=== PATIENT | female | born 1960 | race Caucasian/White ===

== ENCOUNTER 2021-09-26 10:59 | Inpatient (IN) | payer OTHER ==
[~2021-09-26] VITALS: Ht 157.5 cm; Wt 110.0 kg
[~2021-09-26 10:59] MED LIST: ACET500T68 PO; AMLO-187 PO; ASPI325T8 PO; CITA20TA6 PO; CLOP75TA PO; CRESTOR40 MG PO; GABA600T7 PO; GLIM4TAB8 PO; INSU100V6 SQ; INSU100V8 SQ; OMEG1CAP6 PO; PRED20TA PO
[2021-09-26] MEDS ORDERED: cefTRIAXone IV Push 1 GM VIAL. IVP ONE (11:30)
--- NOTE | 2021-09-26 11:33 | ED.ADGEN ---
Past Medical History Past Surgical History: Other Additional Past Surgical Histo: UNKNOWN Smoking Status: Former Smoker Alcohol Use: None General Adult EDM: Chief Complaint: SHORTNESS OF BREATH HPI: HPI: Patient is a 61-year-old female who arrives via EMS after being found at home short of breath. Patient is cared for by her daughter after having had a stroke 2 weeks previously. Patient does wear supplemental oxygen however she was found on the floor without her oxygen and did appear to be cyanotic. Patient states she does not feel well and remains short of breath. Patient also has evidence that she may have vomited during this time. Upon finding the patient blue, the daughter contacted EMS. The patient provides very little in the way of history otherwise. Review of Systems: Review of Systems: Constitutional: Denies fever or chills. [] Eyes: Denies change in visual acuity. [] HENT: Denies nasal congestion or sore throat. [] Respiratory: Reports shortness of air. Cardiovascular: Denies chest pain or edema. [] GI: Denies abdominal pain, nausea, vomiting, bloody stools or diarrhea. [] : Denies dysuria. [] Musculoskeletal: Denies back pain or joint pain. [] Integument: Denies rash. [] Neurologic: Denies headache, focal weakness or sensory changes. [] Endocrine: Denies polyuria or polydipsia. [] Lymphatic: Denies swollen glands. [] Psychiatric: Denies depression or anxiety. [] Current Medications: Current Medications Medications (Trade) Dose Ordered Sig/Jennifer Start Time Stop Time Status Last Admin Dose Admin Ceftriaxone Sodium (Rocephin) 1 gm 1X ONCE 09/26/21 11:30 09/26/21 11:31 DC Allergies: Allergies: Allergies Coded Allergies Type Severity Reaction Last Updated Verified No Known Drug Allergies 09/16/21 No Physical Exam: PE: Constitutional: Ill-appearing and debilitated. Well developed, well nourished, non-toxic appearance. [] HENT: Normocephalic, atraumatic, bilateral external ears normal, oropharynx moist, no oral exudates, nose normal. [] Eyes: PERRLA, EOMI, conjunctiva normal, no discharge. [] Neck: Normal range of motion, no tenderness, supple, no stridor. [] Cardiovascular: Tachycardia. no murmur [] Lungs & Thorax: Diminished breath sounds bilaterally. Bilateral breath sounds clear to auscultation [] Abdomen: Obese bowel sounds normal, soft, no tenderness, no masses, no pulsatile masses. [] Skin: Warm, dry, no erythema, no rash. [] Back: No tenderness, no CVA tenderness. [] Extremities: No tenderness, no cyanosis, no clubbing, ROM intact, no edema. [] Neurologic: Alert and oriented X 3, normal motor function, normal sensory function, no focal deficits noted. [] Psychologic: Affect normal, judgement normal, mood normal. [] EKG: EKG: [] EKG was obtained at 1110 reveals sinus tachycardia with a ventricular to 112 bpm. There are no acute ST/T wave changes to denote ischemia otherwise. Heart Score: C/O Chest Pain: N/A Risk Factors: Risk Factors: DM, Current or recent (<one month) smoker, HTN, HLP, family history of CAD, obesity. Risk Scores: Score 0 - 3: 2.5% MACE over next 6 weeks - Discharge Home Score 4 - 6: 20.3% MACE over next 6 weeks - Admit for Clinical Observation Score 7 - 10: 72.7% MACE over next 6 weeks - Early Invasive Strategies Radiology/Procedures: Radiology/Procedures: [] Course & Med Decision Making: Course & Med Decision Making Pertinent Labs and Imaging studies reviewed. (See chart for details) [] Dragon Disclaimer: Dragon Disclaimer: This electronic medical record was generated, in whole or in part, using a voice recognition dictation system. Departure Departure Referrals: LUZ KEN APRN (PCP) EVIE SIMEON DO Sep 26, 2021 11:33
--- NOTE | 2021-09-26 12:05 | RAD ---
XR CHEST 1V History: Reason: SOA / Spl. Instructions: / History: Comparison: September 15, 2021 Findings: Increased multifocal right lung consolidations. Patchy left lung opacities increased. Small right ple ural effusion. Unchanged heart size. No pneumothorax. Postop changes right proximal humerus. Impression: 1. Increased multifocal bone opacities with consolidations and/or atelectasis in the right mid and l ower lung. 2. Small right pleural effusion. Electronically signed by: Matthew Reynolds DO (09/26/2021 12:03 PM) [id number]
--- NOTE | 2021-09-26 12:17 | RAD ---
CT HEAD INDICATION: Altered mental status COMPARISON: 09/15/2021 Exposure: One or more of the following individualized dose reduction techniques were utilized for thi s examination: 1. Automated exposure control 2. Adjustment of the mA and/or kV according to patient size 3. Use of iterative reconstruction technique TECHNIQUE: 5 mm contiguous axial images were obtained from the skull base to the vertex in both bone and soft tissue algorithm. FINDINGS: Mild bilateral periventricular white matter hypodensities likely chronic small vessel ischemic diseas e. Small focus of hypodensity identified in the right occipital lobe in the parafalcine region simila r to prior exam likely old infarct. No evidence of acute intracranial hemorrhage. No extra-axial fluid collections. No mass effect or midline shift. Ventricular size is appropriate. Basal cisterns are patent. No fractures identified.Eden-white differentiation is preserved.Globes and orbits are within normal l imits. Mild mucosal thickening bilateral ethmoidal sinuses and right maxillary sinus.. IMPRESSION: 1. No acute intracranial findings. 2. Small focus of hypodensity identified in the right occipital lobe in the right parafalcine region similar to prior exam likely old infarct. Electronically signed by: Fernando Garcia MD (09/26/2021 12:14 PM) [id number]
[2021-09-26 12:28] LABS: INFLUENZA A PATIENT NEGATIVE (NEGATIVE); INFLUENZA B PATIENT NEGATIVE (NEGATIVE)
--- NOTE | 2021-09-26 12:47 | EKG ---
[facility] [address] [place] [address] Test Date: 2021-09-26 Test Time: 11:12:31 Pat Name: MARIA FERNANDA KEENAN Department: Room: Gender: F Endoscopy Tech: : 1960 Requested By: EVIE SIMEON Order Number: [id number] Reading MD: Kirt Knight MD Measurements Intervals [place] Rate: 112 P: 31 MA: 154 QRS: 17 QRSD: 82 T: 45 QT: 344 QTc: 471 Interpretive Statements SINUS TACHYCARDIA Electronically Signed On 10-03-2021 15:45:06 EXTERIOR WORK HELPER by Kirt Knight MD
[2021-09-26 13:06] LABS: CALCIUM 8.4 mg/dL (8.5-10.1); CREATININE 0.9 mg/dL (0.6-1.0); GFR 63.2; POTASSIUM 3.6 mmol/L (3.5-5.1)
[2021-09-26 13:10] LABS: ALBUMIN 2.6 g/dL (3.4-5.0); ALBUMIN/GLOBULIN RATIO 0.6 (1.0-1.7); TOTAL BILIRUBIN 0.3 mg/dL (0.2-1.0); TOTAL PROTEIN 6.7 g/dL (6.4-8.2)
[2021-09-26 13:11] LABS: BASO # 0.1 x10^3/uL (0.0-0.2); BASO % 1 % (0-3); EOS % 0 % (0-3); HEMATOCRIT 40.9 % (36.0-47.0); LYMPH # 0.5 x10^3/uL (1.0-4.8); LYMPH % 6 % (24-48); MEAN CORPUSCULAR HEMOGLOBIN 29 pg (25-35); MEAN CORPUSCULAR HGB CONC 32 g/dL (31-37); MEAN CORPUSCULAR VOLUME 91 fL (79-100); MONO # 1.2 x10^3/uL (0.0-1.1); MONO % 12 % (0-9); NEUT # 8.2 x10^3/uL (1.8-7.7); NEUT % 82 % (31-73); PLATELET COUNT 270 x10^3/uL (140-400); RED BLOOD COUNT 4.47 x10^6/uL (3.50-5.40); RED CELL DISTRIBUTION WIDTH 13.9 % (11.5-14.5)
[2021-09-26 13:21] LABS: BILIRUBIN,URINE NEGATIVE (NEG); CLARITY,URINE CLOUDY; COLOR,URINE YELLOW; NITRITE,URINE POSITIVE (NEG); PH,URINE 5.5 (<5.0-8.0); PROTEIN,URINE >=300 mg/dL (NEG-TRACE); UROBILINOGEN,URINE 0.2 mg/dL (0.2 mg/dL)
[2021-09-26] MEDS ORDERED: ELECTROLYTE (NON-ICU) PROTOCOL. MC PRN (13:30)
[2021-09-26] MEDS ORDERED: ZOLPIDEM 5 MG TABLET. PO PRN (13:30)
[2021-09-26] MEDS ORDERED: ACETAMINOPHEN 325 MG TABLET. PO PRN (13:30)
[2021-09-26] MEDS ORDERED: CALCIUM CARBONATE 500 MG TAB.CHEW PO PRN (13:30)
[2021-09-26] MEDS ORDERED: ONDANSETRON PF 4 MG/2 ML VIAL. IVP PRN ×2 (13:30)
[2021-09-26 13:31] LABS: BACTERIA,URINE MANY /HPF (0-FEW)
[2021-09-26] MEDS ORDERED: AMPICILLIN/SULBACTAM 3 GM in IV NORMAL SALINE 100ML 100 ML IV ONE (14:00)
[2021-09-26] MEDS: ASPIRIN 325 MG TABLET PO SCH (15:20)
[2021-09-26] MEDS: GABAPENTIN 300 MG CAPSULE. PO SCH ×2 (15:21→22:31)
[2021-09-26] MEDS: CLOPIDOGREL BISULFATE 75 MG TABLET PO SCH (15:22)
[2021-09-26] MEDS: HEPARIN for SUB-Q USE 5,000 UNIT/ML VIAL. SQ SCH ×2 (15:23→22:33)
[2021-09-26] MEDS: INSULIN LISPRO 300 UNITS/3 ML VIAL. SQ SCH ×2 (16:30→21:00)
[2021-09-26 19:50] VITALS: BP 140/67
[2021-09-26] MEDS ORDERED: INSULIN GLARGINE SYRINGE. SQ SCH (21:00)
[2021-09-26] MEDS: ATORVASTATIN CALCIUM 40 MG TABLET. PO SCH (21:00)
[2021-09-26 22:10] VITALS: BP 147/82
[2021-09-26] MEDS ORDERED: DEXTROSE 50% 25 GM / 50ML DISP.SYRIN. IV PRN (22:15)
[2021-09-26] MEDS: SENNOSIDES/DOCUSATE 8.6/50MG TABLET. PO SCH (22:31)
[2021-09-26] MEDS: CITALOPRAM 20 MG TABLET. PO SCH (22:32)
[2021-09-26] MEDS: DOXYCYCLINE HYCLATE 100 MG TABLET PO SCH (22:32)
[2021-09-27] MEDS ORDERED: INFLUENZA VAX SCREEN BY RX. MC PRN
--- NOTE | 2021-09-27 01:06 | PDOC1 ---
History and Physical Date of Service: DOS: DATE: 09/27/21 TIME: 00:58 Chief Complaint: Chief Complain: SOB History of Present Illness: HPI: Patient really provided no history, hpi from ED Patient is a 61-year-old female who arrives via EMS after being found at home short of breath. Patient is cared for by her daughter after having had a stroke 2 weeks previously. Patient does wear supplemental oxygen however she was found on the floor without her oxygen and did appear to be cyanotic. Patient states she does not feel well and remains short of breath. Patient also has evidence that she may have vomited during this time. Upon finding the patient blue, the daughter contacted EMS. The patient provides very little in the way of history otherwise. Know patient well with recent admission Past Medical/Surgical History: PMH/PSH: HTN, Diabetes Allergies: Allergies: Coded Allergies: No Known Drug Allergies (Unverified , 09/16/21) Family History: Family History: could not obtain from patient Social History: Social History: could not obtain Current Medications: Current Medications Current Medications Ceftriaxone Sodium (Rocephin) 1 gm 1X ONCE IVP Last administered on 09/26/21at 12:53; Start 09/26/21 at 11:30; Stop 09/26/21 at 11:31; Status DC Amlodipine Besylate (Norvasc) 10 mg DAILY PO Last administered on 09/26/21at 15:22; Start 09/26/21 at 14:00 Aspirin (Fabrice Aspirin) 325 mg DAILY PO Last administered on 09/26/21at 15:20; Start 09/26/21 at 14:00 Citalopram Hydrobromide (CeleXA) 20 mg HS PO Last administered on 09/26/21at 22:32; Start 09/26/21 at 21:00 Clopidogrel Bisulfate (Plavix) 75 mg DAILY PO Last administered on 09/26/21at 15:22; Start 09/26/21 at 14:00 Insulin Glargine (Lantus Syringe) 20 unit HS SQ ; Start 09/26/21 at 21:00 Insulin Human Lispro (HumaLOG) 8 units QIDACHS SQ ; Start 09/26/21 at 16:30 Gabapentin (Neurontin) 600 mg TID PO Last administered on 09/26/21at 22:31; Start 09/26/21 at 14:00 Atorvastatin Calcium (Lipitor) 80 mg QHS PO Last administered on 09/26/21at 21:00; Start 09/26/21 at 21:00 Ampicillin Sodium/ Sulbactam Sodium 3 gm/Sodium Chloride 100 ml @ 200 mls/hr 1X ONCE IV Last administered on 09/26/21at 15:22; Start 09/26/21 at 14:00; Stop 09/26/21 at 14:56; Status DC Doxycycline Hyclate (Vibra-Tab) 100 mg BID PO Last administered on 09/26/21at 22:32; Start 09/26/21 at 21:00 Ondansetron HCl (Zofran) 4 mg PRN Q8HRS PRN IVP NAUSEA/VOMITING; Start 09/26/21 at 13:30; Stop 09/27/21 at 13:29 Acetaminophen (Tylenol) 650 mg PRN Q4HRS PRN PO FEVER > 100.3'F; Start 09/26/21 at 13:30; Stop 09/27/21 at 13:29 Ondansetron HCl (Zofran) 4 mg PRN Q6HRS PRN IVP NAUSEA/VOMITING; Start 09/26/21 at 13:30 Calcium Carbonate/ Glycine (Tums) 500 mg PRN Q3HRS PRN PO UPSET STOMACH; Start 09/26/21 at 13:30 Zolpidem Tartrate (Ambien) 5 mg PRN QHS PRN PO INSOMNIA, MAY REPEAT IN 1HR; Start 09/26/21 at 13:30 Info (Non-Icu Electrolyte Protocol) 1 ea PRN DAILY PRN MC SEE COMMENTS; Start 09/26/21 at 13:30 Acetaminophen (Tylenol) 650 mg PRN Q6HRS PRN PO Headaches, Temp > 101.5F; Start 09/26/21 at 13:30 Senna/Docusate Sodium (Senna Plus) 1 tab BID PO Last administered on 09/26/21at 22:31; Start 09/26/21 at 21:00 Heparin Sodium (Porcine) (Heparin Sodium) 5,000 unit Q8HRS SQ Last administered on 09/26/21at 22:33; Start 09/26/21 at 14:00 Dextrose (Dextrose 50%-Water Syringe) 12.5 gm PRN Q15MIN PRN IV SEE COMMENTS; Start 09/26/21 at 22:15 Info (FLU VACCINE SCREEN per RX) 1 each PRN DAILY PRN MC SEE COMMENTS; Start 09/27/21 at 00:00 Active Scripts Active Prednisone 20 Mg Tablet 2 Tab PO DAILY 5 Days Amlodipine Besylate 10 Mg Tablet 10 Mg PO DAILY 30 Days Reported Acetaminophen 500 Mg Tablet 1 Tab PO PRN Q6HRS PRN 15 Days Aspirin 325 Mg Tablet 1 Tab PO DAILY Humalog (Insulin Lispro) 100 Unit/1 Ml Vial 8 Unit SQ QIDACHS Lantus (Insulin Glargine,Hum.rec.anlog) 100 Unit/1 Ml Vial 20 Unit SQ HS Citalopram Hbr (Citalopram Hydrobromide) 20 Mg Tablet 1 Tab PO HS Fish Oil 1,000 Mg Capsule ([place]-3 Fatty Acids/Fish Oil) 1 Each Capsule 1 Each PO BID Gabapentin 600 Mg Tablet 600 Mg PO TID Glimepiride 4 Mg Tablet 1 Tab PO BID Crestor (Rosuvastatin Calcium) 40 Mg Tablet 40 Mg PO HS Clopidogrel (Clopidogrel Bisulfate) 75 Mg Tablet 1 Tab PO DAILY ROS: Review of Systems Review of System difficult to obtain Physical Exam: Vital Signs: Vital Signs Date Time Temp Pulse Resp B/P (MAP) Pulse Ox O2 Delivery O2 Flow Rate FiO2 09/26/21 22:10 97.0 88 24 147/82 (103) 93 NonRebreather Mask 15.0 97.0 Physcial Exam: GEN: No apparent distress HEENT: Normal cephalic, atraumatic, external auditory canals are patent EYES: Extraocular muscles are intact, pupil are equally round and reactive to light and accommodation MUSCULOSKELETAL: Well developed , well nourished, good range of motion ENDOCRINE: No thyromegaly was palpated LYMPHATICS: No cervical chain or axillary nodes were noted HEMATOPOIETIC: No bruising NECK: Supple, no JVD, no thyromegaly was noted LUNGS: Clear to auscultation in all lung alvarez without rhonchi or wheezing HEART: RRR, S!, S2 present. Peripheral pulses intact, no obvious murmurs noted ABDOMEN: Soft, nontender. Positive bowel sounds, no organomegaly, normal antonino l sounds EXTREMITIES: Without clubbing, cyanosis, or edema. Pedal pulses intact. Negative Homans sign NEUROLOGIC: Normal speech and tone. A&O x 3, moves all extremities, no obvious focal deficits PSYCHIATRIC: Normal affect, normal mood. Stable SKIN: No ulcerations or rashes, good skin turgor, no jaundice VASCULAR: Good capillary refill, neurovascular bundle appears to be intact Labs: Labs: Laboratory Tests Test 09/26/21 11:35 09/26/21 12:30 09/26/21 13:04 09/26/21 16:50 Influenza Type A Antigen Negative (NEGATIVE) Influenza Type B Antigen Negative (NEGATIVE) White Blood Count 10.0 x10^3/uL (4.0-11.0) Red Blood Count 4.47 x10^6/uL (3.50-5.40) Hemoglobin 13.0 g/dL (12.0-15.5) Hematocrit 40.9 % (36.0-47.0) Mean Corpuscular Volume 91 fL (79-100) Mean Corpuscular Hemoglobin 29 pg (25-35) Mean Corpuscular Hemoglobin Concent 32 g/dL (31-37) Red Cell Distribution Width 13.9 % (11.5-14.5) Platelet Count 270 x10^3/uL (140-400) Neutrophils (%) (Auto) 82 % (31-73) Lymphocytes (%) (Auto) 6 % (24-48) Monocytes (%) (Auto) 12 % (0-9) Eosinophils (%) (Auto) 0 % (0-3) Basophils (%) (Auto) 1 % (0-3) Neutrophils # (Auto) 8.2 x10^3/uL (1.8-7.7) Lymphocytes # (Auto) 0.5 x10^3/uL (1.0-4.8) Monocytes # (Auto) 1.2 x10^3/uL (0.0-1.1) Eosinophils # (Auto) 0.0 x10^3/uL (0.0-0.7) Basophils # (Auto) 0.1 x10^3/uL (0.0-0.2) Sodium Level 142 mmol/L (136-145) Potassium Level 3.6 mmol/L (3.5-5.1) Chloride Level 102 mmol/L (98-107) Carbon Dioxide Level 32 mmol/L (21-32) Anion Gap 8 (6-14) Blood Urea Nitrogen 22 mg/dL (7-20) Creatinine 0.9 mg/dL (0.6-1.0) Estimated GFR (Cockcroft-Gault) 63.2 BUN/Creatinine Ratio 24 (6-20) Glucose Level 150 mg/dL (70-99) Lactic Acid Level 1.3 mmol/L (0.4-2.0) Calcium Level 8.4 mg/dL (8.5-10.1) Total Bilirubin 0.3 mg/dL (0.2-1.0) Aspartate Amino Transf (AST/SGOT) 14 U/L (15-37) Alanine Aminotransferase (ALT/SGPT) 33 U/L (14-59) Alkaline Phosphatase 98 U/L (46-116) Creatine Kinase 25 U/L (26-192) Troponin I High Sensitivity 26 ng/L (4-50) 76 ng/L (4-50) Total Protein 6.7 g/dL (6.4-8.2) Albumin 2.6 g/dL (3.4-5.0) Albumin/Globulin Ratio 0.6 (1.0-1.7) Lipase 112 U/L (73-393) Urine Collection Type Unknown Urine Color Yellow Urine Clarity Cloudy Urine pH 5.5 (<5.0-8.0) Urine Specific [place] 1.020 (1.000-1.030) Urine Protein >=300 mg/dL (NEG-TRACE) Urine Glucose (UA) Negative mg/dL (NEG) Urine Ketones (Stick) Negative mg/dL (NEG) Urine Blood Large (NEG) Urine Nitrite Positive (NEG) Urine Bilirubin Negative (NEG) Urine Urobilinogen Dipstick 0.2 mg/dL (0.2 mg/dL) Urine Leukocyte Esterase Moderate (NEG) Urine RBC 11-20 /HPF (0-2) Urine WBC 1-4 /HPF (0-4) Urine Squamous Epithelial Cells Mod /LPF Urine Bacteria Many /HPF (0-FEW) Urine Mucus Mod /LPF Test 09/26/21 17:50 09/26/21 22:11 Glucose (Fingerstick) 140 mg/dL (70-99) 87 mg/dL (70-99) Laboratory Tests Test 09/26/21 11:35 09/26/21 12:30 09/26/21 13:04 09/26/21 16:50 Influenza Type A Antigen Negative (NEGATIVE) Influenza Type B Antigen Negative (NEGATIVE) White Blood Count 10.0 x10^3/uL (4.0-11.0) Red Blood Count 4.47 x10^6/uL (3.50-5.40) Hemoglobin 13.0 g/dL (12.0-15.5) Hematocrit 40.9 % (36.0-47.0) Mean Corpuscular Volume 91 fL (79-100) Mean Corpuscular Hemoglobin 29 pg (25-35) Mean Corpuscular Hemoglobin Concent 32 g/dL (31-37) Red Cell Distribution Width 13.9 % (11.5-14.5) Platelet Count 270 x10^3/uL (140-400) Neutrophils (%) (Auto) 82 % (31-73) Lymphocytes (%) (Auto) 6 % (24-48) Monocytes (%) (Auto) 12 % (0-9) Eosinophils (%) (Auto) 0 % (0-3) Basophils (%) (Auto) 1 % (0-3) Neutrophils # (Auto) 8.2 x10^3/uL (1.8-7.7) Lymphocytes # (Auto) 0.5 x10^3/uL (1.0-4.8) Monocytes # (Auto) 1.2 x10^3/uL (0.0-1.1) Eosinophils # (Auto) 0.0 x10^3/uL (0.0-0.7) Basophils # (Auto) 0.1 x10^3/uL (0.0-0.2) Sodium Level 142 mmol/L (136-145) Potassium Level 3.6 mmol/L (3.5-5.1) Chloride Level 102 mmol/L (98-107) Carbon Dioxide Level 32 mmol/L (21-32) Anion Gap 8 (6-14) Blood Urea Nitrogen 22 mg/dL (7-20) Creatinine 0.9 mg/dL (0.6-1.0) Estimated GFR (Cockcroft-Gault) 63.2 BUN/Creatinine Ratio 24 (6-20) Glucose Level 150 mg/dL (70-99) Lactic Acid Level 1.3 mmol/L (0.4-2.0) Calcium Level 8.4 mg/dL (8.5-10.1) Total Bilirubin 0.3 mg/dL (0.2-1.0) Aspartate Amino Transf (AST/SGOT) 14 U/L (15-37) Alanine Aminotransferase (ALT/SGPT) 33 U/L (14-59) Alkaline Phosphatase 98 U/L (46-116) Creatine Kinase 25 U/L (26-192) Troponin I High Sensitivity 26 ng/L (4-50) 76 ng/L (4-50) Total Protein 6.7 g/dL (6.4-8.2) Albumin 2.6 g/dL (3.4-5.0) Albumin/Globulin Ratio 0.6 (1.0-1.7) Lipase 112 U/L (73-393) Urine Collection Type Unknown Urine Color Yellow Urine Clarity Cloudy Urine pH 5.5 (<5.0-8.0) Urine Specific [place] 1.020 (1.000-1.030) Urine Protein >=300 mg/dL (NEG-TRACE) Urine Glucose (UA) Negative mg/dL (NEG) Urine Ketones (Stick) Negative mg/dL (NEG) Urine Blood Large (NEG) Urine Nitrite Positive (NEG) Urine Bilirubin Negative (NEG) Urine Urobilinogen Dipstick 0.2 mg/dL (0.2 mg/dL) Urine Leukocyte Esterase Moderate (NEG) Urine RBC 11-20 /HPF (0-2) Urine WBC 1-4 /HPF (0-4) Urine Squamous Epithelial Cells Mod /LPF Urine Bacteria Many /HPF (0-FEW) Urine Mucus Mod /LPF Test 09/26/21 17:50 09/26/21 22:11 Glucose (Fingerstick) 140 mg/dL (70-99) 87 mg/dL (70-99) Assessment/Plan Assessment/Plan Acute hypoxic respiratory failure 2/2 pneumonia, covid vs bacterial (CAP vs HCAP?), HTN, Diabetes -recent admission for respiratory symptoms, completed covid treatment at that time -start broad abx for pneumonia, uansyn doxy -covid may still be contributing to presentation? -consult to pulmonary 0resume home neds as indicated -dvt prophylaxis -diabetic diet Justifications for Admission Other Justification SHABANA GARNETT MD Sep 27, 2021 01:05
--- NOTE | 2021-09-27 01:19 | NUR ---
PT'S O2 SATS ARE AROUND 82% ON NRM WHICH IS 15 LITERS. RT TORRES PLACED PT ON NC AT 10 LITERS PT O2 SATS NOW ARE 91-92%
[2021-09-27 03:25] VITALS: BP 155/87
[2021-09-27] MEDS: AMPICILLIN/SULBACTAM 3 GM in IV NORMAL SALINE 100ML 100 ML IV SCH ×3 (05:59→16:44)
[2021-09-27] MEDS: HEPARIN for SUB-Q USE 5,000 UNIT/ML VIAL. SQ SCH ×2 (06:11→12:57)
[2021-09-27 07:00] VITALS: BP 189/96
[2021-09-27] MEDS: INSULIN LISPRO 300 UNITS/3 ML VIAL. SQ SCH ×3 (07:30→16:45)
[2021-09-27] MEDS: ASPIRIN 325 MG TABLET PO SCH (08:42)
[2021-09-27] MEDS: GABAPENTIN 300 MG CAPSULE. PO SCH ×3 (08:42→21:00)
[2021-09-27] MEDS: CLOPIDOGREL BISULFATE 75 MG TABLET PO SCH (08:42)
[2021-09-27] MEDS: DOXYCYCLINE HYCLATE 100 MG TABLET PO SCH ×2 (08:42→21:00)
[2021-09-27] MEDS: SENNOSIDES/DOCUSATE 8.6/50MG TABLET. PO SCH ×2 (08:42→21:00)
--- NOTE | 2021-09-27 10:42 | PDOC ---
[employer] PROGRESS NOTE Date of Service DOS: DATE: 09/27/21 TIME: 10:41 Chief Complaint Chief Complaint A/P: Acute hypoxic respiratory failure - seems to be bacterial secondary post-viral pneumonia vs persistent COVID 19 pneumonia Acute metabolic encephalopathy - due to hypoxia, will check ABG to r/o CO2 retention Obesity. Minimal tobacco history. COVID positive on 09/15/2021 DM2 - sliding scale, reduce while taking little PO HTN - prn hydralazine FEN - ADA PPX - lovenox FULL CODE Dispo - inpatient History of Present Illness History of Present Illness Ms Grigsby is a 61-year-old female w/ past medical history of diabetes mellitus type 2, dyslipidemia, recent history of CVA/TIA who comes in found down and hypoxic. Patient was found to be Covid positive on 09/15/2021 on lab results here at [facility]. Currently denies any fevers, shortness of breath or chest pain or diarrhea or dysuria. Chest x-ray revealed consolidation in the right middle and right lower lobe. Admitted with pulmonology consultation. 09/27: Patient normally wears home O2 at 2 L nasal cannula now requiring facemask O2 15l/min. She is very drowsy and cannot contribute to history today. Vitals/I&O Vitals/I&O: Vital Signs Date Time Temp Pulse Resp B/P (MAP) Pulse Ox O2 Delivery O2 Flow Rate FiO2 09/27/21 08:43 107 155/87 09/27/21 08:00 Non-Rebreather 15.0 09/27/21 07:00 99.0 24 94 99.0 I & O 09/26/21 09/26/21 09/27/21 15:00 23:00 07:00 Intake Total 100 ml 50 ml Output Total 400 ml Balance 100 ml -350 ml Physical Exam Lungs: Wheezing, Crackles Labs Labs: Laboratory Tests Test 09/26/21 11:35 09/26/21 12:30 09/26/21 13:04 09/26/21 16:50 Influenza Type A Antigen Negative (NEGATIVE) Influenza Type B Antigen Negative (NEGATIVE) White Blood Count 10.0 x10^3/uL (4.0-11.0) Red Blood Count 4.47 x10^6/uL (3.50-5.40) Hemoglobin 13.0 g/dL (12.0-15.5) Hematocrit 40.9 % (36.0-47.0) Mean Corpuscular Volume 91 fL (79-100) Mean Corpuscular Hemoglobin 29 pg (25-35) Mean Corpuscular Hemoglobin Concent 32 g/dL (31-37) Red Cell Distribution Width 13.9 % (11.5-14.5) Platelet Count 270 x10^3/uL (140-400) Neutrophils (%) (Auto) 82 % (31-73) Lymphocytes (%) (Auto) 6 % (24-48) Monocytes (%) (Auto) 12 % (0-9) Eosinophils (%) (Auto) 0 % (0-3) Basophils (%) (Auto) 1 % (0-3) Neutrophils # (Auto) 8.2 x10^3/uL (1.8-7.7) Lymphocytes # (Auto) 0.5 x10^3/uL (1.0-4.8) Monocytes # (Auto) 1.2 x10^3/uL (0.0-1.1) Eosinophils # (Auto) 0.0 x10^3/uL (0.0-0.7) Basophils # (Auto) 0.1 x10^3/uL (0.0-0.2) Sodium Level 142 mmol/L (136-145) Potassium Level 3.6 mmol/L (3.5-5.1) Chloride Level 102 mmol/L (98-107) Carbon Dioxide Level 32 mmol/L (21-32) Anion Gap 8 (6-14) Blood Urea Nitrogen 22 mg/dL (7-20) Creatinine 0.9 mg/dL (0.6-1.0) Estimated GFR (Cockcroft-Gault) 63.2 BUN/Creatinine Ratio 24 (6-20) Glucose Level 150 mg/dL (70-99) Lactic Acid Level 1.3 mmol/L (0.4-2.0) Calcium Level 8.4 mg/dL (8.5-10.1) Total Bilirubin 0.3 mg/dL (0.2-1.0) Aspartate Amino Transf (AST/SGOT) 14 U/L (15-37) Alanine Aminotransferase (ALT/SGPT) 33 U/L (14-59) Alkaline Phosphatase 98 U/L (46-116) Creatine Kinase 25 U/L (26-192) Troponin I High Sensitivity 26 ng/L (4-50) 76 ng/L (4-50) Total Protein 6.7 g/dL (6.4-8.2) Albumin 2.6 g/dL (3.4-5.0) Albumin/Globulin Ratio 0.6 (1.0-1.7) Lipase 112 U/L (73-393) Urine Collection Type Unknown Urine Color Yellow Urine Clarity Cloudy Urine pH 5.5 (<5.0-8.0) Urine Specific [place] 1.020 (1.000-1.030) Urine Protein >=300 mg/dL (NEG-TRACE) Urine Glucose (UA) Negative mg/dL (NEG) Urine Ketones (Stick) Negative mg/dL (NEG) Urine Blood Large (NEG) Urine Nitrite Positive (NEG) Urine Bilirubin Negative (NEG) Urine Urobilinogen Dipstick 0.2 mg/dL (0.2 mg/dL) Urine Leukocyte Esterase Moderate (NEG) Urine RBC 11-20 /HPF (0-2) Urine WBC 1-4 /HPF (0-4) Urine Squamous Epithelial Cells Mod /LPF Urine Bacteria Many /HPF (0-FEW) Urine Mucus Mod /LPF Test 09/26/21 17:50 09/26/21 22:11 09/27/21 08:05 Glucose (Fingerstick) 140 mg/dL (70-99) 87 mg/dL (70-99) 72 mg/dL (70-99) Comment Review of Relevant I have reviewed the following items zoë (where applicable) has been applied. Medications: Current Medications Medications (Trade) Dose Ordered Sig/Jennifer Route PRN Reason Start Time Stop Time Status Last Admin Dose Admin Ceftriaxone Sodium (Rocephin) 1 gm 1X ONCE IVP 09/26/21 11:30 09/26/21 11:31 DC 09/26/21 12:53 Amlodipine Besylate (Norvasc) 10 mg DAILY PO 09/26/21 14:00 09/27/21 08:43 Aspirin (Fabrice Aspirin) 325 mg DAILY PO 09/26/21 14:00 09/27/21 08:42 Citalopram Hydrobromide (CeleXA) 20 mg HS PO 09/26/21 21:00 09/26/21 22:32 Clopidogrel Bisulfate (Plavix) 75 mg DAILY PO 09/26/21 14:00 09/27/21 08:42 Gabapentin (Neurontin) 600 mg TID PO 09/26/21 14:00 09/27/21 08:42 Atorvastatin Calcium (Lipitor) 80 mg QHS PO 09/26/21 21:00 09/26/21 21:00 Ampicillin Sodium/ Sulbactam Sodium 3 gm/Sodium Chloride 100 ml @ 200 mls/hr 1X ONCE IV 09/26/21 14:00 09/26/21 14:56 DC 09/26/21 15:22 Doxycycline Hyclate (Vibra-Tab) 100 mg BID PO 09/26/21 21:00 09/27/21 08:42 Senna/Docusate Sodium (Senna Plus) 1 tab BID PO 09/26/21 21:00 09/27/21 08:42 Heparin Sodium (Porcine) (Heparin Sodium) 5,000 unit Q8HRS SQ 09/26/21 14:00 09/27/21 06:11 Ampicillin Sodium/ Sulbactam Sodium 3 gm/Sodium Chloride 100 ml @ 200 mls/hr Q6HRS IV 09/27/21 06:00 09/27/21 05:59 Justifications for Admission Other Justification SHABANA TY MD Sep 27, 2021 10:42
[2021-09-27 11:00] VITALS: BP 187/85
--- NOTE | 2021-09-27 11:13 | CONS ---
DATE OF CONSULTATION: 09/27/2021 PULMONARY CONSULTATION ATTENDING PHYSICIAN: Theron Bruner MD. REASON FOR CONSULTATION: Respiratory failure, pneumonia. HISTORY OF PRESENT ILLNESS: The patient is a 61-year-old female who has no significant tobacco history. The patient was hospitalized as she was noted to have shortness of breath. The patient also has a cough. Denies any chest pain. Denies any abdominal pain. No nausea, vomiting or diarrhea. The patient noted a fever of 99.9. The patient was seen in the Emergency Room. A chest x-ray revealed consolidation in the right middle and right lower lobe. There may be tiny pleural effusion. The patient was COVID positive on the 6th. She was in the hospital at that time. The patient normally wears home oxygen at 2 liters. She is currently requiring oxygen via nonrebreather mask at 15 liters. I have been asked to see her for further evaluation. PAST MEDICAL HISTORY: Significant for history of diabetes and hypertension. PAST SURGICAL HISTORY: No recent surgeries. ALLERGIES: None. MEDICATIONS: Reviewed as listed in the MRAD including antibiotics as well as heparin for DVT prophylaxis. REVIEW OF SYSTEMS: Twelve-point review of system obtained. Pertinent positives discussed in my present illness, otherwise noncontributory. All systems that were negative were reviewed as well. SOCIAL HISTORY: She has minimal tobacco. FAMILY HISTORY: Noncontributory to lungs. PHYSICAL EXAMINATION: VITAL SIGNS: Reviewed. Pulse ox is 94%, currently on nonrebreather mask. T-max of 99.9. GENERAL: Visual exam done due to COVID-19. No paradoxical breathing. She is comfortable. She is obese. EXTREMITIES: With trace leg edema. LABORATORY DATA: Reviewed. Influenza negative. Her chemistry shows a BUN of 22, creatinine 0.9. White cell count 10.0, hemoglobin 13.0, platelets 270. IMPRESSION: 1. Acute hypoxic respiratory failure in a patient who was diagnosed with COVID-19 on 09/15/2021. She now has consolidation in the right middle and right lower lobe. The possibility of superimposed bacterial pneumonia would be a consideration. 2. Underlying obesity. 3. Minimal tobacco history. 4. Abnormal chest x-ray as discussed above. 5. COVID positive on 09/15/2021. RECOMMENDATIONS: 1. Continue present oxygen and closely monitor her respiratory status. 2. We will also consider a CT chest if there is no radiographic improvement. This consolidation has occurred as a new finding since the 09/15 chest x-ray and likely an infectious etiology. 3. Continue present empiric antibiotic. 4. Continue with heparin for DVT prophylaxis. 5. Monitor the clinical course. 6. Discussed with RN. We will follow along with you. RAYMOND DR: Raquel TID: [id number]
[2021-09-27] MEDS ORDERED: POTASSIUM CL 20MEQ D5-0.45NACL 1,000 ML IV ONE (12:00)
--- NOTE | 2021-09-27 14:37 | NUR ---
SS following for discharge planning. SS reviewed pt chart and discussed with pt RN. Pt is from home with spouse and is currently requiring oxygen at 15 liters non-rebreather and 10 liters nasal canula. COVID19 positive. Pt on IV Ampicillin. Not ready. SS will continue to follow for discharge planning.
[2021-09-27 15:00] VITALS: BP 194/78
[2021-09-27 16:08] LABS: BASE EXCESS COOX 9 mmol/L (-3-3); HCO3 COOX 38 mmol/L (21-28); METHEMOGLOBIN 0.4 % (0.0-1.9); OXYHEMOGLOBIN 87.4 %; PCO2 COOX 73 mmHg (35-46); PO2 COOX 58 mmHg (65-108); SAT O2 COOX 88 % (92-99)
[2021-09-27 19:00] VITALS: BP 121/67
[2021-09-27] MEDS: ATORVASTATIN CALCIUM 40 MG TABLET. PO SCH (21:00)
[2021-09-27] MEDS: CITALOPRAM 20 MG TABLET. PO SCH (21:00)
[2021-09-27] MEDS: INSULIN GLARGINE SYRINGE. SQ SCH (21:00)
[2021-09-27] MEDS: LACTOBACILLUS RHAMNOSUS GG 1 CAPSULE. PO SCH (21:00)
[2021-09-27 23:00] VITALS: BP 150/69
[2021-09-28] MEDS: AMPICILLIN/SULBACTAM 3 GM in IV NORMAL SALINE 100ML 100 ML IV SCH ×4 (01:20→16:33)
[2021-09-28] MEDS: HEPARIN for SUB-Q USE 5,000 UNIT/ML VIAL. SQ SCH ×4 (01:22→21:11)
[2021-09-28 03:00] VITALS: BP 134/73
[2021-09-28 04:43] LABS: BASO % 1 % (0-3); EOS % 1 % (0-3); HEMATOCRIT 39.4 % (36.0-47.0); HEMOGLOBIN 12.6 g/dL (12.0-15.5); LYMPH # 0.6 x10^3/uL (1.0-4.8); LYMPH % 9 % (24-48); MEAN CORPUSCULAR HEMOGLOBIN 30 pg (25-35); MEAN CORPUSCULAR HGB CONC 32 g/dL (31-37); MEAN CORPUSCULAR VOLUME 92 fL (79-100); MONO # 0.7 x10^3/uL (0.0-1.1); MONO % 10 % (0-9); NEUT % 79 % (31-73); PLATELET COUNT 222 x10^3/uL (140-400); RED BLOOD COUNT 4.27 x10^6/uL (3.50-5.40); RED CELL DISTRIBUTION WIDTH 14.6 % (11.5-14.5); WHITE BLOOD COUNT 6.4 x10^3/uL (4.0-11.0)
[2021-09-28 05:10] LABS: ALBUMIN 2.2 g/dL (3.4-5.0); ALBUMIN/GLOBULIN RATIO 0.6 (1.0-1.7); CREATININE 0.9 mg/dL (0.6-1.0); GFR 63.2; POTASSIUM 3.9 mmol/L (3.5-5.1); TOTAL BILIRUBIN 0.2 mg/dL (0.2-1.0); TOTAL PROTEIN 6.1 g/dL (6.4-8.2)
[2021-09-28 07:00] VITALS: BP 157/68
[2021-09-28] MEDS: INSULIN LISPRO 300 UNITS/3 ML VIAL. SQ SCH ×3 (08:00→16:39)
[2021-09-28] MEDS: LACTOBACILLUS RHAMNOSUS GG 1 CAPSULE. PO SCH ×2 (08:58→21:09)
[2021-09-28] MEDS: SENNOSIDES/DOCUSATE 8.6/50MG TABLET. PO SCH ×2 (08:59→21:00)
[2021-09-28] MEDS: ASPIRIN 325 MG TABLET PO SCH (08:59)
[2021-09-28] MEDS: GABAPENTIN 300 MG CAPSULE. PO SCH ×3 (08:59→21:10)
[2021-09-28] MEDS: CLOPIDOGREL BISULFATE 75 MG TABLET PO SCH (08:59)
[2021-09-28] MEDS: DOXYCYCLINE HYCLATE 100 MG TABLET PO SCH ×2 (08:59→21:09)
[2021-09-28 11:00] VITALS: BP 146/67
--- NOTE | 2021-09-28 11:27 | PDOC ---
[employer] PROGRESS NOTE Date of Service DOS: DATE: 09/28/21 TIME: 11:26 Chief Complaint Chief Complaint A/P: Acute hypoxic respiratory failure - seems to be bacterial secondary post-viral pneumonia vs persistent COVID 19 pneumonia Acute metabolic encephalopathy - due to hypoxia, will check ABG to r/o CO2 retention Obesity. Minimal tobacco history. COVID positive on 09/15/2021 DM2 - sliding scale, reduce while taking little PO HTN - prn hydralazine FEN - ADA PPX - lovenox FULL CODE Dispo - inpatient History of Present Illness History of Present Illness Ms Grigsby is a 61-year-old female w/ past medical history of diabetes mellitus type 2, dyslipidemia, recent history of CVA/TIA who comes in found down and hypoxic. Patient was found to be Covid positive on 09/15/2021 on lab results here at [facility]. Currently denies any fevers, shortness of breath or chest pain or diarrhea or dysuria. Chest x-ray revealed consolidation in the right middle and right lower lobe. Admitted with pulmonology consultation. 09/27: Patient normally wears home O2 at 2 L nasal cannula now requiring facemask O2 15l/min. She is very drowsy and cannot contribute to history today. 09/28: ABG 7.3 3/58 placed on BiPAP overnight with good improvement in her mental status. She feels a little better today still on 10 L/min facemask O2 with saturations 96%. She has a good appetite is eating breakfast. Preliminary blood cultures 1 out of 4 positive GPC, urine culture preliminary E. coli. Vitals/I&O Vitals/I&O: Vital Signs Date Time Temp Pulse Resp B/P (MAP) Pulse Ox O2 Delivery O2 Flow Rate FiO2 09/28/21 08:59 82 134/73 09/28/21 08:00 Nasal Cannula 10.0 09/28/21 07:19 97 09/28/21 07:00 97.2 18 97.2 I & O 09/27/21 09/27/21 09/28/21 15:00 23:00 07:00 Intake Total 400 ml 1250 ml Output Total 575 ml 400 ml Balance 400 ml -575 ml 850 ml Physical Exam General: Alert, Cooperative, moderate distress Lungs: Wheezing, Crackles Labs Labs: Laboratory Tests Test 09/27/21 11:42 09/27/21 11:50 09/27/21 16:07 09/27/21 16:40 Glucose (Fingerstick) 78 mg/dL (70-99) 96 mg/dL (70-99) SARS-CoV-2 RNA (IFRAH) Positive (Negative) O2 Saturation 88 % (92-99) Arterial Blood pH 7.33 (7.35-7.45) Arterial Blood pCO2 at Patient Temp 73 mmHg (35-46) Arterial Blood pO2 at Patient Temp 58 mmHg (65-108) Arterial Blood HCO3 38 mmol/L (21-28) Arterial Blood Base Excess 9 mmol/L (-3-3) Oxyhemoglobin 87.4 % Methemoglobin 0.4 % (0.0-1.9) Carbon Monoxide, Quantitative 0.3 % (0.0-1.9) FiO2 100% 15lnc+15lnrb Test 09/27/21 20:40 09/28/21 03:50 09/28/21 08:14 Glucose (Fingerstick) 87 mg/dL (70-99) 82 mg/dL (70-99) White Blood Count 6.4 x10^3/uL (4.0-11.0) Red Blood Count 4.27 x10^6/uL (3.50-5.40) Hemoglobin 12.6 g/dL (12.0-15.5) Hematocrit 39.4 % (36.0-47.0) Mean Corpuscular Volume 92 fL (79-100) Mean Corpuscular Hemoglobin 30 pg (25-35) Mean Corpuscular Hemoglobin Concent 32 g/dL (31-37) Red Cell Distribution Width 14.6 % (11.5-14.5) Platelet Count 222 x10^3/uL (140-400) Neutrophils (%) (Auto) 79 % (31-73) Lymphocytes (%) (Auto) 9 % (24-48) Monocytes (%) (Auto) 10 % (0-9) Eosinophils (%) (Auto) 1 % (0-3) Basophils (%) (Auto) 1 % (0-3) Neutrophils # (Auto) 5.0 x10^3/uL (1.8-7.7) Lymphocytes # (Auto) 0.6 x10^3/uL (1.0-4.8) Monocytes # (Auto) 0.7 x10^3/uL (0.0-1.1) Eosinophils # (Auto) 0.0 x10^3/uL (0.0-0.7) Basophils # (Auto) 0.0 x10^3/uL (0.0-0.2) Sodium Level 144 mmol/L (136-145) Potassium Level 3.9 mmol/L (3.5-5.1) Chloride Level 103 mmol/L (98-107) Carbon Dioxide Level 34 mmol/L (21-32) Anion Gap 7 (6-14) Blood Urea Nitrogen 19 mg/dL (7-20) Creatinine 0.9 mg/dL (0.6-1.0) Estimated GFR (Cockcroft-Gault) 63.2 BUN/Creatinine Ratio 21 (6-20) Glucose Level 86 mg/dL (70-99) Calcium Level 8.0 mg/dL (8.5-10.1) Total Bilirubin 0.2 mg/dL (0.2-1.0) Aspartate Amino Transf (AST/SGOT) 19 U/L (15-37) Alanine Aminotransferase (ALT/SGPT) 20 U/L (14-59) Alkaline Phosphatase 72 U/L (46-116) Total Protein 6.1 g/dL (6.4-8.2) Albumin 2.2 g/dL (3.4-5.0) Albumin/Globulin Ratio 0.6 (1.0-1.7) Comment Review of Relevant I have reviewed the following items zoë (where applicable) has been applied. Medications: Current Medications Medications (Trade) Dose Ordered Sig/Jennifer Route PRN Reason Start Time Stop Time Status Last Admin Dose Admin Potassium Chloride/Dextrose/ Sod Cl 1,000 ml @ 75 mls/hr [id number] ONCE IV 09/27/21 12:00 09/28/21 01:19 DC 09/27/21 11:59 Lactobacillus Rhamnosus (Culturelle) 1 cap BID PO 09/27/21 21:00 09/28/21 08:58 Justifications for Admission Other Justification SHABANA TY MD Sep 28, 2021 11:27
--- NOTE | 2021-09-28 14:11 | NUR ---
SS following up with discharge planning. SS reviewed pt chart and discussed with pt RN. Pt is currently requiring BIPAP at 80% and 10 liters nasal canula with meals. COVID19 positive. Pt on IV Ampicillin and PO Doxycycline. Not ready. Pt's daughter contacted SS and requested DPOA paperwork. SS met with pt and discussed. Pt not feeling well enough to complete DPOA paperwork but did request that her daughter, Myra, , be pt's primary designated contact for the hospital updates. Pt requested that her code be changed and only be given to her daughter Myra. Pt's RN notified. Pt's daughter also reported that pt's home recently had carbon monoxide leak and requested call from RN or physician to discuss. Physician notified. SS will continue to follow for discharge planning.
[2021-09-28 15:00] VITALS: BP 203/71
[2021-09-28] MEDS: ACETAMINOPHEN 325 MG TABLET. PO PRN ×2 (17:17→21:08)
[2021-09-28] MEDS: hydrALAZINE 20 MG/ML VIAL. IVP PRN (17:39)
[2021-09-28 19:31] VITALS: BP 176/74
[2021-09-28] MEDS: ATORVASTATIN CALCIUM 40 MG TABLET. PO SCH (21:09)
[2021-09-28] MEDS: CITALOPRAM 20 MG TABLET. PO SCH (21:09)
[2021-09-28] MEDS: INSULIN GLARGINE SYRINGE. SQ SCH (21:10)
[2021-09-28 22:52] VITALS: BP 143/63
[2021-09-29] MEDS: AMPICILLIN/SULBACTAM 3 GM in IV NORMAL SALINE 100ML 100 ML IV SCH ×4 (00:21→16:27)
[2021-09-29 02:59] VITALS: BP 179/79
[2021-09-29] MEDS: HEPARIN for SUB-Q USE 5,000 UNIT/ML VIAL. SQ SCH ×3 (06:16→22:06)
[2021-09-29 07:00] VITALS: BP 157/78
[2021-09-29] MEDS: CLOPIDOGREL BISULFATE 75 MG TABLET PO SCH (08:17)
[2021-09-29] MEDS: LACTOBACILLUS RHAMNOSUS GG 1 CAPSULE. PO SCH ×2 (08:17→22:04)
[2021-09-29] MEDS: DOXYCYCLINE HYCLATE 100 MG TABLET PO SCH ×2 (08:17→22:05)
[2021-09-29] MEDS: GABAPENTIN 300 MG CAPSULE. PO SCH ×3 (08:18→22:04)
[2021-09-29] MEDS: INSULIN LISPRO 300 UNITS/3 ML VIAL. SQ SCH ×3 (08:19→16:39)
[2021-09-29] MEDS: ASPIRIN 325 MG TABLET PO SCH (08:19)
[2021-09-29] MEDS: SENNOSIDES/DOCUSATE 8.6/50MG TABLET. PO SCH ×2 (08:20→22:05)
--- NOTE | 2021-09-29 08:31 | RAD ---
XR CHEST 1V History: Reason: PNA/COVID / Spl. Instructions: / History: Comparison: September 26, 2021 Findings: Improved aeration of the right lung. Increased diffuse interstitial thickening and ill-defined opacit ies. Small bilateral pleural effusions. Unchanged heart size. Postop changes right proximal humerus. No pneumothorax. Impression: 1. Improved aeration of the right mid lung. 2. Increased additional interstitial thickening and ill-defined opacities bilaterally most prominent within the lung bases. 3. Small bilateral pleural effusions. Electronically signed by: Matthew Reynolds DO (09/29/2021 8:28 AM) [id number]
[2021-09-29 11:00] VITALS: BP 149/66
--- NOTE | 2021-09-29 11:33 | PDOC ---
PULMONARY PROGRESS NOTES DATE: 09/29/21 TIME: 11:32 Subjective Patient sleepy. Patient off the BiPAP, now on 10 L high flow cannula Vitals Vital Signs Date Time Temp Pulse Resp B/P (MAP) Pulse Ox O2 Delivery O2 Flow Rate FiO2 09/29/21 08:18 94 157/78 09/29/21 08:00 Nasal Cannula 10.0 09/29/21 07:00 99.3 20 95 99.3 Comments Visual exam done due to COVID-19. No paradoxical breathing no skin rash. No leg edema Labs Laboratory Tests Test 09/27/21 11:42 09/27/21 11:50 09/27/21 16:07 09/27/21 16:40 Glucose (Fingerstick) 78 mg/dL (70-99) 96 mg/dL (70-99) SARS-CoV-2 RNA (IFRAH) Positive (Negative) O2 Saturation 88 % (92-99) Arterial Blood pH 7.33 (7.35-7.45) Arterial Blood pCO2 at Patient Temp 73 mmHg (35-46) Arterial Blood pO2 at Patient Temp 58 mmHg (65-108) Arterial Blood HCO3 38 mmol/L (21-28) Arterial Blood Base Excess 9 mmol/L (-3-3) Oxyhemoglobin 87.4 % Methemoglobin 0.4 % (0.0-1.9) Carbon Monoxide, Quantitative 0.3 % (0.0-1.9) FiO2 100% 15lnc+15lnrb Test 09/27/21 20:40 09/28/21 03:50 09/28/21 08:14 09/28/21 11:55 Glucose (Fingerstick) 87 mg/dL (70-99) 82 mg/dL (70-99) 142 mg/dL (70-99) White Blood Count 6.4 x10^3/uL (4.0-11.0) Red Blood Count 4.27 x10^6/uL (3.50-5.40) Hemoglobin 12.6 g/dL (12.0-15.5) Hematocrit 39.4 % (36.0-47.0) Mean Corpuscular Volume 92 fL (79-100) Mean Corpuscular Hemoglobin 30 pg (25-35) Mean Corpuscular Hemoglobin Concent 32 g/dL (31-37) Red Cell Distribution Width 14.6 % (11.5-14.5) Platelet Count 222 x10^3/uL (140-400) Neutrophils (%) (Auto) 79 % (31-73) Lymphocytes (%) (Auto) 9 % (24-48) Monocytes (%) (Auto) 10 % (0-9) Eosinophils (%) (Auto) 1 % (0-3) Basophils (%) (Auto) 1 % (0-3) Neutrophils # (Auto) 5.0 x10^3/uL (1.8-7.7) Lymphocytes # (Auto) 0.6 x10^3/uL (1.0-4.8) Monocytes # (Auto) 0.7 x10^3/uL (0.0-1.1) Eosinophils # (Auto) 0.0 x10^3/uL (0.0-0.7) Basophils # (Auto) 0.0 x10^3/uL (0.0-0.2) Sodium Level 144 mmol/L (136-145) Potassium Level 3.9 mmol/L (3.5-5.1) Chloride Level 103 mmol/L (98-107) Carbon Dioxide Level 34 mmol/L (21-32) Anion Gap 7 (6-14) Blood Urea Nitrogen 19 mg/dL (7-20) Creatinine 0.9 mg/dL (0.6-1.0) Estimated GFR (Cockcroft-Gault) 63.2 BUN/Creatinine Ratio 21 (6-20) Glucose Level 86 mg/dL (70-99) Calcium Level 8.0 mg/dL (8.5-10.1) Total Bilirubin 0.2 mg/dL (0.2-1.0) Aspartate Amino Transf (AST/SGOT) 19 U/L (15-37) Alanine Aminotransferase (ALT/SGPT) 20 U/L (14-59) Alkaline Phosphatase 72 U/L (46-116) Total Protein 6.1 g/dL (6.4-8.2) Albumin 2.2 g/dL (3.4-5.0) Albumin/Globulin Ratio 0.6 (1.0-1.7) Test 09/28/21 16:37 09/28/21 21:01 09/29/21 07:49 Glucose (Fingerstick) 178 mg/dL (70-99) 149 mg/dL (70-99) 153 mg/dL (70-99) Laboratory Tests Test 09/28/21 11:55 09/28/21 16:37 09/28/21 21:01 09/29/21 07:49 Glucose (Fingerstick) 142 mg/dL (70-99) 178 mg/dL (70-99) 149 mg/dL (70-99) 153 mg/dL (70-99) Medications Active Scripts Medications Dose Route/Sig Max Daily Dose Days Date Category Prednisone 20 Mg Tablet 2 Tab PO DAILY 5 09/20/21 Rx Amlodipine Besylate 10 Mg Tablet 10 Mg PO DAILY 30 09/20/21 Rx Acetaminophen 500 Mg Tablet 1 Tab PO PRN Q6HRS PRN 15 09/17/21 Reported Aspirin 325 Mg Tablet 1 Tab PO DAILY 09/17/21 Reported Humalog (Insulin Lispro) 100 Unit/1 Ml Vial 8 Unit SQ QIDACHS 09/17/21 Reported Lantus (Insulin Glargine,Hum.rec.anlog) 100 Unit/1 Ml Vial 20 Unit SQ HS 09/17/21 Reported Citalopram Hbr (Citalopram Hydrobromide) 20 Mg Tablet 1 Tab PO HS 09/17/21 Reported Fish Oil 1,000 Mg Capsule ([place]-3 Fatty Acids/Fish Oil) 1 Each Capsule 1 Each PO BID 09/17/21 Reported Gabapentin 600 Mg Tablet 600 Mg PO TID 09/17/21 Reported Glimepiride 4 Mg Tablet 1 Tab PO BID 09/17/21 Reported Crestor (Rosuvastatin Calcium) 40 Mg Tablet 40 Mg PO HS 09/17/21 Reported Clopidogrel (Clopidogrel Bisulfate) 75 Mg Tablet 1 Tab PO DAILY 09/17/21 Reported Impression . 1. Acute hypoxic respiratory failure in a patient who was diagnosed with COVID-19 on 09/15/2021. She now has consolidation in the right middle and right lower lobe. The possibility of superimposed bacterial pneumonia would be a consideration. 2. Underlying obesity. 3. Minimal tobacco history. 4. Abnormal chest x-ray as discussed above. 5. COVID positive on 09/15/2021. Plan . RECOMMENDATIONS: 1. Continue present oxygen and closely monitor her respiratory status. 2. Chest x-ray reviewed 09/29. Improved aeration of the right lung. 3. Continue present empiric antibiotic. 4. Continue with heparin for DVT prophylaxis. 5. Monitor the clinical course. 6. Discussed with RN. We will follow along with you. STAS GOODMAN MD Sep 29, 2021 11:33
--- NOTE | 2021-09-29 14:29 | NUR ---
SS following up with discharge planning. SS reviewed pt chart and discussed with pt RN. Pt is currently requiring BIPAP at 90% and 10 liters nasal canula as tolerated. COVID19 positive. Pt on IV Ampicillin and PO Doxycycline. Not ready. SS will continue to follow for discharge planning.
[2021-09-29 15:00] VITALS: BP 196/84
--- NOTE | 2021-09-29 15:57 | PDOC ---
[employer] PROGRESS NOTE Date of Service DOS: DATE: 09/29/21 TIME: 15:56 Chief Complaint Chief Complaint A/P: Acute hypoxic respiratory failure - seems to be bacterial secondary post-viral pneumonia vs persistent COVID 19 pneumonia Acute metabolic encephalopathy - due to hypoxia, will check ABG to r/o CO2 retention Obesity. Minimal tobacco history. COVID positive on 09/15/2021 DM2 - sliding scale, reduce while taking little PO HTN - prn hydralazine FEN - ADA PPX - lovenox FULL CODE Dispo - inpatient History of Present Illness History of Present Illness Ms Grigsby is a 61-year-old female w/ past medical history of diabetes mellitus type 2, dyslipidemia, recent history of CVA/TIA who comes in found down and hypoxic. Patient was found to be Covid positive on 09/15/2021 on lab results here at [facility]. Currently denies any fevers, shortness of breath or chest pain or diarrhea or dysuria. Chest x-ray revealed consolidation in the right middle and right lower lobe. Admitted with pulmonology consultation. 09/27: Patient normally wears home O2 at 2 L nasal cannula now requiring facemask O2 15l/min. She is very drowsy and cannot contribute to history today. 09/28: ABG 7.3 /58 placed on BiPAP overnight with good improvement in her mental status. She feels a little better today still on 10 L/min facemask O2 with saturations 96%. She has a good appetite is eating breakfast. Preliminary blood cultures 1 out of 4 positive GPC, urine culture preliminary E. coli. 09/29: Seen off BiPAP 2 L. Nasal cannula. Chest radiograph with improved right lung aeration. E. coli pansensitive urinary tract infection being treated. She is try to get her strength back. Still with cough productive. She is tearful Vitals/I&O Vitals/I&O: Vital Signs Date Time Temp Pulse Resp B/P (MAP) Pulse Ox O2 Delivery O2 Flow Rate FiO2 09/29/21 15:48 91 BiPAP/CPAP 09/29/21 15:00 99.4 97 20 196/84 (121) 99.4 09/29/21 11:40 10.0 I & O 09/28/21 09/28/21 09/29/21 15:00 23:00 07:00 Intake Total 400 ml 100 ml 290 ml Output Total 250 ml Balance 400 ml -150 ml 290 ml Physical Exam General: Alert, Cooperative, moderate distress Labs Labs: Laboratory Tests Test 09/28/21 16:37 09/28/21 21:01 09/29/21 07:49 09/29/21 11:30 Glucose (Fingerstick) 178 mg/dL (70-99) 149 mg/dL (70-99) 153 mg/dL (70-99) 125 mg/dL (70-99) Comment Review of Relevant I have reviewed the following items zoë (where applicable) has been applied. Medications: Current Medications Medications (Trade) Dose Ordered Sig/Jennifer Route PRN Reason Start Time Stop Time Status Last Admin Dose Admin Hydralazine HCl (Apresoline Inj) 10 mg PRN Q4HRS PRN IVP ELEVATED BP, SEE COMMENTS 09/28/21 17:45 09/28/21 17:39 Justifications for Admission Other Justification SHABANA TY MD Sep 29, 2021 15:57
[2021-09-29] MEDS: hydrALAZINE 20 MG/ML VIAL. IVP PRN (16:28)
[2021-09-29 19:00] VITALS: BP 142/78
[2021-09-29] MEDS: CITALOPRAM 20 MG TABLET. PO SCH (22:04)
[2021-09-29] MEDS: ATORVASTATIN CALCIUM 40 MG TABLET. PO SCH (22:05)
[2021-09-29] MEDS: INSULIN GLARGINE SYRINGE. SQ SCH (22:06)
[2021-09-29 22:55] VITALS: BP_SYST 155; BP_SYST 176; BP_DIAS 68; BP_DIAS 71
[2021-09-30] MEDS: AMPICILLIN/SULBACTAM 3 GM in IV NORMAL SALINE 100ML 100 ML IV SCH ×5 (00:17→23:35)
[2021-09-30 02:39] VITALS: BP 158/72
[2021-09-30] MEDS: HEPARIN for SUB-Q USE 5,000 UNIT/ML VIAL. SQ SCH ×3 (06:00→21:57)
[2021-09-30 07:00] VITALS: BP 192/92
[2021-09-30] MEDS: INSULIN LISPRO 300 UNITS/3 ML VIAL. SQ SCH ×3 (08:00→17:00)
[2021-09-30 08:45] LABS: CALCIUM 8.2 mg/dL (8.5-10.1); CREATININE 1.2 mg/dL (0.6-1.0); GFR 45.4
[2021-09-30 08:59] LABS: POTASSIUM 3.6 mmol/L (3.5-5.1)
[2021-09-30] MEDS: LACTOBACILLUS RHAMNOSUS GG 1 CAPSULE. PO SCH ×2 (08:59→22:01)
[2021-09-30] MEDS: DOXYCYCLINE HYCLATE 100 MG TABLET PO SCH ×2 (08:59→21:54)
[2021-09-30] MEDS: ASPIRIN 325 MG TABLET PO SCH (08:59)
[2021-09-30] MEDS: GABAPENTIN 300 MG CAPSULE. PO SCH ×3 (08:59→21:55)
[2021-09-30] MEDS: CLOPIDOGREL BISULFATE 75 MG TABLET PO SCH (08:59)
[2021-09-30] MEDS: SENNOSIDES/DOCUSATE 8.6/50MG TABLET. PO SCH ×2 (09:00→19:46)
[2021-09-30] MEDS: hydrALAZINE 20 MG/ML VIAL. IVP PRN ×2 (09:21→13:53)
--- NOTE | 2021-09-30 10:10 | PDOC ---
[employer] PROGRESS NOTE Date of Service DOS: DATE: 09/30/21 TIME: 10:09 Chief Complaint Chief Complaint A/P: Acute hypoxic respiratory failure - seems to be bacterial secondary post-viral pneumonia vs persistent COVID 19 pneumonia Acute metabolic encephalopathy - due to hypoxia, will check ABG to r/o CO2 retention Obesity. Minimal tobacco history. COVID positive on 09/15/2021 DM2 - sliding scale, reduce while taking little PO HTN - prn hydralazine FEN - ADA PPX - lovenox FULL CODE Dispo - inpatient History of Present Illness History of Present Illness Ms Grigsby is a 61-year-old female w/ past medical history of diabetes mellitus type 2, dyslipidemia, recent history of CVA/TIA who comes in found down and hypoxic. Patient was found to be Covid positive on 09/15/2021 on lab results here at [facility]. Currently denies any fevers, shortness of breath or chest pain or diarrhea or dysuria. Chest x-ray revealed consolidation in the right middle and right lower lobe. Admitted with pulmonology consultation. 09/27: Patient normally wears home O2 at 2 L nasal cannula now requiring facemask O2 15l/min. She is very drowsy and cannot contribute to history today. 09/28: ABG 7.3 /58 placed on BiPAP overnight with good improvement in her mental status. She feels a little better today still on 10 L/min facemask O2 with saturations 96%. She has a good appetite is eating breakfast. Preliminary blood cultures 1 out of 4 positive GPC, urine culture preliminary E. coli. 09/29: Seen off BiPAP 2 L. Nasal cannula. Chest radiograph with improved right lung aeration. E. coli pansensitive urinary tract infection being treated. She is try to get her strength back. Still with cough productive. She is tearful 09/30: NA 148, CR 1.2. More drowsy this morning, confused, back on BIPAP. Vitals/I&O Vitals/I&O: Vital Signs Date Time Temp Pulse Resp B/P (MAP) Pulse Ox O2 Delivery O2 Flow Rate FiO2 09/30/21 09:21 96 188/66 09/30/21 08:00 Nasal Cannula 10.0 09/30/21 07:57 94 09/30/21 07:00 97.6 22 97.6 I & O 09/29/21 09/29/21 09/30/21 15:00 23:00 07:00 Intake Total 360 ml 480 ml Output Total 450 ml Balance 360 ml 30 ml Physical Exam General: Alert, Cooperative, moderate distress Labs Labs: Laboratory Tests Test 09/29/21 11:30 09/29/21 16:33 09/29/21 17:24 09/29/21 18:58 Glucose (Fingerstick) 125 mg/dL (70-99) 136 mg/dL (70-99) 160 mg/dL (70-99) 160 mg/dL (70-99) Test 09/30/21 04:00 09/30/21 04:05 09/30/21 08:04 AC-Igt-C-Type Natriuretic Peptide 352 pg/mL (0-124) Sodium Level 148 mmol/L (136-145) Potassium Level 3.6 mmol/L (3.5-5.1) Chloride Level 106 mmol/L (98-107) Carbon Dioxide Level 36 mmol/L (21-32) Anion Gap 6 (6-14) Blood Urea Nitrogen 22 mg/dL (7-20) Creatinine 1.2 mg/dL (0.6-1.0) Estimated GFR (Cockcroft-Gault) 45.4 Glucose Level 141 mg/dL (70-99) Calcium Level 8.2 mg/dL (8.5-10.1) Glucose (Fingerstick) 124 mg/dL (70-99) Comment Review of Relevant I have reviewed the following items zoë (where applicable) has been applied. Justifications for Admission Other Justification SHABANA TY MD Sep 30, 2021 10:10
--- NOTE | 2021-09-30 10:14 | PDOC ---
PULMONARY PROGRESS NOTES DATE: 09/30/21 TIME: 10:11 Subjective Patient sleepy this morning. has been placed back on BIPAP Vitals Vital Signs Date Time Temp Pulse Resp B/P (MAP) Pulse Ox O2 Delivery O2 Flow Rate FiO2 09/30/21 09:21 96 188/66 09/30/21 08:00 Nasal Cannula 10.0 09/30/21 07:57 94 09/30/21 07:00 97.6 22 97.6 Comments Visual exam done due to COVID-19. No paradoxical breathing no skin rash. No leg edema Labs Laboratory Tests Test 09/28/21 11:55 09/28/21 16:37 09/28/21 21:01 09/29/21 07:49 Glucose (Fingerstick) 142 mg/dL (70-99) 178 mg/dL (70-99) 149 mg/dL (70-99) 153 mg/dL (70-99) Test 09/29/21 11:30 09/29/21 16:33 09/29/21 17:24 09/29/21 18:58 Glucose (Fingerstick) 125 mg/dL (70-99) 136 mg/dL (70-99) 160 mg/dL (70-99) 160 mg/dL (70-99) Test 09/30/21 04:00 09/30/21 04:05 09/30/21 08:04 YX-Wec-O-Type Natriuretic Peptide 352 pg/mL (0-124) Sodium Level 148 mmol/L (136-145) Potassium Level 3.6 mmol/L (3.5-5.1) Chloride Level 106 mmol/L (98-107) Carbon Dioxide Level 36 mmol/L (21-32) Anion Gap 6 (6-14) Blood Urea Nitrogen 22 mg/dL (7-20) Creatinine 1.2 mg/dL (0.6-1.0) Estimated GFR (Cockcroft-Gault) 45.4 Glucose Level 141 mg/dL (70-99) Calcium Level 8.2 mg/dL (8.5-10.1) Glucose (Fingerstick) 124 mg/dL (70-99) Laboratory Tests Test 09/29/21 11:30 09/29/21 16:33 09/29/21 17:24 09/29/21 18:58 Glucose (Fingerstick) 125 mg/dL (70-99) 136 mg/dL (70-99) 160 mg/dL (70-99) 160 mg/dL (70-99) Test 09/30/21 04:00 09/30/21 04:05 09/30/21 08:04 OX-Ttg-T-Type Natriuretic Peptide 352 pg/mL (0-124) Sodium Level 148 mmol/L (136-145) Potassium Level 3.6 mmol/L (3.5-5.1) Chloride Level 106 mmol/L (98-107) Carbon Dioxide Level 36 mmol/L (21-32) Anion Gap 6 (6-14) Blood Urea Nitrogen 22 mg/dL (7-20) Creatinine 1.2 mg/dL (0.6-1.0) Estimated GFR (Cockcroft-Gault) 45.4 Glucose Level 141 mg/dL (70-99) Calcium Level 8.2 mg/dL (8.5-10.1) Glucose (Fingerstick) 124 mg/dL (70-99) Medications Active Scripts Medications Dose Route/Sig Max Daily Dose Days Date Category Prednisone 20 Mg Tablet 2 Tab PO DAILY 5 09/20/21 Rx Amlodipine Besylate 10 Mg Tablet 10 Mg PO DAILY 30 09/20/21 Rx Acetaminophen 500 Mg Tablet 1 Tab PO PRN Q6HRS PRN 15 09/17/21 Reported Aspirin 325 Mg Tablet 1 Tab PO DAILY 09/17/21 Reported Humalog (Insulin Lispro) 100 Unit/1 Ml Vial 8 Unit SQ QIDACHS 09/17/21 Reported Lantus (Insulin Glargine,Hum.rec.anlog) 100 Unit/1 Ml Vial 20 Unit SQ HS 09/17/21 Reported Citalopram Hbr (Citalopram Hydrobromide) 20 Mg Tablet 1 Tab PO HS 09/17/21 Reported Fish Oil 1,000 Mg Capsule ([place]-3 Fatty Acids/Fish Oil) 1 Each Capsule 1 Each PO BID 09/17/21 Reported Gabapentin 600 Mg Tablet 600 Mg PO TID 09/17/21 Reported Glimepiride 4 Mg Tablet 1 Tab PO BID 09/17/21 Reported Crestor (Rosuvastatin Calcium) 40 Mg Tablet 40 Mg PO HS 09/17/21 Reported Clopidogrel (Clopidogrel Bisulfate) 75 Mg Tablet 1 Tab PO DAILY 09/17/21 Reported Impression . 1. Acute hypoxic respiratory failure in a patient who was diagnosed with COVID-19 on 09/15/2021. She now has consolidation in the right middle and right lower lobe. The possibility of superimposed bacterial pneumonia would be a consideration. 2. Underlying obesity. 3. Minimal tobacco history. 4. Abnormal chest x-ray as discussed above. 5. COVID positive on 09/15/2021. Plan . RECOMMENDATIONS: 1. Continue suplemental oxygen and closely monitor her respiratory status. 2. Chest x-ray reviewed 09/29. Improved aeration of the right lung. 3. Continue present empiric antibiotic. 4. Continue with heparin for DVT prophylaxis. 5. Monitor the clinical course. 6. Discussed with RN. We will follow along with you. STAS GOODMAN MD Sep 30, 2021 10:14
[2021-09-30 10:43] VITALS: BP 166/88
--- NOTE | 2021-09-30 11:26 | NUR ---
SS following up with discharge planning. SS reviewed pt chart and discussed with pt RN. Pt is currently requiring oxygen at ten liters nasal canula and BIPAP PRN. COVID19 positive. Pt on IV Ampicillin and PO Doxycycline. PT/OT ordered. SS will continue to follow for discharge planning.
[2021-09-30 14:26] VITALS: BP 181/78
[2021-09-30 19:35] VITALS: BP 194/84
[2021-09-30] MEDS: ATORVASTATIN CALCIUM 40 MG TABLET. PO SCH (21:55)
[2021-09-30] MEDS: CITALOPRAM 20 MG TABLET. PO SCH (21:55)
[2021-09-30] MEDS: INSULIN GLARGINE SYRINGE. SQ SCH (21:56)
[2021-09-30 22:54] VITALS: BP 162/73
[2021-10-01] MEDS ORDERED: STERILE WATER for RESP 1,000 ML BAG. INH PRN (02:45)
[2021-10-01 03:01] VITALS: BP 142/71
[2021-10-01 05:59] LABS: ALBUMIN 1.8 g/dL (3.4-5.0); ALBUMIN/GLOBULIN RATIO 0.4 (1.0-1.7); CALCIUM 8.1 mg/dL (8.5-10.1); CREATININE 1.2 mg/dL (0.6-1.0); GFR 45.4; POTASSIUM 3.6 mmol/L (3.5-5.1); TOTAL BILIRUBIN 0.3 mg/dL (0.2-1.0); TOTAL PROTEIN 6.5 g/dL (6.4-8.2)
[2021-10-01] MEDS: AMPICILLIN/SULBACTAM 3 GM in IV NORMAL SALINE 100ML 100 ML IV SCH ×4 (06:01→23:29)
[2021-10-01] MEDS: HEPARIN for SUB-Q USE 5,000 UNIT/ML VIAL. SQ SCH ×3 (06:02→21:15)
[2021-10-01 07:00] VITALS: BP 138/68
[2021-10-01] MEDS: INSULIN LISPRO 300 UNITS/3 ML VIAL. SQ SCH ×3 (08:00→17:00)
[2021-10-01] MEDS: DOXYCYCLINE HYCLATE 100 MG TABLET PO SCH ×2 (08:20→21:00)
[2021-10-01] MEDS: SENNOSIDES/DOCUSATE 8.6/50MG TABLET. PO SCH ×2 (08:20→21:00)
[2021-10-01] MEDS: CLOPIDOGREL BISULFATE 75 MG TABLET PO SCH (08:20)
[2021-10-01] MEDS: ASPIRIN 325 MG TABLET PO SCH (08:21)
[2021-10-01] MEDS: LACTOBACILLUS RHAMNOSUS GG 1 CAPSULE. PO SCH ×2 (08:21→21:00)
[2021-10-01] MEDS: GABAPENTIN 300 MG CAPSULE. PO SCH ×3 (08:21→21:00)
--- NOTE | 2021-10-01 10:33 | PDOC ---
PULMONARY PROGRESS NOTES DATE: 10/01/21 TIME: 10:30 Subjective patient seen resting in bed. comfortable. continues on BIPAP Vitals Vital Signs Date Time Temp Pulse Resp B/P (MAP) Pulse Ox O2 Delivery O2 Flow Rate FiO2 10/01/21 08:22 87 138/68 10/01/21 08:00 Bi-pap 10/01/21 07:27 97 10/01/21 07:00 96.5 20 96.5 09/30/21 15:42 15.0 Comments Visual exam done due to COVID-19. No paradoxical breathing no skin rash. No leg edema Labs Laboratory Tests Test 09/29/21 11:30 09/29/21 16:33 09/29/21 17:24 09/29/21 18:58 Glucose (Fingerstick) 125 mg/dL (70-99) 136 mg/dL (70-99) 160 mg/dL (70-99) 160 mg/dL (70-99) Test 09/30/21 04:00 09/30/21 04:05 09/30/21 08:04 09/30/21 11:36 [id number] Natriuretic Peptide 352 pg/mL (0-124) Sodium Level 148 mmol/L (136-145) Potassium Level 3.6 mmol/L (3.5-5.1) Chloride Level 106 mmol/L (98-107) Carbon Dioxide Level 36 mmol/L (21-32) Anion Gap 6 (6-14) Blood Urea Nitrogen 22 mg/dL (7-20) Creatinine 1.2 mg/dL (0.6-1.0) Estimated GFR (Cockcroft-Gault) 45.4 Glucose Level 141 mg/dL (70-99) Calcium Level 8.2 mg/dL (8.5-10.1) Glucose (Fingerstick) 124 mg/dL (70-99) 156 mg/dL (70-99) Test 09/30/21 17:16 09/30/21 20:47 10/01/21 04:00 Glucose (Fingerstick) 167 mg/dL (70-99) 163 mg/dL (70-99) Sodium Level 143 mmol/L (136-145) Potassium Level 3.6 mmol/L (3.5-5.1) Chloride Level 103 mmol/L (98-107) Carbon Dioxide Level 38 mmol/L (21-32) Anion Gap 2 (6-14) Blood Urea Nitrogen 24 mg/dL (7-20) Creatinine 1.2 mg/dL (0.6-1.0) Estimated GFR (Cockcroft-Gault) 45.4 BUN/Creatinine Ratio 20 (6-20) Glucose Level 172 mg/dL (70-99) Calcium Level 8.1 mg/dL (8.5-10.1) Total Bilirubin 0.3 mg/dL (0.2-1.0) Aspartate Amino Transf (AST/SGOT) 20 U/L (15-37) Alanine Aminotransferase (ALT/SGPT) 17 U/L (14-59) Alkaline Phosphatase 46 U/L (46-116) Total Protein 6.5 g/dL (6.4-8.2) Albumin 1.8 g/dL (3.4-5.0) Albumin/Globulin Ratio 0.4 (1.0-1.7) Laboratory Tests Test 09/30/21 11:36 09/30/21 17:16 09/30/21 20:47 10/01/21 04:00 Glucose (Fingerstick) 156 mg/dL (70-99) 167 mg/dL (70-99) 163 mg/dL (70-99) Sodium Level 143 mmol/L (136-145) Potassium Level 3.6 mmol/L (3.5-5.1) Chloride Level 103 mmol/L (98-107) Carbon Dioxide Level 38 mmol/L (21-32) Anion Gap 2 (6-14) Blood Urea Nitrogen 24 mg/dL (7-20) Creatinine 1.2 mg/dL (0.6-1.0) Estimated GFR (Cockcroft-Gault) 45.4 BUN/Creatinine Ratio 20 (6-20) Glucose Level 172 mg/dL (70-99) Calcium Level 8.1 mg/dL (8.5-10.1) Total Bilirubin 0.3 mg/dL (0.2-1.0) Aspartate Amino Transf (AST/SGOT) 20 U/L (15-37) Alanine Aminotransferase (ALT/SGPT) 17 U/L (14-59) Alkaline Phosphatase 46 U/L (46-116) Total Protein 6.5 g/dL (6.4-8.2) Albumin 1.8 g/dL (3.4-5.0) Albumin/Globulin Ratio 0.4 (1.0-1.7) Medications Active Scripts Medications Dose Route/Sig Max Daily Dose Days Date Category Prednisone 20 Mg Tablet 2 Tab PO DAILY 5 09/20/21 Rx Amlodipine Besylate 10 Mg Tablet 10 Mg PO DAILY 30 09/20/21 Rx Acetaminophen 500 Mg Tablet 1 Tab PO PRN Q6HRS PRN 15 09/17/21 Reported Aspirin 325 Mg Tablet 1 Tab PO DAILY 09/17/21 Reported Humalog (Insulin Lispro) 100 Unit/1 Ml Vial 8 Unit SQ QIDACHS 09/17/21 Reported Lantus (Insulin Glargine,Hum.rec.anlog) 100 Unit/1 Ml Vial 20 Unit SQ HS 09/17/21 Reported Citalopram Hbr (Citalopram Hydrobromide) 20 Mg Tablet 1 Tab PO HS 09/17/21 Reported Fish Oil 1,000 Mg Capsule ([place]-3 Fatty Acids/Fish Oil) 1 Each Capsule 1 Each PO BID 09/17/21 Reported Gabapentin 600 Mg Tablet 600 Mg PO TID 09/17/21 Reported Glimepiride 4 Mg Tablet 1 Tab PO BID 09/17/21 Reported Crestor (Rosuvastatin Calcium) 40 Mg Tablet 40 Mg PO HS 09/17/21 Reported Clopidogrel (Clopidogrel Bisulfate) 75 Mg Tablet 1 Tab PO DAILY 09/17/21 Reported Impression . 1. Acute hypoxic respiratory failure in a patient who was diagnosed with COVID-19 on 09/15/2021. She now has consolidation in the right middle and right lower lobe. The possibility of superimposed bacterial pneumonia would be a consideration. 2. Underlying obesity. 3. Minimal tobacco history. 4. Abnormal chest x-ray as discussed above. 5. COVID positive on 09/15/2021. Plan . RECOMMENDATIONS: 1. Continue supplemental oxygen and closely monitor her respiratory status. tolerating BIPAP, now on 100%FIO2 2. Chest x-ray reviewed 09/29. Improved aeration of the right lung. 3. Continue present empiric antibiotic. 4. Continue with heparin for DVT prophylaxis. 5. Monitor the clinical course. 6. Discussed with RN. We will follow along with you. 7. Prognosis guarded STAS GOODMAN MD Oct 01, 2021 10:33
[2021-10-01 11:00] VITALS: BP 171/74
--- NOTE | 2021-10-01 11:17 | PDOC ---
[employer] PROGRESS NOTE Date of Service DOS: DATE: 10/01/21 TIME: 11:16 Chief Complaint Chief Complaint A/P: Acute hypoxic respiratory failure - seems to be bacterial secondary post-viral pneumonia vs persistent COVID 19 pneumonia Acute metabolic encephalopathy - due to hypoxia, will check ABG to r/o CO2 retention Obesity. Minimal tobacco history. COVID positive on 09/15/2021 DM2 - sliding scale, reduce while taking little PO HTN - prn hydralazine FEN - ADA PPX - lovenox FULL CODE Dispo - inpatient History of Present Illness History of Present Illness Ms Grigsby is a 61-year-old female w/ past medical history of diabetes mellitus type 2, dyslipidemia, recent history of CVA/TIA who comes in found down and hypoxic. Patient was found to be Covid positive on 09/15/2021 on lab results here at [facility]. Currently denies any fevers, shortness of breath or chest pain or diarrhea or dysuria. Chest x-ray revealed consolidation in the right middle and right lower lobe. Admitted with pulmonology consultation. 09/27: Patient normally wears home O2 at 2 L nasal cannula now requiring facemask O2 15l/min. She is very drowsy and cannot contribute to history today. 09/28: ABG 7.3 /58 placed on BiPAP overnight with good improvement in her mental status. She feels a little better today still on 10 L/min facemask O2 with saturations 96%. She has a good appetite is eating breakfast. Preliminary blood cultures 1 out of 4 positive GPC, urine culture preliminary E. coli. 09/29: Seen off BiPAP 2 L. Nasal cannula. Chest radiograph with improved right lung aeration. E. coli pansensitive urinary tract infection being treated. She is try to get her strength back. Still with cough productive. She is tearful 09/30: NA 148, CR 1.2. More drowsy this morning, confused, back on BIPAP. 10/01: Little more alert today but back on BiPAP. She did ask to be able to eat. Still very short of breath no chest pain. Very weak Vitals/I&O Vitals/I&O: Vital Signs Date Time Temp Pulse Resp B/P (MAP) Pulse Ox O2 Delivery O2 Flow Rate FiO2 10/01/21 08:22 87 138/68 10/01/21 08:00 Bi-pap 10/01/21 07:27 97 10/01/21 07:00 96.5 20 96.5 09/30/21 15:42 15.0 I & O 09/30/21 09/30/21 10/01/21 15:00 23:00 07:00 Intake Total 300 ml 180 ml 100 ml Output Total 800 ml 200 ml Balance -500 ml 180 ml -100 ml Physical Exam General: Alert, Cooperative, moderate distress Labs Labs: Laboratory Tests Test 09/30/21 11:36 09/30/21 17:16 09/30/21 20:47 10/01/21 04:00 Glucose (Fingerstick) 156 mg/dL (70-99) 167 mg/dL (70-99) 163 mg/dL (70-99) Sodium Level 143 mmol/L (136-145) Potassium Level 3.6 mmol/L (3.5-5.1) Chloride Level 103 mmol/L (98-107) Carbon Dioxide Level 38 mmol/L (21-32) Anion Gap 2 (6-14) Blood Urea Nitrogen 24 mg/dL (7-20) Creatinine 1.2 mg/dL (0.6-1.0) Estimated GFR (Cockcroft-Gault) 45.4 BUN/Creatinine Ratio 20 (6-20) Glucose Level 172 mg/dL (70-99) Calcium Level 8.1 mg/dL (8.5-10.1) Total Bilirubin 0.3 mg/dL (0.2-1.0) Aspartate Amino Transf (AST/SGOT) 20 U/L (15-37) Alanine Aminotransferase (ALT/SGPT) 17 U/L (14-59) Alkaline Phosphatase 46 U/L (46-116) Total Protein 6.5 g/dL (6.4-8.2) Albumin 1.8 g/dL (3.4-5.0) Albumin/Globulin Ratio 0.4 (1.0-1.7) Comment Review of Relevant I have reviewed the following items zoë (where applicable) has been applied. Justifications for Admission Other Justification SHABANA TY MD Oct 01, 2021 11:17
[2021-10-01 15:00] VITALS: BP 175/73
[2021-10-01] MEDS: hydrALAZINE 20 MG/ML VIAL. IVP PRN (15:34)
[2021-10-01] MEDS ORDERED: HALOPERIDOL LACTATE 5 MG/ML VIAL. IVP PRN ×2 (17:15)
[2021-10-01] MEDS ORDERED: ZIPRASIDONE IM 20 MG VIAL. IM PRN (18:00)
[2021-10-01] MEDS ORDERED: METOPROLOL IV PUSH 5 MG/5 ML VIAL. IVP ONE (18:00)
--- NOTE | 2021-10-01 18:50 | NUR ---
Pt pulled off bipap, fellow nurse recognized SPO2 of 40%. BiPAP reapplied and rapid response called due to heart rate of 150 and oxygen not increasing back to normal. Orders received and given to patient. Pt is still currently 85% oxygen and Sinus tach on the monitor with a rate of 121. No further orders at the this time, MD is aware of current vitals. Will continue to monitor.
[2021-10-01 19:20] VITALS: BP 100/74
[2021-10-01] MEDS: CITALOPRAM 20 MG TABLET. PO SCH (21:00)
[2021-10-01] MEDS: INSULIN GLARGINE SYRINGE. SQ SCH (21:00)
[2021-10-01] MEDS: ATORVASTATIN CALCIUM 40 MG TABLET. PO SCH (21:00)
[2021-10-01 23:20] VITALS: BP 101/61
[2021-10-02 03:20] VITALS: BP 119/57
[2021-10-02] MEDS: AMPICILLIN/SULBACTAM 3 GM in IV NORMAL SALINE 100ML 100 ML IV SCH ×4 (05:21→23:34)
[2021-10-02] MEDS: HEPARIN for SUB-Q USE 5,000 UNIT/ML VIAL. SQ SCH ×3 (05:22→22:12)
[2021-10-02 05:39] LABS: ALBUMIN 1.8 g/dL (3.4-5.0); ALBUMIN/GLOBULIN RATIO 0.4 (1.0-1.7); CREATININE 1.4 mg/dL (0.6-1.0); POTASSIUM 3.7 mmol/L (3.5-5.1); TOTAL BILIRUBIN 0.2 mg/dL (0.2-1.0); TOTAL PROTEIN 6.3 g/dL (6.4-8.2)
[2021-10-02 07:00] VITALS: BP 140/60
[2021-10-02] MEDS: INSULIN LISPRO 300 UNITS/3 ML VIAL. SQ SCH ×3 (08:00→17:00)
[2021-10-02] MEDS: ASPIRIN 325 MG TABLET PO SCH (09:22)
[2021-10-02] MEDS: DOXYCYCLINE HYCLATE 100 MG TABLET PO SCH ×2 (09:22→21:00)
[2021-10-02] MEDS: LACTOBACILLUS RHAMNOSUS GG 1 CAPSULE. PO SCH ×2 (09:22→21:00)
[2021-10-02] MEDS: CLOPIDOGREL BISULFATE 75 MG TABLET PO SCH (09:22)
[2021-10-02] MEDS: GABAPENTIN 300 MG CAPSULE. PO SCH ×3 (09:23→21:00)
[2021-10-02] MEDS: SENNOSIDES/DOCUSATE 8.6/50MG TABLET. PO SCH ×2 (09:23→21:00)
--- NOTE | 2021-10-02 09:36 | PDOC ---
PULMONARY PROGRESS NOTES DATE: 10/02/21 TIME: 09:34 Subjective patient continues on BIPAP, 100% FiO2. Vitals Vital Signs Date Time Temp Pulse Resp B/P (MAP) Pulse Ox O2 Delivery O2 Flow Rate FiO2 10/02/21 09:22 82 140/60 10/02/21 08:48 94 BiPAP/CPAP 10/02/21 07:00 98.0 20 98.0 Comments Visual exam done due to COVID-19. No paradoxical breathing no skin rash. No l eg edema Labs Laboratory Tests Test 09/30/21 11:36 09/30/21 17:16 09/30/21 20:47 10/01/21 04:00 Glucose (Fingerstick) 156 mg/dL (70-99) 167 mg/dL (70-99) 163 mg/dL (70-99) Sodium Level 143 mmol/L (136-145) Potassium Level 3.6 mmol/L (3.5-5.1) Chloride Level 103 mmol/L (98-107) Carbon Dioxide Level 38 mmol/L (21-32) Anion Gap 2 (6-14) Blood Urea Nitrogen 24 mg/dL (7-20) Creatinine 1.2 mg/dL (0.6-1.0) Estimated GFR (Cockcroft-Gault) 45.4 BUN/Creatinine Ratio 20 (6-20) Glucose Level 172 mg/dL (70-99) Calcium Level 8.1 mg/dL (8.5-10.1) Total Bilirubin 0.3 mg/dL (0.2-1.0) Aspartate Amino Transf (AST/SGOT) 20 U/L (15-37) Alanine Aminotransferase (ALT/SGPT) 17 U/L (14-59) Alkaline Phosphatase 46 U/L (46-116) Total Protein 6.5 g/dL (6.4-8.2) Albumin 1.8 g/dL (3.4-5.0) Albumin/Globulin Ratio 0.4 (1.0-1.7) Test 10/01/21 12:03 10/01/21 20:55 10/02/21 04:30 10/02/21 08:09 Glucose (Fingerstick) 122 mg/dL (70-99) 141 mg/dL (70-99) 83 mg/dL (70-99) Sodium Level 143 mmol/L (136-145) Potassium Level 3.7 mmol/L (3.5-5.1) Chloride Level 105 mmol/L (98-107) Carbon Dioxide Level 38 mmol/L (21-32) Anion Gap 0 (6-14) Blood Urea Nitrogen 30 mg/dL (7-20) Creatinine 1.4 mg/dL (0.6-1.0) Estimated GFR (Cockcroft-Gault) 38.0 BUN/Creatinine Ratio 21 (6-20) Glucose Level 102 mg/dL (70-99) Calcium Level 8.0 mg/dL (8.5-10.1) Total Bilirubin 0.2 mg/dL (0.2-1.0) Aspartate Amino Transf (AST/SGOT) 19 U/L (15-37) Alanine Aminotransferase (ALT/SGPT) 17 U/L (14-59) Alkaline Phosphatase 40 U/L (46-116) Total Protein 6.3 g/dL (6.4-8.2) Albumin 1.8 g/dL (3.4-5.0) Albumin/Globulin Ratio 0.4 (1.0-1.7) Laboratory Tests Test 10/01/21 12:03 10/01/21 20:55 10/02/21 04:30 10/02/21 08:09 Glucose (Fingerstick) 122 mg/dL (70-99) 141 mg/dL (70-99) 83 mg/dL (70-99) Sodium Level 143 mmol/L (136-145) Potassium Level 3.7 mmol/L (3.5-5.1) Chloride Level 105 mmol/L (98-107) Carbon Dioxide Level 38 mmol/L (21-32) Anion Gap 0 (6-14) Blood Urea Nitrogen 30 mg/dL (7-20) Creatinine 1.4 mg/dL (0.6-1.0) Estimated GFR (Cockcroft-Gault) 38.0 BUN/Creatinine Ratio 21 (6-20) Glucose Level 102 mg/dL (70-99) Calcium Level 8.0 mg/dL (8.5-10.1) Total Bilirubin 0.2 mg/dL (0.2-1.0) Aspartate Amino Transf (AST/SGOT) 19 U/L (15-37) Alanine Aminotransferase (ALT/SGPT) 17 U/L (14-59) Alkaline Phosphatase 40 U/L (46-116) Total Protein 6.3 g/dL (6.4-8.2) Albumin 1.8 g/dL (3.4-5.0) Albumin/Globulin Ratio 0.4 (1.0-1.7) Medications Active Scripts Medications Dose Route/Sig Max Daily Dose Days Date Category Prednisone 20 Mg Tablet 2 Tab PO DAILY 5 09/20/21 Rx Amlodipine Besylate 10 Mg Tablet 10 Mg PO DAILY 30 09/20/21 Rx Acetaminophen 500 Mg Tablet 1 Tab PO PRN Q6HRS PRN 15 09/17/21 Reported Aspirin 325 Mg Tablet 1 Tab PO DAILY 09/17/21 Reported Humalog (Insulin Lispro) 100 Unit/1 Ml Vial 8 Unit SQ QIDACHS 09/17/21 Reported Lantus (Insulin Glargine,Hum.rec.anlog) 100 Unit/1 Ml Vial 20 Unit SQ HS 09/17/21 Reported Citalopram Hbr (Citalopram Hydrobromide) 20 Mg Tablet 1 Tab PO HS 09/17/21 Reported Fish Oil 1,000 Mg Capsule ([place]-3 Fatty Acids/Fish Oil) 1 Each Capsule 1 Each PO BID 09/17/21 Reported Gabapentin 600 Mg Tablet 600 Mg PO TID 09/17/21 Reported Glimepiride 4 Mg Tablet 1 Tab PO BID 09/17/21 Reported Crestor (Rosuvastatin Calcium) 40 Mg Tablet 40 Mg PO HS 09/17/21 Reported Clopidogrel (Clopidogrel Bisulfate) 75 Mg Tablet 1 Tab PO DAILY 09/17/21 Reported Impression . 1. Acute hypoxic/ hypercapnic respiratory failure in a patient who was diagnosed with COVID-19 on 09/15/2021. She now has consolidation in the right middle and right lower lobe. The possibility of superimposed bacterial pneumonia would be a consideration. 2. Underlying obesity. 3. Minimal tobacco history. 4. Abnormal chest x-ray as discussed above. 5. COVID positive on 09/15/2021. Plan . RECOMMENDATIONS: 1. Continue supplemental oxygen and closely monitor her respiratory status. tolerating BIPAP, now on 100%FIO2. F/U ABG in am 2. Chest x-ray reviewed 09/29. Improved aeration of the right lung. 3. Continue present empiric antibiotic. 4. Continue with heparin for DVT prophylaxis. 5. Monitor the clinical course. 6. Discussed with RN. We will follow along with you. 7. Prognosis guarded 8. Patient remains full code. STAS GOODMAN MD Oct 02, 2021 09:36
[2021-10-02 11:00] VITALS: BP 154/66
--- NOTE | 2021-10-02 11:18 | PDOC ---
[employer] PROGRESS NOTE Date of Service DOS: DATE: 10/02/21 TIME: 11:17 Chief Complaint Chief Complaint A/P: Acute hypoxic respiratory failure - seems to be bacterial secondary post-viral pneumonia vs persistent COVID 19 pneumonia Acute metabolic encephalopathy - due to hypoxia, will check ABG to r/o CO2 retention Obesity. Minimal tobacco history. COVID positive on 09/15/2021 DM2 - sliding scale, reduce while taking little PO HTN - prn hydralazine FEN - ADA PPX - lovenox FULL CODE Dispo - inpatient History of Present Illness History of Present Illness Ms Grigsby is a 61-year-old female w/ past medical history of diabetes mellitus type 2, dyslipidemia, recent history of CVA/TIA who comes in found down and hypoxic. Patient was found to be Covid positive on 09/15/2021 on lab results here at [facility]. Currently denies any fevers, shortness of breath or chest pain or diarrhea or dysuria. Chest x-ray revealed consolidation in the right middle and right lower lobe. Admitted with pulmonology consultation. 09/27: Patient normally wears home O2 at 2 L nasal cannula now requiring facemask O2 15l/min. She is very drowsy and cannot contribute to history today. 09/28: ABG 7.3 /58 placed on BiPAP overnight with good improvement in her mental status. She feels a little better today still on 10 L/min facemask O2 with saturations 96%. She has a good appetite is eating breakfast. Preliminary blood cultures 1 out of 4 positive GPC, urine culture preliminary E. coli. 09/29: Seen off BiPAP 2 L. Nasal cannula. Chest radiograph with improved right lung aeration. E. coli pansensitive urinary tract infection being treated. She is try to get her strength back. Still with cough productive. She is tearful 09/30: NA 148, CR 1.2. More drowsy this morning, confused, back on BIPAP. 10/01: Little more alert today but back on BiPAP. She did ask to be able to eat. Still very short of breath no chest pain. Very weak 10/02: Agitated overnight required Haldol and Ativan and Geodon. Now requiring mitts but wearing BiPAP with little more alert. Vitals/I&O Vitals/I&O: Vital Signs Date Time Temp Pulse Resp B/P (MAP) Pulse Ox O2 Delivery O2 Flow Rate FiO2 10/02/21 09:22 82 140/60 10/02/21 08:48 94 BiPAP/CPAP 10/02/21 08:00 10.0 10/02/21 07:00 98.0 20 98.0 I & O 10/01/21 10/01/21 10/02/21 15:00 23:00 07:00 Intake Total 100 ml Output Total 100 ml 600 ml Balance 100 ml -100 ml -600 ml Physical Exam General: Alert, Cooperative, moderate distress Labs Labs: Laboratory Tests Test 10/01/21 12:03 10/01/21 20:55 10/02/21 04:30 10/02/21 08:09 Glucose (Fingerstick) 122 mg/dL (70-99) 141 mg/dL (70-99) 83 mg/dL (70-99) Sodium Level 143 mmol/L (136-145) Potassium Level 3.7 mmol/L (3.5-5.1) Chloride Level 105 mmol/L (98-107) Carbon Dioxide Level 38 mmol/L (21-32) Anion Gap 0 (6-14) Blood Urea Nitrogen 30 mg/dL (7-20) Creatinine 1.4 mg/dL (0.6-1.0) Estimated GFR (Cockcroft-Gault) 38.0 BUN/Creatinine Ratio 21 (6-20) Glucose Level 102 mg/dL (70-99) Calcium Level 8.0 mg/dL (8.5-10.1) Total Bilirubin 0.2 mg/dL (0.2-1.0) Aspartate Amino Transf (AST/SGOT) 19 U/L (15-37) Alanine Aminotransferase (ALT/SGPT) 17 U/L (14-59) Alkaline Phosphatase 40 U/L (46-116) Total Protein 6.3 g/dL (6.4-8.2) Albumin 1.8 g/dL (3.4-5.0) Albumin/Globulin Ratio 0.4 (1.0-1.7) Comment Review of Relevant I have reviewed the following items zoë (where applicable) has been applied. Medications: Current Medications Medications (Trade) Dose Ordered Sig/Jennifer Route PRN Reason Start Time Stop Time Status Last Admin Dose Admin Haloperidol Lactate (Haldol Inj) 5 mg PRN Q6HRS PRN IVP AGITATION 10/01/21 17:15 10/02/21 11:00 Lorazepam (Ativan Inj) 2 mg 1X ONCE IVP 10/01/21 17:45 10/01/21 17:46 DC 10/01/21 17:23 Metoprolol Tartrate (Lopressor Vial) 5 mg 1X ONCE IVP 10/01/21 18:00 10/01/21 18:01 DC 10/01/21 17:42 Justifications for Admission Other Justification SHABANA TY MD Oct 02, 2021 11:18
[2021-10-02] MEDS: IV DEXTROSE 5%-LACT RINGERS 1,000 ML IV SCH (12:00)
[2021-10-02 14:09] VITALS: BP 153/74
[2021-10-02 19:40] VITALS: BP 177/60
[2021-10-02] MEDS: CITALOPRAM 20 MG TABLET. PO SCH (21:00)
[2021-10-02] MEDS: ATORVASTATIN CALCIUM 40 MG TABLET. PO SCH (21:00)
[2021-10-02] MEDS: INSULIN GLARGINE SYRINGE. SQ SCH (22:15)
[2021-10-02 23:30] VITALS: BP 193/75
[2021-10-03] VITALS (16 sets, daily range): BP systolic 125–211; BP diastolic 53–79
[2021-10-03] MEDS: hydrALAZINE 20 MG/ML VIAL. IVP PRN ×2 (00:19→10:17)
[2021-10-03] MEDS: IV DEXTROSE 5%-LACT RINGERS 1,000 ML IV SCH ×2 (03:17→14:40)
[2021-10-03] MEDS: AMPICILLIN/SULBACTAM 3 GM in IV NORMAL SALINE 100ML 100 ML IV SCH ×3 (05:23→17:42)
[2021-10-03] MEDS: HEPARIN for SUB-Q USE 5,000 UNIT/ML VIAL. SQ SCH ×3 (05:25→21:41)
[2021-10-03 08:49] LABS: BASE EXCESS ABG 9 mmol/L (-3-3); HCO3 ABG 38 mmol/L (21-28); PO2 ABG 68 mmHg (65-108); SAT O2 ABG 92 % (92-99)
[2021-10-03] MEDS: INSULIN LISPRO 300 UNITS/3 ML VIAL. SQ SCH ×5 (08:53→17:00)
[2021-10-03] MEDS: GABAPENTIN 300 MG CAPSULE. PO SCH ×3 (08:54→20:15)
[2021-10-03] MEDS: CLOPIDOGREL BISULFATE 75 MG TABLET PO SCH (08:54)
[2021-10-03] MEDS: LACTOBACILLUS RHAMNOSUS GG 1 CAPSULE. PO SCH ×2 (08:54→20:08)
[2021-10-03] MEDS: SENNOSIDES/DOCUSATE 8.6/50MG TABLET. PO SCH ×2 (08:54→20:16)
[2021-10-03] MEDS: ASPIRIN 325 MG TABLET PO SCH (08:54)
[2021-10-03] MEDS: DOXYCYCLINE HYCLATE 100 MG TABLET PO SCH ×2 (08:55→20:16)
--- NOTE | 2021-10-03 08:55 | NUR ---
MEDICATION PO MEDICATIONS NON ADMIN THIS AM 2/2 PT BEING UNABLE TO MANAGE PO AT THIS TIME R/T BIAPA ET OXYGEN NEEDS. SHE IS ALSO NOT ALERT ENOUGH FOR PO INTAKE AT THIS TIME.
[2021-10-03 09:29] LABS: ALBUMIN/GLOBULIN RATIO 0.4 (1.0-1.7); CALCIUM 8.2 mg/dL (8.5-10.1); CREATININE 1.2 mg/dL (0.6-1.0); GFR 45.4; POTASSIUM 3.8 mmol/L (3.5-5.1); TOTAL BILIRUBIN 0.3 mg/dL (0.2-1.0); TOTAL PROTEIN 6.6 g/dL (6.4-8.2)
--- NOTE | 2021-10-03 10:24 | PDOC ---
PULMONARY PROGRESS NOTES DATE: 10/03/21 TIME: 10:21 Subjective patient continues on BIPAP, 100% FiO2. Not following any commands. Patient has been receiving Ativan. Vitals Vital Signs Date Time Temp Pulse Resp B/P (MAP) Pulse Ox O2 Delivery O2 Flow Rate FiO2 10/03/21 10:17 205/81 10/03/21 09:11 92 BiPAP/CPAP 10/03/21 07:00 97.2 115 22 97.2 10/02/21 08:00 10.0 Comments Visual exam done due to COVID-19. No paradoxical breathing no skin rash. No leg edema Labs Laboratory Tests Test 10/01/21 12:03 10/01/21 20:55 10/02/21 04:30 10/02/21 08:09 Glucose (Fingerstick) 122 mg/dL (70-99) 141 mg/dL (70-99) 83 mg/dL (70-99) Sodium Level 143 mmol/L (136-145) Potassium Level 3.7 mmol/L (3.5-5.1) Chloride Level 105 mmol/L (98-107) Carbon Dioxide Level 38 mmol/L (21-32) Anion Gap 0 (6-14) Blood Urea Nitrogen 30 mg/dL (7-20) Creatinine 1.4 mg/dL (0.6-1.0) Estimated GFR (Cockcroft-Gault) 38.0 BUN/Creatinine Ratio 21 (6-20) Glucose Level 102 mg/dL (70-99) Calcium Level 8.0 mg/dL (8.5-10.1) Total Bilirubin 0.2 mg/dL (0.2-1.0) Aspartate Amino Transf (AST/SGOT) 19 U/L (15-37) Alanine Aminotransferase (ALT/SGPT) 17 U/L (14-59) Alkaline Phosphatase 40 U/L (46-116) Total Protein 6.3 g/dL (6.4-8.2) Albumin 1.8 g/dL (3.4-5.0) Albumin/Globulin Ratio 0.4 (1.0-1.7) Test 10/02/21 17:02 10/02/21 21:35 10/03/21 07:46 10/03/21 08:40 Glucose (Fingerstick) 132 mg/dL (70-99) 185 mg/dL (70-99) 253 mg/dL (70-99) Sodium Level 142 mmol/L (136-145) Potassium Level 3.8 mmol/L (3.5-5.1) Chloride Level 104 mmol/L (98-107) Carbon Dioxide Level 33 mmol/L (21-32) Anion Gap 5 (6-14) Blood Urea Nitrogen 30 mg/dL (7-20) Creatinine 1.2 mg/dL (0.6-1.0) Estimated GFR (Cockcroft-Gault) 45.4 BUN/Creatinine Ratio 25 (6-20) Glucose Level 276 mg/dL (70-99) Calcium Level 8.2 mg/dL (8.5-10.1) Total Bilirubin 0.3 mg/dL (0.2-1.0) Aspartate Amino Transf (AST/SGOT) 19 U/L (15-37) Alanine Aminotransferase (ALT/SGPT) 19 U/L (14-59) Alkaline Phosphatase 42 U/L (46-116) Total Protein 6.6 g/dL (6.4-8.2) Albumin 2.0 g/dL (3.4-5.0) Albumin/Globulin Ratio 0.4 (1.0-1.7) Laboratory Tests Test 10/02/21 17:02 10/02/21 21:35 10/03/21 07:46 10/03/21 08:40 Glucose (Fingerstick) 132 mg/dL (70-99) 185 mg/dL (70-99) 253 mg/dL (70-99) Sodium Level 142 mmol/L (136-145) Potassium Level 3.8 mmol/L (3.5-5.1) Chloride Level 104 mmol/L (98-107) Carbon Dioxide Level 33 mmol/L (21-32) Anion Gap 5 (6-14) Blood Urea Nitrogen 30 mg/dL (7-20) Creatinine 1.2 mg/dL (0.6-1.0) Estimated GFR (Cockcroft-Gault) 45.4 BUN/Creatinine Ratio 25 (6-20) Glucose Level 276 mg/dL (70-99) Calcium Level 8.2 mg/dL (8.5-10.1) Total Bilirubin 0.3 mg/dL (0.2-1.0) Aspartate Amino Transf (AST/SGOT) 19 U/L (15-37) Alanine Aminotransferase (ALT/SGPT) 19 U/L (14-59) Alkaline Phosphatase 42 U/L (46-116) Total Protein 6.6 g/dL (6.4-8.2) Albumin 2.0 g/dL (3.4-5.0) Albumin/Globulin Ratio 0.4 (1.0-1.7) Medications Active Scripts Medications Dose Route/Sig Max Daily Dose Days Date Category Prednisone 20 Mg Tablet 2 Tab PO DAILY 5 09/20/21 Rx Amlodipine Besylate 10 Mg Tablet 10 Mg PO DAILY 30 09/20/21 Rx Acetaminophen 500 Mg Tablet 1 Tab PO PRN Q6HRS PRN 15 09/17/21 Reported Aspirin 325 Mg Tablet 1 Tab PO DAILY 09/17/21 Reported Humalog (Insulin Lispro) 100 Unit/1 Ml Vial 8 Unit SQ QIDACHS 09/17/21 Reported Lantus (Insulin Glargine,Hum.rec.anlog) 100 Unit/1 Ml Vial 20 Unit SQ HS 09/17/21 Reported Citalopram Hbr (Citalopram Hydrobromide) 20 Mg Tablet 1 Tab PO HS 09/17/21 Reported Fish Oil 1,000 Mg Capsule ([place]-3 Fatty Acids/Fish Oil) 1 Each Capsule 1 Each PO BID 09/17/21 Reported Gabapentin 600 Mg Tablet 600 Mg PO TID 09/17/21 Reported Glimepiride 4 Mg Tablet 1 Tab PO BID 09/17/21 Reported Crestor (Rosuvastatin Calcium) 40 Mg Tablet 40 Mg PO HS 09/17/21 Reported Clopidogrel (Clopidogrel Bisulfate) 75 Mg Tablet 1 Tab PO DAILY 09/17/21 Reported Impression . 1. Acute hypoxic/ hypercapnic respiratory failure in a patient who was diagnosed with COVID-19 on 09/15/2021. She now has consolidation in the right middle and right lower lobe. The possibility of superimposed bacterial pneumonia would be a consideration. Respiratory status worsened since admission. 2. Underlying obesity. 3. Minimal tobacco history. 4. Abnormal chest x-ray as discussed above. 5. COVID positive on 09/15/2021. 6. Encephalopathy, likely benzodiazepine induced Plan . RECOMMENDATIONS: 1. We will continue present BiPAP. We will increase IPAP to 26. Increase respiratory rate to 26 as well. Follow ABGs. Make necessary adjustments. 2. I have discussed with nursing. I would like to transfer her to ICU but due to shortage of beds we will keep her on the floor and monitor respiratory status closely. We will discontinue Ativan and use Precedex drip on the floor for any anxiety. 3. Continue present empiric antibiotic. 4. Continue with heparin for DVT prophylaxis. 5. Monitor the clinical course. 6. Discussed with RN. We will follow along with you. 7. Prognosis guarded 8. Patient remains full code. 9. Chest x-ray from 09/29/2021 reviewed Discussed with RN and RT. Once bed available in ICU, we will transfer her. I have talked to the patient's daughter Bridgette. Explained to her about patient's condition. She understands that she is critically ill. She prefers to use mechanical ventilation as a last resort. We will keep her updated. Critical care time 35 minutes STAS GOODMAN MD Oct 03, 2021 10:24
--- NOTE | 2021-10-03 10:26 | PDOC ---
[employer] PROGRESS NOTE Date of Service DOS: DATE: 10/03/21 TIME: 10:23 Chief Complaint Chief Complaint A/P: Acute hypoxic respiratory failure - seems to be bacterial secondary post-viral pneumonia vs persistent COVID 19 pneumonia Acute metabolic encephalopathy - due to hypoxia, will check ABG to r/o CO2 retention Obesity. Minimal tobacco history. COVID positive on 09/15/2021 DM2 - sliding scale, reduce while taking little PO HTN - prn hydralazine FEN - ADA PPX - lovenox FULL CODE Dispo - inpatient History of Present Illness History of Present Illness Ms Grigsby is a 61-year-old female w/ past medical history of diabetes mellitus type 2, dyslipidemia, recent history of CVA/TIA voice. Comes in found down and hypoxic. Patient was found to be Covid positive on 09/15/2021 on lab results here at [facility]. Currently denies any fevers, shortness of breath or chest pain or diarrhea or dysuria. Chest x-ray revealed consolidation in the right middle and right lower lobe. Admitted with pulmonology consultation. 09/27: Patient normally wears home O2 at 2 L nasal cannula now requiring facemask O2 15l/min. She is very drowsy and cannot contribute to history today. 09/28: ABG 7.3 / placed on BiPAP overnight with good improvement in her mental status. She feels a little better today still on 10 L/min facemask O2 with saturations 96%. She has a good appetite is eating breakfast. Preliminary blood cultures 1 out of 4 positive GPC, urine culture preliminary E. coli. 09/29: Seen off BiPAP 2 L. Nasal cannula. Chest radiograph with improved right lung aeration. E. coli pansensitive urinary tract infection being treated. She is try to get her strength back. Still with cough productive. She is tearful 09/30: NA 148, CR 1.2. More drowsy this morning, confused, back on BIPAP. 10/01: Little more alert today but back on BiPAP. She did ask to be able to eat. Still very short of breath no chest pain. Very weak 10/02: Agitated overnight required Haldol and Ativan and Geodon. Now requiring mitts but wearing BiPAP with little more alert. 10/03 Patient evaluated examined at bedside. On BiPAP 01/07. She was pretty sedated not waking up to voice. ICU transfer whenever bed becomes available. Precedex drip to be started. Continue current otherwise. Vitals/I&O Vitals/I&O: Vital Signs Date Time Temp Pulse Resp B/P (MAP) Pulse Ox O2 Delivery O2 Flow Rate FiO2 10/03/21 09:11 92 BiPAP/CPAP 10/03/21 07:00 97.2 115 22 157/53 (87) 97.2 10/02/21 08:00 10.0 I & O 10/02/21 10/02/21 10/03/21 15:00 23:00 07:00 Intake Total 30 ml 100 ml Output Total 500 ml 350 ml Balance 30 ml -500 ml -250 ml Physical Exam General: moderate distress Heart: Normal S1, Normal S2, Other (tachycardic) Lungs: Other (decreased air entry) Abdomen: Normal bowel sounds, Soft, No tenderness Extremities: Other (bilateral lower extremity edema) Skin: No significant lesion Labs Labs: Laboratory Tests Test 10/02/21 17:02 10/02/21 21:35 10/03/21 07:46 10/03/21 08:40 Glucose (Fingerstick) 132 mg/dL (70-99) 185 mg/dL (70-99) 253 mg/dL (70-99) Sodium Level 142 mmol/L (136-145) Potassium Level 3.8 mmol/L (3.5-5.1) Chloride Level 104 mmol/L (98-107) Carbon Dioxide Level 33 mmol/L (21-32) Anion Gap 5 (6-14) Blood Urea Nitrogen 30 mg/dL (7-20) Creatinine 1.2 mg/dL (0.6-1.0) Estimated GFR (Cockcroft-Gault) 45.4 BUN/Creatinine Ratio 25 (6-20) Glucose Level 276 mg/dL (70-99) Calcium Level 8.2 mg/dL (8.5-10.1) Total Bilirubin 0.3 mg/dL (0.2-1.0) Aspartate Amino Transf (AST/SGOT) 19 U/L (15-37) Alanine Aminotransferase (ALT/SGPT) 19 U/L (14-59) Alkaline Phosphatase 42 U/L (46-116) Total Protein 6.6 g/dL (6.4-8.2) Albumin 2.0 g/dL (3.4-5.0) Albumin/Globulin Ratio 0.4 (1.0-1.7) Comment Review of Relevant I have reviewed the following items zoë (where applicable) has been applied. Medications: Current Medications Medications (Trade) Dose Ordered Sig/Jennifer Route PRN Reason Start Time Stop Time Status Last Admin Dose Admin Lorazepam (Ativan Inj) 1 mg PRN Q6HRS PRN IVP ANXIETY / AGITATION 10/02/21 11:15 10/02/21 12:36 Dextrose/Lactated Ringer's 1,000 ml @ 75 mls/hr [id number] IV 10/02/21 12:00 10/03/21 03:17 Justifications for Admission Other Justification SHABANA GARNETT MD Oct 03, 2021 10:25
[2021-10-03] MEDS ORDERED: IV NORMAL SALINE 500ML BAG 500 ML IV PRN (10:45)
[2021-10-03] MEDS ORDERED: ATROPINE 0.5 MG/5 ML DISP.SYRINGE. IV PRN (10:45)
[2021-10-03 11:11] LABS: PCO2 ABG 73 mmHg (35-46)
[2021-10-03] MEDS: DEXMEDETOMIDINE 400 MCG in IV NORMAL SALINE 100ML 96 ML IV PRN ×2 (12:47→21:04)
--- NOTE | 2021-10-03 13:00 | NUR ---
SS following up with discharge planning. SS reviewed pt chart and discussed with pt RN. Pt is currently on BIPAP at 100%. COVID19 positive. Pt on IV Ampicillin and PO Doxycycline. Order for transfer to ICU on the chart. Not stable. SS will continue to follow for discharge planning.
[2021-10-03 15:46] LABS: BASE EXCESS ABG 11 mmol/L (-3-3); HCO3 ABG 41 mmol/L (21-28); PO2 ABG 70 mmHg (65-108); SAT O2 ABG 91 % (92-99)
[2021-10-03 15:50] LABS: PCO2 ABG 91 mmHg (35-46)
--- NOTE | 2021-10-03 16:05 | NUR ---
ABG RESULTED, PT STATUS IS DECOMPENSATING. DR GOODMAN NOTIFIED. RT AT BEDSIDE, FIO2 CHANGED TO 91% PER DR GOODMAN. ICU BED REQUESTED FROM [facility]. PT WILL TRANSFER TO 102 SOON ROOM IS CLEAN.
[2021-10-03] MEDS: CITALOPRAM 20 MG TABLET. PO SCH (20:08)
[2021-10-03] MEDS: ATORVASTATIN CALCIUM 40 MG TABLET. PO SCH (20:15)
[2021-10-03 21:33] LABS: BASE EXCESS ABG 11 mmol/L (-3-3); HCO3 ABG 39 mmol/L (21-28); PCO2 ABG 73 mmHg (35-46); PO2 ABG 58 mmHg (65-108); SAT O2 ABG 90 % (92-99)
[2021-10-03 21:34] LABS: FIO2 ABG 100
[2021-10-03] MEDS: INSULIN GLARGINE SYRINGE. SQ SCH (21:42)
[2021-10-04] VITALS (30 sets, daily range): BP systolic 96–190; BP diastolic 51–90
[2021-10-04] MEDS: AMPICILLIN/SULBACTAM 3 GM in IV NORMAL SALINE 100ML 100 ML IV SCH ×2 (00:44→05:42)
[2021-10-04] MEDS: DEXMEDETOMIDINE 400 MCG in IV NORMAL SALINE 100ML 96 ML IV PRN ×7 (02:09→21:31)
[2021-10-04] MEDS: IV DEXTROSE 5%-LACT RINGERS 1,000 ML IV SCH ×2 (04:00→16:10)
[2021-10-04] MEDS: hydrALAZINE 20 MG/ML VIAL. IVP PRN (04:46)
[2021-10-04] MEDS: HEPARIN for SUB-Q USE 5,000 UNIT/ML VIAL. SQ SCH ×3 (05:42→21:33)
[2021-10-04 07:52] LABS: BASE EXCESS ABG 12 mmol/L (-3-3); HCO3 ABG 38 mmol/L (21-28); PO2 ABG 58 mmHg (65-108); SAT O2 ABG 90 % (92-99)
[2021-10-04 07:55] LABS: PCO2 ABG 60 mmHg (35-46)
[2021-10-04 07:56] LABS: FIO2 ABG 100% 26/6 26
[2021-10-04] MEDS: INSULIN LISPRO 300 UNITS/3 ML VIAL. SQ SCH ×4 (08:00→17:58)
[2021-10-04] MEDS: ASPIRIN 325 MG TABLET PO SCH (08:54)
[2021-10-04] MEDS: GABAPENTIN 300 MG CAPSULE. PO SCH ×3 (08:54→21:32)
[2021-10-04] MEDS: LACTOBACILLUS RHAMNOSUS GG 1 CAPSULE. PO SCH (08:54)
[2021-10-04] MEDS: CLOPIDOGREL BISULFATE 75 MG TABLET PO SCH (08:55)
[2021-10-04] MEDS: SENNOSIDES/DOCUSATE 8.6/50MG TABLET. PO SCH ×2 (08:55→21:32)
[2021-10-04] MEDS: DOXYCYCLINE HYCLATE 100 MG TABLET PO SCH (08:56)
--- NOTE | 2021-10-04 09:24 | PDOC ---
PULMONARY PROGRESS NOTES DATE: 10/04/21 TIME: 09:23 Subjective Patient sedated with Precedex Currently on BiPAP 05/03, 100% FiO2 Moves upper extremities to painful stimuli Vitals Vital Signs Date Time Temp Pulse Resp B/P (MAP) Pulse Ox O2 Delivery O2 Flow Rate FiO2 10/04/21 07:48 93 BiPAP/CPAP 10/04/21 06:00 57 26 156/73 10/04/21 04:00 98.8 98.8 Lungs: Crackles Cardiovascular: S1, S2 Abdomen: Soft, Other (Obese) Extremities: Other (Mild edema) Skin: Warm (PALLAVI) Labs Laboratory Tests Test 10/02/21 17:02 10/02/21 21:35 10/03/21 07:46 10/03/21 08:31 Glucose (Fingerstick) 132 mg/dL (70-99) 185 mg/dL (70-99) 253 mg/dL (70-99) O2 Saturation 92 % (92-99) Arterial Blood pH 7.33 (7.35-7.45) Arterial Blood pCO2 at Patient Temp 73 mmHg (35-46) Arterial Blood pO2 at Patient Temp 68 mmHg (65-108) Arterial Blood HCO3 38 mmol/L (21-28) Arterial Blood Base Excess 9 mmol/L (-3-3) FiO2 100 bipap Test 10/03/21 08:40 10/03/21 10:39 10/03/21 15:39 10/03/21 16:12 Sodium Level 142 mmol/L (136-145) Potassium Level 3.8 mmol/L (3.5-5.1) Chloride Level 104 mmol/L (98-107) Carbon Dioxide Level 33 mmol/L (21-32) Anion Gap 5 (6-14) Blood Urea Nitrogen 30 mg/dL (7-20) Creatinine 1.2 mg/dL (0.6-1.0) Estimated GFR (Cockcroft-Gault) 45.4 BUN/Creatinine Ratio 25 (6-20) Glucose Level 276 mg/dL (70-99) Calcium Level 8.2 mg/dL (8.5-10.1) Total Bilirubin 0.3 mg/dL (0.2-1.0) Aspartate Amino Transf (AST/SGOT) 19 U/L (15-37) Alanine Aminotransferase (ALT/SGPT) 19 U/L (14-59) Alkaline Phosphatase 42 U/L (46-116) Total Protein 6.6 g/dL (6.4-8.2) Albumin 2.0 g/dL (3.4-5.0) Albumin/Globulin Ratio 0.4 (1.0-1.7) Glucose (Fingerstick) 269 mg/dL (70-99) 154 mg/dL (70-99) O2 Saturation 91 % (92-99) Arterial Blood pH 7.27 (7.35-7.45) Arterial Blood pCO2 at Patient Temp 91 mmHg (35-46) Arterial Blood pO2 at Patient Temp 70 mmHg (65-108) Arterial Blood HCO3 41 mmol/L (21-28) Arterial Blood Base Excess 11 mmol/L (-3-3) FiO2 100 bipap Test 10/03/21 20:49 10/04/21 07:45 O2 Saturation 90 % (92-99) 90 % (92-99) Arterial Blood pH 7.35 (7.35-7.45) 7.43 (7.35-7.45) Arterial Blood pCO2 at Patient Temp 73 mmHg (35-46) 60 mmHg (35-46) Arterial Blood pO2 at Patient Temp 58 mmHg (65-108) 58 mmHg (65-108) Arterial Blood HCO3 39 mmol/L (21-28) 38 mmol/L (21-28) Arterial Blood Base Excess 11 mmol/L (-3-3) 12 mmol/L (-3-3) FiO2 100 100% 05/03 Laboratory Tests Test 10/03/21 10:39 10/03/21 15:39 10/03/21 16:12 10/03/21 20:49 Glucose (Fingerstick) 269 mg/dL (70-99) 154 mg/dL (70-99) O2 Saturation 91 % (92-99) 90 % (92-99) Arterial Blood pH 7.27 (7.35-7.45) 7.35 (7.35-7.45) Arterial Blood pCO2 at Patient Temp 91 mmHg (35-46) 73 mmHg (35-46) Arterial Blood pO2 at Patient Temp 70 mmHg (65-108) 58 mmHg (65-108) Arterial Blood HCO3 41 mmol/L (21-28) 39 mmol/L (21-28) Arterial Blood Base Excess 11 mmol/L (-3-3) 11 mmol/L (-3-3) FiO2 100 bipap 100 Test 10/04/21 07:45 O2 Saturation 90 % (92-99) Arterial Blood pH 7.43 (7.35-7.45) Arterial Blood pCO2 at Patient Temp 60 mmHg (35-46) Arterial Blood pO2 at Patient Temp 58 mmHg (65-108) Arterial Blood HCO3 38 mmol/L (21-28) Arterial Blood Base Excess 12 mmol/L (-3-3) FiO2 100% 05/03 Medications Active Scripts Medications Dose Route/Sig Max Daily Dose Days Date Category Prednisone 20 Mg Tablet 2 Tab PO DAILY 5 09/20/21 Rx Amlodipine Besylate 10 Mg Tablet 10 Mg PO DAILY 30 09/20/21 Rx Acetaminophen 500 Mg Tablet 1 Tab PO PRN Q6HRS PRN 15 09/17/21 Reported Aspirin 325 Mg Tablet 1 Tab PO DAILY 09/17/21 Reported Humalog (Insulin Lispro) 100 Unit/1 Ml Vial 8 Unit SQ QIDACHS 09/17/21 Reported Lantus (Insulin Glargine,Hum.rec.anlog) 100 Unit/1 Ml Vial 20 Unit SQ HS 09/17/21 Reported Citalopram Hbr (Citalopram Hydrobromide) 20 Mg Tablet 1 Tab PO HS 09/17/21 Reported Fish Oil 1,000 Mg Capsule ([place]-3 Fatty Acids/Fish Oil) 1 Each Capsule 1 Each PO BID 09/17/21 Reported Gabapentin 600 Mg Tablet 600 Mg PO TID 09/17/21 Reported Glimepiride 4 Mg Tablet 1 Tab PO BID 09/17/21 Reported Crestor (Rosuvastatin Calcium) 40 Mg Tablet 40 Mg PO HS 09/17/21 Reported Clopidogrel (Clopidogrel Bisulfate) 75 Mg Tablet 1 Tab PO DAILY 09/17/21 Reported Impression . 1. Acute hypoxic/ hypercapnic respiratory failure in a patient who was diagnosed with COVID-19 on 09/15/21/ARDS 2. Underlying obesity. 3. Minimal tobacco history. 4. Abnormal chest x-ray possible bacterial pneumonia 5. COVID positive on 09/15/2021. 6. Encephalopathy, toxic, metabolic. Plan . Updated 10/04 Continue current BiPAP Empiric antibiotics Precedex DVT GI prophylaxis Patient full code Avoid intubation, if clinically possible. Nutritional support CCT of 30 minutes, discussed with RN and RT 10/03 RECOMMENDATIONS: 1. We will continue present BiPAP. We will increase IPAP to 26. Increase respiratory rate to 26 as well. Follow ABGs. Make necessary adjustments. 2. I have discussed with nursing. I would like to transfer her to ICU but due to shortage of beds we will keep her on the floor and monitor respiratory status closely. We will discontinue Ativan and use Precedex drip on the floor for any anxiety. 3. Continue present empiric antibiotic. 4. Continue with heparin for DVT prophylaxis. 5. Monitor the clinical course. 6. Discussed with RN. We will follow along with you. 7. Prognosis guarded 8. Patient remains full code. 9. Chest x-ray from 09/29/2021 reviewed Discussed with RN and RT. Once bed available in ICU, we will transfer her. I have talked to the patient's daughter Bridgette. Explained to her about patient's condition. She understands that she is critically ill. She prefers to use mechanical ventilation as a last resort. We will keep her updated. Critical care time 35 minutes ASTER LEHMAN MD Oct 04, 2021 09:24
[2021-10-04] MEDS ORDERED: STERILE WATER for RESP 1,000 ML BAG. INH PRN (10:45)
--- NOTE | 2021-10-04 11:20 | PDOC ---
[employer] PROGRESS NOTE Date of Service DOS: DATE: 10/04/21 TIME: 11:17 Chief Complaint Chief Complaint Severe respiratory failure COVID-19 pneumonia Found down Severe metabolic encephalopathy Obesity Diabetes Hypertension History of Present Illness History of Present Illness 10/04/2021 Patient seen and examined in the ICU She is on BiPAP 05/03 with 100% FiO2 Chart reviewed Discussed with RN She is critically ill Ms Grigsby is a 61-year-old female w/ past medical history of diabetes mellitus type 2, dyslipidemia, recent history of CVA/TIA voice. Comes in found down and hypoxic. Patient was found to be Covid positive on 09/15/2021 on lab results here at [facility]. Currently denies any fevers, shortness of breath or chest pain or diarrhea or dysuria. Chest x-ray revealed consolidation in the right middle and right lower lobe. Admitted with pulmonology consultation. 09/27: Patient normally wears home O2 at 2 L nasal cannula now requiring facemask O2 15l/min. She is very drowsy and cannot contribute to history today. 09/28: ABG 7.3 / placed on BiPAP overnight with good improvement in her mental status. She feels a little better today still on 10 L/min facemask O2 with saturations 96%. She has a good appetite is eating breakfast. Preliminary blood cultures 1 out of 4 positive GPC, urine culture preliminary E. coli. 09/29: Seen off BiPAP 2 L. Nasal cannula. Chest radiograph with improved right lung aeration. E. coli pansensitive urinary tract infection being treated. She is try to get her strength back. Still with cough productive. She is tearful 09/30: NA 148, CR 1.2. More drowsy this morning, confused, back on BIPAP. 10/01: Little more alert today but back on BiPAP. She did ask to be able to eat. Still very short of breath no chest pain. Very weak 10/02: Agitated overnight required Haldol and Ativan and Geodon. Now requiring mitts but wearing BiPAP with little more alert. 10/03 Patient evaluated examined at bedside. On BiPAP 01/07. She was pretty sedated not waking up to voice. ICU transfer whenever bed becomes available. Precedex drip to be started. Continue current otherwise. Vitals/I&O Vitals/I&O: Vital Signs Date Time Temp Pulse Resp B/P (MAP) Pulse Ox O2 Delivery O2 Flow Rate FiO2 10/04/21 11:11 77 BiPAP/CPAP 10/04/21 06:00 57 26 156/73 10/04/21 04:00 98.8 98.8 I & O 10/03/21 10/03/21 10/04/21 15:00 23:00 07:00 Intake Total 0 ml 0 ml 2223.0 ml Output Total 0 ml 325 ml Balance 0 ml 0 ml 1898.0 ml Physical Exam General: moderate distress Heart: Normal S1, Normal S2, Other Lungs: Crackles Abdomen: Normal bowel sounds, Soft, No tenderness Extremities: Other Skin: No significant lesion Labs Labs: Laboratory Tests Test 10/03/21 15:39 10/03/21 16:12 10/03/21 20:49 10/04/21 07:45 O2 Saturation 91 % (92-99) 90 % (92-99) 90 % (92-99) Arterial Blood pH 7.27 (7.35-7.45) 7.35 (7.35-7.45) 7.43 (7.35-7.45) Arterial Blood pCO2 at Patient Temp 91 mmHg (35-46) 73 mmHg (35-46) 60 mmHg (35-46) Arterial Blood pO2 at Patient Temp 70 mmHg (65-108) 58 mmHg (65-108) 58 mmHg (65-108) Arterial Blood HCO3 41 mmol/L (21-28) 39 mmol/L (21-28) 38 mmol/L (21-28) Arterial Blood Base Excess 11 mmol/L (-3-3) 11 mmol/L (-3-3) 12 mmol/L (-3-3) FiO2 100 bipap 100 100% / 26 Glucose (Fingerstick) 154 mg/dL (70-99) Assessment and Plan Assessmemt and Plan Severe respiratory failure COVID-19 pneumonia Found down Severe metabolic encephalopathy Obesity Diabetes Hypertension Plan ICU monitoring Trying to wean off BiPAP We will start PPN IV antibiotics Covid protocol Trend labs DVT prophylaxis Full code Sliding-scale insulin As needed hydralazine Appreciate subspecialist input Prognosis very guarded FEN - ADA PPX - lovenox Dispo - inpatient CC time 31 minutes Comment Review of Relevant I have reviewed the following items zoë (where applicable) has been applied. Medications: Current Medications Medications (Trade) Dose Ordered Sig/Jennifer Route PRN Reason Start Time Stop Time Status Last Admin Dose Admin Insulin Human Lispro (HumaLOG) 10 units TIDWMEALS SQ 10/03/21 12:00 10/03/21 11:30 Justifications for Admission Other Justification GABRIELLE SEGUNDO III DO Oct 04, 2021 11:20
[2021-10-04 13:02] LABS: BASO # 0.1 x10^3/uL (0.0-0.2); BASO % 1 % (0-3); EOS % 0 % (0-3); HEMATOCRIT 36.6 % (36.0-47.0); HEMOGLOBIN 11.6 g/dL (12.0-15.5); LYMPH # 0.8 x10^3/uL (1.0-4.8); LYMPH % 7 % (24-48); MEAN CORPUSCULAR HEMOGLOBIN 29 pg (25-35); MEAN CORPUSCULAR HGB CONC 32 g/dL (31-37); MEAN CORPUSCULAR VOLUME 92 fL (79-100); MONO # 0.7 x10^3/uL (0.0-1.1); MONO % 6 % (0-9); NEUT # 10.5 x10^3/uL (1.8-7.7); NEUT % 87 % (31-73); PLATELET COUNT 188 x10^3/uL (140-400); RED BLOOD COUNT 3.97 x10^6/uL (3.50-5.40); RED CELL DISTRIBUTION WIDTH 14.7 % (11.5-14.5); WHITE BLOOD COUNT 12.2 x10^3/uL (4.0-11.0)
[2021-10-04 13:39] LABS: ALBUMIN 1.9 g/dL (3.4-5.0); ALBUMIN/GLOBULIN RATIO 0.4 (1.0-1.7); MAGNESIUM 2.3 mg/dL (1.8-2.4); PHOSPHORUS 3.4 mg/dL (2.6-4.7); TOTAL BILIRUBIN 0.3 mg/dL (0.2-1.0); TOTAL PROTEIN 6.7 g/dL (6.4-8.2)
[2021-10-04] MEDS ORDERED: SUCCINYLCHOLINE 200 MG/10 ML VIAL. ONE ×2 (13:54→14:00)
[2021-10-04] MEDS ORDERED: VECURONIUM BOLUS 10 MG VIAL. IV PRN ×2 (14:00)
[2021-10-04] MEDS ORDERED: IV NORMAL SALINE 500ML BAG 500 ML IV PRN (14:00)
[2021-10-04] MEDS ORDERED: MIDAZOLAM HCL/PF 5 MG/5 ML VIAL. IVP PRN (14:00)
[2021-10-04] MEDS: MIDAZOLAM 100mg/100ml NS BAG 100 ML IV PRN (14:17)
[2021-10-04] MEDS: TPN PER PHARMACY MC PRN (14:44)
--- NOTE | 2021-10-04 15:27 | NUR ---
SS following up with discharge planning. SS reviewed pt chart and discussed with pt RN. Pt now intubated and in ICU. COVID19 positive. Pt is currently on the vent at 100%. TPN to start tonight. Pt on Precedex, Fentanyl, Versed, and Propofol. Not stable. SS will continue to follow for discharge planning.
--- NOTE | 2021-10-04 15:31 | NUR ---
Procedure: Following complete explanation of the PICC procedure including the indications, risks, and potential complications, informed consent was obtained. The possibility for infection was discussed along with signs, symptoms, and prevention. All the questions were answered. yes Written and verbal patient education was provided. yes Hand hygiene performed. yes Standardized central line checklist was utilized. yes The patient was placed in the supine position, the arm was prepped with chlorhexidine and patient draped with maximum sterile barrier. [4] mL 1% lidocaine was infiltrated into the skin to provide local anesthesia. A thorough assessment of [right] upper extremity completed. Using real-time ultrasound guidance and standardized micro puncture set, the [basilic] vein was punctured and a peel away sheath was placed using the modified Seldinger technique. A tip location device was used to ensure adequate catheter placement. The catheter was secured using a securement device and an antimicrobial patch was applied directly on the insertion site followed by a transparent dressing. All ports withdraw blood and flush without resistance. Patient tolerated the procedure without apparent complication(s). [Triple] Lumen Power PICC placement successful and uncomplicated. Placement verified by EKG tip confirmation system and/or chest x-ray. Tip located in the [CAJ] Complications: [none] Addendum: 10/04/21 at 1537 by FLOWER KINNEY RN Amended: Links added.
--- NOTE | 2021-10-04 15:34 | NUR ---
NKDA Allergies and reactions INR none BUN 29 Cr 1.0 Platelets 188 Blood culture done blood culture results 09/26/21 staph capitis Order Verified Yes Consent signed Yes Previous PICC placement Yes Past Medical/Surgical history and current diagnosis reviewed Yes Patient Medical /Surgical History Related to PICC line placement None Diabetes Infectious Disease consult Problems breathing lying flat Special considerations for PICC line placement Infections PICC placement indication Caustic medication class drug usage, oil heaterman antibiotic usage, Multiple/ Frequent blood draws, Poor peripheral intravenous access Total Parenteral Nutrition (TPN) Shaunna Kinney RN of PICC Nurse Addendum: 10/04/21 at 1537 by SHAUNNA KINNEY RN Amended: Links added.
--- NOTE | 2021-10-04 16:01 | RAD ---
EXAM: Chest, single view. HISTORY: Line placement. COMPARISON: 09/29/2021 FINDINGS: A frontal view of the chest is obtained. There is an endotracheal tube within the distal tr achea. The tip is approximately 2.5 cm from the steven. There is a nasogastric tube within the stomac h. There is a right PICC with the tip overlying the expected location of the superior cavoatrial junc tion. There is diffuse increased interstitial opacity. There are small pleural effusions. There is no pneumothorax. There is cardiomegaly. There is internal fixation of a proximal right humeral fracture . IMPRESSION: 1. Stable to slight increased diffuse interstitial infiltrate. 2. Stable small pleural effusions and cardia megaly. 3. Support lines and tubes in expected position. Electronically signed by: Natividad Benjamin MD (10/04/2021 3:59 PM) [id number]
[2021-10-04] MEDS: PROPOFOL 100 ML IV PRN ×2 (16:17→21:43)
[2021-10-04 16:25] LABS: BASE EXCESS ABG 12 mmol/L (-3-3); HCO3 ABG 38 mmol/L (21-28); PCO2 ABG 52 mmHg (35-46); SAT O2 ABG 87 % (92-99)
[2021-10-04 16:54] LABS: PO2 ABG 47 mmHg (65-108)
--- NOTE | 2021-10-04 17:17 | NUR ---
Pharmacy TPN Dosing Note S: MARIA FERNANDA KEENAN is a 61 year old F Currently receiving Central Continuous TPN started 10/04/21 B:Pertinent PMH: NPO/HYPOXIA Height: 5 feet, 2 inches Weight: 106.867611 kg Current diet: LABS: Sodium: 154 Potassium: 4.0 Chloride: 112 Calcium: 8.0 Corrected Calcium: 9.68 Magnesium: 2.3 CO2: 37 SCr: 1.0 Glucose: 292/297 Albumin: 1.9 AST: ALT: TPN FORMULA: TPN TYPE: Central Continuous AMINO ACIDS: 65 gm DEXTROSE: 175 gm LIPIDS: 30 GM MWF gm SODIUM CHLORIDE: 40 mEq SODIUM ACETATE: mEq SODIUM PHOSPHATE: mmol POTASSIUM CHLORIDE: 50 mEq POTASSIUM ACETATE: mEq POTASSIUM PHOSPHATE: 13.6 mmol MAGNESIUM: 10 mEq CALCIUM: mEq INSULIN: units MULTIPLE VITAMIN: 10 ml TRACE ELEMENTS: 1 ml(s) TPN PLAN: TPN WITH LIPID ON MWF, NO CALCIUM GLUCONATE IN TPN 2/2 SHORTAGE, REPLACE CALCIUM NEEDED WITH IVP. BMP/LAB IN AM R: Begin TPN AT 70 ML/HR Will monitor electrolytes, glucose, and tolerance to TPN. DARRELL CROOK [facility], 10/04/21 [id number]
[2021-10-04] MEDS: FAMOTIDINE 20 MG/2 ML VIAL IVP SCH (21:32)
[2021-10-04] MEDS: CITALOPRAM 20 MG TABLET. PO SCH (21:32)
[2021-10-04] MEDS: ATORVASTATIN CALCIUM 40 MG TABLET. PO SCH (21:41)
[2021-10-04] MEDS: INSULIN GLARGINE SYRINGE. SQ SCH (21:43)
[2021-10-04] MEDS ORDERED: [UNRECOGNIZED DRUG - OTHER] IV SCH (22:00)
[2021-10-04] MEDS ORDERED: DEXTROSE 70% IV SCH (22:00)
[2021-10-04] MEDS ORDERED: TOTAL PARENTERAL NUTRITION IV SCH (22:00)
[2021-10-04] MEDS ORDERED: TOTAL PARENTERAL NUTRITION 1,424.9614 ML, AMINO ACID 15% 60 GM, DEXTROSE 70 % IN WATER ... IV SCH (22:00)
[2021-10-04] MEDS ORDERED: AMINO ACID IV SCH (22:00)
[2021-10-05] VITALS (24 sets, daily range): BP systolic 84–153; BP diastolic 54–86
[2021-10-05] MEDS: INSULIN LISPRO 300 UNITS/3 ML VIAL. SQ SCH ×4 (00:47→17:10)
[2021-10-05] MEDS: MIDAZOLAM 100mg/100ml NS BAG 100 ML IV PRN (04:15)
[2021-10-05] MEDS: HEPARIN for SUB-Q USE 5,000 UNIT/ML VIAL. SQ SCH ×3 (05:33→21:49)
[2021-10-05] MEDS: PROPOFOL 100 ML IV PRN ×2 (06:00→22:48)
[2021-10-05] MEDS: DEXMEDETOMIDINE 400 MCG in IV NORMAL SALINE 100ML 96 ML IV PRN (06:05)
[2021-10-05 06:30] LABS: CREATININE 0.9 mg/dL (0.6-1.0); GFR 63.2
[2021-10-05 06:33] LABS: POTASSIUM 2.8 mmol/L (3.5-5.1)
--- NOTE | 2021-10-05 06:47 | RAD ---
XR CHEST 1V Clinical Indication: Reason: s/p intubation / Comparison: AP chest, prior day. Findings: Endotracheal tube is 3 cm superior to the steven. Enteric tube courses into the stomach, tip outside of [id number]. Right PICC is stable. The cardiomediastinal silhouette is stable. There are diffuse bilateral pulmonary opacities. Right lung opacities are worse. There may be small bilateral pleural effusions. No pneumothorax is seen. Hardware of the right humerus is minimally imaged. IMPRESSION: 1. Stable life support devices. 2. Diffuse right pulmonary opacities are worse. Left pulmonary opacities are unchanged. Electronically signed by: Luis Concepcion MD (10/05/2021 6:45 AM) [facility]
[2021-10-05] MEDS: POTASSIUM CHLORIDE 20MEQ 100 ML IV SCH ×4 (07:21→10:32)
[2021-10-05 07:49] LABS: BASE EXCESS ABG 10 mmol/L (-3-3); HCO3 ABG 34 mmol/L (21-28); PCO2 ABG 44 mmHg (35-46); PO2 ABG 59 mmHg (65-108); SAT O2 ABG 92 % (92-99)
[2021-10-05 08:16] LABS: MAGNESIUM 2.3 mg/dL (1.8-2.4); PHOSPHORUS 1.3 mg/dL (2.6-4.7)
[2021-10-05] MEDS: FAMOTIDINE 20 MG/2 ML VIAL IVP SCH ×2 (08:55→21:02)
[2021-10-05] MEDS: GABAPENTIN 300 MG CAPSULE. PO SCH ×3 (08:55→21:02)
[2021-10-05] MEDS: CLOPIDOGREL BISULFATE 75 MG TABLET PO SCH (08:55)
[2021-10-05] MEDS: ASPIRIN 325 MG TABLET PO SCH (08:55)
[2021-10-05] MEDS: SENNOSIDES/DOCUSATE 8.6/50MG TABLET. PO SCH ×2 (08:57→21:15)
--- NOTE | 2021-10-05 09:02 | PDOC ---
[employer] PROGRESS NOTE Date of Service DOS: DATE: 10/05/21 TIME: 09:00 Chief Complaint Chief Complaint Severe respiratory failure COVID-19 pneumonia Found down Severe metabolic encephalopathy Obesity Diabetes Hypertension History of Present Illness History of Present Illness 10/05/2021 Patient seen and examined in the ICU She had to be intubated last night Current vent settings as follows AC/20/450/1 100% with 7 of PEEP Has propofol fentanyl and Versed for sedation On IV TPN Has a new PICC denise with TPN running Has a pure wick Discussed with RN Chart reviewed She remains very critically ill 10/04/2021 Patient seen and examined in the ICU She is on BiPAP 05/03 with 100% FiO2 Chart reviewed Discussed with RN She is critically ill Ms Grigsby is a 61-year-old female w/ past medical history of diabetes mellitus type 2, dyslipidemia, recent history of CVA/TIA voice. Comes in found down and hypoxic. Patient was found to be Covid positive on 09/15/2021 on lab results here at [facility]. Currently denies any fevers, shortness of breath or chest pain or diarrhea or dysuria. Chest x-ray revealed consolidation in the right middle and right lower lobe. Admitted with pulmonology consultation. 09/27: Patient normally wears home O2 at 2 L nasal cannula now requiring facemask O2 15l/min. She is very drowsy and cannot contribute to history today. 09/28: ABG 7.3 / placed on BiPAP overnight with good improvement in her mental status. She feels a little better today still on 10 L/min facemask O2 with saturations 96%. She has a good appetite is eating breakfast. Preliminary blood cultures 1 out of 4 positive GPC, urine culture preliminary E. coli. 09/29: Seen off BiPAP 2 L. Nasal cannula. Chest radiograph with improved right lung aeration. E. coli pansensitive urinary tract infection being treated. She is try to get her strength back. Still with cough productive. She is tearful 09/30: NA 148, CR 1.2. More drowsy this morning, confused, back on BIPAP. 10/01: Little more alert today but back on BiPAP. She did ask to be able to eat. Still very short of breath no chest pain. Very weak 10/02: Agitated overnight required Haldol and Ativan and Geodon. Now requiring m itts but wearing BiPAP with little more alert. 10/03 Patient evaluated examined at bedside. On BiPAP 01/07. She was pretty sedated not waking up to voice. ICU transfer whenever bed becomes available. Precedex drip to be started. Continue current otherwise. Vitals/I&O Vitals/I&O: Vital Signs Date Time Temp Pulse Resp B/P (MAP) Pulse Ox O2 Delivery O2 Flow Rate FiO2 10/05/21 08:56 93/58 10/05/21 07:30 97 Ventilator 10/05/21 06:00 52 20 10/05/21 04:00 97.7 97.7 10/05/21 00:14 10.0 I & O 10/04/21 10/04/21 10/05/21 15:00 23:00 07:00 Intake Total 100 ml 1472 ml 1498.4 ml Output Total 850 ml 200 ml Balance -750 ml 1272 ml 1498.4 ml Physical Exam General: No acute distress, Other (Intubated sedated) Heart: Normal S1, Normal S2, Other Lungs: Crackles Abdomen: Normal bowel sounds, Soft, No tenderness Extremities: Other Skin: No significant lesion Labs Labs: Laboratory Tests Test 10/04/21 12:50 10/04/21 13:45 10/04/21 16:25 10/04/21 17:55 White Blood Count 12.2 x10^3/uL (4.0-11.0) Red Blood Count 3.97 x10^6/uL (3.50-5.40) Hemoglobin 11.6 g/dL (12.0-15.5) Hematocrit 36.6 % (36.0-47.0) Mean Corpuscular Volume 92 fL (79-100) Mean Corpuscular Hemoglobin 29 pg (25-35) Mean Corpuscular Hemoglobin Concent 32 g/dL (31-37) Red Cell Distribution Width 14.7 % (11.5-14.5) Platelet Count 188 x10^3/uL (140-400) Neutrophils (%) (Auto) 87 % (31-73) Lymphocytes (%) (Auto) 7 % (24-48) Monocytes (%) (Auto) 6 % (0-9) Eosinophils (%) (Auto) 0 % (0-3) Basophils (%) (Auto) 1 % (0-3) Neutrophils # (Auto) 10.5 x10^3/uL (1.8-7.7) Lymphocytes # (Auto) 0.8 x10^3/uL (1.0-4.8) Monocytes # (Auto) 0.7 x10^3/uL (0.0-1.1) Eosinophils # (Auto) 0.0 x10^3/uL (0.0-0.7) Basophils # (Auto) 0.1 x10^3/uL (0.0-0.2) Sodium Level 154 mmol/L (136-145) Potassium Level 4.0 mmol/L (3.5-5.1) Chloride Level 112 mmol/L (98-107) Carbon Dioxide Level 37 mmol/L (21-32) Anion Gap 5 (6-14) Blood Urea Nitrogen 29 mg/dL (7-20) Creatinine 1.0 mg/dL (0.6-1.0) Estimated GFR (Cockcroft-Gault) 56.0 BUN/Creatinine Ratio 29 (6-20) Glucose Level 292 mg/dL (70-99) Calcium Level 8.0 mg/dL (8.5-10.1) Phosphorus Level 3.4 mg/dL (2.6-4.7) Magnesium Level 2.3 mg/dL (1.8-2.4) Total Bilirubin 0.3 mg/dL (0.2-1.0) Aspartate Amino Transf (AST/SGOT) 17 U/L (15-37) Alanine Aminotransferase (ALT/SGPT) 17 U/L (14-59) Alkaline Phosphatase 39 U/L (46-116) Total Protein 6.7 g/dL (6.4-8.2) Albumin 1.9 g/dL (3.4-5.0) Albumin/Globulin Ratio 0.4 (1.0-1.7) Triglycerides Level 171 mg/dL (0-150) Glucose (Fingerstick) 297 mg/dL (70-99) 283 mg/dL (70-99) O2 Saturation 87 % (92-99) Arterial Blood pH 7.48 (7.35-7.45) Arterial Blood pCO2 at Patient Temp 52 mmHg (35-46) Arterial Blood pO2 at Patient Temp 47 mmHg (65-108) Arterial Blood HCO3 38 mmol/L (21-28) Arterial Blood Base Excess 12 mmol/L (-3-3) FiO2 100% ac 20 450 7 Test 10/05/21 00:38 10/05/21 05:50 10/05/21 05:58 10/05/21 07:30 Glucose (Fingerstick) 274 mg/dL (70-99) 266 mg/dL (70-99) Sodium Level 149 mmol/L (136-145) Potassium Level 2.8 mmol/L (3.5-5.1) Chloride Level 111 mmol/L (98-107) Carbon Dioxide Level 36 mmol/L (21-32) Anion Gap 2 (6-14) Blood Urea Nitrogen 29 mg/dL (7-20) Creatinine 0.9 mg/dL (0.6-1.0) Estimated GFR (Cockcroft-Gault) 63.2 Glucose Level 285 mg/dL (70-99) Calcium Level 8.0 mg/dL (8.5-10.1) Phosphorus Level 1.3 mg/dL (2.6-4.7) Magnesium Level 2.3 mg/dL (1.8-2.4) O2 Saturation 92 % (92-99) Arterial Blood pH 7.51 (7.35-7.45) Arterial Blood pCO2 at Patient Temp 44 mmHg (35-46) Arterial Blood pO2 at Patient Temp 59 mmHg (65-108) Arterial Blood HCO3 34 mmol/L (21-28) Arterial Blood Base Excess 10 mmol/L (-3-3) FiO2 100% ac 20 450 7 Assessment and Plan Assessmemt and Plan Severe respiratory failure COVID-19 pneumonia Found down Severe metabolic encephalopathy Obesity Diabetes Hypertension Plan ICU monitoring Vent weaning Continue TPN IV antibiotics Covid protocol Trend labs DVT prophylaxis Full code Sliding-scale insulin As needed hydralazine Appreciate subspecialist input Prognosis very guarded PPX - lovenox Dispo - inpatient CC time 32 minutes Comment Review of Relevant I have reviewed the following items zoë (where applicable) has been applied. Medications: Current Medications Medications (Trade) Dose Ordered Sig/Jennifer Route PRN Reason Start Time Stop Time Status Last Admin Dose Admin Insulin Human Lispro (HumaLOG) 0-9 UNITS Q6HRS SQ 10/04/21 12:00 10/05/21 06:02 Sterile Water (WATER for RESP) 1,000 ml CONT PRN INH VIA VAPOTHERM DEVICE 10/04/21 10:45 10/04/21 16:57 Info (Tpn Per Pharmacy) 1 each PRN DAILY PRN MC SEE COMMENTS 10/04/21 10:45 10/04/21 14:44 Midazolam HCl 100 ml @ 0 mls/hr CONT PRN IV SEE PROTOCOL 10/04/21 14:00 10/05/21 04:15 Propofol 100 ml @ 3.198 mls/ hr CONT PRN IV PER PROTOCOL 10/04/21 14:00 10/05/21 06:00 Vecuronium [place] (Norcuron Bolus) 6 mg PRN 1X PRN IV VENT INDUCTION 10/04/21 14:00 10/04/21 14:17 DC 10/04/21 14:17 Fentanyl Citrate 30 ml @ 2.5 mls/hr CONT PRN IV SEE PROTOCOL 10/04/21 14:15 10/04/21 14:19 DC 10/04/21 14:16 Fentanyl Citrate 30 ml @ 2.5 mls/hr CONT PRN IV SEE PROTOCOL 10/04/21 14:30 10/04/21 23:44 Sodium Chloride 40 meq/Potassium Chloride 50 meq/ Potassium Phosphate 13.6 mmol/Magnesium Sulfate 10 meq/ Multivitamins 10 ml/Zinc/Copper/ Manganese/ Selenium 1 ml/ Total Parenteral Nutrition/Amino Acids/Dextrose 1,680 ml @ 70 mls/hr TPN CONT IV 10/04/21 22:00 10/05/21 21:59 10/04/21 21:40 Famotidine (Pepcid Vial) 20 mg BID IVP 10/04/21 21:00 10/05/21 08:55 Potassium Chloride/Water 100 ml @ 100 mls/hr Q1H IV 10/05/21 07:15 10/05/21 11:14 10/05/21 08:57 Justifications for Admission Other Justification GABRIELLE SEGUNDO III DO Oct 05, 2021 09:02
--- NOTE | 2021-10-05 09:37 | PDOC ---
PULMONARY PROGRESS NOTES DATE: 10/05/21 TIME: 09:37 Subjective Patient sedated, currently on 100% FiO2 7 of PEEP No overnight events Vitals Vital Signs Date Time Temp Pulse Resp B/P (MAP) Pulse Ox O2 Delivery O2 Flow Rate FiO2 10/05/21 08:56 93/58 10/05/21 07:30 97 Ventilator 10/05/21 06:00 52 20 10/05/21 04:00 97.7 97.7 10/05/21 00:14 10.0 Lungs: Crackles Cardiovascular: S1, S2 Abdomen: Soft, Other (Obese) Extremities: Other (Mild edema) Skin: Warm (PALLAVI) Labs Laboratory Tests Test 10/03/21 10:39 10/03/21 15:39 10/03/21 16:12 10/03/21 20:49 Glucose (Fingerstick) 269 mg/dL (70-99) 154 mg/dL (70-99) O2 Saturation 91 % (92-99) 90 % (92-99) Arterial Blood pH 7.27 (7.35-7.45) 7.35 (7.35-7.45) Arterial Blood pCO2 at Patient Temp 91 mmHg (35-46) 73 mmHg (35-46) Arterial Blood pO2 at Patient Temp 70 mmHg (65-108) 58 mmHg (65-108) Arterial Blood HCO3 41 mmol/L (21-28) 39 mmol/L (21-28) Arterial Blood Base Excess 11 mmol/L (-3-3) 11 mmol/L (-3-3) FiO2 100 bipap 100 Test 10/04/21 07:45 10/04/21 12:50 10/04/21 13:45 10/04/21 16:25 O2 Saturation 90 % (92-99) 87 % (92-99) Arterial Blood pH 7.43 (7.35-7.45) 7.48 (7.35-7.45) Arterial Blood pCO2 at Patient Temp 60 mmHg (35-46) 52 mmHg (35-46) Arterial Blood pO2 at Patient Temp 58 mmHg (65-108) 47 mmHg (65-108) Arterial Blood HCO3 38 mmol/L (21-28) 38 mmol/L (21-28) Arterial Blood Base Excess 12 mmol/L (-3-3) 12 mmol/L (-3-3) FiO2 100% 26/6 26 100% ac 20 450 7 White Blood Count 12.2 x10^3/uL (4.0-11.0) Red Blood Count 3.97 x10^6/uL (3.50-5.40) Hemoglobin 11.6 g/dL (12.0-15.5) Hematocrit 36.6 % (36.0-47.0) Mean Corpuscular Volume 92 fL (79-100) Mean Corpuscular Hemoglobin 29 pg (25-35) Mean Corpuscular Hemoglobin Concent 32 g/dL (31-37) Red Cell Distribution Width 14.7 % (11.5-14.5) Platelet Count 188 x10^3/uL (140-400) Neutrophils (%) (Auto) 87 % (31-73) Lymphocytes (%) (Auto) 7 % (24-48) Monocytes (%) (Auto) 6 % (0-9) Eosinophils (%) (Auto) 0 % (0-3) Basophils (%) (Auto) 1 % (0-3) Neutrophils # (Auto) 10.5 x10^3/uL (1.8-7.7) Lymphocytes # (Auto) 0.8 x10^3/uL (1.0-4.8) Monocytes # (Auto) 0.7 x10^3/uL (0.0-1.1) Eosinophils # (Auto) 0.0 x10^3/uL (0.0-0.7) Basophils # (Auto) 0.1 x10^3/uL (0.0-0.2) Sodium Level 154 mmol/L (136-145) Potassium Level 4.0 mmol/L (3.5-5.1) Chloride Level 112 mmol/L (98-107) Carbon Dioxide Level 37 mmol/L (21-32) Anion Gap 5 (6-14) Blood Urea Nitrogen 29 mg/dL (7-20) Creatinine 1.0 mg/dL (0.6-1.0) Estimated GFR (Cockcroft-Gault) 56.0 BUN/Creatinine Ratio 29 (6-20) Glucose Level 292 mg/dL (70-99) Calcium Level 8.0 mg/dL (8.5-10.1) Phosphorus Level 3.4 mg/dL (2.6-4.7) Magnesium Level 2.3 mg/dL (1.8-2.4) Total Bilirubin 0.3 mg/dL (0.2-1.0) Aspartate Amino Transf (AST/SGOT) 17 U/L (15-37) Alanine Aminotransferase (ALT/SGPT) 17 U/L (14-59) Alkaline Phosphatase 39 U/L (46-116) Total Protein 6.7 g/dL (6.4-8.2) Albumin 1.9 g/dL (3.4-5.0) Albumin/Globulin Ratio 0.4 (1.0-1.7) Triglycerides Level 171 mg/dL (0-150) Glucose (Fingerstick) 297 mg/dL (70-99) Test 10/04/21 17:55 10/05/21 00:38 10/05/21 05:50 10/05/21 05:58 Glucose (Fingerstick) 283 mg/dL (70-99) 274 mg/dL (70-99) 266 mg/dL (70-99) Sodium Level 149 mmol/L (136-145) Potassium Level 2.8 mmol/L (3.5-5.1) Chloride Level 111 mmol/L (98-107) Carbon Dioxide Level 36 mmol/L (21-32) Anion Gap 2 (6-14) Blood Urea Nitrogen 29 mg/dL (7-20) Creatinine 0.9 mg/dL (0.6-1.0) Estimated GFR (Cockcroft-Gault) 63.2 Glucose Level 285 mg/dL (70-99) Calcium Level 8.0 mg/dL (8.5-10.1) Phosphorus Level 1.3 mg/dL (2.6-4.7) Magnesium Level 2.3 mg/dL (1.8-2.4) Test 10/05/21 07:30 O2 Saturation 92 % (92-99) Arterial Blood pH 7.51 (7.35-7.45) Arterial Blood pCO2 at Patient Temp 44 mmHg (35-46) Arterial Blood pO2 at Patient Temp 59 mmHg (65-108) Arterial Blood HCO3 34 mmol/L (21-28) Arterial Blood Base Excess 10 mmol/L (-3-3) FiO2 100% ac 20 450 7 Laboratory Tests Test 10/04/21 12:50 10/04/21 13:45 10/04/21 16:25 10/04/21 17:55 White Blood Count 12.2 x10^3/uL (4.0-11.0) Red Blood Count 3.97 x10^6/uL (3.50-5.40) Hemoglobin 11.6 g/dL (12.0-15.5) Hematocrit 36.6 % (36.0-47.0) Mean Corpuscular Volume 92 fL (79-100) Mean Corpuscular Hemoglobin 29 pg (25-35) Mean Corpuscular Hemoglobin Concent 32 g/dL (31-37) Red Cell Distribution Width 14.7 % (11.5-14.5) Platelet Count 188 x10^3/uL (140-400) Neutrophils (%) (Auto) 87 % (31-73) Lymphocytes (%) (Auto) 7 % (24-48) Monocytes (%) (Auto) 6 % (0-9) Eosinophils (%) (Auto) 0 % (0-3) Basophils (%) (Auto) 1 % (0-3) Neutrophils # (Auto) 10.5 x10^3/uL (1.8-7.7) Lymphocytes # (Auto) 0.8 x10^3/uL (1.0-4.8) Monocytes # (Auto) 0.7 x10^3/uL (0.0-1.1) Eosinophils # (Auto) 0.0 x10^3/uL (0.0-0.7) Basophils # (Auto) 0.1 x10^3/uL (0.0-0.2) Sodium Level 154 mmol/L (136-145) Potassium Level 4.0 mmol/L (3.5-5.1) Chloride Level 112 mmol/L (98-107) Carbon Dioxide Level 37 mmol/L (21-32) Anion Gap 5 (6-14) Blood Urea Nitrogen 29 mg/dL (7-20) Creatinine 1.0 mg/dL (0.6-1.0) Estimated GFR (Cockcroft-Gault) 56.0 BUN/Creatinine Ratio 29 (6-20) Glucose Level 292 mg/dL (70-99) Calcium Level 8.0 mg/dL (8.5-10.1) Phosphorus Level 3.4 mg/dL (2.6-4.7) Magnesium Level 2.3 mg/dL (1.8-2.4) Total Bilirubin 0.3 mg/dL (0.2-1.0) Aspartate Amino Transf (AST/SGOT) 17 U/L (15-37) Alanine Aminotransferase (ALT/SGPT) 17 U/L (14-59) Alkaline Phosphatase 39 U/L (46-116) Total Protein 6.7 g/dL (6.4-8.2) Albumin 1.9 g/dL (3.4-5.0) Albumin/Globulin Ratio 0.4 (1.0-1.7) Triglycerides Level 171 mg/dL (0-150) Glucose (Fingerstick) 297 mg/dL (70-99) 283 mg/dL (70-99) O2 Saturation 87 % (92-99) Arterial Blood pH 7.48 (7.35-7.45) Arterial Blood pCO2 at Patient Temp 52 mmHg (35-46) Arterial Blood pO2 at Patient Temp 47 mmHg (65-108) Arterial Blood HCO3 38 mmol/L (21-28) Arterial Blood Base Excess 12 mmol/L (-3-3) FiO2 100% ac 20 450 7 Test 10/05/21 00:38 10/05/21 05:50 10/05/21 05:58 10/05/21 07:30 Glucose (Fingerstick) 274 mg/dL (70-99) 266 mg/dL (70-99) Sodium Level 149 mmol/L (136-145) Potassium Level 2.8 mmol/L (3.5-5.1) Chloride Level 111 mmol/L (98-107) Carbon Dioxide Level 36 mmol/L (21-32) Anion Gap 2 (6-14) Blood Urea Nitrogen 29 mg/dL (7-20) Creatinine 0.9 mg/dL (0.6-1.0) Estimated GFR (Cockcroft-Gault) 63.2 Glucose Level 285 mg/dL (70-99) Calcium Level 8.0 mg/dL (8.5-10.1) Phosphorus Level 1.3 mg/dL (2.6-4.7) Magnesium Level 2.3 mg/dL (1.8-2.4) O2 Saturation 92 % (92-99) Arterial Blood pH 7.51 (7.35-7.45) Arterial Blood pCO2 at Patient Temp 44 mmHg (35-46) Arterial Blood pO2 at Patient Temp 59 mmHg (65-108) Arterial Blood HCO3 34 mmol/L (21-28) Arterial Blood Base Excess 10 mmol/L (-3-3) FiO2 100% ac 20 450 7 Medications Active Scripts Medications Dose Route/Sig Max Daily Dose Days Date Category Prednisone 20 Mg Tablet 2 Tab PO DAILY 5 09/20/21 Rx Amlodipine Besylate 10 Mg Tablet 10 Mg PO DAILY 30 09/20/21 Rx Acetaminophen 500 Mg Tablet 1 Tab PO PRN Q6HRS PRN 15 09/17/21 Reported Aspirin 325 Mg Tablet 1 Tab PO DAILY 09/17/21 Reported Humalog (Insulin Lispro) 100 Unit/1 Ml Vial 8 Unit SQ QIDACHS 09/17/21 Reported Lantus (Insulin Glargine,Hum.rec.anlog) 100 Unit/1 Ml Vial 20 Unit SQ HS 09/17/21 Reported Citalopram Hbr (Citalopram Hydrobromide) 20 Mg Tablet 1 Tab PO HS 09/17/21 Reported Fish Oil 1,000 Mg Capsule ([place]-3 Fatty Acids/Fish Oil) 1 Each Capsule 1 Each PO BID 09/17/21 Reported Gabapentin 600 Mg Tablet 600 Mg PO TID 09/17/21 Reported Glimepiride 4 Mg Tablet 1 Tab PO BID 09/17/21 Reported Crestor (Rosuvastatin Calcium) 40 Mg Tablet 40 Mg PO HS 09/17/21 Reported Clopidogrel (Clopidogrel Bisulfate) 75 Mg Tablet 1 Tab PO DAILY 09/17/21 Reported Impression . 1. Acute hypoxic/ hypercapnic respiratory failure in a patient who was diagnosed with COVID-19 on 09/15/21/ARDS 2. Underlying obesity. 3. Minimal tobacco history. 4. Abnormal chest x-ray possible bacterial pneumonia 5. COVID positive on 09/15/2021. 6. Encephalopathy, toxic, metabolic. 7. Hypokalemia Plan . Updated 10/05 Patient deteriorated yesterday, sedated, currently on 100% FiO2, 7 of PEEP Replace potassium Replace magnesium Maintain sedated Chest x-ray reviewed Patient finished a course of empiric antibiotics Nutritional support Monitor blood sugars Discussed with RN and RT, CCT 30 minutes Updated 10/04 Continue current BiPAP Empiric antibiotics Precedex DVT GI prophylaxis Patient full code Avoid intubation, if clinically possible. Nutritional support CCT of 30 minutes, discussed with RN and RT ASTER LEHMAN MD Oct 05, 2021 09:37
[2021-10-05] MEDS: TPN PER PHARMACY MC PRN (11:42)
--- NOTE | 2021-10-05 11:44 | NUR ---
Pharmacy TPN Dosing Note S: MARIA FERNANDA KEENAN is a 61 year old F Currently receiving Central Continuous TPN started 10/04/21 B:Pertinent PMH: NPO/HYPOXIA Height: 5 feet, 2 inches Weight: 106.364966 kg Current diet: LABS: Sodium: 149 Potassium: 2.8 Chloride: 11 Calcium: 8.0 Corrected Calcium: 9.68 Magnesium: 2.3 CO2: 36 SCr: 0.9 Glucose: 285 Albumin: 1.9 AST: ALT: TPN FORMULA: TPN TYPE: Central Continuous AMINO ACIDS: 125 gm DEXTROSE: 140 gm LIPIDS: 30 GM MWF- ON PROPOFOL gm SODIUM CHLORIDE: 40 mEq SODIUM ACETATE: mEq SODIUM PHOSPHATE: mmol POTASSIUM CHLORIDE: 70 mEq POTASSIUM ACETATE: mEq POTASSIUM PHOSPHATE: 30 mmol MAGNESIUM: 10 mEq CALCIUM: mEq INSULIN: units MULTIPLE VITAMIN: 10 ml TRACE ELEMENTS: 1 ml(s) TPN PLAN: TPN WITH LIPID ON MWF, NO CALCIUM GLUCONATE IN TPN 2/2 SHORTAGE, REPLACE CALCIUM NEEDED WITH IVP. Macros adjusted per RD recs. No lipids, on propofol. K=2.8, Phos=1.3, rec'd KCl and KPhos riders, will increase both in TPN as well Glucose elevated, lantus increased. Labs in the am. R: Continue TPN as written above. Will monitor electrolytes, glucose, and tolerance to TPN. LULU KRAFT [facility], 10/05/21 [id number]
[2021-10-05 12:29] LABS: CORRECTED PCO2 ABG 39 mmHg; CORRECTED PH ABG 7.55; CORRECTED PO2 ABG 49 mmHg
[2021-10-05] MEDS: POTASSIUM PHOSPHATE DIBASIC 15 MMOL in IV NS 100 ML IV SCH ×2 (13:24→14:52)
[2021-10-05] MEDS: methylPREDNISolone SOD SUCC PF 125 MG/2 ML VIAL. IV SCH ×2 (13:27→21:01)
--- NOTE | 2021-10-05 14:48 | NUR ---
SS following up with discharge planning. SS reviewed pt chart and discussed with pt RN. Pt is currently on the vent at 100%. COVID19 positive. TPN and IV Solu-Medrol. Pt on Precedex, Fentanyl, Versed, and Propofol. Not stable. SS will continue to follow for discharge planning.
[2021-10-05] MEDS: IV NORMAL SALINE 1000ML BAG 1,000 ML IV SCH (17:18)
[2021-10-05] MEDS ORDERED: INSULIN GLARGINE SYRINGE. SQ SCH (21:00)
[2021-10-05] MEDS: ATORVASTATIN CALCIUM 40 MG TABLET. PO SCH (21:02)
[2021-10-05] MEDS: CITALOPRAM 20 MG TABLET. PO SCH (21:03)
[2021-10-05] MEDS ORDERED: TOTAL PARENTERAL NUTRITION IV SCH (22:00)
[2021-10-05] MEDS ORDERED: AMINO ACID IV SCH (22:00)
[2021-10-05] MEDS ORDERED: DEXTROSE 70% IV SCH (22:00)
[2021-10-05] MEDS ORDERED: [UNRECOGNIZED DRUG - OTHER] IV SCH (22:00)
[2021-10-06] VITALS (25 sets, daily range): BP systolic 113–153; BP diastolic 57–86
[2021-10-06] MEDS: INSULIN LISPRO 300 UNITS/3 ML VIAL. SQ SCH ×5 (00:19→23:37)
[2021-10-06] MEDS: PROPOFOL 100 ML IV PRN ×3 (04:21→21:13)
[2021-10-06] MEDS: HEPARIN for SUB-Q USE 5,000 UNIT/ML VIAL. SQ SCH ×3 (05:42→21:35)
[2021-10-06] MEDS: MIDAZOLAM 100mg/100ml NS BAG 100 ML IV PRN (05:43)
[2021-10-06 06:38] LABS: CALCIUM 8.1 mg/dL (8.5-10.1); CREATININE 1.1 mg/dL (0.6-1.0); GFR 50.2; MAGNESIUM 2.4 mg/dL (1.8-2.4); PHOSPHORUS 4.3 mg/dL (2.6-4.7); POTASSIUM 5.2 mmol/L (3.5-5.1)
[2021-10-06 07:32] LABS: BASE EXCESS ABG 5 mmol/L (-3-3); HCO3 ABG 29 mmol/L (21-28); PCO2 ABG 40 mmHg (35-46); PO2 ABG 76 mmHg (65-108); SAT O2 ABG 95 % (92-99)
[2021-10-06 07:41] LABS: FIO2 ABG 100
--- NOTE | 2021-10-06 08:38 | RAD ---
XR CHEST 1V INDICATION: s/p intubation COMPARISON STUDY: 10/05/2021. FINDINGS: Life Support Devices: Endotracheal tube, enteric tube, right. Lungs: Normal lung volume. Stable diffuse bilateral opacities. Pleura: Stable small pleural effusions. Heart and Mediastinum: Stable cardiomediastinal silhouette and great vessels. Bones and Soft Tissues: Stable regional skeleton and soft tissues. IMPRESSION: 1. Stable life support devices. 2. Stable diffuse bilateral opacities. 3. Stable small pleural effusions. Electronically signed by: Shon Watters MD (10/06/2021 8:35 AM) [id number]
[2021-10-06] MEDS: methylPREDNISolone SOD SUCC PF 125 MG/2 ML VIAL. IV SCH ×2 (08:51→21:12)
[2021-10-06] MEDS: SENNOSIDES/DOCUSATE 8.6/50MG TABLET. PO SCH ×2 (08:51→21:14)
[2021-10-06] MEDS: ASPIRIN 325 MG TABLET PO SCH (08:51)
[2021-10-06] MEDS: FAMOTIDINE 20 MG/2 ML VIAL IVP SCH ×2 (08:52→21:13)
[2021-10-06] MEDS: CLOPIDOGREL BISULFATE 75 MG TABLET PO SCH (08:52)
[2021-10-06] MEDS: GABAPENTIN 250 MG/5 ML ORAL SOLUTION. PO SCH ×3 (09:00→21:15)
--- NOTE | 2021-10-06 10:15 | PDOC ---
PULMONARY PROGRESS NOTES DATE: 10/06/21 TIME: 10:10 Subjective Patient sedated with prop, fent, and ativan. currently on 100% FiO2 7 of PEEP No overnight events Vitals Vital Signs Date Time Temp Pulse Resp B/P (MAP) Pulse Ox O2 Delivery O2 Flow Rate FiO2 10/06/21 09:23 99 Ventilator 10/06/21 09:00 49 16 145/74 10/06/21 08:00 98.8 98.8 10/06/21 04:47 10.0 Lungs: Crackles Cardiovascular: S1, S2 Abdomen: Soft, Other (Obese) Extremities: Other (Mild edema) Skin: Warm (PALLAVI) Labs Laboratory Tests Test 10/04/21 12:50 10/04/21 13:45 10/04/21 16:25 10/04/21 17:55 White Blood Count 12.2 x10^3/uL (4.0-11.0) Red Blood Count 3.97 x10^6/uL (3.50-5.40) Hemoglobin 11.6 g/dL (12.0-15.5) Hematocrit 36.6 % (36.0-47.0) Mean Corpuscular Volume 92 fL (79-100) Mean Corpuscular Hemoglobin 29 pg (25-35) Mean Corpuscular Hemoglobin Concent 32 g/dL (31-37) Red Cell Distribution Width 14.7 % (11.5-14.5) Platelet Count 188 x10^3/uL (140-400) Neutrophils (%) (Auto) 87 % (31-73) Lymphocytes (%) (Auto) 7 % (24-48) Monocytes (%) (Auto) 6 % (0-9) Eosinophils (%) (Auto) 0 % (0-3) Basophils (%) (Auto) 1 % (0-3) Neutrophils # (Auto) 10.5 x10^3/uL (1.8-7.7) Lymphocytes # (Auto) 0.8 x10^3/uL (1.0-4.8) Monocytes # (Auto) 0.7 x10^3/uL (0.0-1.1) Eosinophils # (Auto) 0.0 x10^3/uL (0.0-0.7) Basophils # (Auto) 0.1 x10^3/uL (0.0-0.2) Sodium Level 154 mmol/L (136-145) Potassium Level 4.0 mmol/L (3.5-5.1) Chloride Level 112 mmol/L (98-107) Carbon Dioxide Level 37 mmol/L (21-32) Anion Gap 5 (6-14) Blood Urea Nitrogen 29 mg/dL (7-20) Creatinine 1.0 mg/dL (0.6-1.0) Estimated GFR (Cockcroft-Gault) 56.0 BUN/Creatinine Ratio 29 (6-20) Glucose Level 292 mg/dL (70-99) Calcium Level 8.0 mg/dL (8.5-10.1) Phosphorus Level 3.4 mg/dL (2.6-4.7) Magnesium Level 2.3 mg/dL (1.8-2.4) Total Bilirubin 0.3 mg/dL (0.2-1.0) Aspartate Amino Transf (AST/SGOT) 17 U/L (15-37) Alanine Aminotransferase (ALT/SGPT) 17 U/L (14-59) Alkaline Phosphatase 39 U/L (46-116) Total Protein 6.7 g/dL (6.4-8.2) Albumin 1.9 g/dL (3.4-5.0) Albumin/Globulin Ratio 0.4 (1.0-1.7) Triglycerides Level 171 mg/dL (0-150) Glucose (Fingerstick) 297 mg/dL (70-99) 283 mg/dL (70-99) O2 Saturation 87 % (92-99) Arterial Blood pH 7.48 (7.35-7.45) Arterial Blood pCO2 at Patient Temp 52 mmHg (35-46) Arterial Blood pO2 at Patient Temp 47 mmHg (65-108) Arterial Blood HCO3 38 mmol/L (21-28) Arterial Blood Base Excess 12 mmol/L (-3-3) FiO2 100% ac 20 450 7 Test 10/05/21 00:38 10/05/21 05:50 10/05/21 05:58 10/05/21 07:30 Glucose (Fingerstick) 274 mg/dL (70-99) 266 mg/dL (70-99) Sodium Level 149 mmol/L (136-145) Potassium Level 2.8 mmol/L (3.5-5.1) Chloride Level 111 mmol/L (98-107) Carbon Dioxide Level 36 mmol/L (21-32) Anion Gap 2 (6-14) Blood Urea Nitrogen 29 mg/dL (7-20) Creatinine 0.9 mg/dL (0.6-1.0) Estimated GFR (Cockcroft-Gault) 63.2 Glucose Level 285 mg/dL (70-99) Calcium Level 8.0 mg/dL (8.5-10.1) Phosphorus Level 1.3 mg/dL (2.6-4.7) Magnesium Level 2.3 mg/dL (1.8-2.4) O2 Saturation 92 % (92-99) Arterial Blood pH 7.51 (7.35-7.45) Arterial Blood pH (Temp corrected) 7.55 Arterial Blood pCO2 at Patient Temp 44 mmHg (35-46) Arterial Blood pCO2 (Temp correct) 39 mmHg Arterial Blood pO2 at Patient Temp 59 mmHg (65-108) Arterial Blood pO2 (Temp corrected) 49 mmHg Arterial Blood HCO3 34 mmol/L (21-28) Arterial Blood Base Excess 10 mmol/L (-3-3) FiO2 100% ac 20 450 7 Test 10/05/21 12:06 10/05/21 16:30 10/05/21 23:48 10/06/21 05:50 Glucose (Fingerstick) 226 mg/dL (70-99) 202 mg/dL (70-99) 269 mg/dL (70-99) Sodium Level 148 mmol/L (136-145) Potassium Level 5.2 mmol/L (3.5-5.1) Chloride Level 112 mmol/L (98-107) Carbon Dioxide Level 31 mmol/L (21-32) Anion Gap 5 (6-14) Blood Urea Nitrogen 44 mg/dL (7-20) Creatinine 1.1 mg/dL (0.6-1.0) Estimated GFR (Cockcroft-Gault) 50.2 Glucose Level 376 mg/dL (70-99) Calcium Level 8.1 mg/dL (8.5-10.1) Phosphorus Level 4.3 mg/dL (2.6-4.7) Magnesium Level 2.4 mg/dL (1.8-2.4) Test 10/06/21 05:55 10/06/21 07:23 Glucose (Fingerstick) 307 mg/dL (70-99) O2 Saturation 95 % (92-99) Arterial Blood pH 7.47 (7.35-7.45) Arterial Blood pCO2 at Patient Temp 40 mmHg (35-46) Arterial Blood pO2 at Patient Temp 76 mmHg (65-108) Arterial Blood HCO3 29 mmol/L (21-28) Arterial Blood Base Excess 5 mmol/L (-3-3) FiO2 100 Laboratory Tests Test 10/05/21 12:06 10/05/21 16:30 10/05/21 23:48 10/06/21 05:50 Glucose (Fingerstick) 226 mg/dL (70-99) 202 mg/dL (70-99) 269 mg/dL (70-99) Sodium Level 148 mmol/L (136-145) Potassium Level 5.2 mmol/L (3.5-5.1) Chloride Level 112 mmol/L (98-107) Carbon Dioxide Level 31 mmol/L (21-32) Anion Gap 5 (6-14) Blood Urea Nitrogen 44 mg/dL (7-20) Creatinine 1.1 mg/dL (0.6-1.0) Estimated GFR (Cockcroft-Gault) 50.2 Glucose Level 376 mg/dL (70-99) Calcium Level 8.1 mg/dL (8.5-10.1) Phosphorus Level 4.3 mg/dL (2.6-4.7) Magnesium Level 2.4 mg/dL (1.8-2.4) Test 10/06/21 05:55 10/06/21 07:23 Glucose (Fingerstick) 307 mg/dL (70-99) O2 Saturation 95 % (92-99) Arterial Blood pH 7.47 (7.35-7.45) Arterial Blood pCO2 at Patient Temp 40 mmHg (35-46) Arterial Blood pO2 at Patient Temp 76 mmHg (65-108) Arterial Blood HCO3 29 mmol/L (21-28) Arterial Blood Base Excess 5 mmol/L (-3-3) FiO2 100 Medications Active Scripts Medications Dose Route/Sig Max Daily Dose Days Date Category Prednisone 20 Mg Tablet 2 Tab PO DAILY 5 09/20/21 Rx Amlodipine Besylate 10 Mg Tablet 10 Mg PO DAILY 30 09/20/21 Rx Acetaminophen 500 Mg Tablet 1 Tab PO PRN Q6HRS PRN 15 09/17/21 Reported Aspirin 325 Mg Tablet 1 Tab PO DAILY 09/17/21 Reported Humalog (Insulin Lispro) 100 Unit/1 Ml Vial 8 Unit SQ QIDACHS 09/17/21 Reported Lantus (Insulin Glargine,Hum.rec.anlog) 100 Unit/1 Ml Vial 20 Unit SQ HS 09/17/21 Reported Citalopram Hbr (Citalopram Hydrobromide) 20 Mg Tablet 1 Tab PO HS 09/17/21 Reported Fish Oil 1,000 Mg Capsule ([place]-3 Fatty Acids/Fish Oil) 1 Each Capsule 1 Each PO BID 09/17/21 Reported Gabapentin 600 Mg Tablet 600 Mg PO TID 09/17/21 Reported Glimepiride 4 Mg Tablet 1 Tab PO BID 09/17/21 Reported Crestor (Rosuvastatin Calcium) 40 Mg Tablet 40 Mg PO HS 09/17/21 Reported Clopidogrel (Clopidogrel Bisulfate) 75 Mg Tablet 1 Tab PO DAILY 09/17/21 Reported Impression . 1. Acute hypoxic/ hypercapnic respiratory failure in a patient who was diagnosed with COVID-19 on 09/15/21/ARDS 2. Underlying obesity. 3. Minimal tobacco history. 4. Abnormal chest x-ray possible bacterial pneumonia 5. COVID positive on 09/15/2021. 6. Encephalopathy, toxic, metabolic. 7. Hypokalemia Plan . Updated 10/06 Patient remains stable, sedated, currently on 100% FiO2, 7 of PEEP Replace potassium. Currently 5.9 will monitor closely Replace magnesium. Currently 2.4 Maintain sedated Chest x-ray reviewed. Stable. Patient finished a course of empiric antibiotics Nutritional support Monitor blood sugars Updated 10/05 Patient deteriorated yesterday, sedated, currently on 100% FiO2, 7 of PEEP Replace potassium Replace magnesium Maintain sedated Chest x-ray reviewed Patient finished a course of empiric antibiotics Nutritional support Monitor blood sugars Discussed with RN and RT, CCT 30 minutes Updated 10/04 Continue current BiPAP Empiric antibiotics Precedex DVT GI prophylaxis Patient full code Avoid intubation, if clinically possible. Nutritional support CCT of 30 minutes, discussed with RN and RT ASTER LEHMAN MD Oct 06, 2021 10:15
[2021-10-06] MEDS: TPN PER PHARMACY MC PRN (11:03)
--- NOTE | 2021-10-06 11:34 | NUR ---
Pharmacy TPN Dosing Note S: MARIA FERNANDA KEENAN is a 61 year old F Currently receiving Central Continuous TPN started 10/04/21 B:Pertinent PMH: NPO/HYPOXIA Height: 5 feet, 2 inches Weight: 105.9 kg Current diet:NPO LABS: Sodium: 148 Potassium: 5.2 Chloride: 112 Calcium: 8.1 Corrected Calcium: 9.78 Magnesium: 2.4 CO2: 31 SCr: 1.1 Glucose: 376 Albumin: 1.9 AST: 17 ALT: 17 TPN FORMULA: TPN TYPE: Central Continuous AMINO ACIDS: 125 gm DEXTROSE: 140 gm SODIUM CHLORIDE: 30 mEq SODIUM PHOSPHATE: 15 mmol MAGNESIUM: 10 mEq MULTIPLE VITAMIN: 10 ml TRACE ELEMENTS: 1 ml(s) TPN PLAN: K 5.2 today, remove KCl from TPN. Phos increased to 4.3- change to NaPhos and decrease to 15 mmol. Na 148, decrease NaCl to 30 mEq. Pt remains on propofol- no lipids. -BMP, Mag and Phos in AM. R: Change TPN as noted above. Will monitor electrolytes, glucose, and tolerance to TPN. BARRY FIGUEROA [facility], 10/06/21 [id number]
--- NOTE | 2021-10-06 11:43 | PDOC ---
[facility] PROGRESS NOTE Date of Service DOS: DATE: 10/06/21 TIME: 11:42 Chief Complaint Chief Complaint Severe respiratory failure COVID-19 pneumonia Found down Severe metabolic encephalopathy Obesity Diabetes Hypertension History of Present Illness History of Present Illness 10/06/2021 Patient seen and examined in the ICU She remains on the vent AC/16/450/1 100% with 7 of PEEP TPN hanging Sedated Discussed with RN Chart reviewed 10/05/2021 Patient seen and examined in the ICU She had to be intubated last night Current vent settings as follows AC/20/450/1 100% with 7 of PEEP Has propofol fentanyl and Versed for sedation On IV TPN Has a new PICC denise with TPN running Has a pure wick Discussed with RN Chart reviewed She remains very critically ill 10/04/2021 Patient seen and examined in the ICU She is on BiPAP 05/03 with 100% FiO2 Chart reviewed Discussed with RN She is critically ill Ms Grigsby is a 61-year-old female w/ past medical history of diabetes mellitus type 2, dyslipidemia, recent history of CVA/TIA voice. Comes in found down and hypoxic. Patient was found to be Covid positive on 09/15/2021 on lab results here at [facility]. Currently denies any fevers, shortness of breath or chest pain or diarrhea or dysuria. Chest x-ray revealed consolidation in the right middle and right lower lobe. Admitted with pulmonology consultation. 09/27: Patient normally wears home O2 at 2 L nasal cannula now requiring facemask O2 15l/min. She is very drowsy and cannot contribute to history today. 09/28: ABG 7.3 / placed on BiPAP overnight with good improvement in her mental status. She feels a little better today still on 10 L/min facemask O2 with saturations 96%. She has a good appetite is eating breakfast. Preliminary blood cultures 1 out of 4 positive GPC, urine culture preliminary E. coli. 09/29: Seen off BiPAP 2 L. Nasal cannula. Chest radiograph with improved right lung aeration. E. coli pansensitive urinary tract infection being treated. She is try to get her strength back. Still with cough productive. She is tearful 09/30: NA 148, CR 1.2. More drowsy this morning, confused, back on BIPAP. 10/01: Little more alert today but back on BiPAP. She did ask to be able to eat. Still very short of breath no chest pain. Very weak 10/02: Agitated overnight required Haldol and Ativan and Geodon. Now requiring mitts but wearing BiPAP with little more alert. 10/03 Patient evaluated examined at bedside. On BiPAP 01/07. She was pretty sedated not waking up to voice. ICU transfer whenever bed becomes available. Precedex drip to be started. Continue current otherwise. Vitals/I&O Vitals/I&O: Vital Signs Date Time Temp Pulse Resp B/P (MAP) Pulse Ox O2 Delivery O2 Flow Rate FiO2 10/06/21 11:00 49 16 142/71 99 Ventilator 10/06/21 08:00 98.8 98.8 10/06/21 04:47 10.0 I & O 10/05/21 10/05/21 10/06/21 15:00 23:00 07:00 Intake Total 530 ml 1898 ml 0 ml Output Total 250 ml 75 ml 500 ml Balance 280 ml 1823 ml -500 ml Physical Exam General: No acute distress, Other (Intubated sedated) Heart: Normal S1, Normal S2, Other Lungs: Crackles Abdomen: Normal bowel sounds, Soft, No tenderness Extremities: Other Skin: No significant lesion Labs Labs: Laboratory Tests Test 10/05/21 12:06 10/05/21 16:30 10/05/21 23:48 10/06/21 05:50 Glucose (Fingerstick) 226 mg/dL (70-99) 202 mg/dL (70-99) 269 mg/dL (70-99) Sodium Level 148 mmol/L (136-145) Potassium Level 5.2 mmol/L (3.5-5.1) Chloride Level 112 mmol/L (98-107) Carbon Dioxide Level 31 mmol/L (21-32) Anion Gap 5 (6-14) Blood Urea Nitrogen 44 mg/dL (7-20) Creatinine 1.1 mg/dL (0.6-1.0) Estimated GFR (Cockcroft-Gault) 50.2 Glucose Level 376 mg/dL (70-99) Calcium Level 8.1 mg/dL (8.5-10.1) Phosphorus Level 4.3 mg/dL (2.6-4.7) Magnesium Level 2.4 mg/dL (1.8-2.4) Test 10/06/21 05:55 10/06/21 07:23 Glucose (Fingerstick) 307 mg/dL (70-99) O2 Saturation 95 % (92-99) Arterial Blood pH 7.47 (7.35-7.45) Arterial Blood pCO2 at Patient Temp 40 mmHg (35-46) Arterial Blood pO2 at Patient Temp 76 mmHg (65-108) Arterial Blood HCO3 29 mmol/L (21-28) Arterial Blood Base Excess 5 mmol/L (-3-3) FiO2 100 Assessment and Plan Assessmemt and Plan Severe respiratory failure COVID-19 pneumonia Found down Severe metabolic encephalopathy Obesity Diabetes Hypertension Plan ICU monitoring Vent weaning Continue TPN IV antibiotics Covid protocol Trend labs DVT prophylaxis Full code Sliding-scale insulin As needed hydralazine Appreciate subspecialist input Prognosis very guarded PPX - lovenox Dispo - inpatient CC time 31 minutes Comment Review of Relevant I have reviewed the following items zoë (where applicable) has been applied. Medications: Current Medications Medications (Trade) Dose Ordered Sig/Jennifer Route PRN Reason Start Time Stop Time Status Last Admin Dose Admin Potassium Phosphate 15 mmol/ Sodium Chloride 105 ml @ 52.5 mls/hr Q2H IV 10/05/21 13:00 10/05/21 16:59 DC 10/05/21 14:52 Insulin Glargine (Lantus Syringe) 20 unit HS SQ 10/05/21 21:00 10/05/21 21:04 Sodium Chloride 40 meq/Potassium Chloride 70 meq/ Potassium Phosphate 30 mmol/ Magnesium Sulfate 10 meq/ Multivitamins 10 ml/Zinc/Copper/ Manganese/ Selenium 1 ml/ Total Parenteral Nutrition/Amino Acids/Dextrose 1,680 ml @ 70 mls/hr TPN CONT IV 10/05/21 22:00 10/06/21 21:59 10/05/21 21:49 Sodium Chloride 1,000 ml @ 30 mls/hr Q24H IV 10/05/21 17:15 10/05/21 17:18 Justifications for Admission Other Justification GABRIELLE SEGUNDO III DO Oct 06, 2021 11:43
--- NOTE | 2021-10-06 16:05 | NUR ---
SS following up with discharge planning. SS reviewed pt chart and discussed with pt RN. Pt is currently on the vent at 100%. COVID19 positive. Pt on TPN and IV Solu-Medrol. Pt on Fentanyl, Versed, and Propofol. Not stable. SS will continue to follow for discharge planning.
[2021-10-06] MEDS: IV NORMAL SALINE 1000ML BAG 1,000 ML IV SCH (17:15)
[2021-10-06] MEDS ORDERED: INSULIN LISPRO 300 UNITS/3 ML VIAL. SQ SCH (18:45)
[2021-10-06] MEDS ORDERED: INSULIN LISPRO 300 UNITS/3 ML VIAL. SQ ONE (19:00)
[2021-10-06] MEDS ORDERED: INSULIN GLARGINE SYRINGE. SQ SCH ×2 (21:00)
[2021-10-06] MEDS: CITALOPRAM 20 MG TABLET. PO SCH (21:13)
[2021-10-06] MEDS: ATORVASTATIN CALCIUM 40 MG TABLET. PO SCH (21:14)
[2021-10-06] MEDS ORDERED: [UNRECOGNIZED DRUG - OTHER] IV SCH (22:00)
[2021-10-06] MEDS ORDERED: AMINO ACID IV SCH (22:00)
[2021-10-06] MEDS ORDERED: TOTAL PARENTERAL NUTRITION IV SCH (22:00)
[2021-10-06] MEDS ORDERED: DEXTROSE 70% IV SCH (22:00)
[2021-10-07] VITALS (24 sets, daily range): BP systolic 111–140; BP diastolic 51–68
[2021-10-07] MEDS: PROPOFOL 100 ML IV PRN ×4 (02:50→18:10)
[2021-10-07] MEDS: MIDAZOLAM 100mg/100ml NS BAG 100 ML IV PRN ×2 (02:52→23:58)
[2021-10-07] MEDS: HEPARIN for SUB-Q USE 5,000 UNIT/ML VIAL. SQ SCH ×3 (06:25→21:18)
[2021-10-07] MEDS: INSULIN LISPRO 300 UNITS/3 ML VIAL. SQ SCH ×4 (06:53→23:58)
[2021-10-07 07:28] LABS: CALCIUM 7.6 mg/dL (8.5-10.1); CREATININE 1.1 mg/dL (0.6-1.0); GFR 50.2; POTASSIUM 4.3 mmol/L (3.5-5.1)
[2021-10-07 07:28] LABS: BASE EXCESS ABG 2 mmol/L (-3-3); HCO3 ABG 27 mmol/L (21-28); PCO2 ABG 43 mmHg (35-46); PO2 ABG 81 mmHg (65-108); SAT O2 ABG 95 % (92-99)
[2021-10-07 07:32] LABS: MAGNESIUM 2.5 mg/dL (1.8-2.4); PHOSPHORUS 4.4 mg/dL (2.6-4.7)
[2021-10-07] MEDS: CLOPIDOGREL BISULFATE 75 MG TABLET PO SCH (08:07)
[2021-10-07] MEDS: ASPIRIN 325 MG TABLET PO SCH (08:07)
[2021-10-07] MEDS: GABAPENTIN 250 MG/5 ML ORAL SOLUTION. PO SCH ×3 (08:07→21:19)
[2021-10-07] MEDS: SENNOSIDES/DOCUSATE 8.6/50MG TABLET. PO SCH ×2 (08:08→20:50)
[2021-10-07] MEDS: FAMOTIDINE 20 MG/2 ML VIAL IVP SCH ×2 (08:08→21:18)
[2021-10-07] MEDS: methylPREDNISolone SOD SUCC PF 125 MG/2 ML VIAL. IV SCH ×2 (08:08→21:17)
--- NOTE | 2021-10-07 08:30 | RAD ---
EXAM: Chest, single view. HISTORY: Intubation. COMPARISON: 10/06/2021 FINDINGS: A frontal view of the chest is obtained. There is an endotracheal tube within the distal tr achea. There is a nasogastric tube within the stomach. There is a right PICC with the tip overlying e xpected location of the superior cavoatrial junction. There is stable diffuse interstitial and alveol ar infiltrate with multifocal partial consolidation and small pleural effusions. There is stable enla rgement of the cardiac silhouette. There is internal fixation of the proximal right humerus. IMPRESSION: 1. Stable diffuse infiltrate with areas of partial consolidation and small pleural effusions. 2. Support lines and tubes, described above. Electronically signed by: Natividad Benjamin MD (10/07/2021 8:27 AM) [id number]
--- NOTE | 2021-10-07 09:23 | PDOC ---
PULMONARY PROGRESS NOTES DATE: 10/07/21 TIME: 09:22 Subjective No overnight events currently on 100% FiO2 7 of PEEP Remains critically ill Vitals Vital Signs Date Time Temp Pulse Resp B/P (MAP) Pulse Ox O2 Delivery O2 Flow Rate FiO2 10/07/21 09:00 43 16 116/60 99 Ventilator 10/07/21 08:00 97.7 97.7 10/07/21 03:21 10.0 Lungs: Crackles Cardiovascular: S1, S2 Abdomen: Soft, Other (Obese) Extremities: Other (Mild edema) Skin: Warm (PALLAVI) Labs Laboratory Tests Test 10/05/21 12:06 10/05/21 16:30 10/05/21 23:48 10/06/21 05:50 Glucose (Fingerstick) 226 mg/dL (70-99) 202 mg/dL (70-99) 269 mg/dL (70-99) Sodium Level 148 mmol/L (136-145) Potassium Level 5.2 mmol/L (3.5-5.1) Chloride Level 112 mmol/L (98-107) Carbon Dioxide Level 31 mmol/L (21-32) Anion Gap 5 (6-14) Blood Urea Nitrogen 44 mg/dL (7-20) Creatinine 1.1 mg/dL (0.6-1.0) Estimated GFR (Cockcroft-Gault) 50.2 Glucose Level 376 mg/dL (70-99) Calcium Level 8.1 mg/dL (8.5-10.1) Phosphorus Level 4.3 mg/dL (2.6-4.7) Magnesium Level 2.4 mg/dL (1.8-2.4) Test 10/06/21 05:55 10/06/21 07:23 10/06/21 12:30 10/06/21 16:26 Glucose (Fingerstick) 307 mg/dL (70-99) 380 mg/dL (70-99) 324 mg/dL (70-99) O2 Saturation 95 % (92-99) Arterial Blood pH 7.47 (7.35-7.45) Arterial Blood pCO2 at Patient Temp 40 mmHg (35-46) Arterial Blood pO2 at Patient Temp 76 mmHg (65-108) Arterial Blood HCO3 29 mmol/L (21-28) Arterial Blood Base Excess 5 mmol/L (-3-3) FiO2 100 Test 10/06/21 18:26 10/06/21 23:25 10/06/21 23:30 10/07/21 06:40 Glucose (Fingerstick) 434 mg/dL (70-99) 383 mg/dL (70-99) 375 mg/dL (70-99) Sodium Level 147 mmol/L (136-145) Potassium Level 4.3 mmol/L (3.5-5.1) Chloride Level 110 mmol/L (98-107) Carbon Dioxide Level 29 mmol/L (21-32) Anion Gap 8 (6-14) Blood Urea Nitrogen 58 mg/dL (7-20) Creatinine 1.1 mg/dL (0.6-1.0) Estimated GFR (Cockcroft-Gault) 50.2 Glucose Level 388 mg/dL (70-99) Calcium Level 7.6 mg/dL (8.5-10.1) Phosphorus Level 4.4 mg/dL (2.6-4.7) Magnesium Level 2.5 mg/dL (1.8-2.4) Test 10/07/21 06:51 10/07/21 07:20 Glucose (Fingerstick) 304 mg/dL (70-99) O2 Saturation 95 % (92-99) Arterial Blood pH 7.42 (7.35-7.45) Arterial Blood pCO2 at Patient Temp 43 mmHg (35-46) Arterial Blood pO2 at Patient Temp 81 mmHg (65-108) Arterial Blood HCO3 27 mmol/L (21-28) Arterial Blood Base Excess 2 mmol/L (-3-3) FiO2 100% vent Laboratory Tests Test 10/06/21 12:30 10/06/21 16:26 10/06/21 18:26 10/06/21 23:25 Glucose (Fingerstick) 380 mg/dL (70-99) 324 mg/dL (70-99) 434 mg/dL (70-99) 383 mg/dL (70-99) Test 10/06/21 23:30 10/07/21 06:40 10/07/21 06:51 10/07/21 07:20 Glucose (Fingerstick) 375 mg/dL (70-99) 304 mg/dL (70-99) Sodium Level 147 mmol/L (136-145) Potassium Level 4.3 mmol/L (3.5-5.1) Chloride Level 110 mmol/L (98-107) Carbon Dioxide Level 29 mmol/L (21-32) Anion Gap 8 (6-14) Blood Urea Nitrogen 58 mg/dL (7-20) Creatinine 1.1 mg/dL (0.6-1.0) Estimated GFR (Cockcroft-Gault) 50.2 Glucose Level 388 mg/dL (70-99) Calcium Level 7.6 mg/dL (8.5-10.1) Phosphorus Level 4.4 mg/dL (2.6-4.7) Magnesium Level 2.5 mg/dL (1.8-2.4) O2 Saturation 95 % (92-99) Arterial Blood pH 7.42 (7.35-7.45) Arterial Blood pCO2 at Patient Temp 43 mmHg (35-46) Arterial Blood pO2 at Patient Temp 81 mmHg (65-108) Arterial Blood HCO3 27 mmol/L (21-28) Arterial Blood Base Excess 2 mmol/L (-3-3) FiO2 100% vent Medications Active Scripts Medications Dose Route/Sig Max Daily Dose Days Date Category Prednisone 20 Mg Tablet 2 Tab PO DAILY 5 09/20/21 Rx Amlodipine Besylate 10 Mg Tablet 10 Mg PO DAILY 30 09/20/21 Rx Acetaminophen 500 Mg Tablet 1 Tab PO PRN Q6HRS PRN 15 09/17/21 Reported Aspirin 325 Mg Tablet 1 Tab PO DAILY 09/17/21 Reported Humalog (Insulin Lispro) 100 Unit/1 Ml Vial 8 Unit SQ QIDACHS 09/17/21 Reported Lantus (Insulin Glargine,Hum.rec.anlog) 100 Unit/1 Ml Vial 20 Unit SQ HS 09/17/21 Reported Citalopram Hbr (Citalopram Hydrobromide) 20 Mg Tablet 1 Tab PO HS 09/17/21 Reported Fish Oil 1,000 Mg Capsule ([place]-3 Fatty Acids/Fish Oil) 1 Each Capsule 1 Each PO BID 09/17/21 Reported Gabapentin 600 Mg Tablet 600 Mg PO TID 09/17/21 Reported Glimepiride 4 Mg Tablet 1 Tab PO BID 09/17/21 Reported Crestor (Rosuvastatin Calcium) 40 Mg Tablet 40 Mg PO HS 09/17/21 Reported Clopidogrel (Clopidogrel Bisulfate) 75 Mg Tablet 1 Tab PO DAILY 09/17/21 Reported Impression . 1. Acute hypoxic/ hypercapnic respiratory failure in a patient who was diagnosed with COVID-19 on 09/15/21/ARDS 2. Underlying obesity. 3. Minimal tobacco history. 4. Abnormal chest x-ray possible bacterial pneumonia 5. COVID positive on 09/15/2021. 6. Encephalopathy, toxic, metabolic. 7. Hypokalemia Plan . Updated 10/07 ABG noted, oxygenation improved Potassium replaced Chest x-ray reviewed, no significant change Continue current support Empiric antibiotics Monitor blood sugars Discussed with RT and RN Updated 10/06 Patient remains stable, sedated, currently on 100% FiO2, 7 of PEEP Replace potassium. Currently 5.9 will monitor closely Replace magnesium. Currently 2.4 Maintain sedated Chest x-ray reviewed. Stable. Patient finished a course of empiric antibiotics Nutritional support Monitor blood sugars ASTER LEHMAN MD Oct 07, 2021 09:22
--- NOTE | 2021-10-07 11:30 | PDOC ---
[employer] PROGRESS NOTE Date of Service DOS: DATE: 10/07/21 TIME: 11:29 Chief Complaint Chief Complaint Severe respiratory failure COVID-19 pneumonia Found down Severe metabolic encephalopathy Obesity Diabetes Hypertension History of Present Illness History of Present Illness 10/07/2021 Patient seen and examined in the ICU She remains on the vent AC/16/450/100 her percent with 7 of PEEP Sedated with propofol fentanyl and Versed Has IV TPN hanging Chart reviewed Discussed with RN She remains critically ill 10/06/2021 Patient seen and examined in the ICU She remains on the vent AC/16/450/1 100% with 7 of PEEP TPN hanging Sedated Discussed with RN Chart reviewed 10/05/2021 Patient seen and examined in the ICU She had to be intubated last night Current vent settings as follows AC/20/450/1 100% with 7 of PEEP Has propofol fentanyl and Versed for sedation On IV TPN Has a new PICC denise with TPN running Has a pure wick Discussed with RN Chart reviewed She remains very critically ill 10/04/2021 Patient seen and examined in the ICU She is on BiPAP 05/03 with 100% FiO2 Chart reviewed Discussed with RN She is critically ill Ms Grigsby is a 61-year-old female w/ past medical history of diabetes mellitus type 2, dyslipidemia, recent history of CVA/TIA voice. Comes in found down and hypoxic. Patient was found to be Covid positive on 09/15/2021 on lab results here at [facility]. Currently denies any fevers, shortness of breath or chest pain or diarrhea or dysuria. Chest x-ray revealed consolidation in the right middle and right lower lobe. Admitted with pulmonology consultation. 09/27: Patient normally wears home O2 at 2 L nasal cannula now requiring facemask O2 15l/min. She is very drowsy and cannot contribute to history today. 09/28: ABG 7.3 /58 placed on BiPAP overnight with good improvement in her mental status. She feels a little better today still on 10 L/min facemask O2 with saturations 96%. She has a good appetite is eating breakfast. Preliminary blood cultures 1 out of 4 positive GPC, urine culture preliminary E. coli. 09/29: Seen off BiPAP 2 L. Nasal cannula. Chest radiograph with improved right lung aeration. E. coli pansensitive urinary tract infection being treated. She is try to get her strength back. Still with cough productive. She is tearful 09/30: NA 148, CR 1.2. More drowsy this morning, confused, back on BIPAP. 10/01: Little more alert today but back on BiPAP. She did ask to be able to eat. Still very short of breath no chest pain. Very weak 10/02: Agitated overnight required Haldol and Ativan and Geodon. Now requiring mitts but wearing BiPAP with little more alert. 10/03 Patient evaluated examined at bedside. On BiPAP 01/07. She was pretty sedated not waking up to voice. ICU transfer whenever bed becomes available. Precedex drip to be started. Continue current otherwise. Vitals/I&O Vitals/I&O: Vital Signs Date Time Temp Pulse Resp B/P (MAP) Pulse Ox O2 Delivery O2 Flow Rate FiO2 10/07/21 11:26 97 Ventilator 10/07/21 11:00 43 16 115/60 10/07/21 08:00 97.7 97.7 10/07/21 03:21 10.0 I & O 10/06/21 10/06/21 10/07/21 15:00 23:00 07:00 Intake Total 0 ml 3132.3 ml Output Total 200 ml 300 ml 300 ml Balance -200 ml -300 ml 2832.3 ml Physical Exam General: No acute distress, Other (Intubated sedated) Heart: Normal S1, Normal S2, Other Lungs: Crackles Abdomen: Normal bowel sounds, Soft, No tenderness Extremities: Other Skin: No significant lesion Labs Labs: Laboratory Tests Test 10/06/21 12:30 10/06/21 16:26 10/06/21 18:26 10/06/21 23:25 Glucose (Fingerstick) 380 mg/dL (70-99) 324 mg/dL (70-99) 434 mg/dL (70-99) 383 mg/dL (70-99) Test 10/06/21 23:30 10/07/21 06:40 10/07/21 06:51 10/07/21 07:20 Glucose (Fingerstick) 375 mg/dL (70-99) 304 mg/dL (70-99) Sodium Level 147 mmol/L (136-145) Potassium Level 4.3 mmol/L (3.5-5.1) Chloride Level 110 mmol/L (98-107) Carbon Dioxide Level 29 mmol/L (21-32) Anion Gap 8 (6-14) Blood Urea Nitrogen 58 mg/dL (7-20) Creatinine 1.1 mg/dL (0.6-1.0) Estimated GFR (Cockcroft-Gault) 50.2 Glucose Level 388 mg/dL (70-99) Calcium Level 7.6 mg/dL (8.5-10.1) Phosphorus Level 4.4 mg/dL (2.6-4.7) Magnesium Level 2.5 mg/dL (1.8-2.4) O2 Saturation 95 % (92-99) Arterial Blood pH 7.42 (7.35-7.45) Arterial Blood pCO2 at Patient Temp 43 mmHg (35-46) Arterial Blood pO2 at Patient Temp 81 mmHg (65-108) Arterial Blood HCO3 27 mmol/L (21-28) Arterial Blood Base Excess 2 mmol/L (-3-3) FiO2 100% vent Assessment and Plan Assessmemt and Plan Severe respiratory failure COVID-19 pneumonia Found down Severe metabolic encephalopathy Obesity Diabetes Hypertension Plan ICU monitoring Vent weaning Continue TPN IV antibiotics completed Covid protocol Trend labs and chest x-ray DVT prophylaxis Full code Sliding-scale insulin As needed hydralazine Appreciate subspecialist input Prognosis very guarded PPX - lovenox CC time 33 minutes Per pulmonary recommendations please see the following and we certainly agree and appreciate their input; 1. Acute hypoxic/ hypercapnic respiratory failure in a patient who was diagnosed with COVID-19 on 09/15/21/ARDS 2. Underlying obesity. 3. Minimal tobacco history. 4. Abnormal chest x-ray possible bacterial pneumonia 5. COVID positive on 09/15/2021. 6. Encephalopathy, toxic, metabolic. 7. Hypokalemia Plan Plan . Updated 10/06 Patient remains stable, sedated, currently on 100% FiO2, 7 of PEEP Replace potassium. Currently 5.9 will monitor closely Replace magnesium. Currently 2.4 Maintain sedated Chest x-ray reviewed. Stable. Patient finished a course of empiric antibiotics Nutritional support Monitor blood sugars Comment Review of Relevant I have reviewed the following items zoë (where applicable) has been applied. Medications: Current Medications Medications (Trade) Dose Ordered Sig/Jennifer Route PRN Reason Start Time Stop Time Status Last Admin Dose Admin Sodium Chloride 30 meq/Sodium Phosphate 15 mmol/ Magnesium Sulfate 10 meq/ Multivitamins 10 ml/Zinc/Copper/ Manganese/ Selenium 1 ml/ Total Parenteral Nutrition/Amino Acids/Dextrose 1,680 ml @ 70 mls/hr TPN CONT IV 10/06/21 22:00 10/07/21 21:59 10/06/21 21:36 Insulin Glargine (Lantus Syringe) 40 unit QHS SQ 10/06/21 21:00 10/06/21 21:14 Insulin Human Lispro (HumaLOG) 25 units 1X ONCE SQ 10/06/21 19:00 10/06/21 19:01 DC 10/06/21 19:45 Justifications for Admission Other Justification GABRIELLE SEGUNDO III DO Oct 07, 2021 11:30
[2021-10-07] MEDS: TPN PER PHARMACY MC PRN (13:28)
--- NOTE | 2021-10-07 15:27 | NUR ---
Pharmacy TPN Dosing Note S: MARIA FERNANDA KEENAN is a 61 year old F Currently receiving Central Continuous TPN started 10/04/21 B:Pertinent PMH: NPO/HYPOXIA Height: 5 feet, 2 inches Weight: 106.948207 kg Current diet: LABS: Sodium: 147 Potassium: 4.3 Chloride: 110 Calcium: 7.6 Corrected Calcium: 9.28 Magnesium: 2.5 CO2: 29 SCr: 1.1 Glucose: 388 Albumin: 1.9 AST: 17 ALT: 17 TPN FORMULA: TPN TYPE: Central Continuous AMINO ACIDS: 125 gm DEXTROSE: 140 gm LIPIDS: -- gm SODIUM CHLORIDE: 30 mEq SODIUM ACETATE: -- mEq SODIUM PHOSPHATE: 0 mmol POTASSIUM CHLORIDE: -- mEq POTASSIUM ACETATE: -- mEq POTASSIUM PHOSPHATE: 20 mmol MAGNESIUM: 5 mEq CALCIUM: -- mEq INSULIN: 5 units units MULTIPLE VITAMIN: 10 ml TRACE ELEMENTS: 1 ml(s) TPN PLAN: K = 4.3 down today from yesterday. Change Naphos to Kphos 15 mmol, Mg slightly level elevated at 2.5,dose decreased to 5 meq.Blood sugar trending up, 5 unit of regular insulin added to TPN. Pt remains on propofol- no lipids. -BMP, Mag and Phos in AM. R: Continue TPN as per the above. Will monitor electrolytes, glucose, and tolerance to TPN. LEIGHA CARMONA [facility], 10/07/21 2191
[2021-10-07] MEDS: IV NORMAL SALINE 1000ML BAG 1,000 ML IV SCH (17:50)
[2021-10-07] MEDS: CITALOPRAM 20 MG TABLET. PO SCH (21:17)
[2021-10-07] MEDS: ATORVASTATIN CALCIUM 40 MG TABLET. PO SCH (21:17)
[2021-10-07] MEDS: INSULIN GLARGINE SYRINGE. SQ SCH (21:19)
[2021-10-07] MEDS ORDERED: TOTAL PARENTERAL NUTRITION IV SCH ×2 (22:00)
[2021-10-07] MEDS ORDERED: AMINO ACID IV SCH ×2 (22:00)
[2021-10-07] MEDS ORDERED: [UNRECOGNIZED DRUG - OTHER] IV SCH (22:00)
[2021-10-07] MEDS ORDERED: DEXTROSE 70% IV SCH ×2 (22:00)
[2021-10-07] MEDS ORDERED: [UNRECOGNIZED DRUG - OTHER] IV SCH (22:00)
[2021-10-08] VITALS (24 sets, daily range): BP systolic 116–155; BP diastolic 45–71
[2021-10-08] MEDS: PROPOFOL 100 ML IV PRN ×5 (01:05→22:56)
[2021-10-08] MEDS: HEPARIN for SUB-Q USE 5,000 UNIT/ML VIAL. SQ SCH ×3 (05:48→21:46)
[2021-10-08] MEDS: INSULIN LISPRO 300 UNITS/3 ML VIAL. SQ SCH ×3 (05:49→17:57)
[2021-10-08 05:57] LABS: CALCIUM 7.4 mg/dL (8.5-10.1); MAGNESIUM 2.4 mg/dL (1.8-2.4); PHOSPHORUS 3.9 mg/dL (2.6-4.7)
[2021-10-08] MEDS: ASPIRIN 325 MG TABLET PO SCH (08:05)
[2021-10-08] MEDS: CLOPIDOGREL BISULFATE 75 MG TABLET PO SCH (08:07)
[2021-10-08] MEDS: methylPREDNISolone SOD SUCC PF 125 MG/2 ML VIAL. IV SCH ×2 (08:07→20:55)
[2021-10-08] MEDS: FAMOTIDINE 20 MG/2 ML VIAL IVP SCH ×2 (08:08→20:55)
--- NOTE | 2021-10-08 08:13 | PDOC ---
PULMONARY PROGRESS NOTES DATE: 10/08/21 TIME: 08:12 Subjective Patient remains about the same, currently 7 PEEP FiO2 100% Off of Levophed Vitals Vital Signs Date Time Temp Pulse Resp B/P (MAP) Pulse Ox O2 Delivery O2 Flow Rate FiO2 10/08/21 08:07 44 138/70 10/08/21 06:00 16 98 Ventilator 10/08/21 04:00 97.8 97.8 Lungs: Crackles Cardiovascular: S1, S2 Abdomen: Soft, Other (Obese) Extremities: Other (Mild edema) Skin: Warm (PALLAVI) Labs Laboratory Tests Test 10/06/21 12:30 10/06/21 16:26 10/06/21 18:26 10/06/21 23:25 Glucose (Fingerstick) 380 mg/dL (70-99) 324 mg/dL (70-99) 434 mg/dL (70-99) 383 mg/dL (70-99) Test 10/06/21 23:30 10/07/21 06:40 10/07/21 06:51 10/07/21 07:20 Glucose (Fingerstick) 375 mg/dL (70-99) 304 mg/dL (70-99) Sodium Level 147 mmol/L (136-145) Potassium Level 4.3 mmol/L (3.5-5.1) Chloride Level 110 mmol/L (98-107) Carbon Dioxide Level 29 mmol/L (21-32) Anion Gap 8 (6-14) Blood Urea Nitrogen 58 mg/dL (7-20) Creatinine 1.1 mg/dL (0.6-1.0) Estimated GFR (Cockcroft-Gault) 50.2 Glucose Level 388 mg/dL (70-99) Calcium Level 7.6 mg/dL (8.5-10.1) Phosphorus Level 4.4 mg/dL (2.6-4.7) Magnesium Level 2.5 mg/dL (1.8-2.4) O2 Saturation 95 % (92-99) Arterial Blood pH 7.42 (7.35-7.45) Arterial Blood pCO2 at Patient Temp 43 mmHg (35-46) Arterial Blood pO2 at Patient Temp 81 mmHg (65-108) Arterial Blood HCO3 27 mmol/L (21-28) Arterial Blood Base Excess 2 mmol/L (-3-3) FiO2 100% vent Test 10/07/21 11:36 10/07/21 17:49 10/07/21 23:57 10/08/21 05:10 Glucose (Fingerstick) 388 mg/dL (70-99) 369 mg/dL (70-99) 305 mg/dL (70-99) Sodium Level 141 mmol/L (136-145) Potassium Level 4.0 mmol/L (3.5-5.1) Chloride Level 108 mmol/L (98-107) Carbon Dioxide Level 29 mmol/L (21-32) Anion Gap 4 (6-14) Blood Urea Nitrogen 63 mg/dL (7-20) Creatinine 1.0 mg/dL (0.6-1.0) Estimated GFR (Cockcroft-Gault) 56.0 Glucose Level 346 mg/dL (70-99) Calcium Level 7.4 mg/dL (8.5-10.1) Phosphorus Level 3.9 mg/dL (2.6-4.7) Magnesium Level 2.4 mg/dL (1.8-2.4) Albumin 1.4 g/dL (3.4-5.0) Test 10/08/21 05:27 Glucose (Fingerstick) 340 mg/dL (70-99) Laboratory Tests Test 10/07/21 11:36 10/07/21 17:49 10/07/21 23:57 10/08/21 05:10 Glucose (Fingerstick) 388 mg/dL (70-99) 369 mg/dL (70-99) 305 mg/dL (70-99) Sodium Level 141 mmol/L (136-145) Potassium Level 4.0 mmol/L (3.5-5.1) Chloride Level 108 mmol/L (98-107) Carbon Dioxide Level 29 mmol/L (21-32) Anion Gap 4 (6-14) Blood Urea Nitrogen 63 mg/dL (7-20) Creatinine 1.0 mg/dL (0.6-1.0) Estimated GFR (Cockcroft-Gault) 56.0 Glucose Level 346 mg/dL (70-99) Calcium Level 7.4 mg/dL (8.5-10.1) Phosphorus Level 3.9 mg/dL (2.6-4.7) Magnesium Level 2.4 mg/dL (1.8-2.4) Albumin 1.4 g/dL (3.4-5.0) Test 10/08/21 05:27 Glucose (Fingerstick) 340 mg/dL (70-99) Medications Active Scripts Medications Dose Route/Sig Max Daily Dose Days Date Category Prednisone 20 Mg Tablet 2 Tab PO DAILY 5 09/20/21 Rx Amlodipine Besylate 10 Mg Tablet 10 Mg PO DAILY 30 09/20/21 Rx Acetaminophen 500 Mg Tablet 1 Tab PO PRN Q6HRS PRN 15 09/17/21 Reported Aspirin 325 Mg Tablet 1 Tab PO DAILY 09/17/21 Reported Humalog (Insulin Lispro) 100 Unit/1 Ml Vial 8 Unit SQ QIDACHS 09/17/21 Reported Lantus (Insulin Glargine,Hum.rec.anlog) 100 Unit/1 Ml Vial 20 Unit SQ HS 09/17/21 Reported Citalopram Hbr (Citalopram Hydrobromide) 20 Mg Tablet 1 Tab PO HS 09/17/21 Reported Fish Oil 1,000 Mg Capsule ([place]-3 Fatty Acids/Fish Oil) 1 Each Capsule 1 Each PO BID 09/17/21 Reported Gabapentin 600 Mg Tablet 600 Mg PO TID 09/17/21 Reported Glimepiride 4 Mg Tablet 1 Tab PO BID 09/17/21 Reported Crestor (Rosuvastatin Calcium) 40 Mg Tablet 40 Mg PO HS 09/17/21 Reported Clopidogrel (Clopidogrel Bisulfate) 75 Mg Tablet 1 Tab PO DAILY 09/17/21 Reported Impression . 1. Acute hypoxic/ hypercapnic respiratory failure in a patient who was diagnosed with COVID-19 on 09/15/21/ARDS 2. Underlying obesity. 3. Minimal tobacco history. 4. Abnormal chest x-ray possible bacterial pneumonia 5. COVID positive on 09/15/2021. 6. Encephalopathy, toxic, metabolic. 7. Hypokalemia Plan . Updated 10/08 Discussed with RN and RT, decrease FiO2 Decrease sedation Monitor labs Empiric antibiotics Steroids monitor blood sugars Discussed with updated 10/07 ABG noted, oxygenation improved Potassium replaced Chest x-ray reviewed, no significant change Continue current support Empiric antibiotics Monitor blood sugars Discussed with RT and RN ASTER LEHMAN MD Oct 08, 2021 08:13
[2021-10-08] MEDS: INSULIN GLARGINE SYRINGE. SQ SCH ×2 (08:18→21:03)
[2021-10-08 08:20] LABS: BASE EXCESS ABG 3 mmol/L (-3-3); HCO3 ABG 28 mmol/L (21-28); PCO2 ABG 44 mmHg (35-46); PO2 ABG 74 mmHg (65-108); SAT O2 ABG 94 % (92-99)
[2021-10-08] MEDS: GABAPENTIN 250 MG/5 ML ORAL SOLUTION. PO SCH ×3 (08:20→20:57)
[2021-10-08] MEDS: SENNOSIDES/DOCUSATE 8.6/50MG TABLET. PO SCH ×2 (08:20→20:56)
[2021-10-08 08:55] LABS: FIO2 ABG 100% ac 16 450 7
--- NOTE | 2021-10-08 10:48 | PDOC ---
[employer] PROGRESS NOTE Date of Service DOS: DATE: 10/08/21 TIME: 10:47 Chief Complaint Chief Complaint Severe respiratory failure COVID-19 pneumonia Found down Severe metabolic encephalopathy Obesity Diabetes Hypertension History of Present Illness History of Present Illness 10/08/2021 Patient seen and examined in the ICU She remains on the vent AC/16/450/1 100% with 7 of PEEP Has IV TPN hanging OG feeds running SCDs in place Has a pure wick Rectal bag in place Sedated with Versed propofol and fentanyl Chart reviewed Discussed with RN She remains critically ill 10/07/2021 Patient seen and examined in the ICU She remains on the vent AC/16/450/100 her percent with 7 of PEEP Sedated with propofol fentanyl and Versed Has IV TPN hanging Chart reviewed Discussed with RN She remains critically ill 10/06/2021 Patient seen and examined in the ICU She remains on the vent AC/16/450/1 100% with 7 of PEEP TPN hanging Sedated Discussed with RN Chart reviewed 10/05/2021 Patient seen and examined in the ICU She had to be intubated last night Current vent settings as follows AC/20/450/1 100% with 7 of PEEP Has propofol fentanyl and Versed for sedation On IV TPN Has a new PICC denise with TPN running Has a pure wick Discussed with RN Chart reviewed She remains very critically ill 10/04/2021 Patient seen and examined in the ICU She is on BiPAP 05/03 with 100% FiO2 Chart reviewed Discussed with RN She is critically ill Ms Grigsby is a 61-year-old female w/ past medical history of diabetes mellitus type 2, dyslipidemia, recent history of CVA/TIA voice. Comes in found down and hypoxic. Patient was found to be Covid positive on 09/15/2021 on lab results here at [facility]. Currently denies any fevers, shortness of breath or chest pain or diarrhea or dysuria. Chest x-ray revealed consolidation in the right middle and right lower lobe. Admitted with pulmonology consultation. 09/27: Patient normally wears home O2 at 2 L nasal cannula now requiring facemask O2 15l/min. She is very drowsy and cannot contribute to history today. 09/28: ABG 7.3 3/58 placed on BiPAP overnight with good improvement in her mental status. She feels a little better today still on 10 L/min facemask O2 with saturations 96%. She has a good appetite is eating breakfast. Preliminary blood cultures 1 out of 4 positive GPC, urine culture preliminary E. coli. 09/29: Seen off BiPAP 2 L. Nasal cannula. Chest radiograph with improved right lung aeration. E. coli pansensitive urinary tract infection being treated. She is try to get her strength back. Still with cough productive. She is tearful 09/30: NA 148, CR 1.2. More drowsy this morning, confused, back on BIPAP. 10/01: Little more alert today but back on BiPAP. She did ask to be able to eat. Still very short of breath no chest pain. Very weak 10/02: Agitated overnight required Haldol and Ativan and Geodon. Now requiring mitts but wearing BiPAP with little more alert. 10/03 Patient evaluated examined at bedside. On BiPAP 01/07. She was pretty sedated not waking up to voice. ICU transfer whenever bed becomes available. Precedex drip to be started. Continue current otherwise. Vitals/I&O Vitals/I&O: Vital Signs Date Time Temp Pulse Resp B/P (MAP) Pulse Ox O2 Delivery O2 Flow Rate FiO2 10/08/21 09:00 51 16 143/67 95 Ventilator 10/08/21 08:00 10.0 10/08/21 08:00 98.1 98.1 I & O 10/07/21 10/07/21 10/08/21 15:00 23:00 07:00 Intake Total 1672 ml 1389 ml Output Total 275 ml 100 ml 500 ml Balance -275 ml 1572 ml 889 ml Physical Exam General: No acute distress, Other (Intubated sedated) Heart: Normal S1, Normal S2, Other Lungs: Crackles Abdomen: Normal bowel sounds, Soft, No tenderness Extremities: Other Skin: No significant lesion Labs Labs: Laboratory Tests Test 10/07/21 11:36 10/07/21 17:49 10/07/21 23:57 10/08/21 05:10 Glucose (Fingerstick) 388 mg/dL (70-99) 369 mg/dL (70-99) 305 mg/dL (70-99) Sodium Level 141 mmol/L (136-145) Potassium Level 4.0 mmol/L (3.5-5.1) Chloride Level 108 mmol/L (98-107) Carbon Dioxide Level 29 mmol/L (21-32) Anion Gap 4 (6-14) Blood Urea Nitrogen 63 mg/dL (7-20) Creatinine 1.0 mg/dL (0.6-1.0) Estimated GFR (Cockcroft-Gault) 56.0 Glucose Level 346 mg/dL (70-99) Calcium Level 7.4 mg/dL (8.5-10.1) Phosphorus Level 3.9 mg/dL (2.6-4.7) Magnesium Level 2.4 mg/dL (1.8-2.4) Albumin 1.4 g/dL (3.4-5.0) Test 10/08/21 05:27 10/08/21 08:00 Glucose (Fingerstick) 340 mg/dL (70-99) O2 Saturation 94 % (92-99) Arterial Blood pH 7.42 (7.35-7.45) Arterial Blood pCO2 at Patient Temp 44 mmHg (35-46) Arterial Blood pO2 at Patient Temp 74 mmHg (65-108) Arterial Blood HCO3 28 mmol/L (21-28) Arterial Blood Base Excess 3 mmol/L (-3-3) FiO2 100% ac 16 450 7 Assessment and Plan Assessmemt and Plan Severe respiratory failure COVID-19 pneumonia Found down Severe metabolic encephalopathy Obesity Diabetes Hypertension Plan ICU monitoring Vent weaning Continue TPN IV antibiotics completed Covid protocol Trend labs and chest x-ray DVT prophylaxis Full code Sliding-scale insulin As needed hydralazine Appreciate subspecialist input Prognosis very guarded PPX - lovenox CC time 31 minutes Comment Review of Relevant I have reviewed the following items zoë (where applicable) has been applied. Medications: Current Medications Medications (Trade) Dose Ordered Sig/Jennifer Route PRN Reason Start Time Stop Time Status Last Admin Dose Admin Sodium Chloride 30 meq/Potassium Phosphate 15 mmol/ Magnesium Sulfate 5 meq/ Multivitamins 10 ml/Zinc/Copper/ Manganese/ Selenium 1 ml/ Insulin Human Regular 5 unit/ Total Parenteral Nutrition/Amino Acids/Dextrose 1,680 ml @ 70 mls/hr TPN CONT IV 10/07/21 22:00 10/08/21 21:59 10/07/21 22:25 Insulin Glargine (Lantus Syringe) 40 unit BID SQ 10/07/21 21:00 10/08/21 08:18 Justifications for Admission Other Justification GABRIELLE SEGUNDO III DO Oct 08, 2021 10:48
[2021-10-08] MEDS: TPN PER PHARMACY MC PRN (14:01)
--- NOTE | 2021-10-08 14:02 | NUR ---
Pharmacy TPN Dosing Note S: MARIA FERNANDA KEENAN is a 61 year old F Currently receiving Central Continuous TPN started 10/04/21 B:Pertinent PMH: NPO/HYPOXIA Height: 5 feet, 2 inches Weight: 109.0 kg Current diet: NPO LABS: Sodium: 141 Potassium: 4 Chloride: 108 Calcium: 7.4 Corrected Calcium: 9.48 Magnesium: 2.4 CO2: 29 SCr: 1 Glucose: 346, 340, 320 Albumin: 1.4 AST: 17 ALT: 17 TPN FORMULA: TPN TYPE: Central Continuous AMINO ACIDS: 125 gm DEXTROSE: 140 gm LIPIDS: -- gm SODIUM CHLORIDE: 30 mEq POTASSIUM PHOSPHATE: 15 mmol MAGNESIUM: 5 mEq MULTIPLE VITAMIN: 10 ml TRACE ELEMENTS: 1 ml TPN PLAN: -Electrolytes appear WNL and stable, continue same electrolytes. -Remove insulin from TPN as Lantus insulin increased for hyperglycemia. -BMP, mag, phos, ionized calcium tomorrow. R: Continue TPN @ current rate and above formula. Will monitor electrolytes, glucose, and tolerance to TPN. THIERNO MAURO [facility], 10/08/21 0187
[2021-10-08] MEDS: ATORVASTATIN CALCIUM 40 MG TABLET. PO SCH (20:56)
[2021-10-08] MEDS: CITALOPRAM 20 MG TABLET. PO SCH (20:56)
[2021-10-08] MEDS ORDERED: DEXTROSE 70% IV SCH (22:00)
[2021-10-08] MEDS ORDERED: [UNRECOGNIZED DRUG - OTHER] IV SCH (22:00)
[2021-10-08] MEDS ORDERED: AMINO ACID IV SCH (22:00)
[2021-10-08] MEDS ORDERED: TOTAL PARENTERAL NUTRITION IV SCH (22:00)
[2021-10-09] VITALS (24 sets, daily range): BP systolic 116–155; BP diastolic 49–71
[2021-10-09] MEDS: INSULIN LISPRO 300 UNITS/3 ML VIAL. SQ SCH ×5 (00:13→23:43)
[2021-10-09] MEDS: MIDAZOLAM 100mg/100ml NS BAG 100 ML IV PRN ×2 (01:05→17:44)
[2021-10-09] MEDS: PROPOFOL 100 ML IV PRN ×4 (02:13→19:01)
[2021-10-09] MEDS: HEPARIN for SUB-Q USE 5,000 UNIT/ML VIAL. SQ SCH ×3 (05:51→21:56)
[2021-10-09 07:18] LABS: CALCIUM 7.1 mg/dL (8.5-10.1); MAGNESIUM 2.3 mg/dL (1.8-2.4)
[2021-10-09 08:45] LABS: BASE EXCESS ABG 0 mmol/L (-3-3); HCO3 ABG 26 mmol/L (21-28); PCO2 ABG 48 mmHg (35-46); PO2 ABG 70 mmHg (65-108); SAT O2 ABG 92 % (92-99)
[2021-10-09] MEDS: SENNOSIDES/DOCUSATE 8.6/50MG TABLET. PO SCH ×2 (09:01→20:49)
[2021-10-09] MEDS: methylPREDNISolone SOD SUCC PF 125 MG/2 ML VIAL. IV SCH ×2 (09:01→20:50)
[2021-10-09] MEDS: FAMOTIDINE 20 MG/2 ML VIAL IVP SCH ×2 (09:01→20:50)
[2021-10-09] MEDS: ASPIRIN 325 MG TABLET PO SCH (09:01)
[2021-10-09] MEDS: CLOPIDOGREL BISULFATE 75 MG TABLET PO SCH (09:02)
[2021-10-09] MEDS: INSULIN GLARGINE SYRINGE. SQ SCH (09:03)
--- NOTE | 2021-10-09 09:05 | PDOC ---
PULMONARY PROGRESS NOTES DATE: 10/09/21 TIME: 09:04 Subjective No overnight events patient remains about the same, currently 7 PEEP FiO2 100% Off of Levophed Vitals Vital Signs Date Time Temp Pulse Resp B/P (MAP) Pulse Ox O2 Delivery O2 Flow Rate FiO2 10/09/21 08:00 48 16 116/53 97 Ventilator 10/09/21 07:00 97.6 97.6 10/08/21 08:00 10.0 Lungs: Crackles Cardiovascular: S1, S2 Abdomen: Soft, Other (Obese) Extremities: Other (Mild edema) Skin: Warm (PALLAVI) Labs Laboratory Tests Test 10/07/21 11:36 10/07/21 17:49 10/07/21 23:57 10/08/21 05:10 Glucose (Fingerstick) 388 mg/dL (70-99) 369 mg/dL (70-99) 305 mg/dL (70-99) Sodium Level 141 mmol/L (136-145) Potassium Level 4.0 mmol/L (3.5-5.1) Chloride Level 108 mmol/L (98-107) Carbon Dioxide Level 29 mmol/L (21-32) Anion Gap 4 (6-14) Blood Urea Nitrogen 63 mg/dL (7-20) Creatinine 1.0 mg/dL (0.6-1.0) Estimated GFR (Cockcroft-Gault) 56.0 Glucose Level 346 mg/dL (70-99) Calcium Level 7.4 mg/dL (8.5-10.1) Phosphorus Level 3.9 mg/dL (2.6-4.7) Magnesium Level 2.4 mg/dL (1.8-2.4) Albumin 1.4 g/dL (3.4-5.0) Test 10/08/21 05:27 10/08/21 08:00 10/08/21 12:40 10/08/21 17:54 Glucose (Fingerstick) 340 mg/dL (70-99) 320 mg/dL (70-99) 304 mg/dL (70-99) O2 Saturation 94 % (92-99) Arterial Blood pH 7.42 (7.35-7.45) Arterial Blood pCO2 at Patient Temp 44 mmHg (35-46) Arterial Blood pO2 at Patient Temp 74 mmHg (65-108) Arterial Blood HCO3 28 mmol/L (21-28) Arterial Blood Base Excess 3 mmol/L (-3-3) FiO2 100% ac 16 450 7 Test 10/08/21 23:25 10/09/21 05:40 10/09/21 05:43 Glucose (Fingerstick) 309 mg/dL (70-99) 314 mg/dL (70-99) Sodium Level 140 mmol/L (136-145) Potassium Level 4.0 mmol/L (3.5-5.1) Chloride Level 107 mmol/L (98-107) Carbon Dioxide Level 28 mmol/L (21-32) Anion Gap 5 (6-14) Blood Urea Nitrogen 81 mg/dL (7-20) Creatinine 1.0 mg/dL (0.6-1.0) Estimated GFR (Cockcroft-Gault) 56.0 Glucose Level 324 mg/dL (70-99) Calcium Level 7.1 mg/dL (8.5-10.1) Ionized Calcium 1.14 mmol/L (1.13-1.32) Phosphorus Level 4.0 mg/dL (2.6-4.7) Magnesium Level 2.3 mg/dL (1.8-2.4) Triglycerides Level 245 mg/dL (0-150) Laboratory Tests Test 10/08/21 12:40 10/08/21 17:54 10/08/21 23:25 10/09/21 05:40 Glucose (Fingerstick) 320 mg/dL (70-99) 304 mg/dL (70-99) 309 mg/dL (70-99) Sodium Level 140 mmol/L (136-145) Potassium Level 4.0 mmol/L (3.5-5.1) Chloride Level 107 mmol/L (98-107) Carbon Dioxide Level 28 mmol/L (21-32) Anion Gap 5 (6-14) Blood Urea Nitrogen 81 mg/dL (7-20) Creatinine 1.0 mg/dL (0.6-1.0) Estimated GFR (Cockcroft-Gault) 56.0 Glucose Level 324 mg/dL (70-99) Calcium Level 7.1 mg/dL (8.5-10.1) Ionized Calcium 1.14 mmol/L (1.13-1.32) Phosphorus Level 4.0 mg/dL (2.6-4.7) Magnesium Level 2.3 mg/dL (1.8-2.4) Triglycerides Level 245 mg/dL (0-150) Test 10/09/21 05:43 Glucose (Fingerstick) 314 mg/dL (70-99) Medications Active Scripts Medications Dose Route/Sig Max Daily Dose Days Date Category Prednisone 20 Mg Tablet 2 Tab PO DAILY 5 09/20/21 Rx Amlodipine Besylate 10 Mg Tablet 10 Mg PO DAILY 30 09/20/21 Rx Acetaminophen 500 Mg Tablet 1 Tab PO PRN Q6HRS PRN 15 09/17/21 Reported Aspirin 325 Mg Tablet 1 Tab PO DAILY 09/17/21 Reported Humalog (Insulin Lispro) 100 Unit/1 Ml Vial 8 Unit SQ QIDACHS 09/17/21 Reported Lantus (Insulin Glargine,Hum.rec.anlog) 100 Unit/1 Ml Vial 20 Unit SQ HS 09/17/21 Reported Citalopram Hbr (Citalopram Hydrobromide) 20 Mg Tablet 1 Tab PO HS 09/17/21 Reported Fish Oil 1,000 Mg Capsule ([place]-3 Fatty Acids/Fish Oil) 1 Each Capsule 1 Each PO BID 09/17/21 Reported Gabapentin 600 Mg Tablet 600 Mg PO TID 09/17/21 Reported Glimepiride 4 Mg Tablet 1 Tab PO BID 09/17/21 Reported Crestor (Rosuvastatin Calcium) 40 Mg Tablet 40 Mg PO HS 09/17/21 Reported Clopidogrel (Clopidogrel Bisulfate) 75 Mg Tablet 1 Tab PO DAILY 09/17/21 Reported Impression . 1. Acute hypoxic/ hypercapnic respiratory failure in a patient who was diagnosed with COVID-19 on 09/15/21/ARDS 2. Underlying obesity. 3. Minimal tobacco history. 4. Abnormal chest x-ray possible bacterial pneumonia 5. COVID positive on 09/15/2021. 6. Encephalopathy, toxic, metabolic. 7. Hypokalemia Plan . Updated 10/09 Potassium noted 4.0 Discussed with RN and RT, decrease FiO2 Decrease sedation, discussed with RN Monitor labs Empiric antibiotics Steroids monitor blood sugars ASTER LEHMAN MD Oct 09, 2021 09:05
[2021-10-09] MEDS: GABAPENTIN 250 MG/5 ML ORAL SOLUTION. PO SCH ×3 (09:12→20:50)
--- NOTE | 2021-10-09 12:31 | PDOC ---
[employer] PROGRESS NOTE Date of Service DOS: DATE: 10/09/21 TIME: 12:29 Chief Complaint Chief Complaint Severe respiratory failure COVID-19 pneumonia Found down Severe metabolic encephalopathy Obesity Diabetes Hypertension History of Present Illness History of Present Illness 10/09/2021 Patient seen and examined in the ICU She remains on the ventilator AC/16/450/1 100% with 7 of PEEP Appears somewhat swollen SCDs are on Has Peacock to bedside drainage Has a rectal bag Sedated with propofol fentanyl and Versed Has TPN hanging Discussed with RN Chart reviewed She remains very critically ill we are concerned she may not survive this 10/08/2021 Patient seen and examined in the ICU She remains on the vent AC/16/450/1 100% with 7 of PEEP Has IV TPN hanging OG feeds running SCDs in place Has a pure wick Rectal bag in place Sedated with Versed propofol and fentanyl Chart reviewed Discussed with RN She remains critically ill 10/07/2021 Patient seen and examined in the ICU She remains on the vent AC/16/450/100 her percent with 7 of PEEP Sedated with propofol fentanyl and Versed Has IV TPN hanging Chart reviewed Discussed with RN She remains critically ill 10/06/2021 Patient seen and examined in the ICU She remains on the vent AC/16/450/1 100% with 7 of PEEP TPN hanging Sedated Discussed with RN Chart reviewed 10/05/2021 Patient seen and examined in the ICU She had to be intubated last night Current vent settings as follows AC/20/450/1 100% with 7 of PEEP Has propofol fentanyl and Versed for sedation On IV TPN Has a new PICC denise with TPN running Has a pure wick Discussed with RN Chart reviewed She remains very critically ill 10/04/2021 Patient seen and examined in the ICU She is on BiPAP 05/03 with 100% FiO2 Chart reviewed Discussed with RN She is critically ill Ms Grigsby is a 61-year-old female w/ past medical history of diabetes mellitus type 2, dyslipidemia, recent history of CVA/TIA voice. Comes in found down and hypoxic. Patient was found to be Covid positive on 09/15/2021 on lab results here at [facility]. Currently denies any fevers, shortness of breath or chest pain or diarrhea or dysuria. Chest x-ray revealed consolidation in the right middle and right lower lobe. Admitted with pulmonology consultation. 09/27: Patient normally wears home O2 at 2 L nasal cannula now requiring facemask O2 15l/min. She is very drowsy and cannot contribute to history today. 09/28: ABG 7.3 / placed on BiPAP overnight with good improvement in her mental status. She feels a little better today still on 10 L/min facemask O2 with saturations 96%. She has a good appetite is eating breakfast. Preliminary blood cultures 1 out of 4 positive GPC, urine culture preliminary E. coli. 09/29: Seen off BiPAP 2 L. Nasal cannula. Chest radiograph with improved right lung aeration. E. coli pansensitive urinary tract infection being treated. She is try to get her strength back. Still with cough productive. She is tearful 09/30: NA 148, CR 1.2. More drowsy this morning, confused, back on BIPAP. 10/01: Little more alert today but back on BiPAP. She did ask to be able to eat. Still very short of breath no chest pain. Very weak 10/02: Agitated overnight required Haldol and Ativan and Geodon. Now requiring mitts but wearing BiPAP with little more alert. 10/03 Patient evaluated examined at bedside. On BiPAP 01/07. She was pretty sedated not waking up to voice. ICU transfer whenever bed becomes available. Precedex drip to be started. Continue current otherwise. Vitals/I&O Vitals/I&O: Vital Signs Date Time Temp Pulse Resp B/P (MAP) Pulse Ox O2 Delivery O2 Flow Rate FiO2 10/09/21 12:25 98 Ventilator 10/09/21 12:06 97.1 47 16 135/61 97.1 10/08/21 08:00 10.0 I & O 10/08/21 10/08/21 10/09/21 15:00 23:00 07:00 Intake Total 1507 ml 1118.69 ml Output Total 200 ml 400 ml 300 ml Balance -200 ml 1107 ml 818.69 ml Physical Exam General: No acute distress, Other (Intubated sedated) Heart: Normal S1, Normal S2, Other Lungs: Crackles Abdomen: Normal bowel sounds, Soft, No tenderness Extremities: Other Skin: No significant lesion Labs Labs: Laboratory Tests Test 10/08/21 12:40 10/08/21 17:54 10/08/21 23:25 10/09/21 05:40 Glucose (Fingerstick) 320 mg/dL (70-99) 304 mg/dL (70-99) 309 mg/dL (70-99) Sodium Level 140 mmol/L (136-145) Potassium Level 4.0 mmol/L (3.5-5.1) Chloride Level 107 mmol/L (98-107) Carbon Dioxide Level 28 mmol/L (21-32) Anion Gap 5 (6-14) Blood Urea Nitrogen 81 mg/dL (7-20) Creatinine 1.0 mg/dL (0.6-1.0) Estimated GFR (Cockcroft-Gault) 56.0 Glucose Level 324 mg/dL (70-99) Calcium Level 7.1 mg/dL (8.5-10.1) Ionized Calcium 1.14 mmol/L (1.13-1.32) Phosphorus Level 4.0 mg/dL (2.6-4.7) Magnesium Level 2.3 mg/dL (1.8-2.4) Triglycerides Level 245 mg/dL (0-150) Test 10/09/21 05:43 Glucose (Fingerstick) 314 mg/dL (70-99) Assessment and Plan Assessmemt and Plan Severe respiratory failure COVID-19 pneumonia Found down Severe metabolic encephalopathy Obesity Diabetes Hypertension Plan ICU monitoring Vent weaning Continue TPN IV antibiotics completed Covid protocol Trend labs and chest x-ray DVT prophylaxis with SCDs Full code Monitor rectal bag Peacock to bedside drainage Sliding-scale insulin As needed hydralazine Appreciate subspecialist input Prognosis very guarded at best we are concerned she may not survive this PPX - lovenox CC time 33 minutes Comment Review of Relevant I have reviewed the following items zoë (where applicable) has been applied. Medications: Current Medications Medications (Trade) Dose Ordered Sig/Jennifer Route PRN Reason Start Time Stop Time Status Last Admin Dose Admin Insulin Glargine (Lantus Syringe) 55 unit BID SQ 10/08/21 21:00 10/09/21 09:03 Sodium Chloride 30 meq/Potassium Phosphate 15 mmol/ Magnesium Sulfate 5 meq/ Multivitamins 10 ml/Zinc/Copper/ Manganese/ Selenium 1 ml/ Total Parenteral Nutrition/Amino Acids/Dextrose 1,680 ml @ 70 mls/hr TPN CONT IV 10/08/21 22:00 10/09/21 21:59 10/08/21 21:45 Justifications for Admission Other Justification GABRIELLE SEGUNDO III DO Oct 09, 2021 12:31
[2021-10-09 12:57] LABS: FIO2 ABG 100% VENT
[2021-10-09] MEDS: TPN PER PHARMACY MC PRN (15:03)
--- NOTE | 2021-10-09 15:04 | NUR ---
Pharmacy TPN Dosing Note S: MARIA FERNANDA KEENAN is a 61 year old F Currently receiving Central Continuous TPN started 10/04/21 B:Pertinent PMH: NPO/HYPOXIA Height: 5 feet, 2 inches Weight: 112.6 kg Current diet: NPO LABS: Sodium: 140 Potassium: 4 Chloride: 107 Calcium: 7.1 Corrected Calcium: 9.18 Magnesium: 2.3 CO2: 28 SCr: 1 Glucose: 324, 314 Albumin: 1.4 AST: 17 ALT: 17 TPN FORMULA: TPN TYPE: Central Continuous AMINO ACIDS: 125 gm DEXTROSE: 140 gm LIPIDS: -- gm SODIUM CHLORIDE: 30 mEq POTASSIUM PHOSPHATE: 15 mmol MAGNESIUM: 5 mEq MULTIPLE VITAMIN: 10 ml TRACE ELEMENTS: 1 ml TPN PLAN: -Patient's weight increased over time, per RN she has pitting edema. Will concentrate TPN. -Propofol rate reduced significantly today. -CMP, mag, phos tomorrow. R: Continue TPN Will monitor electrolytes, glucose, and tolerance to TPN. THIERNO MAURO, [facility], 10/09/21 [id number]
[2021-10-09] MEDS: CITALOPRAM 20 MG TABLET. PO SCH (20:49)
[2021-10-09] MEDS: ATORVASTATIN CALCIUM 40 MG TABLET. PO SCH (20:50)
[2021-10-09] MEDS ORDERED: INSULIN GLARGINE SYRINGE. SQ SCH (21:00)
[2021-10-09] MEDS ORDERED: TOTAL PARENTERAL NUTRITION IV SCH (22:00)
[2021-10-09] MEDS ORDERED: [UNRECOGNIZED DRUG - OTHER] IV SCH (22:00)
[2021-10-09] MEDS ORDERED: DEXTROSE 70% IV SCH (22:00)
[2021-10-09] MEDS ORDERED: AMINO ACID IV SCH (22:00)
[2021-10-10] VITALS (24 sets, daily range): BP systolic 114–152; BP diastolic 52–73
[2021-10-10] MEDS: PROPOFOL 100 ML IV PRN ×5 (01:09→21:04)
[2021-10-10] MEDS: INSULIN LISPRO 300 UNITS/3 ML VIAL. SQ SCH ×3 (05:38→17:43)
[2021-10-10] MEDS: HEPARIN for SUB-Q USE 5,000 UNIT/ML VIAL. SQ SCH ×3 (05:38→22:12)
[2021-10-10 05:42] LABS: BASO % 0 % (0-3); EOS % 0 % (0-3); HEMATOCRIT 32.2 % (36.0-47.0); HEMOGLOBIN 10.2 g/dL (12.0-15.5); LYMPH # 0.3 x10^3/uL (1.0-4.8); LYMPH % 4 % (24-48); MEAN CORPUSCULAR HEMOGLOBIN 29 pg (25-35); MEAN CORPUSCULAR HGB CONC 32 g/dL (31-37); MEAN CORPUSCULAR VOLUME 90 fL (79-100); MONO # 0.3 x10^3/uL (0.0-1.1); MONO % 4 % (0-9); NEUT % 93 % (31-73); PLATELET COUNT 211 x10^3/uL (140-400); RED BLOOD COUNT 3.56 x10^6/uL (3.50-5.40); RED CELL DISTRIBUTION WIDTH 14.1 % (11.5-14.5); WHITE BLOOD COUNT 8.6 x10^3/uL (4.0-11.0)
[2021-10-10 06:03] LABS: ALBUMIN 1.6 g/dL (3.4-5.0); ALBUMIN/GLOBULIN RATIO 0.4 (1.0-1.7); CALCIUM 7.3 mg/dL (8.5-10.1); CREATININE 0.9 mg/dL (0.6-1.0); GFR 63.2; MAGNESIUM 2.4 mg/dL (1.8-2.4); PHOSPHORUS 4.2 mg/dL (2.6-4.7); POTASSIUM 4.1 mmol/L (3.5-5.1); TOTAL BILIRUBIN 0.2 mg/dL (0.2-1.0); TOTAL PROTEIN 5.7 g/dL (6.4-8.2)
[2021-10-10 07:43] LABS: BASE EXCESS ABG 1 mmol/L (-3-3); HCO3 ABG 27 mmol/L (21-28); PCO2 ABG 53 mmHg (35-46); PO2 ABG 93 mmHg (65-108); SAT O2 ABG 96 % (92-99)
[2021-10-10 07:45] LABS: FIO2 ABG 100
--- NOTE | 2021-10-10 08:21 | PDOC ---
[employer] PROGRESS NOTE Date of Service DOS: DATE: 10/10/21 TIME: 08:18 Chief Complaint Chief Complaint acute hypoxic respiratory failure ARDS, with Severe respiratory failure COVID-19 pneumonia Found down Severe metabolic encephalopathy Obesity, BMI 46 severe malnutrition, Diabetes 2 with hyperglycemia Hypertension UTI on 09/26 History of Present Illness History of Present Illness 10/10/2021 Patient seen and examined in the ICU, appears comforable in ICU bed, on vent, AC/16/450/1 100% with 7 of PEEP Appears somewhat swollen, LE edema, prob malnutrition, SCDs are on Peacock to bedside drainage, has rectal tube Sedated with propofol fentanyl and Versed Has TPN hanging, will retry OG feeds, has failed before blood sugars high, will increase her lantus to 80 BID, on large dose IV steroids Discussed with RN Chart reviewed critically ill , mortality risk high, noted in prior Vitals/I&O Vitals/I&O: Vital Signs Date Time Temp Pulse Resp B/P (MAP) Pulse Ox O2 Delivery O2 Flow Rate FiO2 10/10/21 07:44 Mechanical Ventilator 10/10/21 07:29 100 10/10/21 07:00 98.1 51 16 131/66 98.1 10/09/21 15:11 10.0 I & O 10/09/21 10/09/21 10/10/21 15:00 23:00 07:00 Intake Total 1138 ml 1059.77 ml Output Total 400 ml 800 ml 430 ml Balance -400 ml 338 ml 629.77 ml Physical Exam General: No acute distress, Other (Intubated sedated) Heart: Normal S1, Normal S2, Other Lungs: Crackles Abdomen: Normal bowel sounds, Soft, No tenderness Extremities: No clubbing, No cyanosis, Other Skin: No rashes, No breakdown, No significant lesion Labs Labs: Laboratory Tests Test 10/09/21 17:42 10/09/21 23:37 10/10/21 05:30 10/10/21 05:34 Glucose (Fingerstick) 368 mg/dL (70-99) 324 mg/dL (70-99) 285 mg/dL (70-99) White Blood Count 8.6 x10^3/uL (4.0-11.0) Red Blood Count 3.56 x10^6/uL (3.50-5.40) Hemoglobin 10.2 g/dL (12.0-15.5) Hematocrit 32.2 % (36.0-47.0) Mean Corpuscular Volume 90 fL (79-100) Mean Corpuscular Hemoglobin 29 pg (25-35) Mean Corpuscular Hemoglobin Concent 32 g/dL (31-37) Red Cell Distribution Width 14.1 % (11.5-14.5) Platelet Count 211 x10^3/uL (140-400) Neutrophils (%) (Auto) 93 % (31-73) Lymphocytes (%) (Auto) 4 % (24-48) Monocytes (%) (Auto) 4 % (0-9) Eosinophils (%) (Auto) 0 % (0-3) Basophils (%) (Auto) 0 % (0-3) Neutrophils # (Auto) 8.0 x10^3/uL (1.8-7.7) Lymphocytes # (Auto) 0.3 x10^3/uL (1.0-4.8) Monocytes # (Auto) 0.3 x10^3/uL (0.0-1.1) Eosinophils # (Auto) 0.0 x10^3/uL (0.0-0.7) Basophils # (Auto) 0.0 x10^3/uL (0.0-0.2) Sodium Level 142 mmol/L (136-145) Potassium Level 4.1 mmol/L (3.5-5.1) Chloride Level 108 mmol/L (98-107) Carbon Dioxide Level 28 mmol/L (21-32) Anion Gap 6 (6-14) Blood Urea Nitrogen 83 mg/dL (7-20) Creatinine 0.9 mg/dL (0.6-1.0) Estimated GFR (Cockcroft-Gault) 63.2 BUN/Creatinine Ratio 92 (6-20) Glucose Level 324 mg/dL (70-99) Calcium Level 7.3 mg/dL (8.5-10.1) Phosphorus Level 4.2 mg/dL (2.6-4.7) Magnesium Level 2.4 mg/dL (1.8-2.4) Total Bilirubin 0.2 mg/dL (0.2-1.0) Aspartate Amino Transf (AST/SGOT) 12 U/L (15-37) Alanine Aminotransferase (ALT/SGPT) 21 U/L (14-59) Alkaline Phosphatase 29 U/L (46-116) Total Protein 5.7 g/dL (6.4-8.2) Albumin 1.6 g/dL (3.4-5.0) Albumin/Globulin Ratio 0.4 (1.0-1.7) Test 10/10/21 07:30 O2 Saturation 96 % (92-99) Arterial Blood pH 7.33 (7.35-7.45) Arterial Blood pCO2 at Patient Temp 53 mmHg (35-46) Arterial Blood pO2 at Patient Temp 93 mmHg (65-108) Arterial Blood HCO3 27 mmol/L (21-28) Arterial Blood Base Excess 1 mmol/L (-3-3) FiO2 100 Comment Review of Relevant I have reviewed the following items zoë (where applicable) has been applied. Medications: Current Medications Medications (Trade) Dose Ordered Sig/Jennifer Route PRN Reason Start Time Stop Time Status Last Admin Dose Admin Sodium Chloride 30 meq/Potassium Phosphate 15 mmol/ Magnesium Sulfate 5 meq/ Multivitamins 10 ml/Zinc/Copper/ Manganese/ Selenium 1 ml/ Total Parenteral Nutrition/Amino Acids/Dextrose 1,320 ml @ 55 mls/hr TPN CONT IV 10/09/21 22:00 10/10/21 21:59 10/09/21 21:52 Insulin Glargine (Lantus Syringe) 70 unit BID SQ 10/09/21 21:00 10/09/21 20:52 Justifications for Admission Other Justification DARREN JANG MD Oct 10, 2021 08:21
[2021-10-10 08:26] LABS: % BANDS 2 % (0-9); % LYMPHS 1 % (24-48); % MONOS 5 % (0-10); % SEGS 92 % (35-66); PLT ESTIMATE ADEQUATE (ADEQUATE)
[2021-10-10] MEDS: GABAPENTIN 250 MG/5 ML ORAL SOLUTION. PO SCH ×3 (08:29→21:03)
[2021-10-10] MEDS: SENNOSIDES/DOCUSATE 8.6/50MG TABLET. PO SCH ×2 (08:29→21:02)
[2021-10-10] MEDS: CLOPIDOGREL BISULFATE 75 MG TABLET PO SCH (08:29)
[2021-10-10] MEDS: ASPIRIN 325 MG TABLET PO SCH (08:29)
[2021-10-10] MEDS: FAMOTIDINE 20 MG/2 ML VIAL IVP SCH ×2 (08:29→21:02)
[2021-10-10] MEDS ORDERED: IV NORMAL SALINE 1000ML BAG 1,000 ML IV ONE (08:30)
[2021-10-10] MEDS: methylPREDNISolone SOD SUCC PF 125 MG/2 ML VIAL. IV SCH ×2 (08:30→21:02)
--- NOTE | 2021-10-10 08:44 | PDOC ---
PULMONARY PROGRESS NOTES DATE: 10/10/21 TIME: 08:44 Subjective Discussed with RN, no overnight events patient remains about the same, currently 7 PEEP FiO2 100% Off of Levophed Vitals Vital Signs Date Time Temp Pulse Resp B/P (MAP) Pulse Ox O2 Delivery O2 Flow Rate FiO2 10/10/21 08:28 50 127/62 10/10/21 08:13 16 99 Ventilator 10/10/21 07:00 98.1 98.1 10/09/21 15:11 10.0 Lungs: Crackles Cardiovascular: S1, S2 Abdomen: Soft, Other (Obese) Extremities: Other (Mild edema) Skin: Warm (PALLAVI) Labs Laboratory Tests Test 10/08/21 12:40 10/08/21 17:54 10/08/21 23:25 10/09/21 05:40 Glucose (Fingerstick) 320 mg/dL (70-99) 304 mg/dL (70-99) 309 mg/dL (70-99) Sodium Level 140 mmol/L (136-145) Potassium Level 4.0 mmol/L (3.5-5.1) Chloride Level 107 mmol/L (98-107) Carbon Dioxide Level 28 mmol/L (21-32) Anion Gap 5 (6-14) Blood Urea Nitrogen 81 mg/dL (7-20) Creatinine 1.0 mg/dL (0.6-1.0) Estimated GFR (Cockcroft-Gault) 56.0 Glucose Level 324 mg/dL (70-99) Calcium Level 7.1 mg/dL (8.5-10.1) Ionized Calcium 1.14 mmol/L (1.13-1.32) Phosphorus Level 4.0 mg/dL (2.6-4.7) Magnesium Level 2.3 mg/dL (1.8-2.4) Triglycerides Level 245 mg/dL (0-150) Test 10/09/21 05:43 10/09/21 08:00 10/09/21 17:42 10/09/21 23:37 Glucose (Fingerstick) 314 mg/dL (70-99) 368 mg/dL (70-99) 324 mg/dL (70-99) O2 Saturation 92 % (92-99) Arterial Blood pH 7.36 (7.35-7.45) Arterial Blood pCO2 at Patient Temp 48 mmHg (35-46) Arterial Blood pO2 at Patient Temp 70 mmHg (65-108) Arterial Blood HCO3 26 mmol/L (21-28) Arterial Blood Base Excess 0 mmol/L (-3-3) FiO2 100% vent Test 10/10/21 05:30 10/10/21 05:34 10/10/21 07:30 White Blood Count 8.6 x10^3/uL (4.0-11.0) Red Blood Count 3.56 x10^6/uL (3.50-5.40) Hemoglobin 10.2 g/dL (12.0-15.5) Hematocrit 32.2 % (36.0-47.0) Mean Corpuscular Volume 90 fL (79-100) Mean Corpuscular Hemoglobin 29 pg (25-35) Mean Corpuscular Hemoglobin Concent 32 g/dL (31-37) Red Cell Distribution Width 14.1 % (11.5-14.5) Platelet Count 211 x10^3/uL (140-400) Neutrophils (%) (Auto) 93 % (31-73) Lymphocytes (%) (Auto) 4 % (24-48) Monocytes (%) (Auto) 4 % (0-9) Eosinophils (%) (Auto) 0 % (0-3) Basophils (%) (Auto) 0 % (0-3) Neutrophils # (Auto) 8.0 x10^3/uL (1.8-7.7) Lymphocytes # (Auto) 0.3 x10^3/uL (1.0-4.8) Monocytes # (Auto) 0.3 x10^3/uL (0.0-1.1) Eosinophils # (Auto) 0.0 x10^3/uL (0.0-0.7) Basophils # (Auto) 0.0 x10^3/uL (0.0-0.2) Segmented Neutrophils % 92 % (35-66) Band Neutrophils % 2 % (0-9) Lymphocytes % 1 % (24-48) Monocytes % 5 % (0-10) Platelet Estimate Adequate (ADEQUATE) Sodium Level 142 mmol/L (136-145) Potassium Level 4.1 mmol/L (3.5-5.1) Chloride Level 108 mmol/L (98-107) Carbon Dioxide Level 28 mmol/L (21-32) Anion Gap 6 (6-14) Blood Urea Nitrogen 83 mg/dL (7-20) Creatinine 0.9 mg/dL (0.6-1.0) Estimated GFR (Cockcroft-Gault) 63.2 BUN/Creatinine Ratio 92 (6-20) Glucose Level 324 mg/dL (70-99) Calcium Level 7.3 mg/dL (8.5-10.1) Phosphorus Level 4.2 mg/dL (2.6-4.7) Magnesium Level 2.4 mg/dL (1.8-2.4) Total Bilirubin 0.2 mg/dL (0.2-1.0) Aspartate Amino Transf (AST/SGOT) 12 U/L (15-37) Alanine Aminotransferase (ALT/SGPT) 21 U/L (14-59) Alkaline Phosphatase 29 U/L (46-116) Total Protein 5.7 g/dL (6.4-8.2) Albumin 1.6 g/dL (3.4-5.0) Albumin/Globulin Ratio 0.4 (1.0-1.7) Glucose (Fingerstick) 285 mg/dL (70-99) O2 Saturation 96 % (92-99) Arterial Blood pH 7.33 (7.35-7.45) Arterial Blood pCO2 at Patient Temp 53 mmHg (35-46) Arterial Blood pO2 at Patient Temp 93 mmHg (65-108) Arterial Blood HCO3 27 mmol/L (21-28) Arterial Blood Base Excess 1 mmol/L (-3-3) FiO2 100 Laboratory Tests Test 10/09/21 17:42 10/09/21 23:37 10/10/21 05:30 10/10/21 05:34 Glucose (Fingerstick) 368 mg/dL (70-99) 324 mg/dL (70-99) 285 mg/dL (70-99) White Blood Count 8.6 x10^3/uL (4.0-11.0) Red Blood Count 3.56 x10^6/uL (3.50-5.40) Hemoglobin 10.2 g/dL (12.0-15.5) Hematocrit 32.2 % (36.0-47.0) Mean Corpuscular Volume 90 fL (79-100) Mean Corpuscular Hemoglobin 29 pg (25-35) Mean Corpuscular Hemoglobin Concent 32 g/dL (31-37) Red Cell Distribution Width 14.1 % (11.5-14.5) Platelet Count 211 x10^3/uL (140-400) Neutrophils (%) (Auto) 93 % (31-73) Lymphocytes (%) (Auto) 4 % (24-48) Monocytes (%) (Auto) 4 % (0-9) Eosinophils (%) (Auto) 0 % (0-3) Basophils (%) (Auto) 0 % (0-3) Neutrophils # (Auto) 8.0 x10^3/uL (1.8-7.7) Lymphocytes # (Auto) 0.3 x10^3/uL (1.0-4.8) Monocytes # (Auto) 0.3 x10^3/uL (0.0-1.1) Eosinophils # (Auto) 0.0 x10^3/uL (0.0-0.7) Basophils # (Auto) 0.0 x10^3/uL (0.0-0.2) Segmented Neutrophils % 92 % (35-66) Band Neutrophils % 2 % (0-9) Lymphocytes % 1 % (24-48) Monocytes % 5 % (0-10) Platelet Estimate Adequate (ADEQUATE) Sodium Level 142 mmol/L (136-145) Potassium Level 4.1 mmol/L (3.5-5.1) Chloride Level 108 mmol/L (98-107) Carbon Dioxide Level 28 mmol/L (21-32) Anion Gap 6 (6-14) Blood Urea Nitrogen 83 mg/dL (7-20) Creatinine 0.9 mg/dL (0.6-1.0) Estimated GFR (Cockcroft-Gault) 63.2 BUN/Creatinine Ratio 92 (6-20) Glucose Level 324 mg/dL (70-99) Calcium Level 7.3 mg/dL (8.5-10.1) Phosphorus Level 4.2 mg/dL (2.6-4.7) Magnesium Level 2.4 mg/dL (1.8-2.4) Total Bilirubin 0.2 mg/dL (0.2-1.0) Aspartate Amino Transf (AST/SGOT) 12 U/L (15-37) Alanine Aminotransferase (ALT/SGPT) 21 U/L (14-59) Alkaline Phosphatase 29 U/L (46-116) Total Protein 5.7 g/dL (6.4-8.2) Albumin 1.6 g/dL (3.4-5.0) Albumin/Globulin Ratio 0.4 (1.0-1.7) Test 10/10/21 07:30 O2 Saturation 96 % (92-99) Arterial Blood pH 7.33 (7.35-7.45) Arterial Blood pCO2 at Patient Temp 53 mmHg (35-46) Arterial Blood pO2 at Patient Temp 93 mmHg (65-108) Arterial Blood HCO3 27 mmol/L (21-28) Arterial Blood Base Excess 1 mmol/L (-3-3) FiO2 100 Medications Active Scripts Medications Dose Route/Sig Max Daily Dose Days Date Category Prednisone 20 Mg Tablet 2 Tab PO DAILY 5 09/20/21 Rx Amlodipine Besylate 10 Mg Tablet 10 Mg PO DAILY 30 09/20/21 Rx Acetaminophen 500 Mg Tablet 1 Tab PO PRN Q6HRS PRN 15 09/17/21 Reported Aspirin 325 Mg Tablet 1 Tab PO DAILY 09/17/21 Reported Humalog (Insulin Lispro) 100 Unit/1 Ml Vial 8 Unit SQ QIDACHS 09/17/21 Reported Lantus (Insulin Glargine,Hum.rec.anlog) 100 Unit/1 Ml Vial 20 Unit SQ HS 09/17/21 Reported Citalopram Hbr (Citalopram Hydrobromide) 20 Mg Tablet 1 Tab PO HS 09/17/21 Reported Fish Oil 1,000 Mg Capsule ([place]-3 Fatty Acids/Fish Oil) 1 Each Capsule 1 Each PO BID 09/17/21 Reported Gabapentin 600 Mg Tablet 600 Mg PO TID 09/17/21 Reported Glimepiride 4 Mg Tablet 1 Tab PO BID 09/17/21 Reported Crestor (Rosuvastatin Calcium) 40 Mg Tablet 40 Mg PO HS 09/17/21 Reported Clopidogrel (Clopidogrel Bisulfate) 75 Mg Tablet 1 Tab PO DAILY 09/17/21 Reported Impression . 1. Acute hypoxic/ hypercapnic respiratory failure in a patient who was di agnosed with COVID-19 on 09/15/21/ARDS 2. Underlying obesity. 3. Minimal tobacco history. 4. Abnormal chest x-ray possible bacterial pneumonia 5. COVID positive on 09/15/2021. 6. Encephalopathy, toxic, metabolic. 7. Hypokalemia Plan . Updated 10/10 Labs reviewed ABG noted PaO2 53 no room for decreasing FiO2 Decrease sedation, discussed with RN Monitor labs Empiric antibiotics Steroids monitor blood sugars ASTER LEHMAN MD Oct 10, 2021 08:44
[2021-10-10] MEDS: INSULIN GLARGINE SYRINGE. SQ SCH ×2 (10:41→21:05)
[2021-10-10] MEDS: MIDAZOLAM 100mg/100ml NS BAG 100 ML IV PRN (10:42)
[2021-10-10] MEDS: TPN PER PHARMACY MC PRN (13:21)
--- NOTE | 2021-10-10 15:25 | NUR ---
SS following up with discharge planning. SS reviewed pt chart and discussed with pt RN. Pt is currently on the vent at 100%. COVID19 positive. Pt on IV Solu-Medrol. Pt on Fentanyl, Versed, and Propofol. Tube feeds starting. Not stable. SS will continue to follow for discharge planning.
[2021-10-10] MEDS: ATORVASTATIN CALCIUM 40 MG TABLET. PO SCH (21:02)
[2021-10-10] MEDS: CITALOPRAM 20 MG TABLET. PO SCH (21:02)
[2021-10-10] MEDS ORDERED: [UNRECOGNIZED DRUG - OTHER] IV SCH (22:00)
[2021-10-10] MEDS ORDERED: AMINO ACID IV SCH (22:00)
[2021-10-10] MEDS ORDERED: DEXTROSE 70% IV SCH (22:00)
[2021-10-10] MEDS ORDERED: TOTAL PARENTERAL NUTRITION IV SCH (22:00)
[2021-10-11] VITALS (24 sets, daily range): BP systolic 108–131; BP diastolic 52–67
[2021-10-11] MEDS: INSULIN LISPRO 300 UNITS/3 ML VIAL. SQ SCH ×4 (00:36→17:42)
[2021-10-11] MEDS: HEPARIN for SUB-Q USE 5,000 UNIT/ML VIAL. SQ SCH ×3 (05:48→23:18)
[2021-10-11 06:01] LABS: BASO % 0 % (0-3); EOS % 0 % (0-3); HEMATOCRIT 32.1 % (36.0-47.0); HEMOGLOBIN 10.1 g/dL (12.0-15.5); LYMPH # 0.4 x10^3/uL (1.0-4.8); LYMPH % 3 % (24-48); MEAN CORPUSCULAR HEMOGLOBIN 28 pg (25-35); MEAN CORPUSCULAR HGB CONC 32 g/dL (31-37); MEAN CORPUSCULAR VOLUME 90 fL (79-100); MONO # 0.6 x10^3/uL (0.0-1.1); MONO % 5 % (0-9); NEUT # 11.7 x10^3/uL (1.8-7.7); NEUT % 92 % (31-73); PLATELET COUNT 253 x10^3/uL (140-400); RED BLOOD COUNT 3.57 x10^6/uL (3.50-5.40); RED CELL DISTRIBUTION WIDTH 14.2 % (11.5-14.5); WHITE BLOOD COUNT 12.7 x10^3/uL (4.0-11.0)
[2021-10-11 06:03] LABS: CALCIUM 7.2 mg/dL (8.5-10.1); CREATININE 0.8 mg/dL (0.6-1.0); GFR 72.4
[2021-10-11 07:38] LABS: BASE EXCESS ABG -2 mmol/L (-3-3); HCO3 ABG 25 mmol/L (21-28); PCO2 ABG 49 mmHg (35-46); PO2 ABG 77 mmHg (65-108); SAT O2 ABG 94 % (92-99)
[2021-10-11 07:39] LABS: FIO2 ABG 90
[2021-10-11] MEDS: GABAPENTIN 250 MG/5 ML ORAL SOLUTION. PO SCH ×3 (08:58→23:22)
[2021-10-11] MEDS: methylPREDNISolone SOD SUCC PF 125 MG/2 ML VIAL. IV SCH ×2 (08:58→22:56)
[2021-10-11] MEDS: FAMOTIDINE 20 MG/2 ML VIAL IVP SCH ×2 (08:58→22:57)
[2021-10-11] MEDS: ASPIRIN 325 MG TABLET PO SCH (08:59)
[2021-10-11] MEDS: CLOPIDOGREL BISULFATE 75 MG TABLET PO SCH (08:59)
[2021-10-11] MEDS: INSULIN GLARGINE SYRINGE. SQ SCH (08:59)
[2021-10-11] MEDS: SENNOSIDES/DOCUSATE 8.6/50MG TABLET. PO SCH ×2 (08:59→22:56)
[2021-10-11] MEDS: MIDAZOLAM 100mg/100ml NS BAG 100 ML IV PRN (09:00)
[2021-10-11] MEDS: PROPOFOL 100 ML IV PRN ×3 (09:01→18:03)
--- NOTE | 2021-10-11 13:39 | PDOC ---
[employer] PROGRESS NOTE Date of Service DOS: DATE: 10/11/21 TIME: 13:37 Chief Complaint Chief Complaint acute hypoxic respiratory failure ARDS, with Severe respiratory failure COVID-19 pneumonia Found down Severe metabolic encephalopathy Obesity, BMI 46 severe malnutrition, Diabetes 2 with hyperglycemia Hypertension UTI on 09/26 History of Present Illness History of Present Illness 10/11/2021 Patient seen and examined in the ICU, , on vent, AC with the vent, noted LE edema, skin signs of poor nutrition SCDs are on Peacock to bedside drainage, has rectal tube Sedated with propofol fentanyl and Versed Has TPN hanging, will retry OG feeds, has failed before blood sugars high, will increase her lantus to 80 BID, on large dose IV steroids Discussed with RN Chart reviewed critically ill , mortality risk high, noted in prior Vitals/I&O Vitals/I&O: Vital Signs Date Time Temp Pulse Resp B/P (MAP) Pulse Ox O2 Delivery O2 Flow Rate FiO2 10/11/21 13:18 99 Ventilator 10/11/21 13:03 52 16 111/60 10/11/21 11:57 98.0 98.0 10/10/21 15:38 10.0 I & O 10/10/21 10/10/21 10/11/21 15:00 23:00 07:00 Intake Total 2069.6 ml 605.36 ml Output Total 400 ml 350 ml 450 ml Balance -400 ml 1719.6 ml 155.36 ml Physical Exam General: No acute distress, Other (Intubated sedated) Heart: Normal S1, Normal S2, Other Lungs: Crackles Abdomen: Normal bowel sounds, Soft, No tenderness Extremities: No clubbing, No cyanosis, Other Skin: No rashes, No breakdown, No significant lesion Labs Labs: Laboratory Tests Test 10/10/21 17:42 10/10/21 23:50 10/11/21 05:40 10/11/21 05:44 Glucose (Fingerstick) 223 mg/dL (70-99) 202 mg/dL (70-99) 117 mg/dL (70-99) White Blood Count 12.7 x10^3/uL (4.0-11.0) Red Blood Count 3.57 x10^6/uL (3.50-5.40) Hemoglobin 10.1 g/dL (12.0-15.5) Hematocrit 32.1 % (36.0-47.0) Mean Corpuscular Volume 90 fL (79-100) Mean Corpuscular Hemoglobin 28 pg (25-35) Mean Corpuscular Hemoglobin Concent 32 g/dL (31-37) Red Cell Distribution Width 14.2 % (11.5-14.5) Platelet Count 253 x10^3/uL (140-400) Neutrophils (%) (Auto) 92 % (31-73) Lymphocytes (%) (Auto) 3 % (24-48) Monocytes (%) (Auto) 5 % (0-9) Eosinophils (%) (Auto) 0 % (0-3) Basophils (%) (Auto) 0 % (0-3) Neutrophils # (Auto) 11.7 x10^3/uL (1.8-7.7) Lymphocytes # (Auto) 0.4 x10^3/uL (1.0-4.8) Monocytes # (Auto) 0.6 x10^3/uL (0.0-1.1) Eosinophils # (Auto) 0.0 x10^3/uL (0.0-0.7) Basophils # (Auto) 0.0 x10^3/uL (0.0-0.2) Sodium Level 145 mmol/L (136-145) Potassium Level 4.0 mmol/L (3.5-5.1) Chloride Level 111 mmol/L (98-107) Carbon Dioxide Level 27 mmol/L (21-32) Anion Gap 7 (6-14) Blood Urea Nitrogen 88 mg/dL (7-20) Creatinine 0.8 mg/dL (0.6-1.0) Estimated GFR (Cockcroft-Gault) 72.4 Glucose Level 114 mg/dL (70-99) Calcium Level 7.2 mg/dL (8.5-10.1) Test 10/11/21 07:25 10/11/21 12:00 O2 Saturation 94 % (92-99) Arterial Blood pH 7.32 (7.35-7.45) Arterial Blood pCO2 at Patient Temp 49 mmHg (35-46) Arterial Blood pO2 at Patient Temp 77 mmHg (65-108) Arterial Blood HCO3 25 mmol/L (21-28) Arterial Blood Base Excess -2 mmol/L (-3-3) FiO2 90 Glucose (Fingerstick) 79 mg/dL (70-99) Comment Review of Relevant I have reviewed the following items zoë (where applicable) has been applied. Justifications for Admission Other Justification DARREN JANG MD Oct 11, 2021 13:39
--- NOTE | 2021-10-11 15:23 | NUR ---
SS following up with discharge planning. SS reviewed pt chart and discussed with pt RN. Pt is currently on the vent at 90%. COVID19 positive. Pt on IV Solu-Medrol. Pt on Fentanyl, Versed, and Propofol. Tube feeds. Not stable. SS will continue to follow for discharge planning.
--- NOTE | 2021-10-11 15:41 | PDOC ---
PULMONARY PROGRESS NOTES DATE: 10/11/21 TIME: 15:40 Subjective FiO2 90% 7 of PEEP Patient seen earlier this morning Off of Levophed Vitals Vital Signs Date Time Temp Pulse Resp B/P (MAP) Pulse Ox O2 Delivery O2 Flow Rate FiO2 10/11/21 15:30 97 Ventilator 10/11/21 15:18 10.0 10/11/21 15:15 65 16 121/57 10/11/21 11:57 98.0 98.0 Lungs: Crackles Cardiovascular: S1, S2 Abdomen: Soft, Other (Obese) Extremities: Other (Mild edema) Skin: Warm (PALLAVI) Labs Laboratory Tests Test 10/09/21 17:42 10/09/21 23:37 10/10/21 05:30 10/10/21 05:34 Glucose (Fingerstick) 368 mg/dL (70-99) 324 mg/dL (70-99) 285 mg/dL (70-99) White Blood Count 8.6 x10^3/uL (4.0-11.0) Red Blood Count 3.56 x10^6/uL (3.50-5.40) Hemoglobin 10.2 g/dL (12.0-15.5) Hematocrit 32.2 % (36.0-47.0) Mean Corpuscular Volume 90 fL (79-100) Mean Corpuscular Hemoglobin 29 pg (25-35) Mean Corpuscular Hemoglobin Concent 32 g/dL (31-37) Red Cell Distribution Width 14.1 % (11.5-14.5) Platelet Count 211 x10^3/uL (140-400) Neutrophils (%) (Auto) 93 % (31-73) Lymphocytes (%) (Auto) 4 % (24-48) Monocytes (%) (Auto) 4 % (0-9) Eosinophils (%) (Auto) 0 % (0-3) Basophils (%) (Auto) 0 % (0-3) Neutrophils # (Auto) 8.0 x10^3/uL (1.8-7.7) Lymphocytes # (Auto) 0.3 x10^3/uL (1.0-4.8) Monocytes # (Auto) 0.3 x10^3/uL (0.0-1.1) Eosinophils # (Auto) 0.0 x10^3/uL (0.0-0.7) Basophils # (Auto) 0.0 x10^3/uL (0.0-0.2) Segmented Neutrophils % 92 % (35-66) Band Neutrophils % 2 % (0-9) Lymphocytes % 1 % (24-48) Monocytes % 5 % (0-10) Platelet Estimate Adequate (ADEQUATE) Sodium Level 142 mmol/L (136-145) Potassium Level 4.1 mmol/L (3.5-5.1) Chloride Level 108 mmol/L (98-107) Carbon Dioxide Level 28 mmol/L (21-32) Anion Gap 6 (6-14) Blood Urea Nitrogen 83 mg/dL (7-20) Creatinine 0.9 mg/dL (0.6-1.0) Estimated GFR (Cockcroft-Gault) 63.2 BUN/Creatinine Ratio 92 (6-20) Glucose Level 324 mg/dL (70-99) Calcium Level 7.3 mg/dL (8.5-10.1) Phosphorus Level 4.2 mg/dL (2.6-4.7) Magnesium Level 2.4 mg/dL (1.8-2.4) Total Bilirubin 0.2 mg/dL (0.2-1.0) Aspartate Amino Transf (AST/SGOT) 12 U/L (15-37) Alanine Aminotransferase (ALT/SGPT) 21 U/L (14-59) Alkaline Phosphatase 29 U/L (46-116) Total Protein 5.7 g/dL (6.4-8.2) Albumin 1.6 g/dL (3.4-5.0) Albumin/Globulin Ratio 0.4 (1.0-1.7) Test 10/10/21 07:30 10/10/21 12:33 10/10/21 17:42 10/10/21 23:50 O2 Saturation 96 % (92-99) Arterial Blood pH 7.33 (7.35-7.45) Arterial Blood pCO2 at Patient Temp 53 mmHg (35-46) Arterial Blood pO2 at Patient Temp 93 mmHg (65-108) Arterial Blood HCO3 27 mmol/L (21-28) Arterial Blood Base Excess 1 mmol/L (-3-3) FiO2 100 Glucose (Fingerstick) 294 mg/dL (70-99) 223 mg/dL (70-99) 202 mg/dL (70-99) Test 10/11/21 05:40 10/11/21 05:44 10/11/21 07:25 10/11/21 12:00 White Blood Count 12.7 x10^3/uL (4.0-11.0) Red Blood Count 3.57 x10^6/uL (3.50-5.40) Hemoglobin 10.1 g/dL (12.0-15.5) Hematocrit 32.1 % (36.0-47.0) Mean Corpuscular Volume 90 fL (79-100) Mean Corpuscular Hemoglobin 28 pg (25-35) Mean Corpuscular Hemoglobin Concent 32 g/dL (31-37) Red Cell Distribution Width 14.2 % (11.5-14.5) Platelet Count 253 x10^3/uL (140-400) Neutrophils (%) (Auto) 92 % (31-73) Lymphocytes (%) (Auto) 3 % (24-48) Monocytes (%) (Auto) 5 % (0-9) Eosinophils (%) (Auto) 0 % (0-3) Basophils (%) (Auto) 0 % (0-3) Neutrophils # (Auto) 11.7 x10^3/uL (1.8-7.7) Lymphocytes # (Auto) 0.4 x10^3/uL (1.0-4.8) Monocytes # (Auto) 0.6 x10^3/uL (0.0-1.1) Eosinophils # (Auto) 0.0 x10^3/uL (0.0-0.7) Basophils # (Auto) 0.0 x10^3/uL (0.0-0.2) Sodium Level 145 mmol/L (136-145) Potassium Level 4.0 mmol/L (3.5-5.1) Chloride Level 111 mmol/L (98-107) Carbon Dioxide Level 27 mmol/L (21-32) Anion Gap 7 (6-14) Blood Urea Nitrogen 88 mg/dL (7-20) Creatinine 0.8 mg/dL (0.6-1.0) Estimated GFR (Cockcroft-Gault) 72.4 Glucose Level 114 mg/dL (70-99) Calcium Level 7.2 mg/dL (8.5-10.1) Glucose (Fingerstick) 117 mg/dL (70-99) 79 mg/dL (70-99) O2 Saturation 94 % (92-99) Arterial Blood pH 7.32 (7.35-7.45) Arterial Blood pCO2 at Patient Temp 49 mmHg (35-46) Arterial Blood pO2 at Patient Temp 77 mmHg (65-108) Arterial Blood HCO3 25 mmol/L (21-28) Arterial Blood Base Excess -2 mmol/L (-3-3) FiO2 90 Laboratory Tests Test 10/10/21 17:42 10/10/21 23:50 10/11/21 05:40 10/11/21 05:44 Glucose (Fingerstick) 223 mg/dL (70-99) 202 mg/dL (70-99) 117 mg/dL (70-99) White Blood Count 12.7 x10^3/uL (4.0-11.0) Red Blood Count 3.57 x10^6/uL (3.50-5.40) Hemoglobin 10.1 g/dL (12.0-15.5) Hematocrit 32.1 % (36.0-47.0) Mean Corpuscular Volume 90 fL (79-100) Mean Corpuscular Hemoglobin 28 pg (25-35) Mean Corpuscular Hemoglobin Concent 32 g/dL (31-37) Red Cell Distribution Width 14.2 % (11.5-14.5) Platelet Count 253 x10^3/uL (140-400) Neutrophils (%) (Auto) 92 % (31-73) Lymphocytes (%) (Auto) 3 % (24-48) Monocytes (%) (Auto) 5 % (0-9) Eosinophils (%) (Auto) 0 % (0-3) Basophils (%) (Auto) 0 % (0-3) Neutrophils # (Auto) 11.7 x10^3/uL (1.8-7.7) Lymphocytes # (Auto) 0.4 x10^3/uL (1.0-4.8) Monocytes # (Auto) 0.6 x10^3/uL (0.0-1.1) Eosinophils # (Auto) 0.0 x10^3/uL (0.0-0.7) Basophils # (Auto) 0.0 x10^3/uL (0.0-0.2) Sodium Level 145 mmol/L (136-145) Potassium Level 4.0 mmol/L (3.5-5.1) Chloride Level 111 mmol/L (98-107) Carbon Dioxide Level 27 mmol/L (21-32) Anion Gap 7 (6-14) Blood Urea Nitrogen 88 mg/dL (7-20) Creatinine 0.8 mg/dL (0.6-1.0) Estimated GFR (Cockcroft-Gault) 72.4 Glucose Level 114 mg/dL (70-99) Calcium Level 7.2 mg/dL (8.5-10.1) Test 10/11/21 07:25 10/11/21 12:00 O2 Saturation 94 % (92-99) Arterial Blood pH 7.32 (7.35-7.45) Arterial Blood pCO2 at Patient Temp 49 mmHg (35-46) Arterial Blood pO2 at Patient Temp 77 mmHg (65-108) Arterial Blood HCO3 25 mmol/L (21-28) Arterial Blood Base Excess -2 mmol/L (-3-3) FiO2 90 Glucose (Fingerstick) 79 mg/dL (70-99) Medications Active Scripts Medications Dose Route/Sig Max Daily Dose Days Date Category Prednisone 20 Mg Tablet 2 Tab PO DAILY 5 09/20/21 Rx Amlodipine Besylate 10 Mg Tablet 10 Mg PO DAILY 30 09/20/21 Rx Acetaminophen 500 Mg Tablet 1 Tab PO PRN Q6HRS PRN 15 09/17/21 Reported Aspirin 325 Mg Tablet 1 Tab PO DAILY 09/17/21 Reported Humalog (Insulin Lispro) 100 Unit/1 Ml Vial 8 Unit SQ QIDACHS 09/17/21 Reported Lantus (Insulin Glargine,Hum.rec.anlog) 100 Unit/1 Ml Vial 20 Unit SQ HS 09/17/21 Reported Citalopram Hbr (Citalopram Hydrobromide) 20 Mg Tablet 1 Tab PO HS 09/17/21 Reported Fish Oil 1,000 Mg Capsule ([place]-3 Fatty Acids/Fish Oil) 1 Each Capsule 1 Each PO BID 09/17/21 Reported Gabapentin 600 Mg Tablet 600 Mg PO TID 09/17/21 Reported Glimepiride 4 Mg Tablet 1 Tab PO BID 09/17/21 Reported Crestor (Rosuvastatin Calcium) 40 Mg Tablet 40 Mg PO HS 09/17/21 Reported Clopidogrel (Clopidogrel Bisulfate) 75 Mg Tablet 1 Tab PO DAILY 09/17/21 Reported Impression . 1. Acute hypoxic/ hypercapnic respiratory failure in a patient who was diagnosed with COVID-19 on 09/15/21/ARDS 2. Underlying obesity. 3. Minimal tobacco history. 4. Abnormal chest x-ray possible bacterial pneumonia 5. COVID positive on 09/15/2021. 6. Encephalopathy, toxic, metabolic. 7. Hypokalemia Plan . Updated 10/11 No new events Continue current support Labs reviewed ABG noted PaO2 53 no room for decreasing FiO2 Decrease sedation, discussed with RN Monitor labs Empiric antibiotics Steroids monitor blood sugars ASTER LEHMAN MD Oct 11, 2021 15:40
[2021-10-11] MEDS: DEXTROSE 50% 25 GM / 50ML DISP.SYRIN. IV PRN ×2 (17:39→17:54)
[2021-10-11] MEDS ORDERED: INSULIN GLARGINE SYRINGE. SQ SCH (21:00)
[2021-10-11] MEDS: CITALOPRAM 20 MG TABLET. PO SCH (22:56)
[2021-10-12] VITALS (24 sets, daily range): BP systolic 74–136; BP diastolic 44–66
[2021-10-12] MEDS: ATORVASTATIN CALCIUM 40 MG TABLET. PO SCH ×2 (00:02→20:41)
[2021-10-12] MEDS: DEXTROSE 50% 25 GM / 50ML DISP.SYRIN. IV PRN ×5 (00:02→11:29)
[2021-10-12] MEDS: MIDAZOLAM 100mg/100ml NS BAG 100 ML IV PRN ×2 (02:34→18:00)
[2021-10-12] MEDS: INSULIN LISPRO 300 UNITS/3 ML VIAL. SQ SCH ×4 (06:00→17:24)
[2021-10-12] MEDS: HEPARIN for SUB-Q USE 5,000 UNIT/ML VIAL. SQ SCH ×3 (06:32→20:44)
[2021-10-12 06:44] LABS: BASO # 0.1 x10^3/uL (0.0-0.2); BASO % 0 % (0-3); EOS % 0 % (0-3); HEMATOCRIT 34.4 % (36.0-47.0); HEMOGLOBIN 10.7 g/dL (12.0-15.5); LYMPH # 0.9 x10^3/uL (1.0-4.8); LYMPH % 3 % (24-48); MEAN CORPUSCULAR HEMOGLOBIN 28 pg (25-35); MEAN CORPUSCULAR HGB CONC 31 g/dL (31-37); MEAN CORPUSCULAR VOLUME 90 fL (79-100); MONO % 11 % (0-9); NEUT # 24.1 x10^3/uL (1.8-7.7); NEUT % 86 % (31-73); PLATELET COUNT 399 x10^3/uL (140-400); RED BLOOD COUNT 3.84 x10^6/uL (3.50-5.40); RED CELL DISTRIBUTION WIDTH 14.4 % (11.5-14.5); WHITE BLOOD COUNT 28.1 x10^3/uL (4.0-11.0)
[2021-10-12 06:59] LABS: ALBUMIN 1.7 g/dL (3.4-5.0); ALBUMIN/GLOBULIN RATIO 0.5 (1.0-1.7); CALCIUM 7.5 mg/dL (8.5-10.1); CREATININE 0.7 mg/dL (0.6-1.0); GFR 84.5; POTASSIUM 3.5 mmol/L (3.5-5.1); TOTAL BILIRUBIN 0.2 mg/dL (0.2-1.0); TOTAL PROTEIN 5.3 g/dL (6.4-8.2)
[2021-10-12 08:11] LABS: BASE EXCESS ABG -3 mmol/L (-3-3); HCO3 ABG 25 mmol/L (21-28); PCO2 ABG 56 mmHg (35-46); PO2 ABG 58 mmHg (65-108); SAT O2 ABG 87 % (92-99)
[2021-10-12 08:24] LABS: FIO2 ABG 90
[2021-10-12] MEDS: methylPREDNISolone SOD SUCC PF 125 MG/2 ML VIAL. IV SCH ×2 (08:26→20:41)
[2021-10-12] MEDS: ASPIRIN 325 MG TABLET PO SCH (08:26)
[2021-10-12] MEDS: CLOPIDOGREL BISULFATE 75 MG TABLET PO SCH (08:26)
[2021-10-12] MEDS: FAMOTIDINE 20 MG/2 ML VIAL IVP SCH ×2 (08:27→20:41)
[2021-10-12] MEDS: SENNOSIDES/DOCUSATE 8.6/50MG TABLET. PO SCH ×2 (08:32→20:43)
[2021-10-12] MEDS: GABAPENTIN 250 MG/5 ML ORAL SOLUTION. PO SCH ×3 (08:32→20:43)
[2021-10-12] MEDS: PROPOFOL 100 ML IV PRN (08:42)
--- NOTE | 2021-10-12 11:08 | RAD ---
Exam Date: 10/12/2021 10:55 AM XR CHEST 1V Indication: Reason: covid recovered; on vent / Spl. Instructions: / History: . Comparison: October 07, 2021 FINDINGS/ IMPRESSION: Interval placement of endotracheal tube terminating approximately 3.5 cm above the steven. Nasogastr ic tube remains in place. Right PICC line remains in place. Aorta is calcified. The cardiac silhouette is not enlarged. Diffuse bilateral lung infiltrates are again seen, more prom inent in the upper lobes compared to the prior exam. There is slightly improved aeration in the lung bases bilaterally. No appreciable pleural effusion or pneumothorax. Electronically signed by: Ernesto Hamlin MD (10/12/2021 11:06 AM) [id number]
[2021-10-12] MEDS ORDERED: IV DEXTROSE 10% 1,000 ML IV ONE (12:00)
--- NOTE | 2021-10-12 12:01 | PDOC ---
[facility] PROGRESS NOTE Date of Service DOS: DATE: 10/12/21 TIME: 11:59 Chief Complaint Chief Complaint acute hypoxic respiratory failure ARDS, with Severe respiratory failure COVID-19 pneumonia Found down Severe metabolic encephalopathy Obesity, BMI 46 severe malnutrition, Diabetes 2 with hyperglycemia, hypoglycemia, Hypertension UTI on 09/26 History of Present Illness History of Present Illness 10/12/2021 blood sugar lower last night, insulin dose decreassed and given, markedly bad this AM , D50 given, still has lantus on board, will give D10 fluid, DC insulin, resume when better Patient seen and examined in the ICU, , on vent, AC with the vent, noted LE edema, skin signs of poor nutrition SCDs are on [place]ac[place] to bedside drainage, has rectal tube Sedated with propofol fentanyl and Versed Has TPN hanging, will retry OG feeds, has failed before blood sugars high, will increase her lantus to 80 BID, on large dose IV steroids Discussed with RN Chart reviewed critically ill , mortality risk high, time 39 min Vitals/I&O Vitals/I&O: Vital Signs Date Time Temp Pulse Resp B/P (MAP) Pulse Ox O2 Delivery O2 Flow Rate FiO2 10/12/21 11:27 81 Ventilator 10/12/21 10:00 66 20 90/52 10/12/21 08:00 97.6 97.6 10/12/21 02:57 10.0 I & O 10/11/21 10/11/21 10/12/21 14:59 22:59 06:59 Intake Total 200 ml 1070 ml 643 ml Output Total 400 ml 1350 ml 500 ml Balance -200 ml -280 ml 143 ml Physical Exam General: No acute distress, Other (Intubated sedated) Heart: Normal S1, Normal S2, Other Lungs: Crackles Abdomen: Normal bowel sounds, Soft, No tenderness Extremities: No clubbing, No cyanosis, Other Skin: No rashes, No breakdown, No significant lesion Labs Labs: Laboratory Tests Test 10/11/21 12:00 10/11/21 17:37 10/11/21 17:54 10/11/21 18:06 Glucose (Fingerstick) 79 mg/dL (70-99) 51 mg/dL (70-99) 57 mg/dL (70-99) 137 mg/dL (70-99) Test 10/11/21 20:10 10/11/21 23:54 10/12/21 00:10 10/12/21 00:39 Glucose (Fingerstick) 73 mg/dL (70-99) 28 mg/dL (70-99) 89 mg/dL (70-99) Glucose Level 95 mg/dL (70-99) Test 10/12/21 05:30 10/12/21 06:22 10/12/21 06:45 10/12/21 07:14 White Blood Count 28.1 x10^3/uL (4.0-11.0) Red Blood Count 3.84 x10^6/uL (3.50-5.40) Hemoglobin 10.7 g/dL (12.0-15.5) Hematocrit 34.4 % (36.0-47.0) Mean Corpuscular Volume 90 fL (79-100) Mean Corpuscular Hemoglobin 28 pg (25-35) Mean Corpuscular Hemoglobin Concent 31 g/dL (31-37) Red Cell Distribution Width 14.4 % (11.5-14.5) Platelet Count 399 x10^3/uL (140-400) Neutrophils (%) (Auto) 86 % (31-73) Lymphocytes (%) (Auto) 3 % (24-48) Monocytes (%) (Auto) 11 % (0-9) Eosinophils (%) (Auto) 0 % (0-3) Basophils (%) (Auto) 0 % (0-3) Neutrophils # (Auto) 24.1 x10^3/uL (1.8-7.7) Lymphocytes # (Auto) 0.9 x10^3/uL (1.0-4.8) Monocytes # (Auto) 3.0 x10^3/uL (0.0-1.1) Eosinophils # (Auto) 0.0 x10^3/uL (0.0-0.7) Basophils # (Auto) 0.1 x10^3/uL (0.0-0.2) Sodium Level 148 mmol/L (136-145) Potassium Level 3.5 mmol/L (3.5-5.1) Chloride Level 111 mmol/L (98-107) Carbon Dioxide Level 27 mmol/L (21-32) Anion Gap 10 (6-14) Blood Urea Nitrogen 81 mg/dL (7-20) Creatinine 0.7 mg/dL (0.6-1.0) Estimated GFR (Cockcroft-Gault) 84.5 BUN/Creatinine Ratio 116 (6-20) Glucose Level 28 mg/dL (70-99) Calcium Level 7.5 mg/dL (8.5-10.1) Total Bilirubin 0.2 mg/dL (0.2-1.0) Aspartate Amino Transf (AST/SGOT) 31 U/L (15-37) Alanine Aminotransferase (ALT/SGPT) 24 U/L (14-59) Alkaline Phosphatase 30 U/L (46-116) Total Protein 5.3 g/dL (6.4-8.2) Albumin 1.7 g/dL (3.4-5.0) Albumin/Globulin Ratio 0.5 (1.0-1.7) Glucose (Fingerstick) 20 mg/dL (70-99) 57 mg/dL (70-99) 57 mg/dL (70-99) Test 10/12/21 07:30 10/12/21 07:42 10/12/21 08:44 10/12/21 11:18 O2 Saturation 87 % (92-99) Arterial Blood pH 7.27 (7.35-7.45) Arterial Blood pCO2 at Patient Temp 56 mmHg (35-46) Arterial Blood pO2 at Patient Temp 58 mmHg (65-108) Arterial Blood HCO3 25 mmol/L (21-28) Arterial Blood Base Excess -3 mmol/L (-3-3) FiO2 90 Glucose (Fingerstick) 76 mg/dL (70-99) 85 mg/dL (70-99) 46 mg/dL (70-99) Test 10/12/21 11:41 Glucose (Fingerstick) 148 mg/dL (70-99) Comment Review of Relevant I have reviewed the following items zoë (where applicable) has been applied. Medications: Current Medications Medications (Trade) Dose Ordered Sig/Jennifer Route PRN Reason Start Time Stop Time Status Last Admin Dose Admin Insulin Glargine (Lantus Syringe) 50 unit BID SQ 10/11/21 21:00 10/12/21 08:06 DC 10/11/21 23:04 Dextrose 1,000 ml @ 50 mls/hr Q20H ONCE IV 10/12/21 12:00 10/13/21 07:59 10/12/21 11:32 Justifications for Admission Other Justification DARREN JANG MD Oct 12, 2021 12:01
[2021-10-12] MEDS: FUROSEMIDE 40 MG/4 ML VIAL. IVP SCH (12:14)
--- NOTE | 2021-10-12 12:56 | PDOC ---
PULMONARY PROGRESS NOTES DATE: 10/12/21 TIME: 12:54 Subjective Patient desaturated this morning, currently on 7 of PEEP, 100% Chest x-ray obtained Off of Levophed Vitals Vital Signs Date Time Temp Pulse Resp B/P (MAP) Pulse Ox O2 Delivery O2 Flow Rate FiO2 10/12/21 12:00 97.6 78 20 96/50 84 Ventilator 97.6 10/12/21 02:57 10.0 Lungs: Crackles Cardiovascular: S1, S2 Abdomen: Soft, Other (Obese) Extremities: Other (Mild edema) Skin: Warm (PALLAVI) Labs Laboratory Tests Test 10/10/21 17:42 10/10/21 23:50 10/11/21 05:40 10/11/21 05:44 Glucose (Fingerstick) 223 mg/dL (70-99) 202 mg/dL (70-99) 117 mg/dL (70-99) White Blood Count 12.7 x10^3/uL (4.0-11.0) Red Blood Count 3.57 x10^6/uL (3.50-5.40) Hemoglobin 10.1 g/dL (12.0-15.5) Hematocrit 32.1 % (36.0-47.0) Mean Corpuscular Volume 90 fL (79-100) Mean Corpuscular Hemoglobin 28 pg (25-35) Mean Corpuscular Hemoglobin Concent 32 g/dL (31-37) Red Cell Distribution Width 14.2 % (11.5-14.5) Platelet Count 253 x10^3/uL (140-400) Neutrophils (%) (Auto) 92 % (31-73) Lymphocytes (%) (Auto) 3 % (24-48) Monocytes (%) (Auto) 5 % (0-9) Eosinophils (%) (Auto) 0 % (0-3) Basophils (%) (Auto) 0 % (0-3) Neutrophils # (Auto) 11.7 x10^3/uL (1.8-7.7) Lymphocytes # (Auto) 0.4 x10^3/uL (1.0-4.8) Monocytes # (Auto) 0.6 x10^3/uL (0.0-1.1) Eosinophils # (Auto) 0.0 x10^3/uL (0.0-0.7) Basophils # (Auto) 0.0 x10^3/uL (0.0-0.2) Sodium Level 145 mmol/L (136-145) Potassium Level 4.0 mmol/L (3.5-5.1) Chloride Level 111 mmol/L (98-107) Carbon Dioxide Level 27 mmol/L (21-32) Anion Gap 7 (6-14) Blood Urea Nitrogen 88 mg/dL (7-20) Creatinine 0.8 mg/dL (0.6-1.0) Estimated GFR (Cockcroft-Gault) 72.4 Glucose Level 114 mg/dL (70-99) Calcium Level 7.2 mg/dL (8.5-10.1) Test 10/11/21 07:25 10/11/21 12:00 10/11/21 17:37 10/11/21 17:54 O2 Saturation 94 % (92-99) Arterial Blood pH 7.32 (7.35-7.45) Arterial Blood pCO2 at Patient Temp 49 mmHg (35-46) Arterial Blood pO2 at Patient Temp 77 mmHg (65-108) Arterial Blood HCO3 25 mmol/L (21-28) Arterial Blood Base Excess -2 mmol/L (-3-3) FiO2 90 Glucose (Fingerstick) 79 mg/dL (70-99) 51 mg/dL (70-99) 57 mg/dL (70-99) Test 10/11/21 18:06 10/11/21 20:10 10/11/21 23:54 10/12/21 00:10 Glucose (Fingerstick) 137 mg/dL (70-99) 73 mg/dL (70-99) 28 mg/dL (70-99) Glucose Level 95 mg/dL (70-99) Test 10/12/21 00:39 10/12/21 05:30 10/12/21 06:22 10/12/21 06:45 Glucose (Fingerstick) 89 mg/dL (70-99) 20 mg/dL (70-99) 57 mg/dL (70-99) White Blood Count 28.1 x10^3/uL (4.0-11.0) Red Blood Count 3.84 x10^6/uL (3.50-5.40) Hemoglobin 10.7 g/dL (12.0-15.5) Hematocrit 34.4 % (36.0-47.0) Mean Corpuscular Volume 90 fL (79-100) Mean Corpuscular Hemoglobin 28 pg (25-35) Mean Corpuscular Hemoglobin Concent 31 g/dL (31-37) Red Cell Distribution Width 14.4 % (11.5-14.5) Platelet Count 399 x10^3/uL (140-400) Neutrophils (%) (Auto) 86 % (31-73) Lymphocytes (%) (Auto) 3 % (24-48) Monocytes (%) (Auto) 11 % (0-9) Eosinophils (%) (Auto) 0 % (0-3) Basophils (%) (Auto) 0 % (0-3) Neutrophils # (Auto) 24.1 x10^3/uL (1.8-7.7) Lymphocytes # (Auto) 0.9 x10^3/uL (1.0-4.8) Monocytes # (Auto) 3.0 x10^3/uL (0.0-1.1) Eosinophils # (Auto) 0.0 x10^3/uL (0.0-0.7) Basophils # (Auto) 0.1 x10^3/uL (0.0-0.2) Sodium Level 148 mmol/L (136-145) Potassium Level 3.5 mmol/L (3.5-5.1) Chloride Level 111 mmol/L (98-107) Carbon Dioxide Level 27 mmol/L (21-32) Anion Gap 10 (6-14) Blood Urea Nitrogen 81 mg/dL (7-20) Creatinine 0.7 mg/dL (0.6-1.0) Estimated GFR (Cockcroft-Gault) 84.5 BUN/Creatinine Ratio 116 (6-20) Glucose Level 28 mg/dL (70-99) Calcium Level 7.5 mg/dL (8.5-10.1) Total Bilirubin 0.2 mg/dL (0.2-1.0) Aspartate Amino Transf (AST/SGOT) 31 U/L (15-37) Alanine Aminotransferase (ALT/SGPT) 24 U/L (14-59) Alkaline Phosphatase 30 U/L (46-116) Total Protein 5.3 g/dL (6.4-8.2) Albumin 1.7 g/dL (3.4-5.0) Albumin/Globulin Ratio 0.5 (1.0-1.7) Test 10/12/21 07:14 10/12/21 07:30 10/12/21 07:42 10/12/21 08:44 Glucose (Fingerstick) 57 mg/dL (70-99) 76 mg/dL (70-99) 85 mg/dL (70-99) O2 Saturation 87 % (92-99) Arterial Blood pH 7.27 (7.35-7.45) Arterial Blood pCO2 at Patient Temp 56 mmHg (35-46) Arterial Blood pO2 at Patient Temp 58 mmHg (65-108) Arterial Blood HCO3 25 mmol/L (21-28) Arterial Blood Base Excess -3 mmol/L (-3-3) FiO2 90 Test 10/12/21 11:18 10/12/21 11:41 Glucose (Fingerstick) 46 mg/dL (70-99) 148 mg/dL (70-99) Laboratory Tests Test 10/11/21 17:37 10/11/21 17:54 10/11/21 18:06 10/11/21 20:10 Glucose (Fingerstick) 51 mg/dL (70-99) 57 mg/dL (70-99) 137 mg/dL (70-99) 73 mg/dL (70-99) Test 10/11/21 23:54 10/12/21 00:10 10/12/21 00:39 10/12/21 05:30 Glucose (Fingerstick) 28 mg/dL (70-99) 89 mg/dL (70-99) Glucose Level 95 mg/dL (70-99) 28 mg/dL (70-99) White Blood Count 28.1 x10^3/uL (4.0-11.0) Red Blood Count 3.84 x10^6/uL (3.50-5.40) Hemoglobin 10.7 g/dL (12.0-15.5) Hematocrit 34.4 % (36.0-47.0) Mean Corpuscular Volume 90 fL (79-100) Mean Corpuscular Hemoglobin 28 pg (25-35) Mean Corpuscular Hemoglobin Concent 31 g/dL (31-37) Red Cell Distribution Width 14.4 % (11.5-14.5) Platelet Count 399 x10^3/uL (140-400) Neutrophils (%) (Auto) 86 % (31-73) Lymphocytes (%) (Auto) 3 % (24-48) Monocytes (%) (Auto) 11 % (0-9) Eosinophils (%) (Auto) 0 % (0-3) Basophils (%) (Auto) 0 % (0-3) Neutrophils # (Auto) 24.1 x10^3/uL (1.8-7.7) Lymphocytes # (Auto) 0.9 x10^3/uL (1.0-4.8) Monocytes # (Auto) 3.0 x10^3/uL (0.0-1.1) Eosinophils # (Auto) 0.0 x10^3/uL (0.0-0.7) Basophils # (Auto) 0.1 x10^3/uL (0.0-0.2) Sodium Level 148 mmol/L (136-145) Potassium Level 3.5 mmol/L (3.5-5.1) Chloride Level 111 mmol/L (98-107) Carbon Dioxide Level 27 mmol/L (21-32) Anion Gap 10 (6-14) Blood Urea Nitrogen 81 mg/dL (7-20) Creatinine 0.7 mg/dL (0.6-1.0) Estimated GFR (Cockcroft-Gault) 84.5 BUN/Creatinine Ratio 116 (6-20) Calcium Level 7.5 mg/dL (8.5-10.1) Total Bilirubin 0.2 mg/dL (0.2-1.0) Aspartate Amino Transf (AST/SGOT) 31 U/L (15-37) Alanine Aminotransferase (ALT/SGPT) 24 U/L (14-59) Alkaline Phosphatase 30 U/L (46-116) Total Protein 5.3 g/dL (6.4-8.2) Albumin 1.7 g/dL (3.4-5.0) Albumin/Globulin Ratio 0.5 (1.0-1.7) Test 10/12/21 06:22 10/12/21 06:45 10/12/21 07:14 10/12/21 07:30 Glucose (Fingerstick) 20 mg/dL (70-99) 57 mg/dL (70-99) 57 mg/dL (70-99) O2 Saturation 87 % (92-99) Arterial Blood pH 7.27 (7.35-7.45) Arterial Blood pCO2 at Patient Temp 56 mmHg (35-46) Arterial Blood pO2 at Patient Temp 58 mmHg (65-108) Arterial Blood HCO3 25 mmol/L (21-28) Arterial Blood Base Excess -3 mmol/L (-3-3) FiO2 90 Test 10/12/21 07:42 10/12/21 08:44 10/12/21 11:18 10/12/21 11:41 Glucose (Fingerstick) 76 mg/dL (70-99) 85 mg/dL (70-99) 46 mg/dL (70-99) 148 mg/dL (70-99) Medications Active Scripts Medications Dose Route/Sig Max Daily Dose Days Date Category Prednisone 20 Mg Tablet 2 Tab PO DAILY 5 09/20/21 Rx Amlodipine Besylate 10 Mg Tablet 10 Mg PO DAILY 30 09/20/21 Rx Acetaminophen 500 Mg Tablet 1 Tab PO PRN Q6HRS PRN 15 09/17/21 Reported Aspirin 325 Mg Tablet 1 Tab PO DAILY 09/17/21 Reported Humalog (Insulin Lispro) 100 Unit/1 Ml Vial 8 Unit SQ QIDACHS 09/17/21 Reported Lantus (Insulin Glargine,Hum.rec.anlog) 100 Unit/1 Ml Vial 20 Unit SQ HS 09/17/21 Reported Citalopram Hbr (Citalopram Hydrobromide) 20 Mg Tablet 1 Tab PO HS 09/17/21 Reported Fish Oil 1,000 Mg Capsule ([place]-3 Fatty Acids/Fish Oil) 1 Each Capsule 1 Each PO BID 09/17/21 Reported Gabapentin 600 Mg Tablet 600 Mg PO TID 09/17/21 Reported Glimepiride 4 Mg Tablet 1 Tab PO BID 09/17/21 Reported Crestor (Rosuvastatin Calcium) 40 Mg Tablet 40 Mg PO HS 09/17/21 Reported Clopidogrel (Clopidogrel Bisulfate) 75 Mg Tablet 1 Tab PO DAILY 09/17/21 Reported Impression . 1. Acute hypoxic/ hypercapnic respiratory failure in a patient who was diagnosed with COVID-19 on 09/15/21/ARDS 2. Underlying obesity. 3. Minimal tobacco history. 4. Abnormal chest x-ray possible bacterial pneumonia 5. COVID positive on 09/15/2021. 6. Encephalopathy, toxic, metabolic. 7. Hypokalemia Plan . Updated 10/11 Chest x-ray reviewed increasing consolidation left upper lobe, right lower lobe improved Ins and outs noted, Lasix 40 mg IV x3 days Discussed with RN and RT Labs reviewed Monitor labs Finish course of antibiotics Steroids monitor blood sugars ASTER LEHMAN MD Oct 12, 2021 12:56
--- NOTE | 2021-10-12 17:20 | NUR ---
Patient O2 sats in the low 80's since CXR at 1000. Vent setting currently peep7/100%. Dr Walker aware, will monitor.
[2021-10-12] MEDS: CITALOPRAM 20 MG TABLET. PO SCH (20:41)
[2021-10-13] VITALS (25 sets, daily range): BP systolic 106–163; BP diastolic 50–79
[2021-10-13] MEDS: INSULIN LISPRO 300 UNITS/3 ML VIAL. SQ SCH ×4 (05:11→17:23)
[2021-10-13] MEDS: HEPARIN for SUB-Q USE 5,000 UNIT/ML VIAL. SQ SCH ×3 (05:12→21:32)
[2021-10-13] MEDS: MIDAZOLAM 100mg/100ml NS BAG 100 ML IV PRN ×2 (05:13→17:13)
[2021-10-13 05:38] LABS: BASO # 0.1 x10^3/uL (0.0-0.2); BASO % 0 % (0-3); EOS % 0 % (0-3); HEMATOCRIT 30.8 % (36.0-47.0); HEMOGLOBIN 9.7 g/dL (12.0-15.5); LYMPH # 0.4 x10^3/uL (1.0-4.8); LYMPH % 2 % (24-48); MEAN CORPUSCULAR HEMOGLOBIN 28 pg (25-35); MEAN CORPUSCULAR HGB CONC 32 g/dL (31-37); MEAN CORPUSCULAR VOLUME 89 fL (79-100); MONO % 5 % (0-9); NEUT % 93 % (31-73); PLATELET COUNT 248 x10^3/uL (140-400); RED BLOOD COUNT 3.45 x10^6/uL (3.50-5.40); RED CELL DISTRIBUTION WIDTH 14.7 % (11.5-14.5); WHITE BLOOD COUNT 21.5 x10^3/uL (4.0-11.0)
[2021-10-13 06:08] LABS: ALBUMIN 1.5 g/dL (3.4-5.0); ALBUMIN/GLOBULIN RATIO 0.4 (1.0-1.7); CALCIUM 7.5 mg/dL (8.5-10.1); CREATININE 0.9 mg/dL (0.6-1.0); GFR 63.2; TOTAL BILIRUBIN 0.2 mg/dL (0.2-1.0); TOTAL PROTEIN 5.2 g/dL (6.4-8.2)
[2021-10-13 07:28] LABS: BASE EXCESS ABG 1 mmol/L (-3-3); HCO3 ABG 27 mmol/L (21-28); PCO2 ABG 52 mmHg (35-46); PO2 ABG 56 mmHg (65-108); SAT O2 ABG 87 % (92-99)
[2021-10-13] MEDS: ASPIRIN 325 MG TABLET PO SCH (07:54)
[2021-10-13] MEDS: CLOPIDOGREL BISULFATE 75 MG TABLET PO SCH (07:54)
[2021-10-13] MEDS: FAMOTIDINE 20 MG/2 ML VIAL IVP SCH ×2 (07:55→21:16)
[2021-10-13] MEDS: FUROSEMIDE 40 MG/4 ML VIAL. IVP SCH (07:56)
[2021-10-13] MEDS: methylPREDNISolone SOD SUCC PF 125 MG/2 ML VIAL. IV SCH ×2 (07:56→21:16)
[2021-10-13] MEDS: GABAPENTIN 250 MG/5 ML ORAL SOLUTION. PO SCH ×3 (07:57→21:16)
[2021-10-13] MEDS: SENNOSIDES/DOCUSATE 8.6/50MG TABLET. PO SCH ×2 (07:58→21:17)
--- NOTE | 2021-10-13 09:07 | PDOC ---
PULMONARY PROGRESS NOTES DATE: 10/13/21 TIME: 09:02 Subjective No significant change Patient currently on 100% FiO2 10 of PEEP Vitals Vital Signs Date Time Temp Pulse Resp B/P (MAP) Pulse Ox O2 Delivery O2 Flow Rate FiO2 10/13/21 07:55 89 151/68 10/13/21 07:16 90 Ventilator 10/13/21 06:00 20 10/13/21 04:00 98.7 98.7 Lungs: Crackles Cardiovascular: S1, S2 Abdomen: Soft, Other (Obese) Extremities: Other (Mild edema) Skin: Warm (PALLAVI) Labs Laboratory Tests Test 10/11/21 12:00 10/11/21 17:37 10/11/21 17:54 10/11/21 18:06 Glucose (Fingerstick) 79 mg/dL (70-99) 51 mg/dL (70-99) 57 mg/dL (70-99) 137 mg/dL (70-99) Test 10/11/21 20:10 10/11/21 23:54 10/12/21 00:10 10/12/21 00:39 Glucose (Fingerstick) 73 mg/dL (70-99) 28 mg/dL (70-99) 89 mg/dL (70-99) Glucose Level 95 mg/dL (70-99) Test 10/12/21 05:30 10/12/21 06:22 10/12/21 06:45 10/12/21 07:14 White Blood Count 28.1 x10^3/uL (4.0-11.0) Red Blood Count 3.84 x10^6/uL (3.50-5.40) Hemoglobin 10.7 g/dL (12.0-15.5) Hematocrit 34.4 % (36.0-47.0) Mean Corpuscular Volume 90 fL (79-100) Mean Corpuscular Hemoglobin 28 pg (25-35) Mean Corpuscular Hemoglobin Concent 31 g/dL (31-37) Red Cell Distribution Width 14.4 % (11.5-14.5) Platelet Count 399 x10^3/uL (140-400) Neutrophils (%) (Auto) 86 % (31-73) Lymphocytes (%) (Auto) 3 % (24-48) Monocytes (%) (Auto) 11 % (0-9) Eosinophils (%) (Auto) 0 % (0-3) Basophils (%) (Auto) 0 % (0-3) Neutrophils # (Auto) 24.1 x10^3/uL (1.8-7.7) Lymphocytes # (Auto) 0.9 x10^3/uL (1.0-4.8) Monocytes # (Auto) 3.0 x10^3/uL (0.0-1.1) Eosinophils # (Auto) 0.0 x10^3/uL (0.0-0.7) Basophils # (Auto) 0.1 x10^3/uL (0.0-0.2) Sodium Level 148 mmol/L (136-145) Potassium Level 3.5 mmol/L (3.5-5.1) Chloride Level 111 mmol/L (98-107) Carbon Dioxide Level 27 mmol/L (21-32) Anion Gap 10 (6-14) Blood Urea Nitrogen 81 mg/dL (7-20) Creatinine 0.7 mg/dL (0.6-1.0) Estimated GFR (Cockcroft-Gault) 84.5 BUN/Creatinine Ratio 116 (6-20) Glucose Level 28 mg/dL (70-99) Calcium Level 7.5 mg/dL (8.5-10.1) Total Bilirubin 0.2 mg/dL (0.2-1.0) Aspartate Amino Transf (AST/SGOT) 31 U/L (15-37) Alanine Aminotransferase (ALT/SGPT) 24 U/L (14-59) Alkaline Phosphatase 30 U/L (46-116) Total Protein 5.3 g/dL (6.4-8.2) Albumin 1.7 g/dL (3.4-5.0) Albumin/Globulin Ratio 0.5 (1.0-1.7) Glucose (Fingerstick) 20 mg/dL (70-99) 57 mg/dL (70-99) 57 mg/dL (70-99) Test 10/12/21 07:30 10/12/21 07:42 10/12/21 08:44 10/12/21 11:18 O2 Saturation 87 % (92-99) Arterial Blood pH 7.27 (7.35-7.45) Arterial Blood pCO2 at Patient Temp 56 mmHg (35-46) Arterial Blood pO2 at Patient Temp 58 mmHg (65-108) Arterial Blood HCO3 25 mmol/L (21-28) Arterial Blood Base Excess -3 mmol/L (-3-3) FiO2 90 Glucose (Fingerstick) 76 mg/dL (70-99) 85 mg/dL (70-99) 46 mg/dL (70-99) Test 10/12/21 11:41 10/13/21 00:14 10/13/21 05:09 10/13/21 05:29 Glucose (Fingerstick) 148 mg/dL (70-99) 93 mg/dL (70-99) 102 mg/dL (70-99) White Blood Count 21.5 x10^3/uL (4.0-11.0) Red Blood Count 3.45 x10^6/uL (3.50-5.40) Hemoglobin 9.7 g/dL (12.0-15.5) Hematocrit 30.8 % (36.0-47.0) Mean Corpuscular Volume 89 fL (79-100) Mean Corpuscular Hemoglobin 28 pg (25-35) Mean Corpuscular Hemoglobin Concent 32 g/dL (31-37) Red Cell Distribution Width 14.7 % (11.5-14.5) Platelet Count 248 x10^3/uL (140-400) Neutrophils (%) (Auto) 93 % (31-73) Lymphocytes (%) (Auto) 2 % (24-48) Monocytes (%) (Auto) 5 % (0-9) Eosinophils (%) (Auto) 0 % (0-3) Basophils (%) (Auto) 0 % (0-3) Neutrophils # (Auto) 20.0 x10^3/uL (1.8-7.7) Lymphocytes # (Auto) 0.4 x10^3/uL (1.0-4.8) Monocytes # (Auto) 1.0 x10^3/uL (0.0-1.1) Eosinophils # (Auto) 0.0 x10^3/uL (0.0-0.7) Basophils # (Auto) 0.1 x10^3/uL (0.0-0.2) Sodium Level 141 mmol/L (136-145) Potassium Level 4.0 mmol/L (3.5-5.1) Chloride Level 109 mmol/L (98-107) Carbon Dioxide Level 27 mmol/L (21-32) Anion Gap 5 (6-14) Blood Urea Nitrogen 79 mg/dL (7-20) Creatinine 0.9 mg/dL (0.6-1.0) Estimated GFR (Cockcroft-Gault) 63.2 BUN/Creatinine Ratio 88 (6-20) Glucose Level 117 mg/dL (70-99) Calcium Level 7.5 mg/dL (8.5-10.1) Total Bilirubin 0.2 mg/dL (0.2-1.0) Aspartate Amino Transf (AST/SGOT) 35 U/L (15-37) Alanine Aminotransferase (ALT/SGPT) 18 U/L (14-59) Alkaline Phosphatase 32 U/L (46-116) Total Protein 5.2 g/dL (6.4-8.2) Albumin 1.5 g/dL (3.4-5.0) Albumin/Globulin Ratio 0.4 (1.0-1.7) Test 10/13/21 07:20 O2 Saturation 87 % (92-99) Arterial Blood pH 7.34 (7.35-7.45) Arterial Blood pCO2 at Patient Temp 52 mmHg (35-46) Arterial Blood pO2 at Patient Temp 56 mmHg (65-108) Arterial Blood HCO3 27 mmol/L (21-28) Arterial Blood Base Excess 1 mmol/L (-3-3) FiO2 100% vent Laboratory Tests Test 10/12/21 11:18 10/12/21 11:41 10/13/21 00:14 10/13/21 05:09 Glucose (Fingerstick) 46 mg/dL (70-99) 148 mg/dL (70-99) 93 mg/dL (70-99) 102 mg/dL (70-99) Test 10/13/21 05:29 10/13/21 07:20 White Blood Count 21.5 x10^3/uL (4.0-11.0) Red Blood Count 3.45 x10^6/uL (3.50-5.40) Hemoglobin 9.7 g/dL (12.0-15.5) Hematocrit 30.8 % (36.0-47.0) Mean Corpuscular Volume 89 fL (79-100) Mean Corpuscular Hemoglobin 28 pg (25-35) Mean Corpuscular Hemoglobin Concent 32 g/dL (31-37) Red Cell Distribution Width 14.7 % (11.5-14.5) Platelet Count 248 x10^3/uL (140-400) Neutrophils (%) (Auto) 93 % (31-73) Lymphocytes (%) (Auto) 2 % (24-48) Monocytes (%) (Auto) 5 % (0-9) Eosinophils (%) (Auto) 0 % (0-3) Basophils (%) (Auto) 0 % (0-3) Neutrophils # (Auto) 20.0 x10^3/uL (1.8-7.7) Lymphocytes # (Auto) 0.4 x10^3/uL (1.0-4.8) Monocytes # (Auto) 1.0 x10^3/uL (0.0-1.1) Eosinophils # (Auto) 0.0 x10^3/uL (0.0-0.7) Basophils # (Auto) 0.1 x10^3/uL (0.0-0.2) Sodium Level 141 mmol/L (136-145) Potassium Level 4.0 mmol/L (3.5-5.1) Chloride Level 109 mmol/L (98-107) Carbon Dioxide Level 27 mmol/L (21-32) Anion Gap 5 (6-14) Blood Urea Nitrogen 79 mg/dL (7-20) Creatinine 0.9 mg/dL (0.6-1.0) Estimated GFR (Cockcroft-Gault) 63.2 BUN/Creatinine Ratio 88 (6-20) Glucose Level 117 mg/dL (70-99) Calcium Level 7.5 mg/dL (8.5-10.1) Total Bilirubin 0.2 mg/dL (0.2-1.0) Aspartate Amino Transf (AST/SGOT) 35 U/L (15-37) Alanine Aminotransferase (ALT/SGPT) 18 U/L (14-59) Alkaline Phosphatase 32 U/L (46-116) Total Protein 5.2 g/dL (6.4-8.2) Albumin 1.5 g/dL (3.4-5.0) Albumin/Globulin Ratio 0.4 (1.0-1.7) O2 Saturation 87 % (92-99) Arterial Blood pH 7.34 (7.35-7.45) Arterial Blood pCO2 at Patient Temp 52 mmHg (35-46) Arterial Blood pO2 at Patient Temp 56 mmHg (65-108) Arterial Blood HCO3 27 mmol/L (21-28) Arterial Blood Base Excess 1 mmol/L (-3-3) FiO2 100% vent Medications Active Scripts Medications Dose Route/Sig Max Daily Dose Days Date Category Prednisone 20 Mg Tablet 2 Tab PO DAILY 5 09/20/21 Rx Amlodipine Besylate 10 Mg Tablet 10 Mg PO DAILY 30 09/20/21 Rx Acetaminophen 500 Mg Tablet 1 Tab PO PRN Q6HRS PRN 15 09/17/21 Reported Aspirin 325 Mg Tablet 1 Tab PO DAILY 09/17/21 Reported Humalog (Insulin Lispro) 100 Unit/1 Ml Vial 8 Unit SQ QIDACHS 09/17/21 Reported Lantus (Insulin Glargine,Hum.rec.anlog) 100 Unit/1 Ml Vial 20 Unit SQ HS 09/17/21 Reported Citalopram Hbr (Citalopram Hydrobromide) 20 Mg Tablet 1 Tab PO HS 09/17/21 Reported Fish Oil 1,000 Mg Capsule ([place]-3 Fatty Acids/Fish Oil) 1 Each Capsule 1 Each PO BID 09/17/21 Reported Gabapentin 600 Mg Tablet 600 Mg PO TID 09/17/21 Reported Glimepiride 4 Mg Tablet 1 Tab PO BID 09/17/21 Reported Crestor (Rosuvastatin Calcium) 40 Mg Tablet 40 Mg PO HS 09/17/21 Reported Clopidogrel (Clopidogrel Bisulfate) 75 Mg Tablet 1 Tab PO DAILY 09/17/21 Reported Impression . 1. Acute hypoxic/ hypercapnic respiratory failure in a patient who was diagnosed with COVID-19 on 09/15/21/ARDS 2. Underlying obesity. 3. Minimal tobacco history. 4. Abnormal chest x-ray possible bacterial pneumonia 5. COVID positive on 09/15/2021. 6. Encephalopathy, toxic, metabolic. 7. Hypokalemia Plan . Updated 2/2 Discussed with family at the bedside, discussed with orders, recommending continue support for additional week, if no improvement discontinue support and allow natural Chest x-ray reviewed increasing consolidation left upper lobe, right lower lobe improved Ins and outs noted, Lasix 40 mg IV x3 days Discussed with RN and RT Labs reviewed Monitor labs Finish course of antibiotics Steroids monitor blood sugars ASTER LEHMAN MD Oct 13, 2021 09:07
--- NOTE | 2021-10-13 13:43 | PDOC ---
[facility] PROGRESS NOTE Date of Service DOS: DATE: 10/13/21 TIME: 13:41 Chief Complaint Chief Complaint acute hypoxic respiratory failure ARDS, with Severe respiratory failure COVID-19 pneumonia Found down Severe metabolic encephalopathy Obesity, BMI 46 severe malnutrition, Diabetes 2 with hyperglycemia, hypoglycemia, Hypertension UTI on 09/26 History of Present Illness History of Present Illness 10/13,. family here, long discussion about plan out of covid isolation advanced care planning done, is DNR, they are considering if they should have a plan for withdrawl of care, if that should be soon or in a few days, I had 2 conversations in room, and a phone call separately, 29 minutes today total vitals OK, large 02 rq. 100 % fi02 10/12/2021 blood sugar lower last night, insulin dose decreassed and given, markedly bad this AM , D50 given, still has lantus on board, will give D10 fluid, DC insulin, resume when better Patient seen and examined in the ICU, , on vent, AC with the vent, noted LE edema, skin signs of poor nutrition SCDs are on Peacock to bedside drainage, has rectal tube Sedated with propofol fentanyl and Versed Has TPN hanging, will retry OG feeds, has failed before blood sugars high, will increase her lantus to 80 BID, on large dose IV steroids Discussed with RN Chart reviewed critically ill , mortality risk high, time 39 min Vitals/I&O Vitals/I&O: Vital Signs Date Time Temp Pulse Resp B/P (MAP) Pulse Ox O2 Delivery O2 Flow Rate FiO2 10/13/21 13:37 20 90 Ventilator 10/13/21 12:00 97.4 64 114/56 97.4 I & O 10/12/21 10/12/21 10/13/21 15:00 23:00 07:00 Intake Total 1216.5 ml 943.35 ml 1614 ml Output Total 550 ml 475 ml 75 ml Balance 666.5 ml 468.35 ml 1539 ml Physical Exam General: No acute distress, Other (Intubated sedated) Heart: Normal S1, Normal S2, Other Lungs: Crackles Abdomen: Normal bowel sounds, Soft, No tenderness Extremities: No clubbing, No cyanosis, Other Skin: No rashes, No breakdown, No significant lesion Labs Labs: Laboratory Tests Test 10/13/21 00:14 10/13/21 05:09 10/13/21 05:29 10/13/21 07:20 Glucose (Fingerstick) 93 mg/dL (70-99) 102 mg/dL (70-99) White Blood Count 21.5 x10^3/uL (4.0-11.0) Red Blood Count 3.45 x10^6/uL (3.50-5.40) Hemoglobin 9.7 g/dL (12.0-15.5) Hematocrit 30.8 % (36.0-47.0) Mean Corpuscular Volume 89 fL (79-100) Mean Corpuscular Hemoglobin 28 pg (25-35) Mean Corpuscular Hemoglobin Concent 32 g/dL (31-37) Red Cell Distribution Width 14.7 % (11.5-14.5) Platelet Count 248 x10^3/uL (140-400) Neutrophils (%) (Auto) 93 % (31-73) Lymphocytes (%) (Auto) 2 % (24-48) Monocytes (%) (Auto) 5 % (0-9) Eosinophils (%) (Auto) 0 % (0-3) Basophils (%) (Auto) 0 % (0-3) Neutrophils # (Auto) 20.0 x10^3/uL (1.8-7.7) Lymphocytes # (Auto) 0.4 x10^3/uL (1.0-4.8) Monocytes # (Auto) 1.0 x10^3/uL (0.0-1.1) Eosinophils # (Auto) 0.0 x10^3/uL (0.0-0.7) Basophils # (Auto) 0.1 x10^3/uL (0.0-0.2) Sodium Level 141 mmol/L (136-145) Potassium Level 4.0 mmol/L (3.5-5.1) Chloride Level 109 mmol/L (98-107) Carbon Dioxide Level 27 mmol/L (21-32) Anion Gap 5 (6-14) Blood Urea Nitrogen 79 mg/dL (7-20) Creatinine 0.9 mg/dL (0.6-1.0) Estimated GFR (Cockcroft-Gault) 63.2 BUN/Creatinine Ratio 88 (6-20) Glucose Level 117 mg/dL (70-99) Calcium Level 7.5 mg/dL (8.5-10.1) Total Bilirubin 0.2 mg/dL (0.2-1.0) Aspartate Amino Transf (AST/SGOT) 35 U/L (15-37) Alanine Aminotransferase (ALT/SGPT) 18 U/L (14-59) Alkaline Phosphatase 32 U/L (46-116) Total Protein 5.2 g/dL (6.4-8.2) Albumin 1.5 g/dL (3.4-5.0) Albumin/Globulin Ratio 0.4 (1.0-1.7) O2 Saturation 87 % (92-99) Arterial Blood pH 7.34 (7.35-7.45) Arterial Blood pCO2 at Patient Temp 52 mmHg (35-46) Arterial Blood pO2 at Patient Temp 56 mmHg (65-108) Arterial Blood HCO3 27 mmol/L (21-28) Arterial Blood Base Excess 1 mmol/L (-3-3) FiO2 100% vent Test 10/13/21 11:47 Glucose (Fingerstick) 122 mg/dL (70-99) Comment Review of Relevant I have reviewed the following items zoë (where applicable) has been applied. Justifications for Admission Other Justification DARREN JANG MD Oct 13, 2021 13:43
--- NOTE | 2021-10-13 15:21 | NUR ---
SS following up with discharge planning. SS reviewed pt chart and discussed with pt RN. Pt is currently on the vent at 100%. COVID19 positive. Pt on IV Solu-Medrol and IV Lasix. Pt on Fentanyl, Versed, and Propofol. Tube feeds. Not stable. SS will continue to follow for discharge planning. Addendum: 10/13/21 at 1529 by SHARON ROJO SS Physicians discussing goals of care with pt's family. Pt DNR. By request from family SS met with family. Family requested information on DPOA. It was discussed that pt is not stable to complete DPOA paperwork at this time.
[2021-10-13] MEDS: ATORVASTATIN CALCIUM 40 MG TABLET. PO SCH (21:16)
[2021-10-13] MEDS: CITALOPRAM 20 MG TABLET. PO SCH (21:16)
[2021-10-13] MEDS: PROPOFOL 100 ML IV PRN (21:31)
[2021-10-14] VITALS (26 sets, daily range): BP systolic 111–228; BP diastolic 50–74
[2021-10-14] MEDS: INSULIN LISPRO 300 UNITS/3 ML VIAL. SQ SCH ×4 (00:04→17:39)
[2021-10-14] MEDS: HEPARIN for SUB-Q USE 5,000 UNIT/ML VIAL. SQ SCH ×3 (06:00→21:45)
[2021-10-14 07:06] LABS: BASO % 0 % (0-3); EOS % 0 % (0-3); HEMATOCRIT 27.9 % (36.0-47.0); HEMOGLOBIN 8.8 g/dL (12.0-15.5); LYMPH # 0.3 x10^3/uL (1.0-4.8); LYMPH % 2 % (24-48); MEAN CORPUSCULAR HEMOGLOBIN 28 pg (25-35); MEAN CORPUSCULAR HGB CONC 31 g/dL (31-37); MEAN CORPUSCULAR VOLUME 90 fL (79-100); MONO # 0.4 x10^3/uL (0.0-1.1); MONO % 3 % (0-9); NEUT # 12.2 x10^3/uL (1.8-7.7); NEUT % 94 % (31-73); PLATELET COUNT 236 x10^3/uL (140-400); RED BLOOD COUNT 3.12 x10^6/uL (3.50-5.40); RED CELL DISTRIBUTION WIDTH 15.2 % (11.5-14.5); WHITE BLOOD COUNT 12.9 x10^3/uL (4.0-11.0)
--- NOTE | 2021-10-14 07:34 | PDOC ---
PULMONARY PROGRESS NOTES DATE: 10/14/21 TIME: 07:34 Subjective No overnight events no significant change 10 of PEEP Vitals Vital Signs Date Time Temp Pulse Resp B/P (MAP) Pulse Ox O2 Delivery O2 Flow Rate FiO2 10/14/21 07:00 89 20 158/74 89 Ventilator 10/14/21 04:00 98.3 98.3 Lungs: Crackles Cardiovascular: S1, S2 Abdomen: Soft, Other (Obese) Extremities: Other (Mild edema) Skin: Warm (PALLAVI) Labs Laboratory Tests Test 10/12/21 07:42 10/12/21 08:44 10/12/21 11:18 10/12/21 11:41 Glucose (Fingerstick) 76 mg/dL (70-99) 85 mg/dL (70-99) 46 mg/dL (70-99) 148 mg/dL (70-99) Test 10/13/21 00:14 10/13/21 05:09 10/13/21 05:29 10/13/21 07:20 Glucose (Fingerstick) 93 mg/dL (70-99) 102 mg/dL (70-99) White Blood Count 21.5 x10^3/uL (4.0-11.0) Red Blood Count 3.45 x10^6/uL (3.50-5.40) Hemoglobin 9.7 g/dL (12.0-15.5) Hematocrit 30.8 % (36.0-47.0) Mean Corpuscular Volume 89 fL (79-100) Mean Corpuscular Hemoglobin 28 pg (25-35) Mean Corpuscular Hemoglobin Concent 32 g/dL (31-37) Red Cell Distribution Width 14.7 % (11.5-14.5) Platelet Count 248 x10^3/uL (140-400) Neutrophils (%) (Auto) 93 % (31-73) Lymphocytes (%) (Auto) 2 % (24-48) Monocytes (%) (Auto) 5 % (0-9) Eosinophils (%) (Auto) 0 % (0-3) Basophils (%) (Auto) 0 % (0-3) Neutrophils # (Auto) 20.0 x10^3/uL (1.8-7.7) Lymphocytes # (Auto) 0.4 x10^3/uL (1.0-4.8) Monocytes # (Auto) 1.0 x10^3/uL (0.0-1.1) Eosinophils # (Auto) 0.0 x10^3/uL (0.0-0.7) Basophils # (Auto) 0.1 x10^3/uL (0.0-0.2) Sodium Level 141 mmol/L (136-145) Potassium Level 4.0 mmol/L (3.5-5.1) Chloride Level 109 mmol/L (98-107) Carbon Dioxide Level 27 mmol/L (21-32) Anion Gap 5 (6-14) Blood Urea Nitrogen 79 mg/dL (7-20) Creatinine 0.9 mg/dL (0.6-1.0) Estimated GFR (Cockcroft-Gault) 63.2 BUN/Creatinine Ratio 88 (6-20) Glucose Level 117 mg/dL (70-99) Calcium Level 7.5 mg/dL (8.5-10.1) Total Bilirubin 0.2 mg/dL (0.2-1.0) Aspartate Amino Transf (AST/SGOT) 35 U/L (15-37) Alanine Aminotransferase (ALT/SGPT) 18 U/L (14-59) Alkaline Phosphatase 32 U/L (46-116) Total Protein 5.2 g/dL (6.4-8.2) Albumin 1.5 g/dL (3.4-5.0) Albumin/Globulin Ratio 0.4 (1.0-1.7) O2 Saturation 87 % (92-99) Arterial Blood pH 7.34 (7.35-7.45) Arterial Blood pCO2 at Patient Temp 52 mmHg (35-46) Arterial Blood pO2 at Patient Temp 56 mmHg (65-108) Arterial Blood HCO3 27 mmol/L (21-28) Arterial Blood Base Excess 1 mmol/L (-3-3) FiO2 100% vent Test 10/13/21 11:47 10/13/21 17:21 10/14/21 00:01 10/14/21 05:50 Glucose (Fingerstick) 122 mg/dL (70-99) 169 mg/dL (70-99) 198 mg/dL (70-99) White Blood Count 12.9 x10^3/uL (4.0-11.0) Red Blood Count 3.12 x10^6/uL (3.50-5.40) Hemoglobin 8.8 g/dL (12.0-15.5) Hematocrit 27.9 % (36.0-47.0) Mean Corpuscular Volume 90 fL (79-100) Mean Corpuscular Hemoglobin 28 pg (25-35) Mean Corpuscular Hemoglobin Concent 31 g/dL (31-37) Red Cell Distribution Width 15.2 % (11.5-14.5) Platelet Count 236 x10^3/uL (140-400) Neutrophils (%) (Auto) 94 % (31-73) Lymphocytes (%) (Auto) 2 % (24-48) Monocytes (%) (Auto) 3 % (0-9) Eosinophils (%) (Auto) 0 % (0-3) Basophils (%) (Auto) 0 % (0-3) Neutrophils # (Auto) 12.2 x10^3/uL (1.8-7.7) Lymphocytes # (Auto) 0.3 x10^3/uL (1.0-4.8) Monocytes # (Auto) 0.4 x10^3/uL (0.0-1.1) Eosinophils # (Auto) 0.0 x10^3/uL (0.0-0.7) Basophils # (Auto) 0.0 x10^3/uL (0.0-0.2) Test 10/14/21 05:58 Glucose (Fingerstick) 232 mg/dL (70-99) Laboratory Tests Test 10/13/21 11:47 10/13/21 17:21 10/14/21 00:01 10/14/21 05:50 Glucose (Fingerstick) 122 mg/dL (70-99) 169 mg/dL (70-99) 198 mg/dL (70-99) White Blood Count 12.9 x10^3/uL (4.0-11.0) Red Blood Count 3.12 x10^6/uL (3.50-5.40) Hemoglobin 8.8 g/dL (12.0-15.5) Hematocrit 27.9 % (36.0-47.0) Mean Corpuscular Volume 90 fL (79-100) Mean Corpuscular Hemoglobin 28 pg (25-35) Mean Corpuscular Hemoglobin Concent 31 g/dL (31-37) Red Cell Distribution Width 15.2 % (11.5-14.5) Platelet Count 236 x10^3/uL (140-400) Neutrophils (%) (Auto) 94 % (31-73) Lymphocytes (%) (Auto) 2 % (24-48) Monocytes (%) (Auto) 3 % (0-9) Eosinophils (%) (Auto) 0 % (0-3) Basophils (%) (Auto) 0 % (0-3) Neutrophils # (Auto) 12.2 x10^3/uL (1.8-7.7) Lymphocytes # (Auto) 0.3 x10^3/uL (1.0-4.8) Monocytes # (Auto) 0.4 x10^3/uL (0.0-1.1) Eosinophils # (Auto) 0.0 x10^3/uL (0.0-0.7) Basophils # (Auto) 0.0 x10^3/uL (0.0-0.2) Test 10/14/21 05:58 Glucose (Fingerstick) 232 mg/dL (70-99) Medications Active Scripts Medications Dose Route/Sig Max Daily Dose Days Date Category Prednisone 20 Mg Tablet 2 Tab PO DAILY 5 09/20/21 Rx Amlodipine Besylate 10 Mg Tablet 10 Mg PO DAILY 30 09/20/21 Rx Acetaminophen 500 Mg Tablet 1 Tab PO PRN Q6HRS PRN 15 09/17/21 Reported Aspirin 325 Mg Tablet 1 Tab PO DAILY 09/17/21 Reported Humalog (Insulin Lispro) 100 Unit/1 Ml Vial 8 Unit SQ QIDACHS 09/17/21 Reported Lantus (Insulin Glargine,Hum.rec.anlog) 100 Unit/1 Ml Vial 20 Unit SQ HS 09/17/21 Reported Citalopram Hbr (Citalopram Hydrobromide) 20 Mg Tablet 1 Tab PO HS 09/17/21 Reported Fish Oil 1,000 Mg Capsule ([place]-3 Fatty Acids/Fish Oil) 1 Each Capsule 1 Each PO BID 09/17/21 Reported Gabapentin 600 Mg Tablet 600 Mg PO TID 09/17/21 Reported Glimepiride 4 Mg Tablet 1 Tab PO BID 09/17/21 Reported Crestor (Rosuvastatin Calcium) 40 Mg Tablet 40 Mg PO HS 09/17/21 Reported Clopidogrel (Clopidogrel Bisulfate) 75 Mg Tablet 1 Tab PO DAILY 09/17/21 Reported Impression . 1. Acute hypoxic/ hypercapnic respiratory failure in a patient who was diagnosed with COVID-19 on 09/15/21/ARDS 2. Underlying obesity. 3. Minimal tobacco history. 4. Abnormal chest x-ray possible bacterial pneumonia 5. COVID positive on 09/15/2021. 6. Encephalopathy, toxic, metabolic. 7. Hypokalemia Plan . Updated / Discussed with Dr. Metzger We will continue current support If no improvement in the next 5 to 10 days, will have conversation with family regarding withdrawal of care Continue IV Lasix Monitor blood sugars Patient finished course of antibiotics Discussed with RN and RT 2/3 Discussed with family at the bedside, discussed with orders, recommending continue support for additional week, if no improvement discontinue support and allow natural Chest x-ray reviewed increasing consolidation left upper lobe, right lower lobe improved Ins and outs noted, Lasix 40 mg IV x3 days Discussed with RN and RT Labs reviewed Monitor labs Finish course of antibiotics Steroids monitor blood sugars ASTER LEHMAN MD Oct 14, 2021 07:34
[2021-10-14 07:49] LABS: BASE EXCESS ABG 2 mmol/L (-3-3); HCO3 ABG 26 mmol/L (21-28); PCO2 ABG 42 mmHg (35-46); PO2 ABG 60 mmHg (65-108); SAT O2 ABG 91 % (92-99)
[2021-10-14] MEDS: MIDAZOLAM 100mg/100ml NS BAG 100 ML IV PRN ×2 (08:05→19:30)
[2021-10-14] MEDS: GABAPENTIN 250 MG/5 ML ORAL SOLUTION. PO SCH ×3 (08:06→21:28)
[2021-10-14] MEDS: FAMOTIDINE 20 MG/2 ML VIAL IVP SCH ×2 (08:07→21:28)
[2021-10-14] MEDS: CLOPIDOGREL BISULFATE 75 MG TABLET PO SCH (08:07)
[2021-10-14] MEDS: ASPIRIN 325 MG TABLET PO SCH (08:07)
[2021-10-14] MEDS: methylPREDNISolone SOD SUCC PF 125 MG/2 ML VIAL. IV SCH ×2 (08:07→21:28)
[2021-10-14] MEDS: FUROSEMIDE 40 MG/4 ML VIAL. IVP SCH (08:07)
[2021-10-14] MEDS: SENNOSIDES/DOCUSATE 8.6/50MG TABLET. PO SCH ×2 (08:08→21:28)
[2021-10-14 08:48] LABS: ALBUMIN 1.3 g/dL (3.4-5.0); ALBUMIN/GLOBULIN RATIO 0.3 (1.0-1.7); CALCIUM 7.7 mg/dL (8.5-10.1); CREATININE 0.9 mg/dL (0.6-1.0); GFR 63.2; POTASSIUM 3.9 mmol/L (3.5-5.1); TOTAL BILIRUBIN 0.1 mg/dL (0.2-1.0); TOTAL PROTEIN 5.6 g/dL (6.4-8.2)
[2021-10-14] MEDS ORDERED: INSULIN GLARGINE SYRINGE. SQ SCH (09:00)
[2021-10-14 09:23] LABS: FIO2 ABG 100% VENT
[2021-10-14] MEDS: PROPOFOL 100 ML IV PRN (11:34)
--- NOTE | 2021-10-14 11:35 | PDOC ---
[employer] PROGRESS NOTE Date of Service DOS: DATE: 10/14/21 TIME: 11:33 Chief Complaint Chief Complaint acute hypoxic respiratory failure ARDS, with Severe respiratory failure COVID-19 pneumonia Found down Severe metabolic encephalopathy Obesity, BMI 46 severe malnutrition, Diabetes 2 with hyperglycemia, hypoglycemia, Hypertension UTI on 09/26 History of Present Illness History of Present Illness 10/14, cont the current increase tube feed to 40, serum alb 1.3, severe blood sugar back up, restart lantus still on 100% fi02, 3 visits, discussed wti RN, ICU, 35 min 10/13,. family here, long discussion about plan out of covid isolation advanced care planning done, is DNR, they are considering if they should have a plan for withdrawl of care, if that should be soon or in a few days, I had 2 conversations in room, and a phone call separately, 29 minutes today total vitals OK, large 02 rq. 100 % fi02 10/12/2021 blood sugar lower last night, insulin dose decreassed and given, markedly bad this AM , D50 given, still has lantus on board, will give D10 fluid, DC insulin, resume when better Patient seen and examined in the ICU, , on vent, AC with the vent, noted LE edema, skin signs of poor nutrition SCDs are on [place]acock to bedside drainage, has rectal tube Sedated with propofol fentanyl and Versed Has TPN hanging, will retry OG feeds, has failed before blood sugars high, will increase her lantus to 80 BID, on large dose IV steroids Discussed with RN Chart reviewed critically ill , mortality risk high, time 39 min Vitals/I&O Vitals/I&O: Vital Signs Date Time Temp Pulse Resp B/P (MAP) Pulse Ox O2 Delivery O2 Flow Rate FiO2 10/14/21 10:00 63 20 111/50 91 Ventilator 10/14/21 08:00 98.6 98.6 I & O 10/13/21 10/13/21 10/14/21 15:00 23:00 07:00 Intake Total 709 ml 715.12 ml 989 ml Output Total 1200 ml 250 ml 200 ml Balance -491 ml 465.12 ml 789 ml Physical Exam General: No acute distress, Other (Intubated sedated) Heart: Normal S1, Normal S2, Other Lungs: Crackles Abdomen: Normal bowel sounds, Soft, No tenderness Extremities: No clubbing, No cyanosis, Other Skin: No rashes, No breakdown, No significant lesion Labs Labs: Laboratory Tests Test 10/13/21 11:47 10/13/21 17:21 10/14/21 00:01 10/14/21 05:50 Glucose (Fingerstick) 122 mg/dL (70-99) 169 mg/dL (70-99) 198 mg/dL (70-99) White Blood Count 12.9 x10^3/uL (4.0-11.0) Red Blood Count 3.12 x10^6/uL (3.50-5.40) Hemoglobin 8.8 g/dL (12.0-15.5) Hematocrit 27.9 % (36.0-47.0) Mean Corpuscular Volume 90 fL (79-100) Mean Corpuscular Hemoglobin 28 pg (25-35) Mean Corpuscular Hemoglobin Concent 31 g/dL (31-37) Red Cell Distribution Width 15.2 % (11.5-14.5) Platelet Count 236 x10^3/uL (140-400) Neutrophils (%) (Auto) 94 % (31-73) Lymphocytes (%) (Auto) 2 % (24-48) Monocytes (%) (Auto) 3 % (0-9) Eosinophils (%) (Auto) 0 % (0-3) Basophils (%) (Auto) 0 % (0-3) Neutrophils # (Auto) 12.2 x10^3/uL (1.8-7.7) Lymphocytes # (Auto) 0.3 x10^3/uL (1.0-4.8) Monocytes # (Auto) 0.4 x10^3/uL (0.0-1.1) Eosinophils # (Auto) 0.0 x10^3/uL (0.0-0.7) Basophils # (Auto) 0.0 x10^3/uL (0.0-0.2) Sodium Level 141 mmol/L (136-145) Potassium Level 3.9 mmol/L (3.5-5.1) Chloride Level 108 mmol/L (98-107) Carbon Dioxide Level 28 mmol/L (21-32) Anion Gap 5 (6-14) Blood Urea Nitrogen 78 mg/dL (7-20) Creatinine 0.9 mg/dL (0.6-1.0) Estimated GFR (Cockcroft-Gault) 63.2 BUN/Creatinine Ratio 87 (6-20) Glucose Level 252 mg/dL (70-99) Calcium Level 7.7 mg/dL (8.5-10.1) Total Bilirubin 0.1 mg/dL (0.2-1.0) Aspartate Amino Transf (AST/SGOT) 27 U/L (15-37) Alanine Aminotransferase (ALT/SGPT) 21 U/L (14-59) Alkaline Phosphatase 34 U/L (46-116) Total Protein 5.6 g/dL (6.4-8.2) Albumin 1.3 g/dL (3.4-5.0) Albumin/Globulin Ratio 0.3 (1.0-1.7) Test 10/14/21 05:58 10/14/21 08:00 Glucose (Fingerstick) 232 mg/dL (70-99) O2 Saturation 91 % (92-99) Arterial Blood pH 7.42 (7.35-7.45) Arterial Blood pCO2 at Patient Temp 42 mmHg (35-46) Arterial Blood pO2 at Patient Temp 60 mmHg (65-108) Arterial Blood HCO3 26 mmol/L (21-28) Arterial Blood Base Excess 2 mmol/L (-3-3) FiO2 100% vent Comment Review of Relevant I have reviewed the following items zoë (where applicable) has been applied. Medications: Current Medications Medications (Trade) Dose Ordered Sig/Jennifer Route PRN Reason Start Time Stop Time Status Last Admin Dose Admin Insulin Glargine (Lantus Syringe) 20 unit DAILY SQ 10/14/21 09:00 10/14/21 09:13 Justifications for Admission Other Justification DARREN JANG MD Oct 14, 2021 11:35
--- NOTE | 2021-10-14 14:54 | NUR ---
SS following up with discharge planning. SS reviewed pt chart and discussed with pt RN. Pt is currently on the vent at 100%. COVID19 positive. Pt on Fentanyl and Versed. Pt on IV Solu-Medrol. DNR. Not stable. SS will continue to follow for discharge planning.
[2021-10-14] MEDS: hydrALAZINE 20 MG/ML VIAL. IVP PRN (19:09)
[2021-10-14] MEDS: CITALOPRAM 20 MG TABLET. PO SCH (21:28)
[2021-10-14] MEDS: ATORVASTATIN CALCIUM 40 MG TABLET. PO SCH (21:28)
--- NOTE | 2021-10-14 22:16 | RAD ---
Right upper extremity venous duplex Doppler ultrasound HISTORY: Right arm swelling and edema. FINDINGS: No DVT. Patient color Doppler blood flow of the right internal jugular vein and subclavian vein. DVT with compressibility and patent however blood flow of the right axillary vein and brachial veins. No DVT evident with pain, level of the radial and ulnar veins. No thrombosis with compressibil ity and patent color Doppler blood flow of the right basilic vein. The cephalic vein is not visualize d. IMPRESSION: Negative right upper extremity for DVT. Electronically signed by: Ced Angel MD (10/14/2021 10:14 PM) [facility]
[2021-10-15] VITALS (25 sets, daily range): BP systolic 138–172; BP diastolic 51–82
[2021-10-15] MEDS: INSULIN LISPRO 300 UNITS/3 ML VIAL. SQ SCH ×4 (00:01→17:27)
[2021-10-15] MEDS: HEPARIN for SUB-Q USE 5,000 UNIT/ML VIAL. SQ SCH ×3 (05:58→21:52)
[2021-10-15] MEDS: PROPOFOL 100 ML IV PRN ×3 (06:00→23:12)
[2021-10-15 06:31] LABS: BASO % 0 % (0-3); EOS % 0 % (0-3); HEMATOCRIT 29.8 % (36.0-47.0); HEMOGLOBIN 9.6 g/dL (12.0-15.5); LYMPH # 0.2 x10^3/uL (1.0-4.8); LYMPH % 2 % (24-48); MEAN CORPUSCULAR HEMOGLOBIN 29 pg (25-35); MEAN CORPUSCULAR HGB CONC 32 g/dL (31-37); MEAN CORPUSCULAR VOLUME 89 fL (79-100); MONO # 0.4 x10^3/uL (0.0-1.1); MONO % 4 % (0-9); NEUT # 9.9 x10^3/uL (1.8-7.7); NEUT % 94 % (31-73); PLATELET COUNT 278 x10^3/uL (140-400); RED BLOOD COUNT 3.35 x10^6/uL (3.50-5.40); RED CELL DISTRIBUTION WIDTH 15.2 % (11.5-14.5); WHITE BLOOD COUNT 10.6 x10^3/uL (4.0-11.0)
[2021-10-15 06:52] LABS: ALBUMIN 1.6 g/dL (3.4-5.0); ALBUMIN/GLOBULIN RATIO 0.4 (1.0-1.7); CALCIUM 7.5 mg/dL (8.5-10.1); CREATININE 0.9 mg/dL (0.6-1.0); GFR 63.2; POTASSIUM 4.2 mmol/L (3.5-5.1); TOTAL BILIRUBIN 0.2 mg/dL (0.2-1.0); TOTAL PROTEIN 5.4 g/dL (6.4-8.2)
--- NOTE | 2021-10-15 07:17 | PDOC ---
PULMONARY PROGRESS NOTES DATE: 10/15/21 TIME: 07:16 Subjective Off norepinephrine Received Lasix yesterday No overnight events no significant change 10 of PEEP Vitals Vital Signs Date Time Temp Pulse Resp B/P (MAP) Pulse Ox O2 Delivery O2 Flow Rate FiO2 10/15/21 06:00 81 20 168/79 95 Ventilator 10/15/21 04:00 98.8 98.8 Lungs: Crackles Cardiovascular: S1, S2 Abdomen: Soft, Other (Obese) Extremities: Other (Mild edema) Skin: Warm (PALALVI) Labs Laboratory Tests Test 10/13/21 07:20 10/13/21 11:47 10/13/21 17:21 10/14/21 00:01 O2 Saturation 87 % (92-99) Arterial Blood pH 7.34 (7.35-7.45) Arterial Blood pCO2 at Patient Temp 52 mmHg (35-46) Arterial Blood pO2 at Patient Temp 56 mmHg (65-108) Arterial Blood HCO3 27 mmol/L (21-28) Arterial Blood Base Excess 1 mmol/L (-3-3) FiO2 100% vent Glucose (Fingerstick) 122 mg/dL (70-99) 169 mg/dL (70-99) 198 mg/dL (70-99) Test 10/14/21 05:50 10/14/21 05:58 10/14/21 08:00 10/14/21 11:30 White Blood Count 12.9 x10^3/uL (4.0-11.0) Red Blood Count 3.12 x10^6/uL (3.50-5.40) Hemoglobin 8.8 g/dL (12.0-15.5) Hematocrit 27.9 % (36.0-47.0) Mean Corpuscular Volume 90 fL (79-100) Mean Corpuscular Hemoglobin 28 pg (25-35) Mean Corpuscular Hemoglobin Concent 31 g/dL (31-37) Red Cell Distribution Width 15.2 % (11.5-14.5) Platelet Count 236 x10^3/uL (140-400) Neutrophils (%) (Auto) 94 % (31-73) Lymphocytes (%) (Auto) 2 % (24-48) Monocytes (%) (Auto) 3 % (0-9) Eosinophils (%) (Auto) 0 % (0-3) Basophils (%) (Auto) 0 % (0-3) Neutrophils # (Auto) 12.2 x10^3/uL (1.8-7.7) Lymphocytes # (Auto) 0.3 x10^3/uL (1.0-4.8) Monocytes # (Auto) 0.4 x10^3/uL (0.0-1.1) Eosinophils # (Auto) 0.0 x10^3/uL (0.0-0.7) Basophils # (Auto) 0.0 x10^3/uL (0.0-0.2) Sodium Level 141 mmol/L (136-145) Potassium Level 3.9 mmol/L (3.5-5.1) Chloride Level 108 mmol/L (98-107) Carbon Dioxide Level 28 mmol/L (21-32) Anion Gap 5 (6-14) Blood Urea Nitrogen 78 mg/dL (7-20) Creatinine 0.9 mg/dL (0.6-1.0) Estimated GFR (Cockcroft-Gault) 63.2 BUN/Creatinine Ratio 87 (6-20) Glucose Level 252 mg/dL (70-99) Calcium Level 7.7 mg/dL (8.5-10.1) Total Bilirubin 0.1 mg/dL (0.2-1.0) Aspartate Amino Transf (AST/SGOT) 27 U/L (15-37) Alanine Aminotransferase (ALT/SGPT) 21 U/L (14-59) Alkaline Phosphatase 34 U/L (46-116) Total Protein 5.6 g/dL (6.4-8.2) Albumin 1.3 g/dL (3.4-5.0) Albumin/Globulin Ratio 0.3 (1.0-1.7) Glucose (Fingerstick) 232 mg/dL (70-99) 297 mg/dL (70-99) O2 Saturation 91 % (92-99) Arterial Blood pH 7.42 (7.35-7.45) Arterial Blood pCO2 at Patient Temp 42 mmHg (35-46) Arterial Blood pO2 at Patient Temp 60 mmHg (65-108) Arterial Blood HCO3 26 mmol/L (21-28) Arterial Blood Base Excess 2 mmol/L (-3-3) FiO2 100% vent Test 10/14/21 17:37 10/14/21 23:58 10/15/21 05:45 10/15/21 05:56 Glucose (Fingerstick) 345 mg/dL (70-99) 304 mg/dL (70-99) 342 mg/dL (70-99) White Blood Count 10.6 x10^3/uL (4.0-11.0) Red Blood Count 3.35 x10^6/uL (3.50-5.40) Hemoglobin 9.6 g/dL (12.0-15.5) Hematocrit 29.8 % (36.0-47.0) Mean Corpuscular Volume 89 fL (79-100) Mean Corpuscular Hemoglobin 29 pg (25-35) Mean Corpuscular Hemoglobin Concent 32 g/dL (31-37) Red Cell Distribution Width 15.2 % (11.5-14.5) Platelet Count 278 x10^3/uL (140-400) Neutrophils (%) (Auto) 94 % (31-73) Lymphocytes (%) (Auto) 2 % (24-48) Monocytes (%) (Auto) 4 % (0-9) Eosinophils (%) (Auto) 0 % (0-3) Basophils (%) (Auto) 0 % (0-3) Neutrophils # (Auto) 9.9 x10^3/uL (1.8-7.7) Lymphocytes # (Auto) 0.2 x10^3/uL (1.0-4.8) Monocytes # (Auto) 0.4 x10^3/uL (0.0-1.1) Eosinophils # (Auto) 0.0 x10^3/uL (0.0-0.7) Basophils # (Auto) 0.0 x10^3/uL (0.0-0.2) Sodium Level 147 mmol/L (136-145) Potassium Level 4.2 mmol/L (3.5-5.1) Chloride Level 111 mmol/L (98-107) Carbon Dioxide Level 31 mmol/L (21-32) Anion Gap 5 (6-14) Blood Urea Nitrogen 73 mg/dL (7-20) Creatinine 0.9 mg/dL (0.6-1.0) Estimated GFR (Cockcroft-Gault) 63.2 BUN/Creatinine Ratio 81 (6-20) Glucose Level 360 mg/dL (70-99) Calcium Level 7.5 mg/dL (8.5-10.1) Total Bilirubin 0.2 mg/dL (0.2-1.0) Aspartate Amino Transf (AST/SGOT) 16 U/L (15-37) Alanine Aminotransferase (ALT/SGPT) 22 U/L (14-59) Alkaline Phosphatase 45 U/L (46-116) Total Protein 5.4 g/dL (6.4-8.2) Albumin 1.6 g/dL (3.4-5.0) Albumin/Globulin Ratio 0.4 (1.0-1.7) Laboratory Tests Test 10/14/21 08:00 10/14/21 11:30 10/14/21 17:37 10/14/21 23:58 O2 Saturation 91 % (92-99) Arterial Blood pH 7.42 (7.35-7.45) Arterial Blood pCO2 at Patient Temp 42 mmHg (35-46) Arterial Blood pO2 at Patient Temp 60 mmHg (65-108) Arterial Blood HCO3 26 mmol/L (21-28) Arterial Blood Base Excess 2 mmol/L (-3-3) FiO2 100% vent Glucose (Fingerstick) 297 mg/dL (70-99) 345 mg/dL (70-99) 304 mg/dL (70-99) Test 10/15/21 05:45 10/15/21 05:56 White Blood Count 10.6 x10^3/uL (4.0-11.0) Red Blood Count 3.35 x10^6/uL (3.50-5.40) Hemoglobin 9.6 g/dL (12.0-15.5) Hematocrit 29.8 % (36.0-47.0) Mean Corpuscular Volume 89 fL (79-100) Mean Corpuscular Hemoglobin 29 pg (25-35) Mean Corpuscular Hemoglobin Concent 32 g/dL (31-37) Red Cell Distribution Width 15.2 % (11.5-14.5) Platelet Count 278 x10^3/uL (140-400) Neutrophils (%) (Auto) 94 % (31-73) Lymphocytes (%) (Auto) 2 % (24-48) Monocytes (%) (Auto) 4 % (0-9) Eosinophils (%) (Auto) 0 % (0-3) Basophils (%) (Auto) 0 % (0-3) Neutrophils # (Auto) 9.9 x10^3/uL (1.8-7.7) Lymphocytes # (Auto) 0.2 x10^3/uL (1.0-4.8) Monocytes # (Auto) 0.4 x10^3/uL (0.0-1.1) Eosinophils # (Auto) 0.0 x10^3/uL (0.0-0.7) Basophils # (Auto) 0.0 x10^3/uL (0.0-0.2) Sodium Level 147 mmol/L (136-145) Potassium Level 4.2 mmol/L (3.5-5.1) Chloride Level 111 mmol/L (98-107) Carbon Dioxide Level 31 mmol/L (21-32) Anion Gap 5 (6-14) Blood Urea Nitrogen 73 mg/dL (7-20) Creatinine 0.9 mg/dL (0.6-1.0) Estimated GFR (Cockcroft-Gault) 63.2 BUN/Creatinine Ratio 81 (6-20) Glucose Level 360 mg/dL (70-99) Calcium Level 7.5 mg/dL (8.5-10.1) Total Bilirubin 0.2 mg/dL (0.2-1.0) Aspartate Amino Transf (AST/SGOT) 16 U/L (15-37) Alanine Aminotransferase (ALT/SGPT) 22 U/L (14-59) Alkaline Phosphatase 45 U/L (46-116) Total Protein 5.4 g/dL (6.4-8.2) Albumin 1.6 g/dL (3.4-5.0) Albumin/Globulin Ratio 0.4 (1.0-1.7) Glucose (Fingerstick) 342 mg/dL (70-99) Medications Active Scripts Medications Dose Route/Sig Max Daily Dose Days Date Category Prednisone 20 Mg Tablet 2 Tab PO DAILY 5 09/20/21 Rx Amlodipine Besylate 10 Mg Tablet 10 Mg PO DAILY 30 09/20/21 Rx Acetaminophen 500 Mg Tablet 1 Tab PO PRN Q6HRS PRN 15 09/17/21 Reported Aspirin 325 Mg Tablet 1 Tab PO DAILY 09/17/21 Reported Humalog (Insulin Lispro) 100 Unit/1 Ml Vial 8 Unit SQ QIDACHS 09/17/21 Reported Lantus (Insulin Glargine,Hum.rec.anlog) 100 Unit/1 Ml Vial 20 Unit SQ HS 09/17/21 Reported Citalopram Hbr (Citalopram Hydrobromide) 20 Mg Tablet 1 Tab PO HS 09/17/21 Reported Fish Oil 1,000 Mg Capsule ([place]-3 Fatty Acids/Fish Oil) 1 Each Capsule 1 Each PO BID 09/17/21 Reported Gabapentin 600 Mg Tablet 600 Mg PO TID 09/17/21 Reported Glimepiride 4 Mg Tablet 1 Tab PO BID 09/17/21 Reported Crestor (Rosuvastatin Calcium) 40 Mg Tablet 40 Mg PO HS 09/17/21 Reported Clopidogrel (Clopidogrel Bisulfate) 75 Mg Tablet 1 Tab PO DAILY 09/17/21 Reported Impression . 1. Acute hypoxic/ hypercapnic respiratory failure in a patient who was diagnosed with COVID-19 on 09/15/21/ARDS 2. Underlying obesity. 3. Minimal tobacco history. 4. Abnormal chest x-ray possible bacterial pneumonia 5. COVID positive on 09/15/2021. 6. Encephalopathy, toxic, metabolic. 7. Hypokalemia Plan . Updated 2/ Need sedation, otherwise not in sync with ventilator As needed Lasix We will continue current support If no improvement in the next 5 to 10 days, will have conversation with family regarding withdrawal of care Monitor blood sugars Patient finished course of antibiotics Discussed with RN and RT ASTER LEHMAN MD Oct 15, 2021 07:17
[2021-10-15] MEDS: MIDAZOLAM 100mg/100ml NS BAG 100 ML IV PRN ×2 (07:22→17:28)
[2021-10-15 07:55] LABS: BASE EXCESS ABG 3 mmol/L (-3-3); HCO3 ABG 29 mmol/L (21-28); PCO2 ABG 49 mmHg (35-46); PO2 ABG 69 mmHg (65-108); SAT O2 ABG 93 % (92-99)
[2021-10-15 07:59] LABS: FIO2 ABG 100
[2021-10-15] MEDS: ASPIRIN 325 MG TABLET PO SCH (08:08)
[2021-10-15] MEDS: GABAPENTIN 250 MG/5 ML ORAL SOLUTION. PO SCH ×3 (08:08→21:16)
[2021-10-15] MEDS: CLOPIDOGREL BISULFATE 75 MG TABLET PO SCH (08:08)
[2021-10-15] MEDS: methylPREDNISolone SOD SUCC PF 125 MG/2 ML VIAL. IV SCH ×2 (08:09→21:16)
[2021-10-15] MEDS: SENNOSIDES/DOCUSATE 8.6/50MG TABLET. PO SCH ×2 (08:09→21:19)
[2021-10-15] MEDS: FAMOTIDINE 20 MG/2 ML VIAL IVP SCH ×2 (08:09→21:16)
--- NOTE | 2021-10-15 08:30 | NUR ---
Pt showing signs of distress, elevated heartrate and blood pressure, belly breathing and out of sync with vent. Sedation increased - versed increased from 5 to 8, propofol increased from 10mcg to 20mcgs. Pt relaxed to normal breathing pattern, HR in 60's, and normal BP.
[2021-10-15] MEDS ORDERED: INSULIN LISPRO 300 UNITS/3 ML VIAL. SQ ONE (08:45)
[2021-10-15] MEDS: INSULIN GLARGINE SYRINGE. SQ SCH (09:36)
--- NOTE | 2021-10-15 14:19 | PDOC ---
[employer] PROGRESS NOTE Date of Service DOS: DATE: 10/15/21 TIME: 14:19 Chief Complaint Chief Complaint acute hypoxic respiratory failure ARDS, with Severe respiratory failure COVID-19 pneumonia Found down Severe metabolic encephalopathy Obesity, BMI 46 severe malnutrition, Diabetes 2 with hyperglycemia, hypoglycemia, Hypertension UTI on 09/26 History of Present Illness History of Present Illness 10/15, now hyperglyccemic again, increase lantus Sa02 better today, still on 100%, cont other same, BP ok moves against vent when sedatino weaned 10/14, cont the current increase tube feed to 40, serum alb 1.3, severe blood sugar back up, restart lantus still on 100% fi02, 3 visits, discussed wti RN, ICU, 35 min 10/13,. family here, long discussion about plan out of covid isolation advanced care planning done, is DNR, they are considering if they should have a plan for withdrawl of care, if that should be soon or in a few days, I had 2 conversations in room, and a phone call separately, 29 minutes today total vitals OK, large 02 rq. 100 % fi02 10/12/2021 blood sugar lower last night, insulin dose decreassed and given, markedly bad this AM , D50 given, still has lantus on board, will give D10 fluid, DC insulin, resume when better Patient seen and examined in the ICU, , on vent, AC with the vent, noted LE edema, skin signs of poor nutrition SCDs are on [place] to bedside drainage, has rectal tube Sedated with propofol fentanyl and Versed Has TPN hanging, will retry OG feeds, has failed before blood sugars high, will increase her lantus to 80 BID, on large dose IV steroids Discussed with RN Chart reviewed critically ill , mortality risk high, time 39 min Vitals/I&O Vitals/I&O: Vital Signs Date Time Temp Pulse Resp B/P (MAP) Pulse Ox O2 Delivery O2 Flow Rate FiO2 10/15/21 13:51 96 Ventilator 10/15/21 13:00 60 20 149/62 10/15/21 12:00 98.2 98.2 I & O 10/14/21 10/14/21 10/15/21 15:00 23:00 07:00 Intake Total 529.48 ml 433.29 ml 1142 ml Output Total 1000 ml 1000 ml 1000 ml Balance -470.52 ml -566.71 ml 142 ml Physical Exam General: No acute distress, Other (Intubated sedated) Heart: Normal S1, Normal S2, Other Lungs: Crackles Abdomen: Normal bowel sounds, Soft, No tenderness Extremities: No clubbing, No cyanosis, Other Skin: No rashes, No breakdown, No significant lesion Labs Labs: Laboratory Tests Test 10/14/21 17:37 10/14/21 23:58 10/15/21 05:45 10/15/21 05:56 Glucose (Fingerstick) 345 mg/dL (70-99) 304 mg/dL (70-99) 342 mg/dL (70-99) White Blood Count 10.6 x10^3/uL (4.0-11.0) Red Blood Count 3.35 x10^6/uL (3.50-5.40) Hemoglobin 9.6 g/dL (12.0-15.5) Hematocrit 29.8 % (36.0-47.0) Mean Corpuscular Volume 89 fL (79-100) Mean Corpuscular Hemoglobin 29 pg (25-35) Mean Corpuscular Hemoglobin Concent 32 g/dL (31-37) Red Cell Distribution Width 15.2 % (11.5-14.5) Platelet Count 278 x10^3/uL (140-400) Neutrophils (%) (Auto) 94 % (31-73) Lymphocytes (%) (Auto) 2 % (24-48) Monocytes (%) (Auto) 4 % (0-9) Eosinophils (%) (Auto) 0 % (0-3) Basophils (%) (Auto) 0 % (0-3) Neutrophils # (Auto) 9.9 x10^3/uL (1.8-7.7) Lymphocytes # (Auto) 0.2 x10^3/uL (1.0-4.8) Monocytes # (Auto) 0.4 x10^3/uL (0.0-1.1) Eosinophils # (Auto) 0.0 x10^3/uL (0.0-0.7) Basophils # (Auto) 0.0 x10^3/uL (0.0-0.2) Sodium Level 147 mmol/L (136-145) Potassium Level 4.2 mmol/L (3.5-5.1) Chloride Level 111 mmol/L (98-107) Carbon Dioxide Level 31 mmol/L (21-32) Anion Gap 5 (6-14) Blood Urea Nitrogen 73 mg/dL (7-20) Creatinine 0.9 mg/dL (0.6-1.0) Estimated GFR (Cockcroft-Gault) 63.2 BUN/Creatinine Ratio 81 (6-20) Glucose Level 360 mg/dL (70-99) Calcium Level 7.5 mg/dL (8.5-10.1) Total Bilirubin 0.2 mg/dL (0.2-1.0) Aspartate Amino Transf (AST/SGOT) 16 U/L (15-37) Alanine Aminotransferase (ALT/SGPT) 22 U/L (14-59) Alkaline Phosphatase 45 U/L (46-116) Total Protein 5.4 g/dL (6.4-8.2) Albumin 1.6 g/dL (3.4-5.0) Albumin/Globulin Ratio 0.4 (1.0-1.7) Test 10/15/21 07:50 10/15/21 12:13 O2 Saturation 93 % (92-99) Arterial Blood pH 7.39 (7.35-7.45) Arterial Blood pCO2 at Patient Temp 49 mmHg (35-46) Arterial Blood pO2 at Patient Temp 69 mmHg (65-108) Arterial Blood HCO3 29 mmol/L (21-28) Arterial Blood Base Excess 3 mmol/L (-3-3) FiO2 100 Glucose (Fingerstick) 311 mg/dL (70-99) Comment Review of Relevant I have reviewed the following items zoë (where applicable) has been applied. Medications: Current Medications Medications (Trade) Dose Ordered Sig/Jennifer Route PRN Reason Start Time Stop Time Status Last Admin Dose Admin Insulin Glargine (Lantus Syringe) 40 unit DAILY SQ 10/15/21 09:00 10/15/21 09:36 Insulin Human Lispro (HumaLOG) 15 units 1X ONCE SQ 10/15/21 08:45 10/15/21 08:46 DC 10/15/21 09:38 Justifications for Admission Other Justification DARREN JANG MD Oct 15, 2021 14:19
[2021-10-15] MEDS: CITALOPRAM 20 MG TABLET. PO SCH (21:16)
[2021-10-15] MEDS: ATORVASTATIN CALCIUM 40 MG TABLET. PO SCH (21:17)
[2021-10-16] VITALS (24 sets, daily range): BP systolic 123–170; BP diastolic 50–75
[2021-10-16] MEDS: INSULIN LISPRO 300 UNITS/3 ML VIAL. SQ SCH ×5 (00:11→23:53)
[2021-10-16] MEDS: PROPOFOL 100 ML IV PRN ×4 (04:09→22:58)
[2021-10-16] MEDS: hydrALAZINE 20 MG/ML VIAL. IVP PRN (04:10)
[2021-10-16] MEDS: HEPARIN for SUB-Q USE 5,000 UNIT/ML VIAL. SQ SCH ×3 (06:05→21:53)
[2021-10-16] MEDS: MIDAZOLAM 100mg/100ml NS BAG 100 ML IV PRN ×2 (06:58→17:47)
[2021-10-16 07:49] LABS: BASE EXCESS ABG 3 mmol/L (-3-3); HCO3 ABG 28 mmol/L (21-28); PCO2 ABG 44 mmHg (35-46); PO2 ABG 71 mmHg (65-108); SAT O2 ABG 93 % (92-99)
[2021-10-16 07:51] LABS: FIO2 ABG 100
[2021-10-16] MEDS: CLOPIDOGREL BISULFATE 75 MG TABLET PO SCH (08:11)
[2021-10-16] MEDS: ASPIRIN 325 MG TABLET PO SCH (08:12)
[2021-10-16] MEDS: GABAPENTIN 250 MG/5 ML ORAL SOLUTION. PO SCH ×3 (08:13→20:27)
[2021-10-16] MEDS: methylPREDNISolone SOD SUCC PF 125 MG/2 ML VIAL. IV SCH ×2 (08:13→20:26)
[2021-10-16] MEDS: FAMOTIDINE 20 MG/2 ML VIAL IVP SCH ×2 (08:13→20:26)
[2021-10-16] MEDS: SENNOSIDES/DOCUSATE 8.6/50MG TABLET. PO SCH (08:14)
[2021-10-16] MEDS: INSULIN GLARGINE SYRINGE. SQ SCH ×2 (08:14→20:28)
--- NOTE | 2021-10-16 08:23 | PDOC ---
PULMONARY PROGRESS NOTES DATE: 10/16/21 TIME: 08:20 Subjective Patient remains on 100% FiO2 7 of PEEP Discussed with RN Unable to titrate sedation down Vitals Vital Signs Date Time Temp Pulse Resp B/P (MAP) Pulse Ox O2 Delivery O2 Flow Rate FiO2 10/16/21 08:12 63 138/61 10/16/21 07:32 96 Ventilator 10/16/21 07:00 20 10/16/21 04:00 98.8 98.8 Lungs: Crackles Cardiovascular: S1, S2 Abdomen: Soft, Other (Obese) Extremities: Other (Mild edema) Skin: Warm (PALLAVI) Labs Laboratory Tests Test 10/14/21 11:30 10/14/21 17:37 10/14/21 23:58 10/15/21 05:45 Glucose (Fingerstick) 297 mg/dL (70-99) 345 mg/dL (70-99) 304 mg/dL (70-99) White Blood Count 10.6 x10^3/uL (4.0-11.0) Red Blood Count 3.35 x10^6/uL (3.50-5.40) Hemoglobin 9.6 g/dL (12.0-15.5) Hematocrit 29.8 % (36.0-47.0) Mean Corpuscular Volume 89 fL (79-100) Mean Corpuscular Hemoglobin 29 pg (25-35) Mean Corpuscular Hemoglobin Concent 32 g/dL (31-37) Red Cell Distribution Width 15.2 % (11.5-14.5) Platelet Count 278 x10^3/uL (140-400) Neutrophils (%) (Auto) 94 % (31-73) Lymphocytes (%) (Auto) 2 % (24-48) Monocytes (%) (Auto) 4 % (0-9) Eosinophils (%) (Auto) 0 % (0-3) Basophils (%) (Auto) 0 % (0-3) Neutrophils # (Auto) 9.9 x10^3/uL (1.8-7.7) Lymphocytes # (Auto) 0.2 x10^3/uL (1.0-4.8) Monocytes # (Auto) 0.4 x10^3/uL (0.0-1.1) Eosinophils # (Auto) 0.0 x10^3/uL (0.0-0.7) Basophils # (Auto) 0.0 x10^3/uL (0.0-0.2) Sodium Level 147 mmol/L (136-145) Potassium Level 4.2 mmol/L (3.5-5.1) Chloride Level 111 mmol/L (98-107) Carbon Dioxide Level 31 mmol/L (21-32) Anion Gap 5 (6-14) Blood Urea Nitrogen 73 mg/dL (7-20) Creatinine 0.9 mg/dL (0.6-1.0) Estimated GFR (Cockcroft-Gault) 63.2 BUN/Creatinine Ratio 81 (6-20) Glucose Level 360 mg/dL (70-99) Calcium Level 7.5 mg/dL (8.5-10.1) Total Bilirubin 0.2 mg/dL (0.2-1.0) Aspartate Amino Transf (AST/SGOT) 16 U/L (15-37) Alanine Aminotransferase (ALT/SGPT) 22 U/L (14-59) Alkaline Phosphatase 45 U/L (46-116) Total Protein 5.4 g/dL (6.4-8.2) Albumin 1.6 g/dL (3.4-5.0) Albumin/Globulin Ratio 0.4 (1.0-1.7) Test 10/15/21 05:56 10/15/21 07:50 10/15/21 12:13 10/15/21 17:22 Glucose (Fingerstick) 342 mg/dL (70-99) 311 mg/dL (70-99) 261 mg/dL (70-99) O2 Saturation 93 % (92-99) Arterial Blood pH 7.39 (7.35-7.45) Arterial Blood pCO2 at Patient Temp 49 mmHg (35-46) Arterial Blood pO2 at Patient Temp 69 mmHg (65-108) Arterial Blood HCO3 29 mmol/L (21-28) Arterial Blood Base Excess 3 mmol/L (-3-3) FiO2 100 Test 10/16/21 00:10 10/16/21 06:04 10/16/21 07:40 Glucose (Fingerstick) 322 mg/dL (70-99) 301 mg/dL (70-99) O2 Saturation 93 % (92-99) Arterial Blood pH 7.42 (7.35-7.45) Arterial Blood pCO2 at Patient Temp 44 mmHg (35-46) Arterial Blood pO2 at Patient Temp 71 mmHg (65-108) Arterial Blood HCO3 28 mmol/L (21-28) Arterial Blood Base Excess 3 mmol/L (-3-3) FiO2 100 Laboratory Tests Test 10/15/21 12:13 10/15/21 17:22 10/16/21 00:10 10/16/21 06:04 Glucose (Fingerstick) 311 mg/dL (70-99) 261 mg/dL (70-99) 322 mg/dL (70-99) 301 mg/dL (70-99) Test 10/16/21 07:40 O2 Saturation 93 % (92-99) Arterial Blood pH 7.42 (7.35-7.45) Arterial Blood pCO2 at Patient Temp 44 mmHg (35-46) Arterial Blood pO2 at Patient Temp 71 mmHg (65-108) Arterial Blood HCO3 28 mmol/L (21-28) Arterial Blood Base Excess 3 mmol/L (-3-3) FiO2 100 Medications Active Scripts Medications Dose Route/Sig Max Daily Dose Days Date Category Prednisone 20 Mg Tablet 2 Tab PO DAILY 5 09/20/21 Rx Amlodipine Besylate 10 Mg Tablet 10 Mg PO DAILY 30 09/20/21 Rx Acetaminophen 500 Mg Tablet 1 Tab PO PRN Q6HRS PRN 15 09/17/21 Reported Aspirin 325 Mg Tablet 1 Tab PO DAILY 09/17/21 Reported Humalog (Insulin Lispro) 100 Unit/1 Ml Vial 8 Unit SQ QIDACHS 09/17/21 Reported Lantus (Insulin Glargine,Hum.rec.anlog) 100 Unit/1 Ml Vial 20 Unit SQ HS 09/17/21 Reported Citalopram Hbr (Citalopram Hydrobromide) 20 Mg Tablet 1 Tab PO HS 09/17/21 Reported Fish Oil 1,000 Mg Capsule ([place]-3 Fatty Acids/Fish Oil) 1 Each Capsule 1 Each PO BID 09/17/21 Reported Gabapentin 600 Mg Tablet 600 Mg PO TID 09/17/21 Reported Glimepiride 4 Mg Tablet 1 Tab PO BID 09/17/21 Reported Crestor (Rosuvastatin Calcium) 40 Mg Tablet 40 Mg PO HS 09/17/21 Reported Clopidogrel (Clopidogrel Bisulfate) 75 Mg Tablet 1 Tab PO DAILY 09/17/21 Reported Impression . 1. Acute hypoxic/ hypercapnic respiratory failure in a patient who was diagnosed with COVID-19 on 09/15/21/ARDS 2. Underlying obesity. 3. Minimal tobacco history. 4. Abnormal chest x-ray possible bacterial pneumonia 5. COVID positive on 09/15/2021. 6. Encephalopathy, toxic, metabolic. 7. Hypokalemia Plan . Updated 10/16 Schedule Haldol Decrease sedation Discussed with RN and RT, follow saturations if needed obtain ABG As needed Lasix We will continue current support If no improvement in the next 5 to 10 days, will have conversation with family regarding withdrawal of care Monitor blood sugars Patient finished course of antibiotics ASTER LEHMAN MD Oct 16, 2021 08:23
[2021-10-16] MEDS: HALOPERIDOL LACTATE 5 MG/ML VIAL. IVP SCH ×3 (08:58→21:53)
--- NOTE | 2021-10-16 10:40 | EKG ---
[facility] [address] [place] [address] Test Date: 2021-10-16 Test Time: 10:39:05 Pat Name: MARIA FRENANDA KEENAN Department: Room: 102 1 Gender: F Innersole Maker: : [id number] Requested By: ASTER LEHMAN Order Number: [id number] Reading MD: Amadeo Puga Measurements Intervals [place] Rate: 72 P: 45 [place]: 156 QRS: 48 QRSD: 84 T: 66 QT: 384 QTc: 422 Interpretive Statements SINUS RHYTHM NON SPECIFIC ST-T WAVE CHANGES Electronically Signed On 10-17-2021 11:43:04 DROP WORKER by Amadeo Puga
--- NOTE | 2021-10-16 14:09 | PDOC ---
[employer] PROGRESS NOTE Date of Service DOS: DATE: 10/16/21 TIME: 14:06 Chief Complaint Chief Complaint acute hypoxic respiratory failure ARDS, with Severe respiratory failure COVID-19 pneumonia Found down Severe metabolic encephalopathy Obesity, BMI 46 severe malnutrition, Diabetes 2 with hyperglycemia, hypoglycemia, Hypertension UTI on 09/26 History of Present Illness History of Present Illness 10/16, vent settings a little btter today, no 5, with 90% FI02, Sa02 looks a little better still very ill, cont tube feeds, blood sugar control vitals ok last CXR caused marked resp distress, holding off - discussed with pulm 10/15, now hyperglyccemic again, increase lantus Sa02 better today, still on 100%, cont other same, BP ok moves against vent when sedatino weaned 10/14, cont the current increase tube feed to 40, serum alb 1.3, severe blood sugar back up, restart lantus still on 100% fi02, 3 visits, discussed wti RN, ICU, 35 min 10/13,. family here, long discussion about plan out of covid isolation advanced care planning done, is DNR, they are considering if they should have a plan for withdrawl of care, if that should be soon or in a few days, I had 2 conversations in room, and a phone call separately, 29 minutes today total vitals OK, large 02 rq. 100 % fi02 10/12/2021 blood sugar lower last night, insulin dose decreassed and given, markedly bad this AM , D50 given, still has lantus on board, will give D10 fluid, DC insulin, resume when better Patient seen and examined in the ICU, , on vent, AC with the vent, noted LE edema, skin signs of poor nutrition SCDs are on [place] to bedside drainage, has rectal tube Sedated with propofol fentanyl and Versed Has TPN hanging, will retry OG feeds, has failed before blood sugars high, will increase her lantus to 80 BID, on large dose IV steroids Discussed with RN Chart reviewed critically ill , mortality risk high, time 39 min Vitals/I&O Vitals/I&O: Vital Signs Date Time Temp Pulse Resp B/P (MAP) Pulse Ox O2 Delivery O2 Flow Rate FiO2 10/16/21 13:39 94 Ventilator 10/16/21 13:00 64 20 135/59 10/16/21 12:00 98.1 98.1 10/16/21 08:54 10.0 I & O 10/15/21 10/15/21 10/16/21 15:00 23:00 07:00 Intake Total 300 ml 999 ml 1375 ml Output Total 650 ml 600 ml 800 ml Balance -350 ml 399 ml 575 ml Physical Exam General: No acute distress, Other (Intubated sedated) Heart: Normal S1, Normal S2, Other Lungs: Crackles Abdomen: Normal bowel sounds, Soft, No tenderness Extremities: No clubbing, No cyanosis, Other Skin: No rashes, No breakdown, No significant lesion Labs Labs: Laboratory Tests Test 10/15/21 17:22 10/16/21 00:10 10/16/21 06:04 10/16/21 07:40 Glucose (Fingerstick) 261 mg/dL (70-99) 322 mg/dL (70-99) 301 mg/dL (70-99) O2 Saturation 93 % (92-99) Arterial Blood pH 7.42 (7.35-7.45) Arterial Blood pCO2 at Patient Temp 44 mmHg (35-46) Arterial Blood pO2 at Patient Temp 71 mmHg (65-108) Arterial Blood HCO3 28 mmol/L (21-28) Arterial Blood Base Excess 3 mmol/L (-3-3) FiO2 100 Test 10/16/21 11:50 Glucose (Fingerstick) 288 mg/dL (70-99) Comment Review of Relevant I have reviewed the following items zoë (where applicable) has been applied. Medications: Current Medications Medications (Trade) Dose Ordered Sig/Jennifer Route PRN Reason Start Time Stop Time Status Last Admin Dose Admin Haloperidol Lactate (Haldol Inj) 5 mg Q8HRS IVP 10/16/21 08:30 10/16/21 11:55 Justifications for Admission Other Justification DARREN JANG MD Oct 16, 2021 14:09
[2021-10-16] MEDS ORDERED: INSULIN LISPRO 300 UNITS/3 ML VIAL. SQ ONE (14:15)
[2021-10-16] MEDS: CITALOPRAM 20 MG TABLET. PO SCH (20:26)
[2021-10-16] MEDS: ATORVASTATIN CALCIUM 40 MG TABLET. PO SCH (20:26)
[2021-10-17] VITALS (24 sets, daily range): BP systolic 110–172; BP diastolic 55–77
[2021-10-17] MEDS: PROPOFOL 100 ML IV PRN ×3 (04:40→21:41)
[2021-10-17] MEDS: HALOPERIDOL LACTATE 5 MG/ML VIAL. IVP SCH ×3 (05:42→21:40)
[2021-10-17] MEDS: INSULIN LISPRO 300 UNITS/3 ML VIAL. SQ SCH ×4 (05:43→23:52)
[2021-10-17] MEDS: HEPARIN for SUB-Q USE 5,000 UNIT/ML VIAL. SQ SCH ×3 (05:43→21:41)
[2021-10-17 06:27] LABS: BASO % 0 % (0-3); EOS % 0 % (0-3); HEMATOCRIT 29.1 % (36.0-47.0); HEMOGLOBIN 9.1 g/dL (12.0-15.5); LYMPH # 0.3 x10^3/uL (1.0-4.8); LYMPH % 3 % (24-48); MEAN CORPUSCULAR HEMOGLOBIN 28 pg (25-35); MEAN CORPUSCULAR HGB CONC 31 g/dL (31-37); MEAN CORPUSCULAR VOLUME 90 fL (79-100); MONO # 0.5 x10^3/uL (0.0-1.1); MONO % 4 % (0-9); NEUT # 11.4 x10^3/uL (1.8-7.7); NEUT % 93 % (31-73); PLATELET COUNT 276 x10^3/uL (140-400); RED BLOOD COUNT 3.25 x10^6/uL (3.50-5.40); RED CELL DISTRIBUTION WIDTH 15.3 % (11.5-14.5); WHITE BLOOD COUNT 12.2 x10^3/uL (4.0-11.0)
[2021-10-17 06:41] LABS: ALBUMIN 1.4 g/dL (3.4-5.0); ALBUMIN/GLOBULIN RATIO 0.4 (1.0-1.7); CALCIUM 7.1 mg/dL (8.5-10.1); CREATININE 0.7 mg/dL (0.6-1.0); GFR 84.5; TOTAL BILIRUBIN 0.2 mg/dL (0.2-1.0); TOTAL PROTEIN 5.2 g/dL (6.4-8.2)
[2021-10-17 07:21] LABS: BASE EXCESS ABG 6 mmol/L (-3-3); HCO3 ABG 31 mmol/L (21-28); PCO2 ABG 44 mmHg (35-46); PO2 ABG 68 mmHg (65-108); SAT O2 ABG 93 % (92-99)
[2021-10-17] MEDS: MIDAZOLAM 100mg/100ml NS BAG 100 ML IV PRN ×2 (07:58→23:53)
--- NOTE | 2021-10-17 08:12 | PDOC ---
PULMONARY PROGRESS NOTES DATE: 10/17/21 TIME: 08:09 Subjective Patient currently off of Levophed We will able to decrease FiO2 to 80% currently on 7 of PEEP Vitals Vital Signs Date Time Temp Pulse Resp B/P (MAP) Pulse Ox O2 Delivery O2 Flow Rate FiO2 10/17/21 08:00 11 80 Ventilator 10/17/21 06:00 58 133/60 10/17/21 04:00 97.9 97.9 10/16/21 08:54 10.0 Lungs: Crackles Cardiovascular: S1, S2 Abdomen: Soft, Other (Obese) Extremities: Other (Mild edema) Skin: Warm (PALLAVI) Labs Laboratory Tests Test 10/15/21 12:13 10/15/21 17:22 10/16/21 00:10 10/16/21 06:04 Glucose (Fingerstick) 311 mg/dL (70-99) 261 mg/dL (70-99) 322 mg/dL (70-99) 301 mg/dL (70-99) Test 10/16/21 07:40 10/16/21 11:50 10/16/21 14:47 10/16/21 17:44 O2 Saturation 93 % (92-99) Arterial Blood pH 7.42 (7.35-7.45) Arterial Blood pCO2 at Patient Temp 44 mmHg (35-46) Arterial Blood pO2 at Patient Temp 71 mmHg (65-108) Arterial Blood HCO3 28 mmol/L (21-28) Arterial Blood Base Excess 3 mmol/L (-3-3) FiO2 100 Glucose (Fingerstick) 288 mg/dL (70-99) 281 mg/dL (70-99) 229 mg/dL (70-99) Test 10/16/21 23:51 10/17/21 05:35 10/17/21 05:38 10/17/21 07:14 Glucose (Fingerstick) 191 mg/dL (70-99) 241 mg/dL (70-99) White Blood Count 12.2 x10^3/uL (4.0-11.0) Red Blood Count 3.25 x10^6/uL (3.50-5.40) Hemoglobin 9.1 g/dL (12.0-15.5) Hematocrit 29.1 % (36.0-47.0) Mean Corpuscular Volume 90 fL (79-100) Mean Corpuscular Hemoglobin 28 pg (25-35) Mean Corpuscular Hemoglobin Concent 31 g/dL (31-37) Red Cell Distribution Width 15.3 % (11.5-14.5) Platelet Count 276 x10^3/uL (140-400) Neutrophils (%) (Auto) 93 % (31-73) Lymphocytes (%) (Auto) 3 % (24-48) Monocytes (%) (Auto) 4 % (0-9) Eosinophils (%) (Auto) 0 % (0-3) Basophils (%) (Auto) 0 % (0-3) Neutrophils # (Auto) 11.4 x10^3/uL (1.8-7.7) Lymphocytes # (Auto) 0.3 x10^3/uL (1.0-4.8) Monocytes # (Auto) 0.5 x10^3/uL (0.0-1.1) Eosinophils # (Auto) 0.0 x10^3/uL (0.0-0.7) Basophils # (Auto) 0.0 x10^3/uL (0.0-0.2) Sodium Level 149 mmol/L (136-145) Potassium Level 4.0 mmol/L (3.5-5.1) Chloride Level 111 mmol/L (98-107) Carbon Dioxide Level 33 mmol/L (21-32) Anion Gap 5 (6-14) Blood Urea Nitrogen 58 mg/dL (7-20) Creatinine 0.7 mg/dL (0.6-1.0) Estimated GFR (Cockcroft-Gault) 84.5 BUN/Creatinine Ratio 83 (6-20) Glucose Level 246 mg/dL (70-99) Calcium Level 7.1 mg/dL (8.5-10.1) Total Bilirubin 0.2 mg/dL (0.2-1.0) Aspartate Amino Transf (AST/SGOT) 14 U/L (15-37) Alanine Aminotransferase (ALT/SGPT) 20 U/L (14-59) Alkaline Phosphatase 43 U/L (46-116) Total Protein 5.2 g/dL (6.4-8.2) Albumin 1.4 g/dL (3.4-5.0) Albumin/Globulin Ratio 0.4 (1.0-1.7) O2 Saturation 93 % (92-99) Arterial Blood pH 7.46 (7.35-7.45) Arterial Blood pCO2 at Patient Temp 44 mmHg (35-46) Arterial Blood pO2 at Patient Temp 68 mmHg (65-108) Arterial Blood HCO3 31 mmol/L (21-28) Arterial Blood Base Excess 6 mmol/L (-3-3) FiO2 80% vent Laboratory Tests Test 10/16/21 11:50 10/16/21 14:47 10/16/21 17:44 10/16/21 23:51 Glucose (Fingerstick) 288 mg/dL (70-99) 281 mg/dL (70-99) 229 mg/dL (70-99) 191 mg/dL (70-99) Test 10/17/21 05:35 10/17/21 05:38 10/17/21 07:14 White Blood Count 12.2 x10^3/uL (4.0-11.0) Red Blood Count 3.25 x10^6/uL (3.50-5.40) Hemoglobin 9.1 g/dL (12.0-15.5) Hematocrit 29.1 % (36.0-47.0) Mean Corpuscular Volume 90 fL (79-100) Mean Corpuscular Hemoglobin 28 pg (25-35) Mean Corpuscular Hemoglobin Concent 31 g/dL (31-37) Red Cell Distribution Width 15.3 % (11.5-14.5) Platelet Count 276 x10^3/uL (140-400) Neutrophils (%) (Auto) 93 % (31-73) Lymphocytes (%) (Auto) 3 % (24-48) Monocytes (%) (Auto) 4 % (0-9) Eosinophils (%) (Auto) 0 % (0-3) Basophils (%) (Auto) 0 % (0-3) Neutrophils # (Auto) 11.4 x10^3/uL (1.8-7.7) Lymphocytes # (Auto) 0.3 x10^3/uL (1.0-4.8) Monocytes # (Auto) 0.5 x10^3/uL (0.0-1.1) Eosinophils # (Auto) 0.0 x10^3/uL (0.0-0.7) Basophils # (Auto) 0.0 x10^3/uL (0.0-0.2) Sodium Level 149 mmol/L (136-145) Potassium Level 4.0 mmol/L (3.5-5.1) Chloride Level 111 mmol/L (98-107) Carbon Dioxide Level 33 mmol/L (21-32) Anion Gap 5 (6-14) Blood Urea Nitrogen 58 mg/dL (7-20) Creatinine 0.7 mg/dL (0.6-1.0) Estimated GFR (Cockcroft-Gault) 84.5 BUN/Creatinine Ratio 83 (6-20) Glucose Level 246 mg/dL (70-99) Calcium Level 7.1 mg/dL (8.5-10.1) Total Bilirubin 0.2 mg/dL (0.2-1.0) Aspartate Amino Transf (AST/SGOT) 14 U/L (15-37) Alanine Aminotransferase (ALT/SGPT) 20 U/L (14-59) Alkaline Phosphatase 43 U/L (46-116) Total Protein 5.2 g/dL (6.4-8.2) Albumin 1.4 g/dL (3.4-5.0) Albumin/Globulin Ratio 0.4 (1.0-1.7) Glucose (Fingerstick) 241 mg/dL (70-99) O2 Saturation 93 % (92-99) Arterial Blood pH 7.46 (7.35-7.45) Arterial Blood pCO2 at Patient Temp 44 mmHg (35-46) Arterial Blood pO2 at Patient Temp 68 mmHg (65-108) Arterial Blood HCO3 31 mmol/L (21-28) Arterial Blood Base Excess 6 mmol/L (-3-3) FiO2 80% vent Medications Active Scripts Medications Dose Route/Sig Max Daily Dose Days Date Category Prednisone 20 Mg Tablet 2 Tab PO DAILY 5 09/20/21 Rx Amlodipine Besylate 10 Mg Tablet 10 Mg PO DAILY 30 09/20/21 Rx Acetaminophen 500 Mg Tablet 1 Tab PO PRN Q6HRS PRN 15 09/17/21 Reported Aspirin 325 Mg Tablet 1 Tab PO DAILY 09/17/21 Reported Humalog (Insulin Lispro) 100 Unit/1 Ml Vial 8 Unit SQ QIDACHS 09/17/21 Reported Lantus (Insulin Glargine,Hum.rec.anlog) 100 Unit/1 Ml Vial 20 Unit SQ HS 09/17/21 Reported Citalopram Hbr (Citalopram Hydrobromide) 20 Mg Tablet 1 Tab PO HS 09/17/21 Reported Fish Oil 1,000 Mg Capsule ([place]-3 Fatty Acids/Fish Oil) 1 Each Capsule 1 Each PO BID 09/17/21 Reported Gabapentin 600 Mg Tablet 600 Mg PO TID 09/17/21 Reported Glimepiride 4 Mg Tablet 1 Tab PO BID 09/17/21 Reported Crestor (Rosuvastatin Calcium) 40 Mg Tablet 40 Mg PO HS 09/17/21 Reported Clopidogrel (Clopidogrel Bisulfate) 75 Mg Tablet 1 Tab PO DAILY 09/17/21 Reported Impression . 1. Acute hypoxic/ hypercapnic respiratory failure in a patient who was diagnosed with COVID-19 on 09/15/21/ARDS 2. Underlying obesity. 3. Minimal tobacco history. 4. Abnormal chest x-ray possible bacterial pneumonia 5. COVID positive on 09/15/2021. 6. Encephalopathy, toxic, metabolic. 7. Hypokalemia 8. Upper extremity, negative for DVT 10/14 Plan . Updated Discussed with RT, decrease PEEP Full consult surgery for possible trach Currently off of norepinephrine Schedule Haldol Decrease sedation As needed Lasix Monitor blood sugars Patient finished course of antibiotics Patient currently DNR CCT 30 minutes ASTER LEHMAN MD Oct 17, 2021 08:12
[2021-10-17] MEDS: INSULIN GLARGINE SYRINGE. SQ SCH ×2 (09:16→20:19)
--- NOTE | 2021-10-17 09:17 | PDOC2 ---
GERALDINE SANTIAGO [employer]INEER 10/17/21 0917: CONSULT Date of Consult Date of Consult DATE: 10/17/21 TIME: 09:10 Reason for Consult Reason for Consult: trach Referring Physician Referring Physician: Dr Walker Identification/Chief Complaint Chief Complaint resp failure Source Source: Chart review, Patient History of Present Illness Reason for Visit: Admitted with respiratory failure, requiring intubation. Has been unable to w yaritza off vent at this point. Surgical consult for possible trach placement with ongoing vent needs. On plavix for a recent stroke prior to admission Past Medical History Cardiovascular: HTN, Hyperlipidemia CENTRAL NERVOUS SYSTEM: CVA, TIA Endocrine: Diabetes Past Surgical History Past Surgical History: No pertinent history Current Medications Current Medications Current Medications Ceftriaxone Sodium (Rocephin) 1 gm 1X ONCE IVP Last administered on 09/26/21at 12:53; Start 09/26/21 at 11:30; Stop 09/26/21 at 11:31; Status DC Amlodipine Besylate (Norvasc) 10 mg DAILY PO Last administered on 10/16/21at 08:12; Start 09/26/21 at 14:00 Aspirin (Fabrice Aspirin) 325 mg DAILY PO Last administered on 10/16/21at 08:12; Start 09/26/21 at 14:00 Citalopram Hydrobromide (CeleXA) 20 mg HS PO Last administered on 10/16/21at 20:26; Start 09/26/21 at 21:00 Clopidogrel Bisulfate (Plavix) 75 mg DAILY PO Last administered on 10/16/21at 08:11; Start 09/26/21 at 14:00 Insulin Glargine (Lantus Syringe) 20 unit HS SQ ; Start 09/26/21 at 21:00; Stop 09/27/21 at 10:41; Status DC Insulin Human Lispro (HumaLOG) 8 units QIDACHS SQ ; Start 09/26/21 at 16:30; Stop 09/27/21 at 10:41; Status DC Gabapentin (Neurontin) 600 mg TID PO Last administered on 10/05/21at 21:02; Start 09/26/21 at 14:00; Stop 10/06/21 at 08:44; Status DC Atorvastatin Calcium (Lipitor) 80 mg QHS PO Last administered on 10/16/21at 20:26; Start 09/26/21 at 21:00 Ampicillin Sodium/ Sulbactam Sodium 3 gm/Sodium Chloride 100 ml @ 200 mls/hr 1X ONCE IV Last administered on 09/26/21at 15:22; Start 09/26/21 at 14:00; Stop 09/26/21 at 14:56; Status DC Doxycycline Hyclate (Vibra-Tab) 100 mg BID PO Last administered on 10/02/21at 09:22; Start 09/26/21 at 21:00; Stop 10/04/21 at 12:54; Status DC Ondansetron HCl (Zofran) 4 mg PRN Q8HRS PRN IVP NAUSEA/VOMITING; Start 09/26/21 at 13:30; Stop 09/27/21 at 13:29; Status DC Acetaminophen (Tylenol) 650 mg PRN Q4HRS PRN PO FEVER > 100.3'F; Start 09/26/21 at 13:30; Stop 09/27/21 at 13:29; Status DC Ondansetron HCl (Zofran) 4 mg PRN Q6HRS PRN IVP NAUSEA/VOMITING Last administered on 09/30/21at 17:08; Start 09/26/21 at 13:30 Calcium Carbonate/ Glycine (Tums) 500 mg PRN Q3HRS PRN PO UPSET STOMACH; Start 09/26/21 at 13:30 Zolpidem Tartrate (Ambien) 5 mg PRN QHS PRN PO INSOMNIA, MAY REPEAT IN 1HR Last administered on 09/28/21at 21:10; Start 09/26/21 at 13:30 Info (Non-Icu Electrolyte Protocol) 1 ea PRN DAILY PRN MC SEE COMMENTS; Start 09/26/21 at 13:30 Acetaminophen (Tylenol) 650 mg PRN Q6HRS PRN PO Headaches, Temp > 101.5F Last administered on 09/28/21at 21:08; Start 09/26/21 at 13:30 Senna/Docusate Sodium (Senna Plus) 1 tab BID PO Last administered on 10/11/21at 22:56; Start 09/26/21 at 21:00; Stop 10/16/21 at 10:37; Status DC Heparin Sodium (Porcine) (Heparin Sodium) 5,000 unit Q8HRS SQ Last administered on 10/17/21at 05:43; Start 09/26/21 at 14:00 Dextrose (Dextrose 50%-Water Syringe) 12.5 gm PRN Q15MIN PRN IV SEE COMMENTS; Start 09/26/21 at 22:15; Stop 09/27/21 at 10:43; Status DC Info (FLU VACCINE SCREEN per RX) 1 each PRN DAILY PRN MC SEE COMMENTS; Start 09/27/21 at 00:00; Status Cancel Ampicillin Sodium/ Sulbactam Sodium 3 gm/Sodium Chloride 100 ml @ 200 mls/hr Q6HRS IV Last administered on 10/04/21at 05:42; Start 09/27/21 at 06:00; Stop 10/04/21 at 12:53; Status DC Insulin Glargine (Lantus Syringe) 10 unit HS SQ Last administered on 10/04/21at 21:43; Start 09/27/21 at 21:00; Stop 10/05/21 at 11:34; Status DC Insulin Human Lispro (HumaLOG) 0-9 UNITS TIDWMEALS SQ Last administered on 10/03/21at 11:29; Start 09/27/21 at 12:00; Stop 10/04/21 at 09:03; Status DC Dextrose (Dextrose 50%-Water Syringe) 12.5 gm PRN Q15MIN PRN IV SEE COMMENTS Last administered on 10/12/21at 11:29; Start 09/27/21 at 10:45 Potassium Chloride/Dextrose/ Sod Cl 1,000 ml @ 75 mls/hr [id number] ONCE IV Last administered on 09/27/21at 11:59; Start 09/27/21 at 12:00; Stop 09/28/21 at 01:19; Status DC Lactobacillus Rhamnosus (Culturelle) 1 cap BID PO Last administered on 10/02/21at 09:22; Start 09/27/21 at 21:00; Stop 10/04/21 at 16:14; Status DC Hydralazine HCl (Apresoline Inj) 10 mg PRN Q4HRS PRN IVP ELEVATED BP, SEE COMMENTS Last administered on 10/16/21at 04:10; Start 09/28/21 at 17:45 Sterile Water (WATER for RESP) 1,000 ml CONT PRN INH VIA VAPOTHERM DEVICE; Start 10/01/21 at 02:45; Stop 10/01/21 at 03:17; Status DC Haloperidol Lactate (Haldol Inj) 5 mg PRN Q6HRS PRN IVP AGITATION, 2ND CHOICE Last administered on 10/02/21at 11:00; Start 10/01/21 at 17:15; Stop 10/16/21 at 08:23; Status DC Lorazepam (Ativan Inj) 2 mg 1X ONCE IVP Last administered on 10/01/21at 17:23; Start 10/01/21 at 17:45; Stop 10/01/21 at 17:46; Status DC Lorazepam (Ativan Inj) 2 mg 1X ONCE IVP ; Start 10/01/21 at 17:15; Stop 10/01/21 at 17:16; Status UNV Haloperidol Lactate (Haldol Inj) 5 mg PRN Q6HRS PRN IVP AGITATION; Start 10/01/21 at 17:15; Status UNV Metoprolol Tartrate (Lopressor Vial) 5 mg 1X ONCE IVP Last administered on 10/01/21at 17:42; Start 10/01/21 at 18:00; Stop 10/01/21 at 18:01; Status DC Ziprasidone (Geodon Im) 20 mg PRN QHS PRN IM ANXIETY / AGITATION; Start 10/01/21 at 18:00 Lorazepam (Ativan Inj) 1 mg PRN Q6HRS PRN IVP ANXIETY / AGITATION Last administered on 10/02/21at 12:36; Start 10/02/21 at 11:15; Stop 10/03/21 at 10:21; Status DC Dextrose/Lactated Ringer's 1,000 ml @ 75 mls/hr [id number] IV Last administered on 10/04/21at 16:10; Start 10/02/21 at 12:00; Stop 10/05/21 at 17:13; Status DC Insulin Human Lispro (HumaLOG) 10 units TIDWMEALS SQ Last administered on 10/03/21at 11:30; Start 10/03/21 at 12:00; Stop 10/04/21 at 16:14; Status DC Dexmedetomidine HCl 400 mcg/ Sodium Chloride 100 ml @ 5.35 mls/hr CONT PRN IV PER PROTOCOL Last administered on 10/05/21at 06:05; Start 10/03/21 at 10:45 Sodium Chloride 500 ml @ 500 mls/hr 1X PRN PRN IV SEE COMMENTS; Start 10/03/21 at 10:45 Atropine Sulfate (ATROPINE 0.5mg SYRINGE) 0.5 mg PRN Q5MIN PRN IV SEE COMMENTS; Start 10/03/21 at 10:45 Insulin Human Lispro (HumaLOG) 0-9 UNITS Q6HRS SQ Last administered on 10/17/21at 05:43; Start 10/04/21 at 12:00 Sterile Water (WATER for RESP) 1,000 ml CONT PRN INH VIA VAPOTHERM DEVICE Last administered on 10/04/21at 16:57; Start 10/04/21 at 10:45; Stop 10/06/21 at 12:15; Status DC Info (Tpn Per Pharmacy) 1 each PRN DAILY PRN MC SEE COMMENTS Last administered on 10/10/21at 13:21; Start 10/04/21 at 10:45; Stop 10/11/21 at 08:18; Status DC Sodium Chloride 90 meq/Potassium Chloride 50 meq/ Potassium Phosphate 13.6 mmol/Magnesium Sulfate 10 meq/ Calcium Gluconate 10 meq/ Multivitamins 10 ml/Zinc/Copper/ Manganese/ Selenium 1 ml/ Total Parenteral Nutrition/Amino Ac ids/Dextrose/ Fat Emulsion Intravenous 1,512 ml @ 63 mls/hr TPN CONT IV ; Start 10/04/21 at 22:00; Stop 10/05/21 at 21:59; Status UNV Fentanyl Citrate 30 ml @ 2.5 mls/hr CONT PRN IV SEE PROTOCOL; Start 10/04/21 at 14:00; Stop 10/04/21 at 14:06; Status DC Midazolam HCl 100 ml @ 0 mls/hr CONT PRN IV SEE PROTOCOL Last administered on 10/17/21at 07:58; Start 10/04/21 at 14:00 Propofol 100 ml @ 3.198 mls/ hr CONT PRN IV PER PROTOCOL Last administered on 10/17/21at 04:40; Start 10/04/21 at 14:00 Vecuronium [place] (Norcuron Bolus) 6 mg PRN 1X PRN IV VENT INDUCTION Last administered on 10/04/21at 14:17; Start 10/04/21 at 14:00; Stop 10/04/21 at 14:17; Status DC Midazolam HCl (Versed) 5 mg PRN 1X PRN IVP VENT INDUCTION; Start 10/04/21 at 14:00; Stop 10/05/21 at 13:59; Status DC Sodium Chloride 500 ml @ 500 mls/hr 1X PRN PRN IV SEE COMMENTS; Start 10/04/21 at 14:00; Status Cancel Vecuronium [place] (Norcuron Bolus) 6 mg PRN Q6HRS PRN IV VENTILATOR COMPLIANCE; Start 10/04/21 at 14:00 Succinylcholine Chloride (Anectine) 200 mg STK-MED ONCE .ROUTE ; Start 10/04/21 at 13:54; Stop 10/04/21 at 13:54; Status DC Fentanyl Citrate 30 ml @ 2.5 mls/hr CONT PRN IV SEE PROTOCOL Last administered on 10/04/21at 14:16; Start 10/04/21 at 14:15; Stop 10/04/21 at 14:19; Status DC Fentanyl Citrate 30 ml @ 2.5 mls/hr CONT PRN IV SEE PROTOCOL Last administered on 10/17/21at 08:00; Start 10/04/21 at 14:30 Sodium Chloride 40 meq/Potassium Chloride 50 meq/ Potassium Phosphate 13.6 mmol/Magnesium Sulfate 10 meq/ Multivitamins 10 ml/Zinc/Copper/ Manganese/ Selenium 1 ml/ Total Parenteral Nutrition/Amino Acids/Dextrose 1,680 ml @ 70 mls/hr TPN CONT IV Last administered on 10/04/21at 21:40; Start 10/04/21 at 22:00; Stop 10/05/21 at 21:59; Status DC Famotidine (Pepcid Vial) 20 mg BID IVP Last administered on 10/16/21at 20:26; Start 10/04/21 at 21:00 Potassium Chloride/Water 100 ml @ 100 mls/hr Q1H IV Last administered on 10/05/21at 10:32; Start 10/05/21 at 07:15; Stop 10/05/21 at 11:14; Status DC Methylprednisolone Sodium Succinate (SOLU-Medrol 125MG VIAL) 125 mg Q12HR IV Last administered on 10/16/21at 20:26; Start 10/05/21 at 11:00 Potassium Phosphate 15 mmol/ Sodium Chloride 105 ml @ 52.5 mls/hr Q2H IV Last administered on 10/05/21at 14:52; Start 10/05/21 at 13:00; Stop 10/05/21 at 16:59; Status DC Insulin Glargine (Lantus Syringe) 20 unit HS SQ Last administered on 10/05/21at 21:04; Start 10/05/21 at 21:00; Stop 10/06/21 at 12:26; Status DC Sodium Chloride 40 meq/Potassium Chloride 70 meq/ Potassium Phosphate 30 mmol/ Magnesium Sulfate 10 meq/ Multivitamins 10 ml/Zinc/Copper/ Manganese/ Selenium 1 ml/ Total Parenteral Nutrition/Amino Acids/Dextrose 1,680 ml @ 70 mls/hr TPN CONT IV Last administered on 10/05/21at 21:49; Start 10/05/21 at 22:00; Stop 10/06/21 at 21:59; Status DC Succinylcholine Chloride (Anectine) 200 mg STK-MED ONCE .ROUTE ; Start 10/04/21 at 14:00; Stop 10/05/21 at 13:13; Status DC Sodium Chloride 1,000 ml @ 30 mls/hr Q24H IV Last administered on 10/07/21at 17:50; Start 10/05/21 at 17:15; Stop 10/08/21 at 17:29; Status DC Gabapentin (Neurontin Oral Soln) 600 mg TID PO Last administered on 10/16/21at 20:27; Start 10/06/21 at 09:00 Sodium Chloride 30 meq/Sodium Phosphate 15 mmol/ Magnesium Sulfate 10 meq/ Multivitamins 10 ml/Zinc/Copper/ Manganese/ Selenium 1 ml/ Total Parenteral Nutrition/Amino Acids/Dextrose 1,680 ml @ 70 mls/hr TPN CONT IV Last administered on 10/06/21at 21:36; Start 10/06/21 at 22:00; Stop 10/07/21 at 21:59; Status DC Insulin Glargine (Lantus Syringe) 30 unit QHS SQ ; Start 10/06/21 at 21:00; Stop 10/06/21 at 18:34; Status DC Insulin Glargine (Lantus Syringe) 40 unit QHS SQ Last administered on 10/06/21at 21:14; Start 10/06/21 at 21:00; Stop 10/07/21 at 16:12; Status DC Insulin Human Lispro (HumaLOG) 25 units 1X SQ ; Start 10/06/21 at 18:45; Stop 10/06/21 at 18:53; Status DC Insulin Human Lispro (HumaLOG) 25 units 1X ONCE SQ Last administered on 10/06/21at 19:45; Start 10/06/21 at 19:00; Stop 10/06/21 at 19:01; Status DC Sodium Chloride 30 meq/Potassium Phosphate 15 mmol/ Magnesium Sulfate 5 meq/ Multivitamins 10 ml/Zinc/Copper/ Manganese/ Selenium 1 ml/ Total Parenteral Nutrition/Amino Acids/Dextrose 1,680 ml @ 70 mls/hr TPN CONT IV ; Start 10/07/21 at 22:00; Stop 10/07/21 at 13:22; Status DC Sodium Chloride 30 meq/Potassium Phosphate 15 mmol/ Magnesium Sulfate 5 meq/ Multivitamins 10 ml/Zinc/Copper/ Manganese/ Selenium 1 ml/ Insulin Human Regular 5 unit/ Total Parenteral Nutrition/Amino Acids/Dextrose 1,680 ml @ 70 mls/hr TPN CONT IV Last administered on 10/07/21at 22:25; Start 10/07/21 at 22:00; Stop 10/08/21 at 21:59; Status DC Insulin Glargine (Lantus Syringe) 40 unit BID SQ Last administered on 10/08/21at 08:18; Start 10/07/21 at 21:00; Stop 10/08/21 at 13:36; Status DC Insulin Glargine (Lantus Syringe) 55 unit BID SQ Last administered on 10/09/21at 09:03; Start 10/08/21 at 21:00; Stop 10/09/21 at 16:20; Status DC Sodium Chloride 30 meq/Potassium Phosphate 15 mmol/ Magnesium Sulfate 5 meq/ Multivitamins 10 ml/Zinc/Copper/ Manganese/ Selenium 1 ml/ Total Parenteral Nutrition/Amino Acids/Dextrose 1,680 ml @ 70 mls/hr TPN CONT IV Last administered on 10/08/21at 21:45; Start 10/08/21 at 22:00; Stop 10/09/21 at 21:59; Status DC Sodium Chloride 30 meq/Potassium Phosphate 15 mmol/ Magnesium Sulfate 5 meq/ Multivitamins 10 ml/Zinc/Copper/ Manganese/ Selenium 1 ml/ Total Parenteral Nutrition/Amino Acids/Dextrose 1,320 ml @ 55 mls/hr TPN CONT IV Last adminis tered on 10/09/21at 21:52; Start 10/09/21 at 22:00; Stop 10/10/21 at 21:59; Status DC Insulin Glargine (Lantus Syringe) 70 unit BID SQ Last administered on 10/09/21at 20:52; Start 10/09/21 at 21:00; Stop 10/10/21 at 08:14; Status DC Insulin Glargine (Lantus Syringe) 80 unit BID SQ Last administered on 10/11/21at 08:59; Start 10/10/21 at 09:00; Stop 10/11/21 at 20:18; Status DC Sodium Chloride 1,000 ml @ 100 mls/hr 1X ONCE IV Last administered on 10/10/21at 08:31; Start 10/10/21 at 08:30; Stop 10/10/21 at 18:29; Status DC Sodium Chloride 30 meq/Potassium Phosphate 15 mmol/ Magnesium Sulfate 5 meq/ Multivitamins 10 ml/Zinc/Copper/ Manganese/ Selenium 1 ml/ Total Parenteral Nutrition/Amino Acids/Dextrose 1,320 ml @ 55 mls/hr TPN CONT IV ; Start 10/10/21 at 22:00; Stop 10/11/21 at 21:59; Status Cancel Insulin Glargine (Lantus Syringe) 50 unit BID SQ Last administered on 10/11/21at 23:04; Start 10/11/21 at 21:00; Stop 10/12/21 at 08:06; Status DC Dextrose 1,000 ml @ 50 mls/hr Q20H ONCE IV Last administered on 10/12/21at 11:32; Start 10/12/21 at 12:00; Stop 10/13/21 at 07:59; Status DC Furosemide (Lasix) 40 mg DAILY IVP Last administered on 10/14/21at 08:07; Start 10/12/21 at 12:30; Stop 10/14/21 at 12:29; Status DC Insulin Glargine (Lantus Syringe) 20 unit DAILY SQ Last administered on 10/14/21at 09:13; Start 10/14/21 at 09:00; Stop 10/15/21 at 08:43; Status DC Insulin Glargine (Lantus Syringe) 40 unit DAILY SQ Last administered on 10/16/21at 08:14; Start 10/15/21 at 09:00; Stop 10/16/21 at 14:08; Status DC Insulin Human Lispro (HumaLOG) 15 units 1X ONCE SQ Last administered on 10/15/21at 09:38; Start 10/15/21 at 08:45; Stop 10/15/21 at 08:46; Status DC Haloperidol Lactate (Haldol Inj) 5 mg Q8HRS IVP Last administered on 10/17/21at 05:42; Start 10/16/21 at 08:30 Insulin Glargine (Lantus Syringe) 40 unit BID SQ Last administered on 10/16/21at 20:28; Start 10/16/21 at 21:00 Insulin Human Lispro (HumaLOG) 18 units 1X ONCE SQ Last administered on 10/16/21at 14:49; Start 10/16/21 at 14:15; Stop 10/16/21 at 14:16; Status DC Active Scripts Active Prednisone 20 Mg Tablet 2 Tab PO DAILY 5 Days Amlodipine Besylate 10 Mg Tablet 10 Mg PO DAILY 30 Days Reported Acetaminophen 500 Mg Tablet 1 Tab PO PRN Q6HRS PRN 15 Days Aspirin 325 Mg Tablet 1 Tab PO DAILY Humalog (Insulin Lispro) 100 Unit/1 Ml Vial 8 Unit SQ QIDACHS Lantus (Insulin Glargine,Hum.rec.anlog) 100 Unit/1 Ml Vial 20 Unit SQ HS Citalopram Hbr (Citalopram Hydrobromide) 20 Mg Tablet 1 Tab PO HS Fish Oil 1,000 Mg Capsule ([place]-3 Fatty Acids/Fish Oil) 1 Each Capsule 1 Each PO BID Gabapentin 600 Mg Tablet 600 Mg PO TID Glimepiride 4 Mg Tablet 1 Tab PO BID Crestor (Rosuvastatin Calcium) 40 Mg Tablet 40 Mg PO HS Clopidogrel (Clopidogrel Bisulfate) 75 Mg Tablet 1 Tab PO DAILY Allergies Allergies: Coded Allergies: No Known Drug Allergies (Unverified , 09/16/21) ROS Review of System unable to obtain due to sedation Physical Exam General: Other (sedated ) HEENT: Other (thick neck ) Lungs: Other (vent) Heart: Normal S1, Normal S2 Abdomen: Soft, No tenderness, Other (obese ) Extremities: No clubbing, No cyanosis Skin: No rashes, No breakdown Neuro: Normal gait, Normal speech Psych/Mental Status: Mental status NL, Mood NL MUSCULOSKELETAL: No deformity, No swelling Vitals VITALS Vital Signs Date Time Temp Pulse Resp B/P (MAP) Pulse Ox O2 Delivery O2 Flow Rate FiO2 10/17/21 08:17 95 Ventilator 10/17/21 08:00 11 10/17/21 06:00 58 133/60 10/17/21 04:00 97.9 97.9 10/16/21 08:54 10.0 Labs Labs Laboratory Tests Test 10/15/21 12:13 10/15/21 17:22 10/16/21 00:10 10/16/21 06:04 Glucose (Fingerstick) 311 mg/dL (70-99) 261 mg/dL (70-99) 322 mg/dL (70-99) 301 mg/dL (70-99) Test 10/16/21 07:40 10/16/21 11:50 10/16/21 14:47 10/16/21 17:44 O2 Saturation 93 % (92-99) Arterial Blood pH 7.42 (7.35-7.45) Arterial Blood pCO2 at Patient Temp 44 mmHg (35-46) Arterial Blood pO2 at Patient Temp 71 mmHg (65-108) Arterial Blood HCO3 28 mmol/L (21-28) Arterial Blood Base Excess 3 mmol/L (-3-3) FiO2 100 Glucose (Fingerstick) 288 mg/dL (70-99) 281 mg/dL (70-99) 229 mg/dL (70-99) Test 10/16/21 23:51 10/17/21 05:35 10/17/21 05:38 10/17/21 07:14 Glucose (Fingerstick) 191 mg/dL (70-99) 241 mg/dL (70-99) White Blood Count 12.2 x10^3/uL (4.0-11.0) Red Blood Count 3.25 x10^6/uL (3.50-5.40) Hemoglobin 9.1 g/dL (12.0-15.5) Hematocrit 29.1 % (36.0-47.0) Mean Corpuscular Volume 90 fL (79-100) Mean Corpuscular Hemoglobin 28 pg (25-35) Mean Corpuscular Hemoglobin Concent 31 g/dL (31-37) Red Cell Distribution Width 15.3 % (11.5-14.5) Platelet Count 276 x10^3/uL (140-400) Neutrophils (%) (Auto) 93 % (31-73) Lymphocytes (%) (Auto) 3 % (24-48) Monocytes (%) (Auto) 4 % (0-9) Eosinophils (%) (Auto) 0 % (0-3) Basophils (%) (Auto) 0 % (0-3) Neutrophils # (Auto) 11.4 x10^3/uL (1.8-7.7) Lymphocytes # (Auto) 0.3 x10^3/uL (1.0-4.8) Monocytes # (Auto) 0.5 x10^3/uL (0.0-1.1) Eosinophils # (Auto) 0.0 x10^3/uL (0.0-0.7) Basophils # (Auto) 0.0 x10^3/uL (0.0-0.2) Sodium Level 149 mmol/L (136-145) Potassium Level 4.0 mmol/L (3.5-5.1) Chloride Level 111 mmol/L (98-107) Carbon Dioxide Level 33 mmol/L (21-32) Anion Gap 5 (6-14) Blood Urea Nitrogen 58 mg/dL (7-20) Creatinine 0.7 mg/dL (0.6-1.0) Estimated GFR (Cockcroft-Gault) 84.5 BUN/Creatinine Ratio 83 (6-20) Glucose Level 246 mg/dL (70-99) Calcium Level 7.1 mg/dL (8.5-10.1) Total Bilirubin 0.2 mg/dL (0.2-1.0) Aspartate Amino Transf (AST/SGOT) 14 U/L (15-37) Alanine Aminotransferase (ALT/SGPT) 20 U/L (14-59) Alkaline Phosphatase 43 U/L (46-116) Total Protein 5.2 g/dL (6.4-8.2) Albumin 1.4 g/dL (3.4-5.0) Albumin/Globulin Ratio 0.4 (1.0-1.7) O2 Saturation 93 % (92-99) Arterial Blood pH 7.46 (7.35-7.45) Arterial Blood pCO2 at Patient Temp 44 mmHg (35-46) Arterial Blood pO2 at Patient Temp 68 mmHg (65-108) Arterial Blood HCO3 31 mmol/L (21-28) Arterial Blood Base Excess 6 mmol/L (-3-3) FiO2 80% vent Laboratory Tests Test 10/16/21 11:50 10/16/21 14:47 10/16/21 17:44 10/16/21 23:51 Glucose (Fingerstick) 288 mg/dL (70-99) 281 mg/dL (70-99) 229 mg/dL (70-99) 191 mg/dL (70-99) Test 10/17/21 05:35 10/17/21 05:38 10/17/21 07:14 White Blood Count 12.2 x10^3/uL (4.0-11.0) Red Blood Count 3.25 x10^6/uL (3.50-5.40) Hemoglobin 9.1 g/dL (12.0-15.5) Hematocrit 29.1 % (36.0-47.0) Mean Corpuscular Volume 90 fL (79-100) Mean Corpuscular Hemoglobin 28 pg (25-35) Mean Corpuscular Hemoglobin Concent 31 g/dL (31-37) Red Cell Distribution Width 15.3 % (11.5-14.5) Platelet Count 276 x10^3/uL (140-400) Neutrophils (%) (Auto) 93 % (31-73) Lymphocytes (%) (Auto) 3 % (24-48) Monocytes (%) (Auto) 4 % (0-9) Eosinophils (%) (Auto) 0 % (0-3) Basophils (%) (Auto) 0 % (0-3) Neutrophils # (Auto) 11.4 x10^3/uL (1.8-7.7) Lymphocytes # (Auto) 0.3 x10^3/uL (1.0-4.8) Monocytes # (Auto) 0.5 x10^3/uL (0.0-1.1) Eosinophils # (Auto) 0.0 x10^3/uL (0.0-0.7) Basophils # (Auto) 0.0 x10^3/uL (0.0-0.2) Sodium Level 149 mmol/L (136-145) Potassium Level 4.0 mmol/L (3.5-5.1) Chloride Level 111 mmol/L (98-107) Carbon Dioxide Level 33 mmol/L (21-32) Anion Gap 5 (6-14) Blood Urea Nitrogen 58 mg/dL (7-20) Creatinine 0.7 mg/dL (0.6-1.0) Estimated GFR (Cockcroft-Gault) 84.5 BUN/Creatinine Ratio 83 (6-20) Glucose Level 246 mg/dL (70-99) Calcium Level 7.1 mg/dL (8.5-10.1) Total Bilirubin 0.2 mg/dL (0.2-1.0) Aspartate Amino Transf (AST/SGOT) 14 U/L (15-37) Alanine Aminotransferase (ALT/SGPT) 20 U/L (14-59) Alkaline Phosphatase 43 U/L (46-116) Total Protein 5.2 g/dL (6.4-8.2) Albumin 1.4 g/dL (3.4-5.0) Albumin/Globulin Ratio 0.4 (1.0-1.7) Glucose (Fingerstick) 241 mg/dL (70-99) O2 Saturation 93 % (92-99) Arterial Blood pH 7.46 (7.35-7.45) Arterial Blood pCO2 at Patient Temp 44 mmHg (35-46) Arterial Blood pO2 at Patient Temp 68 mmHg (65-108) Arterial Blood HCO3 31 mmol/L (21-28) Arterial Blood Base Excess 6 mmol/L (-3-3) FiO2 80% vent Assessment/Plan Assessment/Plan resp failure, will work toward scheduling trach consult, chart 20 min BREE BECKHAM MD 10/17/212056: CONSULT Assessment/Plan Assessment/Plan Pt seen and examined. Agree with Ms. Santiago's note Pt intubated and sedated orally intubated will work towards trach Thanks for consult! GERALDINE SANTIAGO APRN Oct 17, 2021 09:17 BREE BECKHAM MD Oct 17, 2021 20:57
[2021-10-17] MEDS: FAMOTIDINE 20 MG/2 ML VIAL IVP SCH ×2 (09:18→20:19)
[2021-10-17] MEDS: methylPREDNISolone SOD SUCC PF 125 MG/2 ML VIAL. IV SCH (09:20)
[2021-10-17] MEDS: ASPIRIN 325 MG TABLET PO SCH (09:21)
[2021-10-17] MEDS: CLOPIDOGREL BISULFATE 75 MG TABLET PO SCH (11:41)
[2021-10-17] MEDS: GABAPENTIN 250 MG/5 ML ORAL SOLUTION. PO SCH ×3 (11:45→20:19)
--- NOTE | 2021-10-17 11:49 | PDOC ---
[employer] PROGRESS NOTE Date of Service DOS: DATE: 10/17/21 TIME: 11:49 Chief Complaint Chief Complaint acute hypoxic respiratory failure ARDS, with Severe respiratory failure COVID-19 pneumonia Found down Severe metabolic encephalopathy Obesity, BMI 46 severe malnutrition, Diabetes 2 with hyperglycemia, hypoglycemia, Hypertension UTI on 09/26 History of Present Illness History of Present Illness 10/17 Evaluated examined at bedside. Off Levophed. Remains intubated. Surgery consulted for trach evaluation. Continuing current otherwise. 35 minutes critical care time. 10/16, vent settings a little btter today, no 5, with 90% FI02, Sa02 looks a little better still very ill, cont tube feeds, blood sugar control vitals ok last CXR caused marked resp distress, holding off - discussed with pulm 10/15, now hyperglyccemic again, increase lantus Sa02 better today, still on 100%, cont other same, BP ok moves against vent when sedatino weaned 10/14, cont the current increase tube feed to 40, serum alb 1.3, severe blood sugar back up, restart lantus still on 100% fi02, 3 visits, discussed wti RN, ICU, 35 min 10/13,. family here, long discussion about plan out of covid isolation advanced care planning done, is DNR, they are considering if they should have a plan for withdrawl of care, if that should be soon or in a few days, I had 2 conversations in room, and a phone call separately, 29 minutes today total vitals OK, large 02 rq. 100 % fi02 10/12/2021 blood sugar lower last night, insulin dose decreassed and given, markedly bad this AM , D50 given, still has lantus on board, will give D10 fluid, DC insulin, resume when better Patient seen and examined in the ICU, , on vent, AC with the vent, noted LE edema, skin signs of poor nutrition SCDs are on Peacock to bedside drainage, has rectal tube Sedated with propofol fentanyl and Versed Has TPN hanging, will retry OG feeds, has failed before blood sugars high, will increase her lantus to 80 BID, on large dose IV steroids Discussed with RN Chart reviewed critically ill , mortality risk high, time 39 min Vitals/I&O Vitals/I&O: Vital Signs Date Time Temp Pulse Resp B/P (MAP) Pulse Ox O2 Delivery O2 Flow Rate FiO2 10/17/21 11:41 56 146/68 10/17/21 11:24 94 Ventilator 10/17/21 11:04 20 10/17/21 08:00 97.7 97.7 10/16/21 08:54 10.0 I & O 10/16/21 10/16/21 10/17/21 15:00 23:00 07:00 Intake Total 200 ml 1048 ml 1406 ml Output Total 400 ml 750 ml 900 ml Balance -200 ml 298 ml 506 ml Physical Exam General: Other (sedated ) Heart: Normal S1, Normal S2 Lungs: Crackles Abdomen: Soft, No tenderness, Other (obese ) Extremities: No clubbing, No cyanosis Skin: No rashes, No breakdown Labs Labs: Laboratory Tests Test 10/16/21 11:50 10/16/21 14:47 10/16/21 17:44 10/16/21 23:51 Glucose (Fingerstick) 288 mg/dL (70-99) 281 mg/dL (70-99) 229 mg/dL (70-99) 191 mg/dL (70-99) Test 10/17/21 05:35 10/17/21 05:38 10/17/21 07:14 10/17/21 09:09 White Blood Count 12.2 x10^3/uL (4.0-11.0) Red Blood Count 3.25 x10^6/uL (3.50-5.40) Hemoglobin 9.1 g/dL (12.0-15.5) Hematocrit 29.1 % (36.0-47.0) Mean Corpuscular Volume 90 fL (79-100) Mean Corpuscular Hemoglobin 28 pg (25-35) Mean Corpuscular Hemoglobin Concent 31 g/dL (31-37) Red Cell Distribution Width 15.3 % (11.5-14.5) Platelet Count 276 x10^3/uL (140-400) Neutrophils (%) (Auto) 93 % (31-73) Lymphocytes (%) (Auto) 3 % (24-48) Monocytes (%) (Auto) 4 % (0-9) Eosinophils (%) (Auto) 0 % (0-3) Basophils (%) (Auto) 0 % (0-3) Neutrophils # (Auto) 11.4 x10^3/uL (1.8-7.7) Lymphocytes # (Auto) 0.3 x10^3/uL (1.0-4.8) Monocytes # (Auto) 0.5 x10^3/uL (0.0-1.1) Eosinophils # (Auto) 0.0 x10^3/uL (0.0-0.7) Basophils # (Auto) 0.0 x10^3/uL (0.0-0.2) Sodium Level 149 mmol/L (136-145) Potassium Level 4.0 mmol/L (3.5-5.1) Chloride Level 111 mmol/L (98-107) Carbon Dioxide Level 33 mmol/L (21-32) Anion Gap 5 (6-14) Blood Urea Nitrogen 58 mg/dL (7-20) Creatinine 0.7 mg/dL (0.6-1.0) Estimated GFR (Cockcroft-Gault) 84.5 BUN/Creatinine Ratio 83 (6-20) Glucose Level 246 mg/dL (70-99) Calcium Level 7.1 mg/dL (8.5-10.1) Total Bilirubin 0.2 mg/dL (0.2-1.0) Aspartate Amino Transf (AST/SGOT) 14 U/L (15-37) Alanine Aminotransferase (ALT/SGPT) 20 U/L (14-59) Alkaline Phosphatase 43 U/L (46-116) Total Protein 5.2 g/dL (6.4-8.2) Albumin 1.4 g/dL (3.4-5.0) Albumin/Globulin Ratio 0.4 (1.0-1.7) Glucose (Fingerstick) 241 mg/dL (70-99) 218 mg/dL (70-99) O2 Saturation 93 % (92-99) Arterial Blood pH 7.46 (7.35-7.45) Arterial Blood pCO2 at Patient Temp 44 mmHg (35-46) Arterial Blood pO2 at Patient Temp 68 mmHg (65-108) Arterial Blood HCO3 31 mmol/L (21-28) Arterial Blood Base Excess 6 mmol/L (-3-3) FiO2 80% vent Comment Review of Relevant I have reviewed the following items zoë (where applicable) has been applied. Medications: Current Medications Medications (Trade) Dose Ordered Sig/Jennifer Route PRN Reason Start Time Stop Time Status Last Admin Dose Admin Insulin Glargine (Lantus Syringe) 40 unit BID SQ 10/16/21 21:00 10/17/21 09:16 Insulin Human Lispro (HumaLOG) 18 units 1X ONCE SQ 10/16/21 14:15 10/16/21 14:16 DC 10/16/21 14:49 Justifications for Admission Other Justification SHABANA GARNETT MD Oct 17, 2021 11:49
--- NOTE | 2021-10-17 15:05 | NUR ---
Wound/Ostomy Care Wound Type/Assessment: Patient seen per wound care consult. See wound assessment. Patient has a stage II with DTI PU to coccyx/left buttock. Wound had blistered but opened with serous fluid and has dark reddened/purple base. Patient has been unstable and not been able to tolerate turning to offload. Wound cleansed, assessed, and measured. Treatment Recommendations/Plan: Recommendations for contact layer and cover with foam dressing. Change on and Sunday. Turn every 2 hours as tolerated using wedge and offloading heels with pillows. Dressing applied. Education provided: Unable to educate as patient is vented. Offloading surface/device: Patient is currently on an ICU bed. Patient repositioned to the right using the wedge and bilateral heels offloaded using pillows. Recommended Referrals/Tests: N/A Discharge Recommendations for dressings: Dressing change instructions left in room. No other wounds noted. Wound care will follow up on 10/25/21.
--- NOTE | 2021-10-17 15:54 | NUR ---
SS following up with discharge planning. SS reviewed pt chart and discussed with pt RN. Pt is currently on the vent at 80%. COVID19 recovered. DNR. Pt on Fentanyl and Versed. Pt on IV Solu-Medrol. Tube feeds. Rectal tube. Dr. Abreu consulted for trach. Physicians discussing goals of care with pt's family. Pt's daughter reported that family is discussing and will make decision on plan of care in the next few days. SS will continue to follow for discharge planning.
--- NOTE | 2021-10-17 19:20 | NUR ---
[address] Brady jean-baptiste brief visit/ on trach placement. No new orders bt will TRY to do on Sunday Family members remain undecided on comfort care only. Will try to have decision in 48-72 H.
--- NOTE | 2021-10-17 19:24 | NUR ---
Note: perineum at vaginal opening excoriated/breaking form where purwick drains. protective cream to area
[2021-10-17] MEDS: ATORVASTATIN CALCIUM 40 MG TABLET. PO SCH (20:18)
[2021-10-17] MEDS: CITALOPRAM 20 MG TABLET. PO SCH (20:19)
[2021-10-18] VITALS (24 sets, daily range): BP systolic 81–144; BP diastolic 47–79
[2021-10-18] MEDS: PROPOFOL 100 ML IV PRN ×4 (05:25→21:32)
[2021-10-18] MEDS: HALOPERIDOL LACTATE 5 MG/ML VIAL. IVP SCH ×2 (05:31→14:00)
[2021-10-18] MEDS: INSULIN LISPRO 300 UNITS/3 ML VIAL. SQ SCH ×4 (05:32→23:48)
[2021-10-18] MEDS: HEPARIN for SUB-Q USE 5,000 UNIT/ML VIAL. SQ SCH ×2 (05:32→14:00)
[2021-10-18 07:57] LABS: BASE EXCESS ABG 4 mmol/L (-3-3); HCO3 ABG 30 mmol/L (21-28); PCO2 ABG 50 mmHg (35-46); PO2 ABG 56 mmHg (65-108); SAT O2 ABG 88 % (92-99)
[2021-10-18 08:54] LABS: FIO2 ABG 80% AC 20 450 5
--- NOTE | 2021-10-18 08:55 | PDOC ---
PULMONARY PROGRESS NOTES DATE: 10/18/21 TIME: 08:55 Subjective Patient currently off of Levophed Patient currently on 80% FiO2 5 of PEEP Vitals Vital Signs Date Time Temp Pulse Resp B/P (MAP) Pulse Ox O2 Delivery O2 Flow Rate FiO2 10/18/21 07:40 87 Ventilator 10/18/21 06:00 72 20 101/47 10/18/21 04:00 98.1 98.1 10/17/21 19:02 10.0 Lungs: Crackles Cardiovascular: S1, S2 Abdomen: Soft, Other (Obese) Extremities: Other (Mild edema) Skin: Warm (PALLAVI) Labs Laboratory Tests Test 10/16/21 11:50 10/16/21 14:47 10/16/21 17:44 10/16/21 23:51 Glucose (Fingerstick) 288 mg/dL (70-99) 281 mg/dL (70-99) 229 mg/dL (70-99) 191 mg/dL (70-99) Test 10/17/21 05:35 10/17/21 05:38 10/17/21 07:14 10/17/21 09:09 White Blood Count 12.2 x10^3/uL (4.0-11.0) Red Blood Count 3.25 x10^6/uL (3.50-5.40) Hemoglobin 9.1 g/dL (12.0-15.5) Hematocrit 29.1 % (36.0-47.0) Mean Corpuscular Volume 90 fL (79-100) Mean Corpuscular Hemoglobin 28 pg (25-35) Mean Corpuscular Hemoglobin Concent 31 g/dL (31-37) Red Cell Distribution Width 15.3 % (11.5-14.5) Platelet Count 276 x10^3/uL (140-400) Neutrophils (%) (Auto) 93 % (31-73) Lymphocytes (%) (Auto) 3 % (24-48) Monocytes (%) (Auto) 4 % (0-9) Eosinophils (%) (Auto) 0 % (0-3) Basophils (%) (Auto) 0 % (0-3) Neutrophils # (Auto) 11.4 x10^3/uL (1.8-7.7) Lymphocytes # (Auto) 0.3 x10^3/uL (1.0-4.8) Monocytes # (Auto) 0.5 x10^3/uL (0.0-1.1) Eosinophils # (Auto) 0.0 x10^3/uL (0.0-0.7) Basophils # (Auto) 0.0 x10^3/uL (0.0-0.2) Sodium Level 149 mmol/L (136-145) Potassium Level 4.0 mmol/L (3.5-5.1) Chloride Level 111 mmol/L (98-107) Carbon Dioxide Level 33 mmol/L (21-32) Anion Gap 5 (6-14) Blood Urea Nitrogen 58 mg/dL (7-20) Creatinine 0.7 mg/dL (0.6-1.0) Estimated GFR (Cockcroft-Gault) 84.5 BUN/Creatinine Ratio 83 (6-20) Glucose Level 246 mg/dL (70-99) Calcium Level 7.1 mg/dL (8.5-10.1) Total Bilirubin 0.2 mg/dL (0.2-1.0) Aspartate Amino Transf (AST/SGOT) 14 U/L (15-37) Alanine Aminotransferase (ALT/SGPT) 20 U/L (14-59) Alkaline Phosphatase 43 U/L (46-116) Total Protein 5.2 g/dL (6.4-8.2) Albumin 1.4 g/dL (3.4-5.0) Albumin/Globulin Ratio 0.4 (1.0-1.7) Glucose (Fingerstick) 241 mg/dL (70-99) 218 mg/dL (70-99) O2 Saturation 93 % (92-99) Arterial Blood pH 7.46 (7.35-7.45) Arterial Blood pCO2 at Patient Temp 44 mmHg (35-46) Arterial Blood pO2 at Patient Temp 68 mmHg (65-108) Arterial Blood HCO3 31 mmol/L (21-28) Arterial Blood Base Excess 6 mmol/L (-3-3) FiO2 80% vent Test 10/17/21 12:06 10/17/21 17:47 10/17/21 23:50 10/18/21 05:31 Glucose (Fingerstick) 219 mg/dL (70-99) 244 mg/dL (70-99) 165 mg/dL (70-99) 107 mg/dL (70-99) Test 10/18/21 08:00 O2 Saturation 88 % (92-99) Arterial Blood pH 7.39 (7.35-7.45) Arterial Blood pCO2 at Patient Temp 50 mmHg (35-46) Arterial Blood pO2 at Patient Temp 56 mmHg (65-108) Arterial Blood HCO3 30 mmol/L (21-28) Arterial Blood Base Excess 4 mmol/L (-3-3) FiO2 80% ac 20 450 5 Laboratory Tests Test 10/17/21 09:09 10/17/21 12:06 10/17/21 17:47 10/17/21 23:50 Glucose (Fingerstick) 218 mg/dL (70-99) 219 mg/dL (70-99) 244 mg/dL (70-99) 165 mg/dL (70-99) Test 10/18/21 05:31 10/18/21 08:00 Glucose (Fingerstick) 107 mg/dL (70-99) O2 Saturation 88 % (92-99) Arterial Blood pH 7.39 (7.35-7.45) Arterial Blood pCO2 at Patient Temp 50 mmHg (35-46) Arterial Blood pO2 at Patient Temp 56 mmHg (65-108) Arterial Blood HCO3 30 mmol/L (21-28) Arterial Blood Base Excess 4 mmol/L (-3-3) FiO2 80% ac 20 450 5 Medications Active Scripts Medications Dose Route/Sig Max Daily Dose Days Date Category Prednisone 20 Mg Tablet 2 Tab PO DAILY 5 09/20/21 Rx Amlodipine Besylate 10 Mg Tablet 10 Mg PO DAILY 30 09/20/21 Rx Acetaminophen 500 Mg Tablet 1 Tab PO PRN Q6HRS PRN 15 09/17/21 Reported Aspirin 325 Mg Tablet 1 Tab PO DAILY 09/17/21 Reported Humalog (Insulin Lispro) 100 Unit/1 Ml Vial 8 Unit SQ QIDACHS 09/17/21 Reported Lantus (Insulin Glargine,Hum.rec.anlog) 100 Unit/1 Ml Vial 20 Unit SQ HS 09/17/21 Reported Citalopram Hbr (Citalopram Hydrobromide) 20 Mg Tablet 1 Tab PO HS 09/17/21 Reported Fish Oil 1,000 Mg Capsule ([place]-3 Fatty Acids/Fish Oil) 1 Each Capsule 1 Each PO BID 09/17/21 Reported Gabapentin 600 Mg Tablet 600 Mg PO TID 09/17/21 Reported Glimepiride 4 Mg Tablet 1 Tab PO BID 09/17/21 Reported Crestor (Rosuvastatin Calcium) 40 Mg Tablet 40 Mg PO HS 09/17/21 Reported Clopidogrel (Clopidogrel Bisulfate) 75 Mg Tablet 1 Tab PO DAILY 09/17/21 Reported Impression . 1. Acute hypoxic/ hypercapnic respiratory failure in a patient who was diagnosed with COVID-19 on 09/15/21/ARDS 2. Underlying obesity. 3. Minimal tobacco history. 4. Abnormal chest x-ray possible bacterial pneumonia 5. COVID positive on 09/15/2021. 6. Encephalopathy, toxic, metabolic. 7. Hypokalemia 8. Upper extremity, negative for DVT 10/14 Plan . Updated 10/18 Discussed with daughter at the bedside, she will contemplate the possibility of trach. She will let me know Discussed with RT, decrease PEEP Full consult surgery for possible trach will await family decision Currently off of norepinephrine Schedule Haldol Decrease sedation As needed Lasix Monitor blood sugars Patient finished course of antibiotics Patient currently DNR CCT 30 minutes ASTER LEHMAN MD Oct 18, 2021 08:55
[2021-10-18] MEDS: INSULIN GLARGINE SYRINGE. SQ SCH ×2 (09:00→21:23)
--- NOTE | 2021-10-18 09:33 | PDOC ---
[employer] PROGRESS NOTE Date of Service DOS: DATE: 10/18/21 TIME: 09:32 Chief Complaint Chief Complaint acute hypoxic respiratory failure ARDS, with Severe respiratory failure COVID-19 pneumonia Found down Severe metabolic encephalopathy Obesity, BMI 46 severe malnutrition, Diabetes 2 with hyperglycemia, hypoglycemia, Hypertension UTI on 09/26 History of Present Illness History of Present Illness 10/18 Evaluated examined at bedside. No major overnight events. Remains intubated and sedated. Family needing to reach decision about trach versus comfort measures. Otherwise continuing current. 33 minutes critical care time. 10/17 Evaluated examined at bedside. Off Levophed. Remains intubated. Surgery consulted for trach evaluation. Continuing current otherwise. 35 minutes critical care time. 10/16, vent settings a little btter today, no 5, with 90% FI02, Sa02 looks a little better still very ill, cont tube feeds, blood sugar control vitals ok last CXR caused marked resp distress, holding off - discussed with pulm 10/15, now hyperglyccemic again, increase lantus Sa02 better today, still on 100%, cont other same, BP ok moves against vent when sedatino weaned 10/14, cont the current increase tube feed to 40, serum alb 1.3, severe blood sugar back up, restart lantus still on 100% fi02, 3 visits, discussed wti RN, ICU, 35 min 10/13,. family here, long discussion about plan out of covid isolation advanced care planning done, is DNR, they are considering if they should have a plan for withdrawl of care, if that should be soon or in a few days, I had 2 conversations in room, and a phone call separately, 29 minutes today total vitals OK, large 02 rq. 100 % fi02 10/12/2021 blood sugar lower last night, insulin dose decreassed and given, markedly bad this AM , D50 given, still has lantus on board, will give D10 fluid, DC insulin, resume when better Patient seen and examined in the ICU, , on vent, AC with the vent, noted LE edema, skin signs of poor nutrition SCDs are on [place] to bedside drainage, has rectal tube Sedated with propofol fentanyl and Versed Has TPN hanging, will retry OG feeds, has failed before blood sugars high, will increase her lantus to 80 BID, on large dose IV steroids Discussed with RN Chart reviewed critically ill , mortality risk high, time 39 min Vitals/I&O Vitals/I&O: Vital Signs Date Time Temp Pulse Resp B/P (MAP) Pulse Ox O2 Delivery O2 Flow Rate FiO2 10/18/21 07:40 87 Ventilator 10/18/21 06:00 72 20 101/47 10/18/21 04:00 98.1 98.1 10/17/21 19:02 10.0 I & O 10/17/21 10/17/21 10/18/21 15:00 23:00 07:00 Intake Total 300 ml 1205 ml 1203 ml Output Total 320 ml 650 ml 250 ml Balance -20 ml 555 ml 953 ml Physical Exam General: Other (sedated ) Heart: Normal S1, Normal S2 Lungs: Crackles Abdomen: Soft, No tenderness, Other (obese ) Extremities: No clubbing, No cyanosis Skin: No rashes, No breakdown Labs Labs: Laboratory Tests Test 10/17/21 12:06 10/17/21 17:47 10/17/21 23:50 10/18/21 05:31 Glucose (Fingerstick) 219 mg/dL (70-99) 244 mg/dL (70-99) 165 mg/dL (70-99) 107 mg/dL (70-99) Test 10/18/21 08:00 O2 Saturation 88 % (92-99) Arterial Blood pH 7.39 (7.35-7.45) Arterial Blood pCO2 at Patient Temp 50 mmHg (35-46) Arterial Blood pO2 at Patient Temp 56 mmHg (65-108) Arterial Blood HCO3 30 mmol/L (21-28) Arterial Blood Base Excess 4 mmol/L (-3-3) FiO2 80% ac 20 450 5 Comment Review of Relevant I have reviewed the following items zoë (where applicable) has been applied. Medications: Current Medications Medications (Trade) Dose Ordered Sig/Jennifer Route PRN Reason Start Time Stop Time Status Last Admin Dose Admin Insulin Glargine (Lantus Syringe) 45 unit BID SQ 10/17/21 21:00 10/17/21 20:19 Justifications for Admission Other Justification SHABANA GARNETT MD Oct 18, 2021 09:33
[2021-10-18] MEDS: methylPREDNISolone SOD SUCC PF 125 MG/2 ML VIAL. IV SCH (09:57)
[2021-10-18] MEDS: FAMOTIDINE 20 MG/2 ML VIAL IVP SCH ×2 (09:58→21:21)
[2021-10-18] MEDS: ASPIRIN 325 MG TABLET PO SCH (09:59)
[2021-10-18] MEDS: CLOPIDOGREL BISULFATE 75 MG TABLET PO SCH (09:59)
[2021-10-18] MEDS: GABAPENTIN 250 MG/5 ML ORAL SOLUTION. PO SCH ×3 (10:03→21:22)
--- NOTE | 2021-10-18 13:11 | PDOC ---
SURGICAL PROGRESS NOTE DATE: 10/18/21 TIME: 13:10 Subjective Pt intubated and sedated pt family elects for comfort care will sign off, but please call for questions. Vital Signs Vital Signs Date Time Temp Pulse Resp B/P (MAP) Pulse Ox O2 Delivery O2 Flow Rate FiO2 10/18/21 12:15 98 Ventilator 10/18/21 12:00 98.8 73 25 104/61 98.8 10/17/21 19:02 10.0 I&O Intake and Output 10/18/21 07:00 Intake Total 2708 ml Output Total 1220 ml Balance 1488 ml IV Total 582 ml Tube Feeding 1626 ml Other 500 ml Output Urine Total 920 ml Stool Total 300 ml # Voids 3 Labs Laboratory Tests Test 10/16/21 14:47 10/16/21 17:44 10/16/21 23:51 10/17/21 05:35 Glucose (Fingerstick) 281 mg/dL (70-99) 229 mg/dL (70-99) 191 mg/dL (70-99) White Blood Count 12.2 x10^3/uL (4.0-11.0) Red Blood Count 3.25 x10^6/uL (3.50-5.40) Hemoglobin 9.1 g/dL (12.0-15.5) Hematocrit 29.1 % (36.0-47.0) Mean Corpuscular Volume 90 fL (79-100) Mean Corpuscular Hemoglobin 28 pg (25-35) Mean Corpuscular Hemoglobin Concent 31 g/dL (31-37) Red Cell Distribution Width 15.3 % (11.5-14.5) Platelet Count 276 x10^3/uL (140-400) Neutrophils (%) (Auto) 93 % (31-73) Lymphocytes (%) (Auto) 3 % (24-48) Monocytes (%) (Auto) 4 % (0-9) Eosinophils (%) (Auto) 0 % (0-3) Basophils (%) (Auto) 0 % (0-3) Neutrophils # (Auto) 11.4 x10^3/uL (1.8-7.7) Lymphocytes # (Auto) 0.3 x10^3/uL (1.0-4.8) Monocytes # (Auto) 0.5 x10^3/uL (0.0-1.1) Eosinophils # (Auto) 0.0 x10^3/uL (0.0-0.7) Basophils # (Auto) 0.0 x10^3/uL (0.0-0.2) Sodium Level 149 mmol/L (136-145) Potassium Level 4.0 mmol/L (3.5-5.1) Chloride Level 111 mmol/L (98-107) Carbon Dioxide Level 33 mmol/L (21-32) Anion Gap 5 (6-14) Blood Urea Nitrogen 58 mg/dL (7-20) Creatinine 0.7 mg/dL (0.6-1.0) Estimated GFR (Cockcroft-Gault) 84.5 BUN/Creatinine Ratio 83 (6-20) Glucose Level 246 mg/dL (70-99) Calcium Level 7.1 mg/dL (8.5-10.1) Total Bilirubin 0.2 mg/dL (0.2-1.0) Aspartate Amino Transf (AST/SGOT) 14 U/L (15-37) Alanine Aminotransferase (ALT/SGPT) 20 U/L (14-59) Alkaline Phosphatase 43 U/L (46-116) Total Protein 5.2 g/dL (6.4-8.2) Albumin 1.4 g/dL (3.4-5.0) Albumin/Globulin Ratio 0.4 (1.0-1.7) Test 10/17/21 05:38 10/17/21 07:14 10/17/21 09:09 10/17/21 12:06 Glucose (Fingerstick) 241 mg/dL (70-99) 218 mg/dL (70-99) 219 mg/dL (70-99) O2 Saturation 93 % (92-99) Arterial Blood pH 7.46 (7.35-7.45) Arterial Blood pCO2 at Patient Temp 44 mmHg (35-46) Arterial Blood pO2 at Patient Temp 68 mmHg (65-108) Arterial Blood HCO3 31 mmol/L (21-28) Arterial Blood Base Excess 6 mmol/L (-3-3) FiO2 80% vent Test 10/17/21 17:47 10/17/21 23:50 10/18/21 05:31 10/18/21 08:00 Glucose (Fingerstick) 244 mg/dL (70-99) 165 mg/dL (70-99) 107 mg/dL (70-99) O2 Saturation 88 % (92-99) Arterial Blood pH 7.39 (7.35-7.45) Arterial Blood pCO2 at Patient Temp 50 mmHg (35-46) Arterial Blood pO2 at Patient Temp 56 mmHg (65-108) Arterial Blood HCO3 30 mmol/L (21-28) Arterial Blood Base Excess 4 mmol/L (-3-3) FiO2 80% ac 20 450 5 Test 10/18/21 10:05 10/18/21 12:10 Glucose (Fingerstick) 89 mg/dL (70-99) 105 mg/dL (70-99) Laboratory Tests Test 10/17/21 17:47 10/17/21 23:50 10/18/21 05:31 10/18/21 08:00 Glucose (Fingerstick) 244 mg/dL (70-99) 165 mg/dL (70-99) 107 mg/dL (70-99) O2 Saturation 88 % (92-99) Arterial Blood pH 7.39 (7.35-7.45) Arterial Blood pCO2 at Patient Temp 50 mmHg (35-46) Arterial Blood pO2 at Patient Temp 56 mmHg (65-108) Arterial Blood HCO3 30 mmol/L (21-28) Arterial Blood Base Excess 4 mmol/L (-3-3) FiO2 80% ac 20 450 5 Test 10/18/21 10:05 10/18/21 12:10 Glucose (Fingerstick) 89 mg/dL (70-99) 105 mg/dL (70-99) Justicifation of Admission Dx: Justifications for Admission: Justification of Admission Dx: N/A BREE BECKHAM MD Oct 18, 2021 13:11
--- NOTE | 2021-10-18 15:15 | NUR ---
SS following up with discharge planning. SS reviewed pt chart and discussed with pt RN. Pt is currently on the vent at 80%. COVID19 recovered. DNR. Pt on Fentanyl and Versed. Pt on IV Solu-Medrol. Tube feeds. Rectal tube. Physicians discussing goals of care with pt's family. Pt's family declining trach placement at this time. Family considering comfort care in the next 24-48 hours. SS will continue to follow for discharge planning.
[2021-10-18] MEDS: MIDAZOLAM 100mg/100ml NS BAG 100 ML IV PRN (19:51)
[2021-10-18] MEDS: ATORVASTATIN CALCIUM 40 MG TABLET. PO SCH (21:22)
[2021-10-19] VITALS (23 sets, daily range): BP systolic 83–165; BP diastolic 44–75
[2021-10-19] MEDS: PROPOFOL 100 ML IV PRN (04:41)
[2021-10-19] MEDS: INSULIN LISPRO 300 UNITS/3 ML VIAL. SQ SCH ×4 (06:00→23:46)
[2021-10-19 08:22] LABS: BASE EXCESS ABG 1 mmol/L (-3-3); HCO3 ABG 26 mmol/L (21-28); PCO2 ABG 41 mmHg (35-46); PO2 ABG 79 mmHg (65-108); SAT O2 ABG 94 % (92-99)
[2021-10-19] MEDS: CLOPIDOGREL BISULFATE 75 MG TABLET PO SCH (08:24)
[2021-10-19] MEDS: GABAPENTIN 250 MG/5 ML ORAL SOLUTION. PO SCH ×3 (08:25→21:18)
[2021-10-19] MEDS: FAMOTIDINE 20 MG/2 ML VIAL IVP SCH ×2 (08:25→21:19)
[2021-10-19] MEDS: methylPREDNISolone SOD SUCC PF 125 MG/2 ML VIAL. IV SCH (08:26)
[2021-10-19] MEDS: ASPIRIN 325 MG TABLET PO SCH (08:26)
--- NOTE | 2021-10-19 09:38 | PDOC ---
PULMONARY PROGRESS NOTES DATE: 10/19/21 TIME: 09:38 Subjective No overnight events patient currently off of Levophed Patient currently on 80% FiO2 5 of PEEP Vitals Vital Signs Date Time Temp Pulse Resp B/P (MAP) Pulse Ox O2 Delivery O2 Flow Rate FiO2 10/19/21 08:16 20 97 Ventilator 10/19/21 08:00 98.4 65 99/48 98.4 Lungs: Crackles Cardiovascular: S1, S2 Abdomen: Soft, Other (Obese) Extremities: Other (Mild edema) Skin: Warm (PALLAVI) Labs Laboratory Tests Test 10/17/21 12:06 10/17/21 17:47 10/17/21 23:50 10/18/21 05:31 Glucose (Fingerstick) 219 mg/dL (70-99) 244 mg/dL (70-99) 165 mg/dL (70-99) 107 mg/dL (70-99) Test 10/18/21 08:00 10/18/21 10:05 10/18/21 12:10 10/18/21 23:46 O2 Saturation 88 % (92-99) Arterial Blood pH 7.39 (7.35-7.45) Arterial Blood pCO2 at Patient Temp 50 mmHg (35-46) Arterial Blood pO2 at Patient Temp 56 mmHg (65-108) Arterial Blood HCO3 30 mmol/L (21-28) Arterial Blood Base Excess 4 mmol/L (-3-3) FiO2 80% ac 20 450 5 Glucose (Fingerstick) 89 mg/dL (70-99) 105 mg/dL (70-99) 139 mg/dL (70-99) Test 10/19/21 06:21 10/19/21 08:00 Glucose (Fingerstick) 110 mg/dL (70-99) O2 Saturation 94 % (92-99) Arterial Blood pH 7.42 (7.35-7.45) Arterial Blood pCO2 at Patient Temp 41 mmHg (35-46) Arterial Blood pO2 at Patient Temp 79 mmHg (65-108) Arterial Blood HCO3 26 mmol/L (21-28) Arterial Blood Base Excess 1 mmol/L (-3-3) FiO2 80/vent Laboratory Tests Test 10/18/21 10:05 10/18/21 12:10 10/18/21 23:46 10/19/21 06:21 Glucose (Fingerstick) 89 mg/dL (70-99) 105 mg/dL (70-99) 139 mg/dL (70-99) 110 mg/dL (70-99) Test 10/19/21 08:00 O2 Saturation 94 % (92-99) Arterial Blood pH 7.42 (7.35-7.45) Arterial Blood pCO2 at Patient Temp 41 mmHg (35-46) Arterial Blood pO2 at Patient Temp 79 mmHg (65-108) Arterial Blood HCO3 26 mmol/L (21-28) Arterial Blood Base Excess 1 mmol/L (-3-3) FiO2 80/vent Medications Active Scripts Medications Dose Route/Sig Max Daily Dose Days Date Category Prednisone 20 Mg Tablet 2 Tab PO DAILY 5 09/20/21 Rx Amlodipine Besylate 10 Mg Tablet 10 Mg PO DAILY 30 09/20/21 Rx Acetaminophen 500 Mg Tablet 1 Tab PO PRN Q6HRS PRN 15 09/17/21 Reported Aspirin 325 Mg Tablet 1 Tab PO DAILY 09/17/21 Reported Humalog (Insulin Lispro) 100 Unit/1 Ml Vial 8 Unit SQ QIDACHS 09/17/21 Reported Lantus (Insulin Glargine,Hum.rec.anlog) 100 Unit/1 Ml Vial 20 Unit SQ HS 09/17/21 Reported Citalopram Hbr (Citalopram Hydrobromide) 20 Mg Tablet 1 Tab PO HS 09/17/21 Reported Fish Oil 1,000 Mg Capsule ([place]-3 Fatty Acids/Fish Oil) 1 Each Capsule 1 Each PO BID 09/17/21 Reported Gabapentin 600 Mg Tablet 600 Mg PO TID 09/17/21 Reported Glimepiride 4 Mg Tablet 1 Tab PO BID 09/17/21 Reported Crestor (Rosuvastatin Calcium) 40 Mg Tablet 40 Mg PO HS 09/17/21 Reported Clopidogrel (Clopidogrel Bisulfate) 75 Mg Tablet 1 Tab PO DAILY 09/17/21 Reported Impression . 1. Acute hypoxic/ hypercapnic respiratory failure in a patient who was diagnosed with COVID-19 on 09/15/21/ARDS 2. Underlying obesity. 3. Minimal tobacco history. 4. Abnormal chest x-ray possible bacterial pneumonia 5. COVID positive on 09/15/2021. 6. Encephalopathy, toxic, metabolic. 7. Hypokalemia 8. Upper extremity, negative for DVT / Plan . Updated 10/19 Family has decided not to undergo trach We will transition to comfort care Awaiting family decision on comfort care and finding Currently off of norepinephrine Schedule Haldol Decrease sedation As needed Lasix Monitor blood sugars Patient finished course of antibiotics Patient currently DNR ASTER LEHMAN MD Oct 19, 2021 09:38
--- NOTE | 2021-10-19 11:06 | PDOC ---
[facility] [facility] PROGRESS NOTE Date of Service DOS: DATE: 10/19/21 TIME: 11:05 Chief Complaint Chief Complaint acute hypoxic respiratory failure ARDS, with Severe respiratory failure COVID-19 pneumonia Found down Severe metabolic encephalopathy Obesity, BMI 46 severe malnutrition, Diabetes 2 with hyperglycemia, hypoglycemia, Hypertension UTI on 09/26 History of Present Illness History of Present Illness 10/19 Patient evaluated examined at bedside. Family electing to move to comfort measures at this point. Will monitor. 10/18 Evaluated examined at bedside. No major overnight events. Remains intubated and sedated. Family needing to reach decision about trach versus comfort measures. Otherwise continuing current. 33 minutes critical care time. 10/17 Evaluated examined at bedside. Off Levophed. Remains intubated. Surgery consulted for trach evaluation. Continuing current otherwise. 35 minutes critical care time. 10/16, vent settings a little btter today, no 5, with 90% FI02, Sa02 looks a little better still very ill, cont tube feeds, blood sugar control vitals ok last CXR caused marked resp distress, holding off - discussed with pulm 10/15, now hyperglyccemic again, increase lantus Sa02 better today, still on 100%, cont other same, BP ok moves against vent when sedatino weaned 10/14, cont the current increase tube feed to 40, serum alb 1.3, severe blood sugar back up, restart lantus still on 100% fi02, 3 visits, discussed wti RN, ICU, 35 min 10/13,. family here, long discussion about plan out of covid isolation advanced care planning done, is DNR, they are considering if they should have a plan for withdrawl of care, if that should be soon or in a few days, I had 2 conversations in room, and a phone call separately, 29 minutes today total vitals OK, large 02 rq. 100 % fi02 10/12/2021 blood sugar lower last night, insulin dose decreassed and given, markedly bad this AM , D50 given, still has lantus on board, will give D10 fluid, DC insulin, resume when better Patient seen and examined in the ICU, , on vent, AC with the vent, noted LE edema, skin signs of poor nutrition SCDs are on Peacock to bedside drainage, has rectal tube Sedated with propofol fentanyl and Versed Has TPN hanging, will retry OG feeds, has failed before blood sugars high, will increase her lantus to 80 BID, on large dose IV steroids Discussed with RN Chart reviewed critically ill , mortality risk high, time 39 min Vitals/I&O Vitals/I&O: Vital Signs Date Time Temp Pulse Resp B/P (MAP) Pulse Ox O2 Delivery O2 Flow Rate FiO2 10/19/21 11:00 89 22 148/65 95 Ventilator 10/19/21 08:00 98.4 98.4 I & O 10/18/21 10/18/21 10/19/21 14:59 22:59 06:59 Intake Total 200 ml 1250 ml 833 ml Output Total 250 ml 125 ml 450 ml Balance -50 ml 1125 ml 383 ml Physical Exam General: Other (sedated ) Heart: Normal S1, Normal S2 Lungs: Crackles Abdomen: Soft, No tenderness, Other (obese ) Extremities: No clubbing, No cyanosis Skin: No rashes, No breakdown Labs Labs: Laboratory Tests Test 10/18/21 12:10 10/18/21 23:46 10/19/21 06:21 10/19/21 08:00 Glucose (Fingerstick) 105 mg/dL (70-99) 139 mg/dL (70-99) 110 mg/dL (70-99) O2 Saturation 94 % (92-99) Arterial Blood pH 7.42 (7.35-7.45) Arterial Blood pCO2 at Patient Temp 41 mmHg (35-46) Arterial Blood pO2 at Patient Temp 79 mmHg (65-108) Arterial Blood HCO3 26 mmol/L (21-28) Arterial Blood Base Excess 1 mmol/L (-3-3) FiO2 80/vent Comment Review of Relevant I have reviewed the following items zoë (where applicable) has been applied. Medications: Current Medications Medications (Trade) Dose Ordered Sig/Jennifer Route PRN Reason Start Time Stop Time Status Last Admin Dose Admin Insulin Glargine (Lantus Syringe) 35 unit BID SQ 10/18/21 21:00 10/18/21 21:23 Justifications for Admission Other Justification SHABANA GARNETT MD Oct 19, 2021 11:06
[2021-10-19] MEDS: INSULIN GLARGINE SYRINGE. SQ SCH ×2 (11:56→21:19)
[2021-10-19] MEDS: MIDAZOLAM 100mg/100ml NS BAG 100 ML IV PRN (14:20)
[2021-10-19] MEDS: ATORVASTATIN CALCIUM 40 MG TABLET. PO SCH (21:19)
[2021-10-20] VITALS (12 sets, daily range): BP systolic 114–167; BP diastolic 49–74
[2021-10-20] MEDS: PROPOFOL 100 ML IV PRN ×2 (00:29→06:33)
[2021-10-20] MEDS: INSULIN LISPRO 300 UNITS/3 ML VIAL. SQ SCH (05:49)
[2021-10-20] MEDS: CLOPIDOGREL BISULFATE 75 MG TABLET PO SCH (08:19)
[2021-10-20] MEDS: ASPIRIN 325 MG TABLET PO SCH (08:19)
[2021-10-20] MEDS: FAMOTIDINE 20 MG/2 ML VIAL IVP SCH (08:20)
[2021-10-20] MEDS: methylPREDNISolone SOD SUCC PF 125 MG/2 ML VIAL. IV SCH (08:20)
[2021-10-20] MEDS: GABAPENTIN 250 MG/5 ML ORAL SOLUTION. PO SCH (08:20)
[2021-10-20] MEDS: INSULIN GLARGINE SYRINGE. SQ SCH (08:31)
--- NOTE | 2021-10-20 10:38 | PDOC ---
PULMONARY PROGRESS NOTES DATE: 10/20/21 TIME: 10:37 Subjective Family at the bedside, getting ready to withdraw care Vitals Vital Signs Date Time Temp Pulse Resp B/P (MAP) Pulse Ox O2 Delivery O2 Flow Rate FiO2 10/20/21 10:00 77 20 132/57 95 Ventilator 10/20/21 08:00 98.4 98.4 Lungs: Crackles Cardiovascular: S1, S2 Abdomen: Soft, Other (Obese) Extremities: Other (Mild edema) Skin: Warm (PALLAVI) Labs Laboratory Tests Test 10/18/21 12:10 10/18/21 23:46 10/19/21 06:21 10/19/21 08:00 Glucose (Fingerstick) 105 mg/dL (70-99) 139 mg/dL (70-99) 110 mg/dL (70-99) O2 Saturation 94 % (92-99) Arterial Blood pH 7.42 (7.35-7.45) Arterial Blood pCO2 at Patient Temp 41 mmHg (35-46) Arterial Blood pO2 at Patient Temp 79 mmHg (65-108) Arterial Blood HCO3 26 mmol/L (21-28) Arterial Blood Base Excess 1 mmol/L (-3-3) FiO2 80/vent Test 10/19/21 11:55 10/19/21 18:06 10/19/21 23:44 10/20/21 05:48 Glucose (Fingerstick) 156 mg/dL (70-99) 203 mg/dL (70-99) 139 mg/dL (70-99) 139 mg/dL (70-99) Laboratory Tests Test 10/19/21 11:55 10/19/21 18:06 10/19/21 23:44 10/20/21 05:48 Glucose (Fingerstick) 156 mg/dL (70-99) 203 mg/dL (70-99) 139 mg/dL (70-99) 139 mg/dL (70-99) Medications Active Scripts Medications Dose Route/Sig Max Daily Dose Days Date Category Prednisone 20 Mg Tablet 2 Tab PO DAILY 5 09/20/21 Rx Amlodipine Besylate 10 Mg Tablet 10 Mg PO DAILY 30 09/20/21 Rx Acetaminophen 500 Mg Tablet 1 Tab PO PRN Q6HRS PRN 15 09/17/21 Reported Aspirin 325 Mg Tablet 1 Tab PO DAILY 09/17/21 Reported Humalog (Insulin Lispro) 100 Unit/1 Ml Vial 8 Unit SQ QIDACHS 09/17/21 Reported Lantus (Insulin Glargine,Hum.rec.anlog) 100 Unit/1 Ml Vial 20 Unit SQ HS 09/17/21 Reported Citalopram Hbr (Citalopram Hydrobromide) 20 Mg Tablet 1 Tab PO HS 09/17/21 Reported Fish Oil 1,000 Mg Capsule ([place]-3 Fatty Acids/Fish Oil) 1 Each Capsule 1 Each PO BID 09/17/21 Reported Gabapentin 600 Mg Tablet 600 Mg PO TID 09/17/21 Reported Glimepiride 4 Mg Tablet 1 Tab PO BID 09/17/21 Reported Crestor (Rosuvastatin Calcium) 40 Mg Tablet 40 Mg PO HS 09/17/21 Reported Clopidogrel (Clopidogrel Bisulfate) 75 Mg Tablet 1 Tab PO DAILY 09/17/21 Reported Impression . 1. Acute hypoxic/ hypercapnic respiratory failure in a patient who was diagnosed with COVID-19 on 09/15/21/ARDS 2. Underlying obesity. 3. Minimal tobacco history. 4. Abnormal chest x-ray possible bacterial pneumonia 5. COVID positive on 09/15/2021. 6. Encephalopathy, toxic, metabolic. 7. Hypokalemia 8. Upper extremity, negative for DVT 10/14 Plan . Updated 10/20 Family is at the bedside, will discontinue care allow natural Discussed with RN Kneya and Ativan as needed ASTER LEHMAN MD Oct 20, 2021 10:38
--- NOTE | 2021-10-20 10:52 | PDOC ---
[facility] [facility] PROGRESS NOTE Date of Service DOS: DATE: 10/20/21 TIME: 10:51 Chief Complaint Chief Complaint acute hypoxic respiratory failure ARDS, with Severe respiratory failure COVID-19 pneumonia Found down Severe metabolic encephalopathy Obesity, BMI 46 severe malnutrition, Diabetes 2 with hyperglycemia, hypoglycemia, Hypertension UTI on 09/26 History of Present Illness History of Present Illness 10/20 Patgient evaluated at bedside. Clinically about the same. Planning for withdrawl of care once family arrives at bedside. 10/19 Patient evaluated examined at bedside. Family electing to move to comfort measures at this point. Will monitor. 10/18 Evaluated examined at bedside. No major overnight events. Remains intubated and sedated. Family needing to reach decision about trach versus comfort measures. Otherwise continuing current. 33 minutes critical care time. 10/17 Evaluated examined at bedside. Off Levophed. Remains intubated. Surgery consulted for trach evaluation. Continuing current otherwise. 35 minutes critical care time. 10/16, vent settings a little btter today, no 5, with 90% FI02, Sa02 looks a little better still very ill, cont tube feeds, blood sugar control vitals ok last CXR caused marked resp distress, holding off - discussed with pulm 10/15, now hyperglyccemic again, increase lantus Sa02 better today, still on 100%, cont other same, BP ok moves against vent when sedatino weaned 10/14, cont the current increase tube feed to 40, serum alb 1.3, severe blood sugar back up, restart lantus still on 100% fi02, 3 visits, discussed wti RN, ICU, 35 min 10/13,. family here, long discussion about plan out of covid isolation advanced care planning done, is DNR, they are considering if they should have a plan for withdrawl of care, if that should be soon or in a few days, I had 2 conversations in room, and a phone call separately, 29 minutes today total vitals OK, large 02 rq. 100 % fi02 10/12/2021 blood sugar lower last night, insulin dose decreassed and given, markedly bad this AM , D50 given, still has lantus on board, will give D10 fluid, DC insulin, resume when better Patient seen and examined in the ICU, , on vent, AC with the vent, noted LE edema, skin signs of poor nutrition SCDs are on [place]acock to bedside drainage, has rectal tube Sedated with propofol fentanyl and Versed Has TPN hanging, will retry OG feeds, has failed before blood sugars high, will increase her lantus to 80 BID, on large dose IV steroids Discussed with RN Chart reviewed critically ill , mortality risk high, time 39 min Vitals/I&O Vitals/I&O: Vital Signs Date Time Temp Pulse Resp B/P (MAP) Pulse Ox O2 Delivery O2 Flow Rate FiO2 10/20/21 10:00 77 20 132/57 95 Ventilator 10/20/21 08:00 98.4 98.4 I & O 10/19/21 10/19/21 10/20/21 15:00 23:00 07:00 Intake Total 200 ml 1229 ml 1113 ml Output Total 520 ml 450 ml 400 ml Balance -320 ml 779 ml 713 ml Physical Exam General: Other (sedated ) Heart: Normal S1, Normal S2 Lungs: Clear Abdomen: Soft, No tenderness, Other (obese ) Extremities: No clubbing, No cyanosis Skin: No rashes, No breakdown Labs Labs: Laboratory Tests Test 10/19/21 11:55 10/19/21 18:06 10/19/21 23:44 10/20/21 05:48 Glucose (Fingerstick) 156 mg/dL (70-99) 203 mg/dL (70-99) 139 mg/dL (70-99) 139 mg/dL (70-99) Comment Review of Relevant I have reviewed the following items zoë (where applicable) has been applied. Justifications for Admission Other Justification SHABANA GARNETT MD Oct 20, 2021 10:52
[2021-10-20] MEDS ORDERED: MORPHINE SULFATE 10 MG/ML VIAL. IM ONE (12:15)
[2021-10-20] MEDS ORDERED: MORPHINE SULFATE 4 MG/ML INJ. IV PRN (12:15)
--- NOTE | 2021-10-20 13:00 | NUR ---
FAMILY AT BEDSIDE, REQUESTING TO EXTUBATE PATIENT FOR PALLIATIVE MEASURES. DR GARNETT NOTIFIED AND ORDERS RECEIVED FOR COMFORT MEDICATIONS. MEDS GIVEN, PATIENT EXTUBATED AT 1225 WITH ALL HER FAMILY AT BEDSIDE. PATIENT AT 1241, PRONOUNCED BY THIS RN AND LAURITA QUEVEDO RN. DR GARNETT AND DOMINIK NOTIFIED OF TIME OF . MTN UPDATED OF TIME OF AND WE ARE OKAY TO RELEASE TO HOME PATIENT IS NOT A CANDIDATE FOR DONATION.
== END 2021-10-20 12:41 | DRG 207 ==
LOC: ER 10:59 → ED HOLD 13:20 → 6 SOUTH 15:20 → 1 WEST ICU 10-03 18:30
PROVIDERS: ADMIT Student in an Organized Health Care Education/Training Program; ATTEND Student in an Organized Health Care Education/Training Program
PROC: 5A1955Z Respiratory Ventilation, Greater than 96 Consecutive Hours (ICD-10-PCS; principal; 2021-09-26)
PROC: 5A09457 Assistance with Respiratory Ventilation, 24-96 Consecutive Hours, Continuous Positive Airway Pressure (ICD-10-PCS; 2021-09-28)
PROC: 5A0935A Assistance with Respiratory Ventilation, Less than 24 Consecutive Hours, High Flow/Velocity Cannula (ICD-10-PCS; 2021-09-28)
PROC: 0BH17EZ Insertion of Endotracheal Airway into Trachea, Via Natural or Artificial Opening (ICD-10-PCS; 2021-09-29)
PROC: 5A0935A Assistance with Respiratory Ventilation, Less than 24 Consecutive Hours, High Flow/Velocity Cannula (ICD-10-PCS; 2021-09-29)
PROC: 5A0935A Assistance with Respiratory Ventilation, Less than 24 Consecutive Hours, High Flow/Velocity Cannula (ICD-10-PCS; 2021-09-30)
PROC: 02HV33Z Insertion of Infusion Device into Superior Vena Cava, Percutaneous Approach (ICD-10-PCS; 2021-10-04)
PROC: B548ZZA Ultrasonography of Superior Vena Cava, Guidance (ICD-10-PCS; 2021-10-04)
DX: U07.1 COVID-19 (principal); J12.82 Pneumonia due to coronavirus disease 2019; J96.01 Acute respiratory failure with hypoxia; E43 Unspecified severe protein-calorie malnutrition; G92.8 Other toxic encephalopathy; N39.0 Urinary tract infection, site not specified; Z68.42 Body mass index [BMI] 45.0-49.9, adult; B96.20 Unspecified Escherichia coli [E. coli] as the cause of diseases classified elsewhere; E11.649 Type 2 diabetes mellitus with hypoglycemia without coma; E11.65 Type 2 diabetes mellitus with hyperglycemia; E66.9 Obesity, unspecified; E78.5 Hyperlipidemia, unspecified; E87.6 Hypokalemia; I10 Essential (primary) hypertension; T42.4X5A Adverse effect of benzodiazepines, initial encounter; Z51.5 Encounter for palliative care; Z66 Do not resuscitate; Z86.73 Personal history of transient ischemic attack (TIA), and cerebral infarction without residual deficits; Z87.891 Personal history of nicotine dependence; Y92.89 Other specified places as the place of occurrence of the external cause
CPT/HCPCS: 36415; 36569; 36600; 70450; 71045; 80048; 80053; 81001; 82040; 82310; 82550; 82805; 82947; 82962; 83605; 83690; 83735; 83880; 84100; 84478; 84484; 85007; 85025; 87040; 87086; 87426; 87804; 93005; 93971; 94002; 94003; 94660; 94760; 96374; 99406; J0295; J0330; J0360; J0696; J1630; J1644; J1815; J1940; J2060; J2250; J2270; J2405; J2704; J2930; J3010; J3475; J3480; J3490; J7030; J7121; U0003; U0005; 99285-25; G0378